=== PATIENT | male | born 1960 | race Caucasian/White ===

== ENCOUNTER 2020-12-26 14:13 | Inpatient (IN) | payer OTHER, BC ==
[~2020-12-26] VITALS: Ht 175.3 cm; Wt 109.7 kg
[~2020-12-26 14:13] MED LIST: ALPR.5T PO; ESCT10T PO; LISI20TA PO; MTH10T PO; OMEP20TA2 PO; ZOLP12.5 PO
[2020-12-26] MEDS ORDERED: HOLD METFORMIN - RECEIVED CONTRAST 20 ML VIAL IV SCH (14:30)
[2020-12-26] MEDS ORDERED: IOHEXOL 350 MG/ML 100 ML (OMNIPAQUE 350) VIAL IV ONE (14:30)
[2020-12-26] MEDS ORDERED: NS 100 ML (IVPB) BAG IV ONE (14:30)
[2020-12-26] MEDS ORDERED: CATHETER FLUSH 10 ML SYR IV PRN ×2 (14:30→19:00)
[2020-12-26] MEDS ORDERED: NS IV 1000 ML 1,000 ML ONE (14:34)
[2020-12-26 14:35] LABS: HEMATOCRIT 44 % (40-54); HEMOGLOBIN 14.8 G/DL (13.3-17.7); LYMPHOCYTES % (AUTO) 7 % (12-44); MEAN CORPUSCULAR HEMOGLOBIN 30 PG (25-34); MEAN CORPUSCULAR HGB CONC 34 G/DL (32-36); MEAN CORPUSCULAR VOLUME 90 FL (80-99); MEAN PLATELET VOLUME 9.5 FL (7.4-10.4); NEUTROPHILS % (AUTO) 88 % (42-75); PLATELET COUNT 357 10^3/uL (130-400); WHITE BLOOD COUNT 25.3 10^3/uL (4.3-11.0)
[2020-12-26 14:36] LABS: BASOPHILS % (AUTO) 0 % (0-10); EOSINOPHILS % (AUTO) 0 % (0-10); LYMPHOCYTES # (AUTO) 1.7 X 10^3 (1.0-4.0); MONOCYTES # (AUTO) 1.3 X 10^3 (0.0-1.0); MONOCYTES % (AUTO) 5 % (0-12); NEUTROPHILS # (AUTO) 22.2 X 10^3 (1.8-7.8)
--- NOTE | 2020-12-26 14:38 | ED Trauma-Multisystem ---
General Stated Complaint: WC SOB; CHEST PAIN; DIAPHORETIC; HEAD W/ LOC History of Present Illness Date Seen by Provider: Dec 26, 2020 Time Seen by Provider: 14:15 Initial Comments 60-year-old male presents with chest pain, diaphoretic, head injury with loss of consciousness, left lower leg injury. 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 This happened around 1030 this morning. At that time patient declined being seen or coming to the ER. Throughout the day he is gotten worsening shortness of breath, some more intense chest pain. Patient does have a pacemaker and is having some pain on the left side of his chest were the cow struck him. Patient reports that he last drank some when the incident happened. He has had not had anything to eat. Patient denies any known allergies. Patient denies any abdominal pain. He does have some mild pain in his upper mid back. He denies any neck pain he denies any nausea or vomiting. He does have reports of some blurry vision. Allergies and Home Medications Allergies Coded Allergies: No Known Drug Allergies (Unverified , 01/11/11) Home Medications Alprazolam 0.5 Mg Tablet, 1 TAB PO TID, (Reported) Escitalopram Oxalate 10 Mg Tablet, 1 EACH PO DAILY, (Reported) Lisinopril 20 Mg Tablet, 20 MG PO DAILY, (Reported) Methadone Hcl 10 Mg Tab, 1 TAB PO QID, (Reported) Omeprazole 20 Mg Tablet.dr, 20 MG PO DAILY, (Reported) Zolpidem Tartrate 12.5 Mg/Bottle Tab.mphase, 12.5 MG PO HS, (Reported) Patient Home Medication List Home Medication List Reviewed: Yes Review of Systems Review of Systems Constitutional: no symptoms reported Eyes: Blurred Vision Ears: Dizziness Nose: No Symptoms Reported Mouth: No Symptoms Reported Throat: No Symptoms to Report Respiratory: see HPI, short of breath Cardiovascular: Chest Pain, Lightheadedness; Denies Palpitations Gastrointestinal: No abdominal pain, No nausea, No vomiting Musculoskeletal: see HPI, back pain Skin: other (Abrasion right shoulder) Psychiatric/Neurological: See HPI Physical Exam Vital Signs Vital Signs - First Documented 12/26/20 14:15 Temp 36.3 Pulse 123 Resp 24 B/P (MAP) 100/61 (74) Pulse Ox 97 O2 Delivery Room Air Height, Weight, BMI Height: '" Weight: lbs. oz. kg; BMI Method: General Appearance: Moderate Distress, Other (Diaphoretic) Head: No Evidence of Injury Eyes: Bilateral Eye PERRL, Bilateral Eye EOMI Neck: Non Tender, Supple Cardiovascular: Tachycardia Respiratory: Lungs Clear, Other (Left anterior chest wall tenderness) Gastrointestinal: Non Tender, Soft Extremity: Normal Capillary Refill, Swelling (Left lower extremity swelling/hematoma) Neurologic/Psychiatric: Alert, Oriented x3 Skin: Diaphoresis Progress/Results/Core Measures Results/Orders Lab Results Laboratory Tests Test 12/26/20 14:20 12/26/20 14:31 Range/Units White Blood Count 25.3 H 4.3-11.0 10^3/uL Red Blood Count 4.93 4.35-5.85 10^6/uL Hemoglobin 14.8 13.3-17.7 G/DL Hematocrit 44 40-54 % Mean Corpuscular Volume 90 80-99 FL Mean Corpuscular Hemoglobin 30 25-34 PG Mean Corpuscular Hemoglobin Concent 34 32-36 G/DL Red Cell Distribution Width 13.3 10.0-14.5 % Platelet Count 357 130-400 10^3/uL Mean Platelet Volume 9.5 7.4-10.4 FL Immature Granulocyte % (Auto) 0 % Neutrophils (%) (Auto) 88 H 42-75 % Lymphocytes (%) (Auto) 7 L 12-44 % Monocytes (%) (Auto) 5 0-12 % Eosinophils (%) (Auto) 0 0-10 % Basophils (%) (Auto) 0 0-10 % Neutrophils # (Auto) 22.2 H 1.8-7.8 X 10^3 Lymphocytes # (Auto) 1.7 1.0-4.0 X 10^3 Monocytes # (Auto) 1.3 H 0.0-1.0 X 10^3 Eosinophils # (Auto) 0.0 0.0-0.3 10^3/uL Basophils # (Auto) 0.0 0.0-0.1 10^3/uL Immature Granulocyte # (Auto) 0.1 0.0-0.1 10^3/uL Neutrophils % (Manual) 79 % Lymphocytes % (Manual) 10 % Monocytes % (Manual) 6 % Eosinophils % (Manual) 0 % Basophils % (Manual) 0 % Band Neutrophils 5 % Prothrombin Time 12.6 12.2-14.7 SEC INR Comment 0.9 0.8-1.4 Activated Partial Thromboplast Time 27 24-35 SEC Sodium Level 135 135-145 MMOL/L Potassium Level 4.5 3.6-5.0 MMOL/L Chloride Level 99 98-107 MMOL/L Carbon Dioxide Level 20 L 21-32 MMOL/L Anion Gap 16 H 5-14 MMOL/L Blood Urea Nitrogen 20 H 7-18 MG/DL Creatinine 2.33 H 0.60-1.30 MG/DL Estimat Glomerular Filtration Rate 29 BUN/Creatinine Ratio 9 Glucose Level 139 H 70-105 MG/DL Calcium Level 9.8 8.5-10.1 MG/DL Corrected Calcium 9.6 8.5-10.1 MG/DL Magnesium Level 1.7 1.6-2.4 MG/DL Total Bilirubin 1.8 H 0.1-1.0 MG/DL Aspartate Amino Transf (AST/SGOT) 50 H 5-34 U/L Alanine Aminotransferase (ALT/SGPT) 44 0-55 U/L Alkaline Phosphatase 85 40-136 U/L Total Protein 7.6 6.4-8.2 GM/DL Albumin 4.3 3.2-4.5 GM/DL Glucometer 136 H 70-110 MG/DL My Orders Orders - ROMEO,ROSALIA L DO Ct Head Wo (12/26/20 14:18) Cbc With Automated Diff (12/26/20 14:18) Comprehensive Metabolic Panel (12/26/20 14:18) Magnesium (12/26/20 14:18) Protime With Inr (12/26/20 14:18) Partial Thromboplastin Time (12/26/20 14:18) Ua Culture If Indicated (12/26/20 14:18) Chest 1 View Ap/Pa Only (12/26/20 14:18) Femur 2 View Left (12/26/20 14:18) Tibia Fibula 2 View Left (12/26/20 14:18) Ed Iv/Invasive Line Start (12/26/20 14:18) Ekg Tracing (12/26/20 14:22) Ct Chest/Abdomen/Pelvis W (12/26/20 14:18) Ct Cervical Spine Wo (12/26/20 14:25) Iohexol Injection (Omnipaque 350 Mg/Ml 1 (12/26/20 14:30) Received Contrast (Hold Metformin- Contr (12/26/20 14:30) Sodium Chloride Flush (Catheter Flush Sy (12/26/20 14:30) Ns (Ivpb) (Sodium Chloride 0.9% Ivpb Bag (12/26/20 14:30) Manual Differential (12/26/20 14:20) Ns Iv 1000 Ml (Sodium Chloride 0.9%) (12/26/20 14:34) Ns Iv 1000 Ml (Sodium Chloride 0.9%) (12/26/20 15:11) Fentanyl Inj (Sublimaze Injection) (12/26/20 16:08) Medications Given in ED Current Medications Medications Dose Ordered Sig/Mounika Route Start Time Stop Time Status Last Admin Dose Admin Iohexol 100 ml ONCE ONCE IV 12/26/20 14:30 12/26/20 14:31 DC 12/26/20 14:53 100 ML Sodium Chloride 10 ml NEEDED PRN IV 12/26/20 14:30 12/26/20 14:53 10 ML Sodium Chloride 100 ml ONCE ONCE IV 12/26/20 14:30 12/26/20 14:31 DC 12/26/20 14:53 100 ML Vital Signs/I&O 12/26/20 12/26/20 14:15 14:48 Temp 36.3 36.3 Pulse 123 123 Resp 24 24 B/P (MAP) 100/61 (74) 100/61 (74) Pulse Ox 97 97 O2 Delivery Room Air Room Air Progress Progress Note : Progress Note Patient had approximately 45 seconds to 60 seconds episode of decreased responsiveness, he did have a drop of oxygen at that time, stared off into space and was nonresponsive. Patient was extremely diaphoretic during the episode. I am unsure if this was a vagal syncopal episode versus cardiac event versus a seizure. Patient with negative imaging including negative CT head, CT neck and no significant acute finding on CT chest abdomen pelvis. Patient does have a minor potential T3 compression fracture however patient is diffusely tender in his back area with no significant point tenderness at that area. Based on patient's unresponsive episode we will place him in observation at [facility]. Case was discussed with Dr. hBatt, Dr. Greenfield and Dr. Thurman. Patient is transferred in stable condition. Initial ECG Impression Date: Dec 26, 2020 Initial ECG Impression Time: 14:27 Initial ECG Rate: 100 Initial ECG Rhythm: S.Tach Initial ECG Intervals qtc 480 Comment no acute findings Diagnostic Imaging Diagonstic Imaging: CT Plain Films/CT/US/NM/MRI: head Comments IMPRESSION: Negative CT head Reviewed: Reviewed by Me, Reviewed/Discussed Diagonstic Imaging: CT Plain Films/CT/US/NM/MRI: c-spine Comments NDICATION: Neck injury, hit by bull Vertebral body height and alignment appear normal. The odontoid is intact. Atlantoaxial and basocervical relationships appear normal. There are no fractures seen. IMPRESSION: Negative CT cervical spine Reviewed: Reviewed by Me, Reviewed/Discussed Diagonstic Imaging: CT Plain Films/CT/US/NM/MRI: chest, abdomen, pelvis Comments MPRESSION: 1. Age-indeterminate compression deformity at the superior endplate of T3 with minimal height loss. Recommend correlation with point tenderness and if indicated MRI of the thoracic spine to further evaluate. 2. No evidence of pneumothorax or pleural effusion. No pulmonary laceration. 3. No evidence of acute injury in the abdomen and pelvis. No free fluid or free air. 4. indeterminate nodule in the left adrenal gland. If indicated, consider adrenal protocol CT or MRI on an outpatient basis to further evaluate. 5. Diverticulosis of the sigmoid colon without evidence of acute diverticulitis. Reviewed: Reviewed by Me, Reviewed/Discussed Diagonstic Imaging: Xray Plain Films/CT/US/NM/MRI: other Comments Negative x-rays of chest, femur and tib-fib. Reviewed: Reviewed by Me, Reviewed/Discussed Departure Impression Primary Impression: Concussion Qualified Codes: S06.0X1A - Concussion with loss of consciousness of 30 minutes or less, initial encounter Additional Impressions: Episode of unresponsiveness Chest wall contusion Qualified Codes: S20.212A - Contusion of left front wall of thorax, initial encounter Hematoma of left lower extremity Qualified Codes: S80.12XA - Contusion of left lower leg, initial encounter Victim of trampling from animal Disposition: 30 STILL A PATIENT Condition: Stable Admissions Decision to Admit Reason: Admit from ER (General) Decision to Admit/Date: Dec 26, 2020 Time/Decision to Admit Time: 15:45 Departure-Patient Inst. Referrals: MANDY HURTADO DO (PCP/Family) Primary Care Physician ROSALIA ROMEO DO Dec 26, 2020 14:38
[2020-12-26 14:46] LABS: INR 0.9 (0.8-1.4); PROTHROMBIN TIME PATIENT 12.6 SEC (12.2-14.7)
[2020-12-26 14:52] LABS: POTASSIUM 4.5 MMOL/L (3.6-5.0)
[2020-12-26 14:53] LABS: ALBUMIN 4.3 GM/DL (3.2-4.5); BILIRUBIN,TOTAL 1.8 MG/DL (0.1-1.0); CALCIUM 9.8 MG/DL (8.5-10.1); CREATININE SERUM 2.33 MG/DL (0.60-1.30); MAGNESIUM 1.7 MG/DL (1.6-2.4); NEUTROPHILS % (MANUAL) 79 %; TOTAL PROTEIN 7.6 GM/DL (6.4-8.2)
[2020-12-26 14:54] LABS: BAND NEUTROPHILS 5 %; BASOPHILS % (MANUAL) 0 %; EOSINOPHILS % (MANUAL) 0 %; LYMPHOCYTES % (MANUAL) 10 %; MONOCYTES % (MANUAL) 6 %
--- NOTE | 2020-12-26 15:09 | Diagnostic Imaging Report ---
PROCEDURE: CT head without contrast. TECHNIQUE: Multiple contiguous axial images were obtained through the brain without the use of intravenous contrast. Auto Exposure Controls were utilized during the CT exam to meet ALARA standards for radiation dose reduction. INDICATION: Head trauma, hit by bull The ventricles are normal in size, shape and position. There are no masses or hemorrhages. There are no extra-axial fluid collections. There are no skull fractures seen. IMPRESSION: Negative CT head Dictated by: Dictated on workstation # [id number]
[2020-12-26] MEDS ORDERED: NS IV 1000 ML 1,000 ML IV STA (15:11)
--- NOTE | 2020-12-26 15:11 | Diagnostic Imaging Report ---
PROCEDURE: CT cervical spine without contrast. TECHNIQUE: Multiple contiguous axial images were obtained through the cervical spine without the use of intravenous contrast. Sagittal and coronal reformations were then performed. Auto Exposure Controls were utilized during the CT exam to meet ALARA standards for radiation dose reduction. INDICATION: Neck injury, hit by bull Vertebral body height and alignment appear normal. The odontoid is intact. Atlantoaxial and basocervical relationships appear normal. There are no fractures seen. IMPRESSION: Negative CT cervical spine Dictated by: Dictated on workstation # [id number]
--- NOTE | 2020-12-26 15:18 | Diagnostic Imaging Report ---
EXAMINATION: CT chest, abdomen and pelvis with intravenous contrast. TECHNIQUE: Multiple contiguous axial images were obtained through the chest, abdomen and pelvis after the uneventful administration of intravenous contrast. All CT scans use one or more of the following dose optimizing techniques: automated exposure control, MA and/or KvP adjustment based on patient size and exam type or iterative reconstruction. HISTORY: Trauma. Hit by a bull. Abrasions in the torso. COMPARISON: None available. FINDINGS: CT CHEST: The heart size is within normal limits. No pericardial effusion is present. A left pectoral dual-chamber pacemaker is noted. No evidence of pulmonary embolism in subsegmental pulmonary arteries. The thoracic aorta is normal. There is no mediastinal, hilar, or axillary lymphadenopathy. Calcified mediastinal lymph nodes are noted likely representing prior granulomatous disease. The lungs demonstrate no pulmonary nodules or masses. There are no focal areas of consolidation. Dependent atelectasis is seen bilaterally. No central endobronchial obstructing lesions are identified. There are no pleural effusions or pneumothorax. Age-indeterminate compression deformity is visualized involving the superior endplate of T3 with minimal height loss. CT ABDOMEN AND PELVIS: The left kidney is surgically absent. The right kidney is unremarkable. Nodule seen in the left adrenal gland measuring 1.6 cm. The right renal gland is unremarkable. The liver, spleen, and pancreas have a normal appearance. The gallbladder is surgically absent. There is no pathologically enlarged mesenteric or retroperitoneal adenopathy. The bowel loops are nondilated. Diverticuli are seen in the descending and sigmoid colon without evidence of acute diverticulitis. There is no free fluid or free air. The osseous structures demonstrate no acute abnormalities. Ureters and bladder have a normal appearance. Bilateral fat-containing inguinal hernias are present. There is no free air, loculated collection, or adenopathy in the pelvis. IMPRESSION: 1. Age-indeterminate compression deformity at the superior endplate of T3 with minimal height loss. Recommend correlation with point tenderness and if indicated MRI of the thoracic spine to further evaluate. 2. No evidence of pneumothorax or pleural effusion. No pulmonary laceration. 3. No evidence of acute injury in the abdomen and pelvis. No free fluid or free air. 4. indeterminate nodule in the left adrenal gland. If indicated, consider adrenal protocol CT or MRI on an outpatient basis to further evaluate. 5. Diverticulosis of the sigmoid colon without evidence of acute diverticulitis. Dictated by: Dictated on workstation # [id number]
--- NOTE | 2020-12-26 15:29 | Diagnostic Imaging Report ---
INDICATION: Trauma, chest injury. EXAMINATION: Portable chest at 3:06 p.m. There is a dual-chamber is no effusion or pneumothorax. IMPRESSION: Negative chest. Dictated by: Dictated on workstation # [id number]
--- NOTE | 2020-12-26 15:30 | Diagnostic Imaging Report ---
Indication: Trauma, left leg injury AP and lateral views of the left femur show no fracture or dislocation. IMPRESSION: Negative left femur Dictated by: Dictated on workstation # [id number]
--- NOTE | 2020-12-26 15:31 | Diagnostic Imaging Report ---
Indication: Left leg injury AP lateral views of left tibia-fibula show old healed fracture of the midshaft of the fibula. There is no acute fracture or dislocation. IMPRESSION: No acute abnormality seen in the left tibia and fibula. Dictated by: Dictated on workstation # [id number]
[2020-12-26] MEDS ORDERED: fentaNYL INJ 100 MCG/2 ML AMP IVP STA (16:08)
[2020-12-26 18:18] VITALS: BP 130/74
[2020-12-26] MEDS ORDERED: NITROGLYCERIN 0.4 MG SL TABS BTL 25'S SL PRN (19:45)
[2020-12-26] MEDS ORDERED: LOPERAMIDE 2 MG (IMODIUM) TABLET PO PRN (20:15)
[2020-12-26] MEDS ORDERED: ONDANSETRON 4 MG/2 ML (SDV) Z0FRAN IVP PRN (20:15)
[2020-12-26] MEDS ORDERED: DOCUSATE SODIUM 100 MG (COLACE) CAP PO PRN (20:15)
[2020-12-26] MEDS ORDERED: diphenhydrAMINE 25 MG TAB (BENADRYL) PO PRN (20:15)
[2020-12-26] MEDS ORDERED: CALCIUM CARBONATE 500 MG (TUMS) TAB.CHEW PO PRN (20:15)
[2020-12-26] MEDS ORDERED: MELATONIN 3 MG TABLET PO PRN (20:15)
[2020-12-26] MEDS ORDERED: ALPRAZolam 0.25 MG (XANAX) TAB PO PRN (20:15)
[2020-12-26] MEDS ORDERED: ACETAMINOPHEN 500 MG TAB (TYLENOL) PO PRN (20:15)
[2020-12-26 20:19] LABS: CREATINE KINASE 1851 U/L (30-200)
[2020-12-26 20:29] VITALS: BP 146/80
[2020-12-26] MEDS: fentaNYL INJ 100 MCG/2 ML AMP IVP PRN (20:40)
--- NOTE | 2020-12-26 21:22 | Consultation - Surgery ---
History of Present Illness History of Present Illness Patient Consulted On(rafaela/time) 12/26/20 21:15 Time Seen by Provider: 20:43 History of Present Illness Surgery asked to consult regarding Trauma, Left leg swelling. HPI per ED: 60-year-old male presents with chest pain, diaphoretic, head inju ry with loss of consciousness, left lower leg injury. 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 This happened around 1030 this morning. At that time patient declined being seen or coming to the ER. Throughout the day he is gotten worsening shortness of breath, some more intense chest pain. Patient does have a pacemaker and is having some pain on the left side of his chest were the cow struck him. Patient reports that he last drank some when the incident happened. He has had not had anything to eat. Patient denies any known allergies. Patient denies any abdominal pain. He does have some mild pain in his upper mid back. He denies any neck pain he denies any nausea or vomiting. He does have reports of some blurry vision. When I spoke to pt his main complaint was of the left leg; "I can't feel anything on the back of my leg." He also still had some chest pain, but denied SOB at this time. Pt got rammed and then trampled by cow. He doesn't remember it because he lost consciousness. All his scans were negative, but then he had syncopal episode or possibly seizure (per ED physician ). Therefore, he was admitted to medicine since from Trauma standpoint everything was negative. I got a phone call because nurse was worried about his left leg being swollen. Allergies and Home Medications Allergies Coded Allergies: No Known Drug Allergies (Unverified , 01/11/11) Home Medications Alprazolam 0.5 Mg Tablet, 1 TAB PO TID, (Reported) Escitalopram Oxalate 10 Mg Tablet, 1 EACH PO DAILY, (Reported) Lisinopril 20 Mg Tablet, 20 MG PO DAILY, (Reported) Methadone Hcl 10 Mg Tab, 1 TAB PO QID, (Reported) Omeprazole 20 Mg Tablet.dr, 20 MG PO DAILY, (Reported) Zolpidem Tartrate 12.5 Mg/Bottle Tab.mphase, 12.5 MG PO HS, (Reported) Patient Home Medication List Home Medication List Reviewed: Yes Past Kmvgtim-Syrscj-Lsbcri Hx Patient Social History Smoking Status: Never a Smoker Alcohol Use?: Yes (rarely) Have you traveled recently?: No Surgeries History of Surgeries: Yes Surgeries: Orthopedic Respiratory History of Respiratory Disorde: No Cardiovascular History of Cardiac Disorders: Yes Cardiac Disorders: High Cholesterol, Hypertension Genitourinary History of Genitourinary Disor: No Gastrointestinal History of Gastrointestinal Di: Yes Gastrointestinal Disorders: Gastroesophageal Reflux Musculoskeletal History of Musculoskeletal Dis: Yes Musculoskeletal Disorders: Back Injury, Fractures Endocrine History of Endocrine Disorders: No HEENT History of HEENT Disorders: No Cancer History of Cancer: No Psychosocial History of Psychiatric Problem: Yes Behavioral Health Disorders: Anxiety, Depression Integumentary History of Skin or Integumenta: No Family Medical History Significant Family History: Heart Disease (Mother), Hypertension Review of Systems-General Constitutional: No chills, No dizziness EENTM: blurred vision; No mouth pain, No mouth swelling, No epistaxis, No throat swelling Respiratory: No cough, No dyspnea on exertion, No short of breath Cardiovascular: chest pain; No palpitations Gastrointestinal: abdominal pain; No jaundice, No nausea, No vomiting Genitourinary: No dysuria, No frequency, No hematuria Musculoskeletal: back pain, joint pain, joint swelling, muscle pain, muscle stiffness, muscle cramps, muscle weakness Skin: No change in color, No change in hair/nails Psychiatric/Neurological: Anxiety, Depressed; Denies Seizure, Denies Tremors Physical Exam-General Problems Physical Exam Vital Signs Vital Signs - First Documented 12/26/20 14:15 Temp 36.3 Pulse 123 Resp 24 B/P (MAP) 100/61 (74) Pulse Ox 97 O2 Delivery Room Air Capillary Refill : Less Than 3 Seconds General Appearance: WD/WN, mild distress, obese Eyes: Bilateral Eye PERRL, Bilateral Eye EOMI HEENT: pharynx normal; No scleral icterus (R), No scleral icterus (L), No pale conjunctivae (R), No pale conjunctivae (L) Neck: non-tender, supple Respiratory: lungs clear, normal breath sounds, no respiratory distress, no accessory muscle use Cardiovascular: regular rate, rhythm, no murmur Gastrointestinal: non tender, soft, no organomegaly, hernia (umbilical and ??b/l inguinal) Back: CVA tenderness (R), CVA tenderness (L), vertebral tenderness Extremities: pedal edema (left), slow capillary refill (left), swelling (left, much bigger than right), other (large hematoma above knee posteriorly. 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, alert, oriented x 3 Skin: normal color, warm/dry, other (large abrasion right posterior shoulder) Lymphatic: no adenopathy (neck, axilla or groin) Data Review Labs Laboratory Tests 12/26/20 14:20: White Blood Count 25.3H, Red Blood Count 4.93, Hemoglobin 14.8, Hematocrit 44, Mean Corpuscular Volume 90, Mean Corpuscular Hemoglobin 30, Mean Corpuscular Hemoglobin Concent 34, Red Cell Distribution Width 13.3, Platelet Count 357, Mean Platelet Volume 9.5, Immature Granulocyte % (Auto) 0, Neutrophils (%) (Auto) 88H, Lymphocytes (%) (Auto) 7L, Monocytes (%) (Auto) 5, Eosinophils (%) (Auto) 0, Basophils (%) (Auto) 0, Neutrophils # (Auto) 22.2H, Lymphocytes # (Auto) 1.7, Monocytes # (Auto) 1.3H, Eosinophils # (Auto) 0.0, Basophils # (Auto) 0.0, Immature Granulocyte # (Auto) 0.1, Neutrophils % (Manual) 79, Lymphocytes % (Manual) 10, Monocytes % (Manual) 6, Eosinophils % (Manual) 0, Basophils % (Manual) 0, Band Neutrophils 5, Prothrombin Time 12.6, INR Comment 0.9, Activated Partial Thromboplast Time 27, Sodium Level 135, Potassium Level 4.5, Chloride Level 99, Carbon Dioxide Level 20L, Anion Gap 16H, Blood Urea Nitrogen 20H, Creatinine 2.33H, Estimat Glomerular Filtration Rate 29, BUN/Creatinine Ratio 9, Glucose Level 139H, Calcium Level 9.8, Corrected Calcium 9.6, Magnesium Level 1.7, Total Bilirubin 1.8H, Aspartate Amino Transf (AST/SGOT) 50H, Alanine Aminotransferase (ALT/SGPT) 44, Alkaline Phosphatase 85, Total Protein 7.6, Albumin 4.3 12/26/20 14:31: Glucometer 136H 12/26/20 19:52: Total Creatine Kinase 1851H, Myoglobin 1449.2H, Troponin I < 0.028 Assessment/Plan Assessment/Plan Assessment/Plan Trauma - trampled by cow Abrasion right shoulder Left leg swelling - r/o Compartment syndrome Closed Head injury - concussion with LOC I had ER come up and help me get compartment pressures; Superficial 26mm Hg, Lat eral 16mm Hg, Anterior 23mm Hg and Deep 23mm Hg. He has pallor, paresthesia, faint pulse, weakness and pain out of proportion (with just passive stretch); so clinically I am very concerned. Will monitor his leg and may recheck pressures tomorrow. Will follow labs and watch out for Rhabdomyalsis, explained all this to the pt and his ; they understood. All questions answered to their satisfaction. RADHA WALTERS DO Dec 26, 2020 21:22
[2020-12-26] MEDS: HYDROcodone/APAP 5 MG/325 MG (LORTAB) TAB PO PRN (22:02)
[2020-12-26] MEDS: SENNA W/DOCUSATE (SENOKOT S) TABLET PO SCH (22:02)
[2020-12-26] MEDS: polyethylene glycoL POWDER 17 GM (MIRALAX) PACK PO SCH (22:03)
[2020-12-26] MEDS: CATHETER FLUSH 10 ML SYR IV SCH (22:03)
[2020-12-26] MEDS: NS IV 1000 ML 1,000 ML IV SCH (22:25)
[2020-12-26] MEDS: HYDROmorphone 2 MG/ML VIAL (DILAUDID) IVP PRN (23:30)
[2020-12-27] MEDS: HYDROcodone/APAP 5 MG/325 MG (LORTAB) TAB PO PRN ×2 (02:06→07:55)
--- NOTE | 2020-12-27 02:57 | Tele-ICU Progress Note ---
Progress Note 60M admitted for trauma about 6 hours after being rammed and then trampled by a cow. Did have initial LOC, but declined hospital evaluation. Throughout the day, chest pain and dyspnea has gotten progressively worse. Also with significant leg pain and swelling. In ED, had 45-60 sec episode of decreased responsiveness, stared off into space and was nonresponsive, diaphoretic, mildly hypoxic. Unclear whether syncope or seizure. Noted to have an age indeterminate T3 compression fracture. - concussion: head trauma with LOC of unknown duration. Monitor, supportive care. - compartment syndrome: leg evaluated by surgery, compartment pressures checked and OK but clinical condition is still concerning for compartment syndrome, CK and myoglobin elevated, pain out of proportion to injury, significant swelling. Surgery is monitoring. Probable repeat compartment pressures in AM. Will trend CK and myoglobin. - CP/SOB: no identifiable injury. Noted to have pacemaker at the location he was kicked. Would interogate in AM. - MARIMAR on CKD: baseline unknown but was 1.4 in 2010, today 2.3. Unknown whether progression of baseline or MARIMAR. Repeat in AM. High risk for rhabdo, continue IVF and CK monitoring. Focused Exam Height, Weight, BMI Height: '" Weight: lbs. oz. kg; 35.66 BMI Method: LOIS MCPHERSON MD Dec 27, 2020 02:57
[2020-12-27] MEDS: HYDROmorphone 2 MG/ML VIAL (DILAUDID) IVP PRN (05:04)
[2020-12-27] MEDS: CATHETER FLUSH 10 ML SYR IV SCH ×3 (05:27→20:36)
[2020-12-27 05:56] LABS: BASOPHILS % (AUTO) 0 % (0-10); EOSINOPHILS # (AUTO) 0.1 10^3/uL (0.0-0.3); EOSINOPHILS % (AUTO) 1 % (0-10); HEMATOCRIT 38 % (40-54); HEMOGLOBIN 12.6 g/dL (13.3-17.7); LYMPHOCYTES % (AUTO) 22 % (12-44); MEAN CORPUSCULAR HEMOGLOBIN 31 pg (25-34); MEAN CORPUSCULAR HGB CONC 33 g/dL (32-36); MEAN CORPUSCULAR VOLUME 93 fL (80-99); MEAN PLATELET VOLUME 9.6 fL (9.0-12.2); MONOCYTES # (AUTO) 0.9 10^3/uL (0.0-1.0); MONOCYTES % (AUTO) 10 % (0-12); NEUTROPHILS # (AUTO) 6.2 10^3/uL (1.8-7.8); NEUTROPHILS % (AUTO) 68 % (42-75); PLATELET COUNT 215 10^3/uL (130-400); WHITE BLOOD COUNT 9.1 10^3/uL (4.3-11.0)
[2020-12-27 06:08] LABS: ALBUMIN 3.6 GM/DL (3.2-4.5); POTASSIUM 4.6 MMOL/L (3.6-5.0)
[2020-12-27 06:09] LABS: CALCIUM 8.5 MG/DL (8.5-10.1)
[2020-12-27 06:10] LABS: TOTAL PROTEIN 6.1 GM/DL (6.4-8.2)
[2020-12-27 06:14] LABS: CREATININE SERUM 1.68 MG/DL (0.60-1.30)
[2020-12-27 06:49] LABS: PHOSPHORUS 4.4 MG/DL (2.3-4.7)
[2020-12-27 06:51] LABS: MAGNESIUM 1.9 MG/DL (1.6-2.4)
[2020-12-27 07:32] LABS: CREATINE KINASE MB 13.7 NG/ML (<6.6)
[2020-12-27] MEDS: polyethylene glycoL POWDER 17 GM (MIRALAX) PACK PO SCH ×2 (07:45→20:35)
[2020-12-27] MEDS: SENNA W/DOCUSATE (SENOKOT S) TABLET PO SCH ×2 (07:46→20:35)
[2020-12-27] MEDS: NS IV 1000 ML 1,000 ML IV SCH ×2 (07:55→15:11)
--- NOTE | 2020-12-27 08:15 | Progress Note - Surgery ---
CASSIELUIS 12/27/20 0815: Subjective Date Seen by a Provider: Dec 27, 2020 Time Seen by a Provider: 06:30 Subjective/Events-last exam Pt recovering from tumatic injury associated with cow to chest and leg. Left lower leg selling has reduced form 44-42cm since yesterday and myglobin is falling from 1449-990 since yesterday. Pain, tenderness and parathesia to posterior leg contiue. Sensation to touch present on dorsal and pedal surfaces of foot, however left dorsal pedal pulse still remains deminished compared to right, likely due to some swelling at the left ankle as well. Review of Systems General: No Chills, No Night Sweats; Fatigue HEENT: No Head Aches, No Visual Changes, No Eye Pain, No Ear Pain Pulmonary: No Dyspnea, No Cough Cardiovascular: No: Palpitations, Lt Headedness Gastrointestinal: Abdominal Pain; No: Nausea, Vomiting Musculoskeletal: other, leg pain, foot pain Neurological: Numbness; No: Weakness, Change in speech, Confusion Objective Exam Vital Signs Date Time Temp Pulse Resp B/P (MAP) Pulse Ox O2 Delivery O2 Flow Rate FiO2 12/27/20 07:51 36.2 12/27/20 07:00 70 12/27/20 06:00 70 13 110/73 (85) 96 Room Air 12/27/20 05:10 36.4 12/27/20 05:05 Room Air 12/27/20 05:00 70 15 113/80 (91) 99 Nasal Cannula 2.00 12/27/20 04:00 70 10 113/66 (82) 98 Nasal Cannula 2.00 12/27/20 04:00 Nasal Cannula 2.00 12/27/20 03:00 69 10 106/63 (77) 97 Nasal Cannula 2.00 12/27/20 02:00 70 12 113/58 (76) 97 Nasal Cannula 2.00 12/27/20 01:00 70 10 97/56 (70) 96 Nasal Cannula 2.00 12/27/20 01:00 70 12/27/20 00:00 Nasal Cannula 2.00 12/27/20 00:00 69 12 106/53 (70) 95 Nasal Cannula 2.00 12/26/20 23:30 70 15 109/59 (76) 96 Nasal Cannula 2.00 12/26/20 23:00 69 17 112/62 (79) 97 Nasal Cannula 2.00 12/26/20 22:45 70 22 120/63 (82) 96 Nasal Cannula 2.00 12/26/20 22:35 Nasal Cannula 2.00 12/26/20 22:30 70 13 120/63 (82) 98 Nasal Cannula 4.00 12/26/20 22:10 36.7 70 22 121/79 (93) 98 Nasal Cannula 4.00 12/26/20 20:40 Nasal Cannula 2.00 12/26/20 20:29 36.6 70 20 146/80 (102) 99 Nasal Cannula 2.00 12/26/20 19:55 70 12/26/20 18:18 36.6 71 18 130/74 (92) 99 Nasal Cannula 2.00 12/26/20 18:18 99 Nasal Cannula 2.00 12/26/20 16:01 70 18 112/43 99 Room Air 12/26/20 14:48 36.3 123 24 100/61 (74) 97 Room Air 12/26/20 14:15 36.3 123 24 100/61 (74) 97 Room Air I & O 12/27/20 07:00 Intake Total 2820 ml Output Total 650 ml Balance 2170 ml Capillary Refill : Less Than 3 Seconds General Appearance: Mild Distress, Other (Diaphoretic) HEENT: PERRL/EOMI, Pharynx Normal, Moist Mucous Membranes Neck: Non Tender, Supple Respiratory: Lungs Clear, Normal Breath Sounds, Other (Left anterior chest wall tenderness and decreased chest rise secondary to pain) Cardiovascular: Regular Rate, Rhythm, No Edema, No Gallop, No Murmur Peripheral Pulses: 2+ Dorsalis Pedis (R); 1+ Left Dors-Pedis (L); 2+ Radial Pulses (R), 2+ Radial Pulses (L) Gastrointestinal: soft, no organomegaly, guarding, tenderness (left sided tenderness LUQ and LLQ) Extremity: Normal Capillary Refill, Calf Tenderness (left side), Swelling (Left lower extremity swelling/hematoma (deminished 44 to 42cm since yesterday)) Neurologic/Psychiatric: Alert, Oriented x3, Normal Mood/Affect, front tender II-XII Norm as Tested Skin: Normal Color, Warm/Dry Results Lab Laboratory Tests 12/26/20 14:20: White Blood Count 25.3H, Red Blood Count 4.93, Hemoglobin 14.8, Hematocrit 44, Mean Corpuscular Volume 90, Mean Corpuscular Hemoglobin 30, Mean Corpuscular Hemoglobin Concent 34, Red Cell Distribution Width 13.3, Platelet Count 357, Mean Platelet Volume 9.5, Immature Granulocyte % (Auto) 0, Neutrophils (%) (Auto) 88H, Lymphocytes (%) (Auto) 7L, Monocytes (%) (Auto) 5, Eosinophils (%) (Auto) 0, Basophils (%) (Auto) 0, Neutrophils # (Auto) 22.2H, Lymphocytes # (Auto) 1.7, Monocytes # (Auto) 1.3H, Eosinophils # (Auto) 0.0, Basophils # (Auto) 0.0, Immature Granulocyte # (Auto) 0.1, Neutrophils % (Manual) 79, Lymphocytes % (Manual) 10, Monocytes % (Manual) 6, Eosinophils % (Manual) 0, Basophils % (Manual) 0, Band Neutrophils 5, Prothrombin Time 12.6, INR Comment 0.9, Activated Partial Thromboplast Time 27, Sodium Level 135, Potassium Level 4.5, Chloride Level 99, Carbon Dioxide Level 20L, Anion Gap 16H, Blood Urea Nitrogen 20H, Creatinine 2.33H, Estimat Glomerular Filtration Rate 29, BUN/Creatinine Ratio 9, Glucose Level 139H, Calcium Level 9.8, Corrected Calcium 9.6, Magnesium Level 1.7, Total Bilirubin 1.8H, Aspartate Amino Transf (AST/SGOT) 50H, Alanine Aminotransferase (ALT/SGPT) 44, Alkaline Phosphatase 85, Total Protein 7.6, Albumin 4.3 12/26/20 14:31: Glucometer 136H 12/26/20 19:52: Total Creatine Kinase 1851H, Myoglobin 1449.2H, Troponin I < 0.028 12/27/20 04:57: Magnesium Level 1.9, Total Creatine Kinase 1394H, Myoglobin 990.4H, Phosphorus Level 4.4, Creatine Kinase MB 13.7*H 12/27/20 05:40: White Blood Count 9.1, Red Blood Count 4.07L, Hemoglobin 12.6L, Hematocrit 38L, Mean Corpuscular Volume 93, Mean Corpuscular Hemoglobin 31, Mean Corpuscular Hemoglobin Concent 33, Red Cell Distribution Width 13.5, Platelet Count 215, Mean Platelet Volume 9.6, Immature Granulocyte % (Auto) 0, Neutrophils (%) (Auto) 68, Lymphocytes (%) (Auto) 22, Monocytes (%) (Auto) 10, Eosinophils (%) (Auto) 1, Basophils (%) (Auto) 0, Neutrophils # (Auto) 6.2, Lymphocytes # (Auto) 2.0, Monocytes # (Auto) 0.9, Eosinophils # (Auto) 0.1, Basophils # (Auto) 0.0, Immature Granulocyte # (Auto) 0.0, Sodium Level 137, Potassium Level 4.6, Chloride Level 106, Carbon Dioxide Level 21, Anion Gap 10, Blood Urea Nitrogen 20H, Creatinine 1.68H, Estimat Glomerular Filtration Rate 42, BUN/Creatinine Ratio 12, Glucose Level 122H, Calcium Level 8.5, Corrected Calcium 8.8, Total Bilirubin 2.0H, Aspartate Amino Transf (AST/SGOT) 43H, Alanine Aminotransferase (ALT/SGPT) 41, Alkaline Phosphatase 62, Total Protein 6.1L, Albumin 3.6 Assessment/Plan Assessment/Plan Assessment/Plan Trauma - trampled by cow Abrasion right shoulder Abrasion left popliteal fossa Left leg swelling - r/o Compartment syndrome Closed Head injury - concussion with LOC Plan - Still has paresthesia, faint pulse, weakness and pain out of proportion (with just passive stretch) to left lower leg. Monitor his leg and may recheck pressures. Follow labs and watch out for Rhabdomyalsis - myoglobin falling 1449 to 990 today TOBI GREENFIELD 12/27/20 1651: Subjective Time Seen by a Provider: 11:19 Subjective/Events-last exam Pt seen and examined, states leg is about same; not worse. He got moved to ICU last night because of chest pain. Review of Systems General: Fatigue Pulmonary: No Dyspnea, No Cough Cardiovascular: Chest Pain; No: Palpitations Gastrointestinal: No: Nausea, Vomiting, Abdominal Pain Musculoskeletal: leg pain, foot pain Neurological: Numbness (left leg and foot) Objective Exam General Appearance: No Apparent Distress, Obese HEENT: PERRL/EOMI, Moist Mucous Membranes Respiratory: Lungs Clear, Normal Breath Sounds Cardiovascular: Regular Rate, Rhythm, No Murmur Gastrointestinal: soft, no organomegaly Extremity: Calf Tenderness (left side), Swelling (Left lower extremity swellin g/hematoma (diminished 44 to 42cm since yesterday)) Assessment/Plan Assessment/Plan Assessment/Plan Trauma - trampled by cow Abrasion right shoulder Abrasion left popliteal fossa Left leg swelling - r/o Compartment syndrome Closed Head injury - concussion with LOC Plan - Still has paresthesia, faint pulse, weakness and pain out of proportion (with just passive stretch) to left lower leg. Monitor his leg and may recheck pressures. Follow labs and watch out for Rhabdomyalsis - myoglobin falling 1449 to 990 today Supervisory-Addendum Brief Verification & Attestation Participated in pt care: history, MDM, physical Personally performed: exam, history, MDM, supervision of care Care discussed with: Medical Student Procedures: n/a Verification and Attestation of Medical Student E/M Service A medical student performed and documented this service. I then reviewed and verified all information documented by the medical student and made modifications to such information, when appropriate. I personally performed a physical exam, medical decision making and then discussed any differences be tween the notes and made revisions as necessary to create one note. Tobi Greenfield , 12/27/20 , 16:51 LUIS MATTHEWS Dec 27, 2020 08:15 TOBI GREENFIELD DO Dec 27, 2020 16:51
--- NOTE | 2020-12-27 11:43 | Consultation-Cardiology ---
HPI-Cardiology Cardiology Consultation Date of Consultation 12/27/20 Date of Admission Time Seen by Provider: 11:39 Indication: Chest pain HPI 60 years old gentleman with a history of coronary artery disease, permanent pacemaker, sustained multiple injuries after being attacked by a cow. While he was in the emergency room he had a syncopal episode. He was admitted for observation and while he is in the hospital he started to have chest pain described it as dull in nature radiating to his back. Requested to take his sublingual nitroglycerin which he has been taking at home for coronary artery disease. EKG did not show any acute abnormality. Patient was transferred to ICU. On my evaluation he was feeling better, still having chest pain on and off, appeared to be reproducible, 2 sets of cardiac enzymes were negative, Home Medications & Allergies Allergies: Coded Allergies: No Known Drug Allergies (Unverified , 01/11/11) Home Medication List Reviewed: Yes OTL-[id number]-Bwicpf Hx Patient Social History Marital Status: Employed/Student: employed Smoking Status: Never a Smoker Have you traveled recently?: No Alcohol Use?: Yes (rarely) Past Medical History Discussed below Family Medical History Significant Family History: Heart Disease (Mother), Hypertension Family Medical Hx Noncontributory Review of Systems-General Review of Systems Constitutional: see HPI; No chills, No dizziness EENTM: see HPI, blurred vision; No mouth pain, No mouth swelling, No epistaxis, No throat swelling Respiratory: see HPI; No cough, No dyspnea on exertion, No short of breath Cardiovascular: see HPI, chest pain; No palpitations Gastrointestinal: see HPI, abdominal pain; No jaundice, No nausea, No vomiting Genitourinary: see HPI; No dysuria, No frequency, No hematuria Musculoskeletal: see HPI, back pain, joint pain, joint swelling, muscle pain, muscle stiffness, muscle cramps, muscle weakness Skin: see HPI; No change in color, No change in hair/nails Psychiatric/Neurological: See HPI, Anxiety, Depressed; Denies Seizure, Denies Tremors Reviewed Test Results Reviewed Test Results Lab Laboratory Tests Test 12/26/20 14:20 12/26/20 14:31 12/26/20 19:52 12/27/20 04:57 Range/Units White Blood Count 25.3 H 4.3-11.0 10^3/uL Red Blood Count 4.93 4.35-5.85 10^6/uL Hemoglobin 14.8 13.3-17.7 G/DL Hematocrit 44 40-54 % Mean Corpuscular Volume 90 80-99 FL Mean Corpuscular Hemoglobin 30 25-34 PG Mean Corpuscular Hemoglobin Concent 34 32-36 G/DL Red Cell Distribution Width 13.3 10.0-14.5 % Platelet Count 357 130-400 10^3/uL Mean Platelet Volume 9.5 7.4-10.4 FL Immature Granulocyte % (Auto) 0 % Neutrophils (%) (Auto) 88 H 42-75 % Lymphocytes (%) (Auto) 7 L 12-44 % Monocytes (%) (Auto) 5 0-12 % Eosinophils (%) (Auto) 0 0-10 % Basophils (%) (Auto) 0 0-10 % Neutrophils # (Auto) 22.2 H 1.8-7.8 X 10^3 Lymphocytes # (Auto) 1.7 1.0-4.0 X 10^3 Monocytes # (Auto) 1.3 H 0.0-1.0 X 10^3 Eosinophils # (Auto) 0.0 0.0-0.3 10^3/uL Basophils # (Auto) 0.0 0.0-0.1 10^3/uL Immature Granulocyte # (Auto) 0.1 0.0-0.1 10^3/uL Neutrophils % (Manual) 79 % Lymphocytes % (Manual) 10 % Monocytes % (Manual) 6 % Eosinophils % (Manual) 0 % Basophils % (Manual) 0 % Band Neutrophils 5 % Prothrombin Time 12.6 12.2-14.7 SEC INR Comment 0.9 0.8-1.4 Activated Partial Thromboplast Time 27 24-35 SEC Sodium Level 135 135-145 MMOL/L Potassium Level 4.5 3.6-5.0 MMOL/L Chloride Level 99 98-107 MMOL/L Carbon Dioxide Level 20 L 21-32 MMOL/L Anion Gap 16 H 5-14 MMOL/L Blood Urea Nitrogen 20 H 7-18 MG/DL Creatinine 2.33 H 0.60-1.30 MG/DL Estimat Glomerular Filtration Rate 29 BUN/Creatinine Ratio 9 Glucose Level 139 H 70-105 MG/DL Calcium Level 9.8 8.5-10.1 MG/DL Corrected Calcium 9.6 8.5-10.1 MG/DL Magnesium Level 1.7 1.9 1.6-2.4 MG/DL Total Bilirubin 1.8 H 0.1-1.0 MG/DL Aspartate Amino Transf (AST/SGOT) 50 H 5-34 U/L Alanine Aminotransferase (ALT/SGPT) 44 0-55 U/L Alkaline Phosphatase 85 40-136 U/L Total Protein 7.6 6.4-8.2 GM/DL Albumin 4.3 3.2-4.5 GM/DL Glucometer 136 H 70-110 MG/DL Total Creatine Kinase 1851 H 1394 H 30-200 U/L Myoglobin 1449.2 H 990.4 H 10.0-92.0 NG/ML Troponin I < 0.028 < 0.028 <0.028 NG/ML Phosphorus Level 4.4 2.3-4.7 MG/DL Creatine Kinase MB 13.7 *H <6.6 NG/ML Test 12/27/20 05:40 Range/Units White Blood Count 9.1 4.3-11.0 10^3/uL Red Blood Count 4.07 L 4.30-5.52 10^6/uL Hemoglobin 12.6 L 13.3-17.7 g/dL Hematocrit 38 L 40-54 % Mean Corpuscular Volume 93 80-99 fL Mean Corpuscular Hemoglobin 31 25-34 pg Mean Corpuscular Hemoglobin Concent 33 32-36 g/dL Red Cell Distribution Width 13.5 10.0-14.5 % Platelet Count 215 130-400 10^3/uL Mean Platelet Volume 9.6 9.0-12.2 fL Immature Granulocyte % (Auto) 0 % Neutrophils (%) (Auto) 68 42-75 % Lymphocytes (%) (Auto) 22 12-44 % Monocytes (%) (Auto) 10 0-12 % Eosinophils (%) (Auto) 1 0-10 % Basophils (%) (Auto) 0 0-10 % Neutrophils # (Auto) 6.2 1.8-7.8 10^3/uL Lymphocytes # (Auto) 2.0 1.0-4.0 10^3/uL Monocytes # (Auto) 0.9 0.0-1.0 10^3/uL Eosinophils # (Auto) 0.1 0.0-0.3 10^3/uL Basophils # (Auto) 0.0 0.0-0.1 10^3/uL Immature Granulocyte # (Auto) 0.0 0.0-0.1 10^3/uL Sodium Level 137 135-145 MMOL/L Potassium Level 4.6 3.6-5.0 MMOL/L Chloride Level 106 98-107 MMOL/L Carbon Dioxide Level 21 21-32 MMOL/L Anion Gap 10 5-14 MMOL/L Blood Urea Nitrogen 20 H 7-18 MG/DL Creatinine 1.68 H 0.60-1.30 MG/DL Estimat Glomerular Filtration Rate 42 BUN/Creatinine Ratio 12 Glucose Level 122 H 70-105 MG/DL Calcium Level 8.5 8.5-10.1 MG/DL Corrected Calcium 8.8 8.5-10.1 MG/DL Total Bilirubin 2.0 H 0.1-1.0 MG/DL Aspartate Amino Transf (AST/SGOT) 43 H 5-34 U/L Alanine Aminotransferase (ALT/SGPT) 41 0-55 U/L Alkaline Phosphatase 62 40-136 U/L Total Protein 6.1 L 6.4-8.2 GM/DL Albumin 3.6 3.2-4.5 GM/DL Physical Exam Physical Exam Vital Signs Vital Signs - First Documented 12/26/20 14:15 Temp 36.3 Pulse 123 Resp 24 B/P (MAP) 100/61 (74) Pulse Ox 97 O2 Delivery Room Air Capillary Refill : Less Than 3 Seconds Height, Weight, BMI Height: '" Weight: lbs. oz. kg; 35.66 BMI Method: General Appearance: Mild Distress, Other (Diaphoretic) Eyes: Bilateral Eye PERRL, Bilateral Eye EOMI HEENT: PERRL/EOMI, Pharynx Normal, Moist Mucous Membranes Neck: Non Tender, Supple Respiratory: Lungs Clear, Normal Breath Sounds, Other (Left anterior chest wall tenderness and decreased chest rise secondary to pain) Cardiovascular: Regular Rate, Rhythm, No Edema, No Gallop, No Murmur Gastrointestinal: Non Tender, Soft Back: Normal Inspection, No CVA Tenderness, No Vertebral Tenderness Extremity: Normal Capillary Refill, Calf Tenderness (left side), Swelling (Left lower extremity swelling/hematoma (deminished 44 to 42cm since yesterday)) Neurologic/Psychiatric: Alert, Oriented x3, Normal 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 I reassured him at this time, recommended following up with his primary instructional design technologist as an outpatient Coronary artery disease, reported cardiac catheterization in 2018, patient recall having significant disease not amendable to intervention he was started on sublingual nitroglycerin for chest pain. Syncope, probably vasovagal, no malignant arrhythmia was detected. Continue to monitor Sinus node dysfunction, history of dual-chamber pacemaker, interrogated today, appears to be functioning normally. Continue to follow-up as an outpatient Status post traumatic injury with rhabdomyolysis secondary to injury. Received IV fluid, managed by primary care team Acute renal insufficiency, managed by primary care team From cardiac standpoint patient appears to be stable, okay for discharge and follow-up with his primary instructional design technologist MICHAEL RUVALCABA MD Dec 27, 2020 11:43
--- NOTE | 2020-12-27 11:50 | Short Stay Summary-Hospitalist ---
History of Present Illness HPI/Chief Complaint Chief complaint: Trauma with injuries from cow charge History of present illness: This is a 60-year-old white male [facility] patient and cardiology patient at [facility] who presents following a trauma with injury from a cow. Patient sustained injuries with a syncopal episode so he was admitted for monitoring and reported chest pain so was moved up to the ICU and cardiology has been consulted. Currently he is reporting leg pain but no evidence of any compartment syndrome. Labs remained stable. at the bedside. Source: patient, family, RN/MD Exam Limitations: no limitations Date Seen 12/27/20 Time Seen by a Provider: 10:00 Attending Physician Yue Bhatt Jay L MD Referring Physician Date of Admission Dec 26, 2020 at 18:16 Home Medications & Allergies Home Medications Reviewed patient Home Medication Reconciliation performed by pharmacy medication reconciliations teletype technician and/or nursing. Patients Allergies have been reviewed. Allergies Allergies Coded Allergies No Known Drug Allergies (Unverified01/11/11) Past Ypfkngg-Xqowqt-Bldakr Hx Patient Social History Marrital Status: Employed/Student: employed Tobacco Use?: No Smoking Status: Never a Smoker Use of E-Cig and/or Vaping dev: No Substance use?: No Alcohol Use?: Yes (rarely) Additional Alcohol Comments: PT STATES "EVERY NOW AND THEN" Pt feels they are or have been: No Immunizations Up To Date First/Initial COVID19 Vaccinat: 10/24/2020 Second COVID19 Vaccination Zander: 11/21/20 Tetanus Booster (TDap): Unknown Hepatitis A: No Hepatitis B: No Current Status Advance Directives: No Communicates: Verbally Primary Language: Gabonese Preferred Spoken Language: Gabonese Is interpretation needed?: No Past Medical History Surgeries: Orthopedic High Cholesterol, Hypertension Gastroesophageal Reflux Back Injury, Fractures Anxiety, Depression Family Medical History Heart Disease (Mother), Hypertension Review of Systems Constitutional: see HPI Musculoskeletal: joint swelling, muscle weakness Psychiatric/Neurological: Weakness Physical Exam Physical Exam Vital Signs Vital Signs - First Documented 12/26/20 14:15 Temp 36.3 Pulse 123 Resp 24 B/P (MAP) 100/61 (74) Pulse Ox 97 O2 Delivery Room Air Capillary Refill : Less Than 3 Seconds Height, Weight, BMI Height: '" Weight: lbs. oz. kg; 35.66 BMI Method: General Appearance: No Apparent Distress, WD/WN, Chronically ill, Obese Eyes: Bilateral Eye PERRL, Bilateral Eye EOMI HEENT: PERRL/EOMI, Pharynx Normal, Moist Mucous Membranes Neck: Non Tender, Supple Respiratory: Lungs Clear, Normal Breath Sounds, Other (Left anterior chest wall tenderness and decreased chest rise secondary to pain) Cardiovascular: Regular Rate, Rhythm, No Edema, No Gallop, No Murmur Gastrointestinal: Non Tender, Soft Back: Normal Inspection, No CVA Tenderness, No Vertebral Tenderness Extremity: Normal Capillary Refill, Calf Tenderness (left side), Swelling (Left lower extremity swelling/hematoma (deminished 44 to 42cm since yesterday)) Neurologic/Psychiatric: Alert, Oriented x3, Normal 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 Short Stay Diagnosis Discharge Diagnosis-Short Stay Admission Diagnosis Assessment: Trauma with injuries from cow Rhabdomyolysis Acute kidney injury Chest pain with history of angina Hypertension Hyperlipidemia Sinus node dysfunction pacemaker in place Plan: Supportive care IV fluid ICU Pain control PT OT Cardiology and trauma surgery appreciated Final Discharge Diagnosis Assessment: Trauma with injuries from cow Rhabdomyolysis Acute kidney injury Chest pain with history of angina Hypertension Hyperlipidemia Sinus node dysfunction pacemaker in place Plan: Supportive care IV fluid ICU Pain control PT OT Cardiology and trauma surgery appreciated Conclusion Plan Assessment: Trauma with injuries from cow Rhabdomyolysis Acute kidney injury Chest pain with history of angina Hypertension Hyperlipidemia Sinus node dysfunction pacemaker in place Plan: Supportive care IV fluid ICU Pain control PT OT Cardiology and trauma surgery appreciated YUE BHATT DO Dec 27, 2020 11:50
--- NOTE | 2020-12-27 12:49 | Physical Therapy Evaluation ---
PT Evaluation-General Medical Diagnosis Admission Date Dec 26, 2020 at 18:16 Medical Diagnosis: multiple trauma Onset Date: Dec 26, 2020 Therapy Diagnosis Therapy Diagnosis: impaired mobility Precautions Precautions/Isolations: Fall Prevention, Standard Precautions Referral Physician: Yue Bhatt Reason for Referral: Evaluation/Treatment Medical History Additional Medical History Pacemaker, multiple fractures of the UEs Current History Pt was mauled by a cow 12/26/20. Sustained multiple contusions and abrasions, was knocked unconscious with resultant concussion, possible thoracic compression fx with rib fractures, and crush of the (L) Lower leg. Reviewed History: Yes Social History Home: Single Level Current Living Status: Spouse Prior Prior Level of Function SCALE: Activities may be completed with or without assistive devices. 4-Mixrdewmbw-ahfrved completes the activity by him/herself with no assistance from a helper. 5-Set-up or Clean-up Assistance-helper sets up or cleans up; patient completes activity. [place] assists only prior to or following the activity. 4-Supervision or Touching Assistance-helper provides verbal cues and/or touching/steadying and/or contact guard assistance as patient completes activity. Assistance may be provided throughout the activity or intermittently. 3-Partial/Moderate Assistance-helper does LESS THAN HALF the effort. [place] lifts, holds or supports trunk or limbs, but provides less than half the effort. 2-Substantial/Maximal Assistance-helper does MORE THAN HALF the effort. [place] lifts or holds trunk or limbs and provides more than half the effort. 5-Bpebscdtc-vdfkuh does ALL the effort. Patient does none of the effort to complete the activity. Or, the assistance of 2 or more helpers is required for the patient to complete the activity. If activity was not attempted, code reason: 7-Patient Refused. 9-Not Applicable-not attempted and the patient did not perform the activity before the current illness, exacerbation or injury. 10-Not Attempted due to Environmental Limitations-(lack of equipment, weather restraints, etc.). 88-Not Attempted due to Medical Conditions or Safety Concerns. Bed Mobility: 6 Transfers (B,C,W/C): 6 Gait: 6 Stairs: 6 PT Evaluation-Current Subjective Pt reports his greatest difficulty is moving out of bed due to pain in the chest and upper back. His left lower leg is very tight. ROM/Strength ROM Upper Extremities (B) shoulder elevation to 100deg ROM Lower Extremities (R) leg is WFL, (L) ankle DF -5deg neutral, knee flexion to 90 deg all limited by pain and swelling Strength Upper Extremities 3/5 pain limited Strength Lower Extremities 4/5 Sensory Vision: Functional Hearing: Functional Sensation Left Lower Extremity: Impaired Sensation Lower Extremities numbness in the posterior lower leg; he has been tested for compartment syndrome Transfers Roll Left to Right (QC): 4 Sit to Lying (QC): 4 Lying to Sitting/Side of Bed(Q: 4 Sit to Stand (QC): 4 Chair/Sam-kl-Mhdnm Xfer(QC): 4 Gait Does the Patient Walk?: Yes Mode of Locomotion: Walk Anticipated Mode of Locomotion: Both Walk 10 feet (QC): 4 Distance: 10ft Gait Assistive Device: Handheld Assist Comments/Gait Description ambulate with hand held assist; limited by (L) calf pain; expect he will need a w/c for long distance ambulation for the next several weeks Balance Sitting Static: Normal Sitting Dynamic: Normal Standing Static: Fair Standing Dynamic: Fair Assessment/Needs Rehab Potential: Good Post Rehab Potential-Barriers: pain PT Intermediate Goals [place] Goals PT [place] Goals Time Frame: Dec 31, 2020 Roll Left & Right (QC): 6 Sit to Lying (QC): 6 Lying-Sitting on Side/Bed(QC): 6 Sit to Stand (QC): 6 Chair/Bar-ig-Mmjus Xfer(QC): 6 Does the Patient Walk: Yes Walk 50ft with 2 Turns (QC): 6 PT Plan Problem List Problem List: Gait Treatment/Plan Treatment Plan: Continue Plan of Care Treatment Plan: Bed Mobility, Gait Treatment Duration: Dec 31, 2020 Frequency: 6 times per week Estimated Hrs Per Day: .25 hour per day Patient and/or Family Agrees t: Yes Discharge Recommendations Therapy Discharge Recommendati: Post Acute PT Equpiment Recommendations-D/C: None Target Placement home with Time/GCodes Time In: 1220 Time Out: 1250 Total Billed Treatment Time: 30 Total Billed Treatment visit, evaluation high complexity 30 min MARGRET DAVALOS PT Dec 27, 2020 12:49
[2020-12-28] MEDS: NS IV 1000 ML 1,000 ML IV SCH ×3 (01:58→22:29)
[2020-12-28] MEDS: CATHETER FLUSH 10 ML SYR IV SCH ×3 (03:02→20:43)
--- NOTE | 2020-12-28 07:30 | Progress Note - Surgery ---
CASSIELUIS 12/28/20 0729: Subjective Date Seen by a Provider: Dec 28, 2020 Time Seen by a Provider: 07:09 Subjective/Events-last exam Pt recovering from tumatic injury associated with cow to chest and leg. Today Left lower leg swelling has increased form 42-44cm since yesterday and Pt reports feeling significant warmth in left leg when touching it with his right. Pt reports pain to stretch of the left leg with continued paresthesia. Pt has reduced motor strength flexing and extending his foot and toes on the left side compared to yesterday. Sensation to touch present on dorsal and pedal surfaces of foot, however left dorsal pedal pulse still remains diminished compared to right. Review of Systems General: No Chills, No Night Sweats; Fatigue; No Malaise; Appetite HEENT: No Head Aches, No Visual Changes, No Eye Pain, No Ear Pain Pulmonary: No Dyspnea, No Cough, No Pleuritic Chest Pain Cardiovascular: No: Chest Pain, Palpitations Gastrointestinal: No: Nausea, Vomiting, Abdominal Pain, Diarrhea, Constipation Genitourinary: No Dysuria, No Frequency; Retention Musculoskeletal: other, leg pain, foot pain Neurological: Weakness, Numbness; No: Incoordination, Change in speech, Confusion tenderness of the left upper thorax secondary to mechanical injury Objective Exam Vital Signs Date Time Temp Pulse Resp B/P (MAP) Pulse Ox O2 Delivery O2 Flow Rate FiO2 12/28/20 03:00 36.6 76 16 139/89 (106) 99 Room Air 12/27/20 23:10 36.7 72 18 133/78 (96) 95 Room Air 12/27/20 20:30 94 Room Air 12/27/20 19:20 37.7 76 20 152/7 (55) 94 Room Air 12/27/20 18:25 37.0 69 16 169/91 (117) 95 Room Air 12/27/20 14:49 99 2.00 12/27/20 13:00 70 12/27/20 13:00 69 16 116/68 (84) 93 Room Air 12/27/20 12:04 36.8 12/27/20 12:00 74 10 121/66 (84) 95 Room Air 12/27/20 11:11 Nasal Cannula 2.00 12/27/20 11:00 70 15 124/72 (89) 93 Room Air 12/27/20 10:00 74 22 126/83 (97) 96 Room Air 12/27/20 09:00 75 14 141/94 (110) 97 Room Air 12/27/20 08:00 70 20 121/78 (92) 98 Room Air 12/27/20 08:00 Nasal Cannula 2.00 12/27/20 07:51 36.2 I & O 12/28/20 06:59 Intake Total 3225 ml Output Total 2225 ml Balance 1000 ml Capillary Refill : Less Than 3 Seconds General Appearance: No Apparent Distress, WD/WN, Obese HEENT: PERRL/EOMI, Pharynx Normal, Moist Mucous Membranes Neck: Full Range of Motion, Non Tender, Supple Respiratory: Lungs Clear, Normal Breath Sounds, No Accessory Muscle Use, No Respiratory Distress Cardiovascular: Regular Rate, Rhythm, No Edema, No Gallop, No Murmur Peripheral Pulses: 2+ Dorsalis Pedis (R); 1+ Left Dors-Pedis (L); 2+ Radial Pulses (R), 2+ Radial Pulses (L) Gastrointestinal: normal bowel sounds, non tender, soft, no organomegaly, no pulsatile mass Extremity: Normal Capillary Refill, Normal Range of Motion (except left lower leg), Calf Tenderness (left side), Swelling (Left lower extremity swelling/hemat jazlyn (diminished 44 to 42cm since yesterday)) Neurologic/Psychiatric: Alert, Oriented x3, Normal Mood/Affect, 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 Monitor his leg and may recheck pressures. Follow labs and watch out for Rhabdomyalsis RADHA GREENFIELD DO 12/28/20 1158: Subjective Time Seen by a Provider: 11:09 Subjective/Events-last exam Pt seen and examined, states he is about the same. He states he cannot walk; because he can't put pressure on leg and it is still numb. Review of Systems General: No Chills, No Night Sweats; Fatigue Pulmonary: No Dyspnea, No Cough Cardiovascular: No: Chest Pain, Palpitations Gastrointestinal: No: Nausea, Vomiting, Abdominal Pain Musculoskeletal: neck pain, back pain, leg pain, foot pain Objective Exam General Appearance: No Apparent Distress, Obese HEENT: Moist Mucous Membranes Respiratory: Lungs Clear, Normal Breath Sounds, No Accessory Muscle Use, No Respiratory Distress Cardiovascular: Regular Rate, Rhythm, No Murmur Gastrointestinal: non tender, soft, no organomegaly Extremity: Calf Tenderness (left side), Swelling (Left lower extremity swelling/hematoma 44 cm today and foot is swollen, still very tender), Other (Can wiggle toes (barely) and lift leg but strength decreased compared to right leg) Assessment/Plan Assessment/Plan Assessment/Plan Blunt and crush Trauma - trampled by cow Abrasion right shoulder Abrasion left popliteal fossa Left leg swelling - follow to make sure he does not develop Compartment syndrome Closed Head injury - concussion with LOC Plan - Still has paresthesia, faint pulse, weakness and pain out of proportion (with just passive stretch) to left lower leg. Monitor his leg and may recheck pressures. Follow labs and watch out for Rhabdomyalsis Supervisory-Addendum Brief Verification & Attestation Participated in pt care: history, MDM, physical Personally performed: exam, history, MDM, supervision of care Care discussed with: Medical Student Procedures: n/a Verification and Attestation of Medical Student E/M Service A medical student performed and documented this service. I then reviewed and verified all information documented by the medical student and made mod ifications to such information, when appropriate. I personally performed a physical exam, medical decision making and then discussed any differences between the notes and made revisions as necessary to create one note. Radha Greenfield , 12/28/20 , 11:58 LUIS MATTHEWS Dec 28, 2020 07:29 RADHA GREENFIELD DO Dec 28, 2020 11:58
[2020-12-28] MEDS: SENNA W/DOCUSATE (SENOKOT S) TABLET PO SCH ×2 (07:50→20:41)
[2020-12-28] MEDS: polyethylene glycoL POWDER 17 GM (MIRALAX) PACK PO SCH ×2 (07:52→20:41)
--- NOTE | 2020-12-28 10:33 | Cardiology Progress Note ---
Subjective Date Seen by Provider: Dec 28, 2020 Time Seen by Provider: 10:32 Subjective/Events-last exam Patient is feeling better, still having some pain in his left leg. Still having musculoskeletal chest pain Review of Systems General: No Chills, No Night Sweats; Fatigue; No Malaise, No Appetite, No Other HEENT: No Head Aches, No Visual Changes, No Eye Pain, No Ear Pain, No Dy sphasia, No Sinus Congestion, No Post Nasal Drip, No Sore Throat, No Other Pulmonary: Dyspnea; No Cough, No Pleuritic Chest Pain, No Other Cardiovascular: No: Chest Pain, Palpitations, Orthopnea, Paroxysmal Noc. Dyspnea, Edema, Lt Headedness, Other Objective-Cardiology Exam Last Set of Vital Signs Vital Signs 12/28/20 12/28/20 09:00 09:59 Temp 36.0 Pulse 73 Resp 16 B/P (MAP) 164/81 (108) Pulse Ox 95 O2 Delivery Room Air O2 Flow Rate 2.00 I&O Intake and Output 12/28/20 00:00 Intake Total 3150 ml Output Total 2350 ml Balance 800 ml Intake Oral 3150 ml Output Urine Total 2350 ml General: Alert, Oriented X3, Cooperative HEENT: Atraumatic, PERRLA Neck: Supple, No JVD, No Thyromegaly Lungs: Clear to Auscultation, Normal Air Movement Heart: Regular Rate, Normal S1, Normal S2, No Murmurs Abdomen: Normal Bowel Sounds, Soft, No Tenderness, No Hepatosplenomegaly, No Masses Extremities: No Clubbing, No Cyanosis, No Edema, Normal Pulses, No Tenderness/Swelling Skin: No Rashes, No Breakdown, No Significant Lesion Neuro: Normal Gait, Normal Speech, Strength at 5/5 X4 Ext, Normal Tone, Sensation Intact Psych/Mental Status: Mental Status NL, Mood NL A/P-Cardiology Admission Diagnosis Chest pain Coronary artery disease Syncope Acute renal failure Assessment/Plan Chest pain, waxing and waning, reproducible, most probably musculoskeletal, troponin was negative, had elevated CPK and myoglobin secondary to injury. I reassured him at this time, recommended following up with his primary clerk carrier as an outpatient Coronary artery disease, reported cardiac catheterization in 2018, patient recall having significant disease not amendable to intervention he was started on sublingual nitroglycerin for chest pain. Syncope, probably vasovagal, no malignant arrhythmia was detected. Continue to monitor Sinus node dysfunction, history of dual-chamber pacemaker, interrogated today, appears to be functioning normally. Continue to follow-up as an outpatient Status post traumatic injury with rhabdomyolysis secondary to injury. Received IV fluid, managed by primary care team Left leg pain, questionable compartment syndrome, managed by surgical team Acute renal insufficiency, managed by primary care team From cardiac standpoint patient appears to be stable, okay for discharge and follow-up with his primary clerk carrier MICHAEL RUVALCABA MD Dec 28, 2020 10:33
[2020-12-28 11:20] LABS: BASOPHILS % (AUTO) 0 % (0-10); EOSINOPHILS # (AUTO) 0.1 10^3/uL (0.0-0.3); EOSINOPHILS % (AUTO) 1 % (0-10); HEMATOCRIT 34 % (40-54); HEMOGLOBIN 11.1 g/dL (13.3-17.7); LYMPHOCYTES # (AUTO) 1.3 10^3/uL (1.0-4.0); LYMPHOCYTES % (AUTO) 18 % (12-44); MEAN CORPUSCULAR HEMOGLOBIN 30 pg (25-34); MEAN CORPUSCULAR HGB CONC 32 g/dL (32-36); MEAN CORPUSCULAR VOLUME 94 fL (80-99); MEAN PLATELET VOLUME 9.2 fL (9.0-12.2); MONOCYTES # (AUTO) 0.5 10^3/uL (0.0-1.0); MONOCYTES % (AUTO) 8 % (0-12); NEUTROPHILS # (AUTO) 5.2 10^3/uL (1.8-7.8); NEUTROPHILS % (AUTO) 73 % (42-75); PLATELET COUNT 178 10^3/uL (130-400); WHITE BLOOD COUNT 7.1 10^3/uL (4.3-11.0)
[2020-12-28 11:36] LABS: ALBUMIN 3.3 GM/DL (3.2-4.5); BILIRUBIN,TOTAL 1.3 MG/DL (0.1-1.0); CALCIUM 8.7 MG/DL (8.5-10.1); CREATININE SERUM 1.3 MG/DL (0.60-1.30); POTASSIUM 4.1 MMOL/L (3.6-5.0); TOTAL PROTEIN 6.2 GM/DL (6.4-8.2)
[2020-12-28] MEDS ORDERED: FLUO20CA46 PO (12:28)
[2020-12-28] MEDS ORDERED: PANT40TA52 PO (12:28)
[2020-12-28] MEDS ORDERED: SUCR1TAB PO (12:28)
[2020-12-28] MEDS ORDERED: OLAN10TA71 PO (12:28)
[2020-12-28] MEDS: ALPRAZolam 0.5 MG (XANAX) TAB PO SCH ×3 (13:07→20:41)
--- NOTE | 2020-12-28 13:35 | Progress Note - Hospitalist ---
Subjective HPI/CC On Admission Date Seen by Provider: Dec 28, 2020 Time Seen by Provider: 11:00 Chief complaint: Trauma with injuries from cow charge History of present illness: This is a 60-year-old white male [facility] patient and cardiology patient at [facility] who presents following a trauma with injury from a cow. Patient sustained injuries with a syncopal episode so he was admitted for monitoring and reported chest pain so was moved up to the ICU and cardiology has been consulted. Currently he is reporting leg pain but no evidence of any compartment syndrome. Labs remained stable. at the bedside. Subjective/Events-last exam Patient much improved but cannot walk Left leg pain is severe Lovenox will be started for DVT prophylaxis IV fluids still continue to treat rhabdomyolysis Kidney function improved Overall remained stable We will order PT and OT and rehab consult Review of Systems General: Fatigue, Malaise Objective Exam Vital Signs Vital Signs Date Time Temp Pulse Resp B/P (MAP) Pulse Ox O2 Delivery O2 Flow Rate FiO2 12/28/20 19:36 36.7 81 18 137/75 (95) 95 Room Air 12/28/20 09:00 2.00 Capillary Refill : Less Than 3 Seconds General Appearance: No Apparent Distress, WD/WN, Chronically ill Respiratory: Lungs Clear, Normal Breath Sounds Cardiovascular: Regular Rate, Rhythm Neurologic/Psychiatric: Alert, Oriented x3 Results/Procedures Lab Laboratory Tests 12/28/20 11:10 Patient resulted labs reviewed. Assessment/Plan Assessment and Plan Assess & Plan/Chief Complaint Assessment: Trauma with injuries from cow Rhabdomyolysis Acute kidney injury Chest pain with history of angina Hypertension Hyperlipidemia Sinus node dysfunction pacemaker in place Plan: Supportive care IV fluid ICU Pain control PT OT Cardiology and trauma surgery appreciated 12/28/2020: Restarted home meds Continue IV fluids Check CPK in the morning Supportive care PT and OT FRANK GARCIA DO Dec 28, 2020 13:34
[2020-12-28] MEDS: OLANZapine 5 MG (ZyPREXA) TAB PO SCH (20:41)
[2020-12-28] MEDS: SUCRALFATE 1 GM (CARAFATE) TAB PO SCH (20:41)
[2020-12-28] MEDS ORDERED: ENOXAPARIN 40 MG/0.4 ML (LOVENOX) SYR SC SCH (22:00)
[2020-12-28] MEDS: fentaNYL INJ 100 MCG/2 ML AMP IVP PRN (22:29)
[2020-12-29 05:40] LABS: BASOPHILS % (AUTO) 0 % (0-10); EOSINOPHILS # (AUTO) 0.1 10^3/uL (0.0-0.3); EOSINOPHILS % (AUTO) 2 % (0-10); HEMATOCRIT 31 % (40-54); HEMOGLOBIN 10.1 g/dL (13.3-17.7); LYMPHOCYTES % (AUTO) 27 % (12-44); MEAN CORPUSCULAR HEMOGLOBIN 31 pg (25-34); MEAN CORPUSCULAR HGB CONC 33 g/dL (32-36); MEAN CORPUSCULAR VOLUME 93 fL (80-99); MEAN PLATELET VOLUME 9.5 fL (9.0-12.2); MONOCYTES # (AUTO) 0.6 10^3/uL (0.0-1.0); MONOCYTES % (AUTO) 8 % (0-12); NEUTROPHILS # (AUTO) 4.7 10^3/uL (1.8-7.8); NEUTROPHILS % (AUTO) 63 % (42-75); PLATELET COUNT 172 10^3/uL (130-400); WHITE BLOOD COUNT 7.4 10^3/uL (4.3-11.0)
[2020-12-29 06:00] LABS: ALBUMIN 3.2 GM/DL (3.2-4.5)
[2020-12-29 06:01] LABS: CALCIUM 8.6 MG/DL (8.5-10.1)
[2020-12-29 06:02] LABS: TOTAL PROTEIN 5.8 GM/DL (6.4-8.2)
[2020-12-29 06:06] LABS: CREATININE SERUM 1.24 MG/DL (0.60-1.30)
[2020-12-29] MEDS: CATHETER FLUSH 10 ML SYR IV SCH ×3 (06:08→20:11)
--- NOTE | 2020-12-29 07:33 | Progress Note - Surgery ---
SONYA DEJESUS 12/29/20 0733: Subjective Date Seen by a Provider: Dec 29, 2020 Time Seen by a Provider: 07:26 Subjective/Events-last exam Patient is recovering from trauma due to being trampled by a cow. Patient's distal thigh measurement is 50.5 cm. Proximal calf measurement is 42cm, down from 44cm yesterday. Patient states tingling sensation is still present below the knee. Motor testing of LE is absent in plantar flexion. Dorsiflexion is present but very diminished. Patient can feel sensation on anterior left lower extremity. 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 Patient reports he has not attempted to use the walker yet. Objective Exam Vital Signs Date Time Temp Pulse Resp B/P (MAP) Pulse Ox O2 Delivery O2 Flow Rate FiO2 12/29/20 04:01 35.5 74 17 113/68 (83) 92 Room Air 12/28/20 23:58 35.8 62 18 128/77 (94) 95 Room Air 12/28/20 20:40 Room Air 12/28/20 19:36 36.7 81 18 137/75 (95) 95 Room Air 12/28/20 16:00 36.7 76 18 143/77 (99) 93 Room Air 12/28/20 12:38 36.6 70 16 154/84 (107) 97 Room Air 12/28/20 09:59 36.0 73 16 164/81 (108) 95 Room Air 12/28/20 09:00 Nasal Cannula 2.00 12/28/20 08:00 37.0 78 16 159/91 (113) 96 Room Air I & O 12/29/20 07:00 Intake Total 2970 ml Output Total 2475 ml Balance 495 ml Capillary Refill : Greater Than 3 Seconds General Appearance: No Apparent Distress, WD/WN Neck: Non Tender, Supple Respiratory: Lungs Clear, Normal Breath Sounds, No Accessory Muscle Use Cardiovascular: Regular Rate, Rhythm Peripheral Pulses: 2+ Dorsalis Pedis (R); 1+ Left Dors-Pedis (L); 2+ Radial Pulses (R), 2+ Radial Pulses (L) Extremity: Calf Tenderness (left side), Swelling (Left lower extremity swelling, 42 cm today), Other (patient can dorsiflex left foot, but not plantar flex) Neurologic/Psychiatric: Alert, Oriented x3 Skin: Normal Color, Warm/Dry Results Lab Laboratory Tests 12/28/20 11:10: White Blood Count 7.1, Red Blood Count 3.66L, Hemoglobin 11.1L, Hematocrit 34L, Mean Corpuscular Volume 94, Mean Corpuscular Hemoglobin 30, Mean Corpuscular Hemoglobin Concent 32, Red Cell Distribution Width 13.4, Platelet Count 178, Mean Platelet Volume 9.2, Immature Granulocyte % (Auto) 0, Neutrophils (%) (Auto) 73, Lymphocytes (%) (Auto) 18, Monocytes (%) (Auto) 8, Eosinophils (%) (Auto) 1, Basophils (%) (Auto) 0, Neutrophils # (Auto) 5.2, Lymphocytes # (Auto) 1.3, Monocytes # (Auto) 0.5, Eosinophils # (Auto) 0.1, Basophils # (Auto) 0.0, Immature Granulocyte # (Auto) 0.0, Sodium Level 136, Potassium Level 4.1, Chloride Level 106, Carbon Dioxide Level 22, Anion Gap 8, Blood Urea Nitrogen 13 , Creatinine 1.30, Estimat Glomerular Filtration Rate 57, BUN/Creatinine Ratio 10, Glucose Level 157H, Calcium Level 8.7, Corrected Calcium 9.3, Total Bilirubin 1.3H, Aspartate Amino Transf (AST/SGOT) 35H, Alanine Aminotransferase (ALT/SGPT) 36, Alkaline Phosphatase 68, Total Creatine Kinase 1186H, Total Protein 6.2L, Albumin 3.3 12/29/20 05:25: White Blood Count 7.4, Red Blood Count 3.31L, Hemoglobin 10.1L, Hematocrit 31L, Mean Corpuscular Volume 93, Mean Corpuscular Hemoglobin 31, Mean Corpuscular Hemoglobin Concent 33, Red Cell Distribution Width 13.4, Platelet Count 172, Mean Platelet Volume 9.5, Immature Granulocyte % (Auto) 0, Neutrophils (%) (Auto) 63, Lymphocytes (%) (Auto) 27, Monocytes (%) (Auto) 8, Eosinophils (%) (Auto) 2, Basophils (%) (Auto) 0, Neutrophils # (Auto) 4.7, Lymphocytes # (Auto) 2.0, Monocytes # (Auto) 0.6, Eosinophils # (Auto) 0.1, Basophils # (Auto) 0.0, Immature Granulocyte # (Auto) 0.0, Sodium Level 140, Potassium Level 4.0, Chloride Level 107, Carbon Dioxide Level 23, Anion Gap 10, Blood Urea Nitrogen 11, Creatinine 1.24, Estimat Glomerular Filtration Rate 60, BUN/Creatinine Ratio 9, Glucose Level 109H, Calcium Level 8.6, Corrected Calcium 9.2, Total Bilirubin 1.0, Aspartate Amino Transf (AST/SGOT) 31, Alanine Aminotransferase (ALT/SGPT) 30, Alkaline Phosphatase 52, Total Creatine Kinase 1040H, Total Protein 5.8L, Albumin 3.2 Microbiology 12/26/20 MRSA Screen - Final, Complete MRSA not isolated Assessment/Plan Assessment/Plan Assessment/Plan Blunt and crush Trauma - trampled by cow Abrasion right shoulder Abrasion left popliteal fossa Left leg swelling - follow to make sure he does not develop Compartment syndrome Closed Head injury - concussion with LOC Plan - Still has paresthesia, faint pulse, weakness and pain out of proportion (with just passive stretch) to left lower leg. Continue to monitor his leg and may recheck pressures. TOBI GREENFIELD DO 12/29/20 1205: Subjective Time Seen by a Provider: 08:33 Subjective/Events-last exam Pt seen and examined, states he has some back pain (not new). He still has pain in his left leg, but is walking a little with a walker. Review of Systems General: No Chills, No Night Sweats Pulmonary: No Dyspnea, No Cough Cardiovascular: No: Chest Pain, Palpitations Gastrointestinal: No: Nausea, Vomiting, Abdominal Pain Musculoskeletal: back pain, leg pain, foot pain Objective Exam General Appearance: No Apparent Distress, Obese Respiratory: Lungs Clear, Normal Breath Sounds, No Accessory Muscle Use Cardiovascular: Regular Rate, Rhythm, No Murmur Gastrointestinal: non tender, soft, no organomegaly Extremity: Calf Tenderness (left side), Swelling (Left lower extremity swe lling, 42 cm today), Other (patient can dorsiflex left foot, but not plantar flex) Neurologic/Psychiatric: Alert, Oriented x3 Assessment/Plan Assessment/Plan Assessment/Plan T3 Compression FX Anemia Blunt and crush Trauma - trampled by cow Abrasion right shoulder Abrasion left popliteal fossa Left leg swelling - follow to make sure he does not develop Compartment syndrome Closed Head injury - concussion with LOC Plan - Still has paresthesia, faint pulse, weakness and pain out of proportion (with just passive stretch) to left lower leg. Continue to monitor his leg and may recheck pressures. Would fit pt for clamshell brace just to be safe; because he is having back pain. Hg has dropped and therefore will stop Lovenox and encourage him to walk more. Supervisory-Addendum Brief Verification & Attestation Participated in pt care: history, MDM, physical Personally performed: exam, history, MDM, supervision of care Care discussed with: Medical Student Procedures: n/a Verification and Attestation of Medical Student E/M Service A medical student performed and documented this service. I then reviewed and verified all information documented by the medical student and made modifi cations to such information, when appropriate. I personally performed a physical exam, medical decision making and then discussed any differences between the notes and made revisions as necessary to create one note. Tobi Greenfield , 12/29/20 , 12:04 SONYA DEJESUS Dec 29, 2020 07:33 TOBI GREENFIELD DO Dec 29, 2020 12:05
[2020-12-29] MEDS: NS IV 1000 ML 1,000 ML IV SCH (08:26)
[2020-12-29] MEDS: polyethylene glycoL POWDER 17 GM (MIRALAX) PACK PO SCH ×2 (08:26→20:10)
[2020-12-29] MEDS: ALPRAZolam 0.5 MG (XANAX) TAB PO SCH ×4 (08:27→20:10)
[2020-12-29] MEDS: SENNA W/DOCUSATE (SENOKOT S) TABLET PO SCH ×2 (08:27→20:09)
[2020-12-29] MEDS: PANTOPRAZOLE 40 MG (PROTONIX) TAB PO SCH (08:27)
[2020-12-29] MEDS: SUCRALFATE 1 GM (CARAFATE) TAB PO SCH ×2 (08:27→20:10)
[2020-12-29] MEDS ORDERED: FLUoxetine HCL 20 MG (PROzac) CAP PO SCH (09:00)
--- NOTE | 2020-12-29 09:29 | Cardiology Progress Note ---
Subjective Date Seen by Provider: Dec 29, 2020 Time Seen by Provider: 08:55 Subjective/Events-last exam Patient is sitting up in chair, continues to have left leg pain. Reports chest wall pain on deep inspiration. Review of Systems General: No Chills, No Night Sweats, No Fatigue; Malaise; No Appetite, No Other HEENT: No Head Aches, No Visual Changes, No Eye Pain, No Ear Pain, No Dysphasia, No Sinus Congestion, No Post Nasal Drip, No Sore Throat, No Other Pulmonary: No Dyspnea, No Cough, No Pleuritic Chest Pain, No Other Cardiovascular: No: Chest Pain, Palpitations, Orthopnea, Paroxysmal Noc. Dyspnea, Edema, Lt Headedness, Other Objective-Cardiology Exam Last Set of Vital Signs Vital Signs 12/28/20 12/29/20 12/29/20 09:00 07:37 09:18 Temp 36.7 Pulse 74 Resp 20 B/P (MAP) 166/93 (117) Pulse Ox 98 O2 Delivery Room Air O2 Flow Rate 2.00 I&O Intake and Output 12/29/20 00:00 Intake Total 3895 ml Output Total 1650 ml Balance 2245 ml Intake Oral 1895 ml IV Total 2000 ml Output Urine Total 1650 ml General: Alert, Oriented X3, Cooperative HEENT: Atraumatic, PERRLA Neck: Supple, No JVD, No Thyromegaly Lungs: Clear to Auscultation, Normal Air Movement Heart: Regular Rate, Normal S1, Normal S2, No Murmurs Abdomen: Normal Bowel Sounds, Soft, No Tenderness, No Hepatosplenomegaly, No Masses Extremities: No Clubbing, No Cyanosis, No Edema, Normal Pulses, No Tenderness/Swelling Skin: No Rashes, No Breakdown, No Significant Lesion Neuro: Normal Gait, Normal Speech, Strength at 5/5 X4 Ext, Normal Tone, Sensation Intact Psych/Mental Status: Mental Status NL, Mood NL Results Lab Laboratory Tests 12/28/20 11:10 12/29/20 05:25 A/P-Cardiology Admission Diagnosis Chest pain Coronary artery disease Syncope Acute renal failure Assessment/Plan Chest pain, waxing and waning, reproducible, most probably musculoskeletal, troponin was negative, had elevated CPK and myoglobin secondary to injury. I reassured him at this time, recommended following up with his primary embosser apprentice as an outpatient Coronary artery disease, reported cardiac catheterization in 2018, patient recall having significant disease not amendable to intervention he was started on sublingual nitroglycerin for chest pain. Syncope, probably vasovagal, no malignant arrhythmia was detected. Continue to monitor Sinus node dysfunction, history of dual-chamber pacemaker, interrogated today, appears to be functioning normally. Continue to follow-up as an outpatient Status post traumatic injury with rhabdomyolysis secondary to injury. Received IV fluid, managed by primary care team Left leg pain, questionable compartment syndrome, managed by surgical team Acute renal insufficiency, managed by primary care team From cardiac standpoint patient appears to be stable, okay for discharge and follow-up with his primary embosser apprentice Patient was seen and evaluated with Elissa, examination performed, management plan was discussed, agree with the current scribed note, I made few changes to the note using Italic font Patient was laying down in bed, feeling well. Still having pain in his leg, was able to walk with a walker today. Cardiac status is stable. Continue to monitor Supervisory-Addendum Brief Supervisory Addendum Participated in pt care: history, MDM, physical Personally performed: exam, history, MDM Care discussed with: CONRADO Results interpretation: Verified all documentation ELISSA FIELDS Dec 29, 2020 09:29 MICHAEL RUVALCABA MD Dec 29, 2020 10:29
[2020-12-29] MEDS: HYDROmorphone 2 MG/ML VIAL (DILAUDID) IVP PRN ×3 (09:31→17:37)
--- NOTE | 2020-12-29 10:01 | Physical Therapy Daily Note ---
PT Daily Note-Current Subjective Patient agrees to PT. Pain Location: Left Location Body Site: Knee Pain Description: Acute Mental Status Patient Orientation: Normal For Age Attachments: IV Transfers SCALE: Activities may be completed with or without assistive devices. 7-Lhbojspjwl-ehotetg completes the activity by him/herself with no assistance from a helper. 5-Set-up or Clean-up Assistance-helper sets up or cleans up; patient completes activity. [place] assists only prior to or following the activity. 4-Supervision or Touching Assistance-helper provides verbal cues and/or touching/steadying and/or contact guard assistance as patient completes activity. Assistance may be provided throughout the activity or intermittently. 3-Partial/Moderate Assistance-helper does LESS THAN HALF the effort. [place] lifts, holds or supports trunk or limbs, but provides less than half the effort. 2-Substantial/Maximal Assistance-helper does MORE THAN HALF the effort. [place] lifts or holds trunk or limbs and provides more than half the effort. 4-Xfflcdptt-aqaunz does ALL the effort. Patient does none of the effort to complete the activity. Or, the assistance of 2 or more helpers is required for the patient to complete the activity. If activity was not attempted, code reason: 7-Patient Refused. 9-Not Applicable-not attempted and the patient did not perform the activity before the current illness, exacerbation or injury. 10-Not Attempted due to Environmental Limitations-(lack of equipment, weather restraints, etc.). 88-Not Attempted due to Medical Conditions or Safety Concerns. Sit to Stand (QC): 4 (SBA) Gait Training Does the Patient Walk?: Yes Distance: 150' Walk 10 feet (QC): 4 (SBA) Walk 50 ft with 2 Turns(QC): 4 (SBA) Walk 150 ft (QC): 4 (SBA) Gait Assistive Device: FWW very slow, step to gait sequence Assessment Improved mobility from initial evaluation. Continues to have left knee pain. Instructed to be up ad alin in room if not connected to IV. RN notified. PT [facility] Goals Radiochemical Technician Goals PT Radiochemical Technician Goals Time Frame: Dec 31, 2020 Roll Left & Right (QC): 6 Sit to Lying (QC): 6 Lying-Sitting on Side/Bed(QC): 6 Sit to Stand (QC): 6 Chair/Mei-ox-Qszoq Xfer(QC): 6 Does the Patient Walk: Yes Walk 50ft with 2 Turns (QC): 6 PT Plan Treatment/Plan Treatment Plan: Continue Plan of Care Treatment Plan: Bed Mobility, Gait Treatment Duration: Dec 31, 2020 Frequency: 6 times per week Estimated Hrs Per Day: .25 hour per day Patient and/or Family Agrees t: Yes Time/GCodes Time In: 813 Time Out: 836 Total Billed Treatment Time: 23 Total Billed Treatment 1 visit GT x 2 23 min HERMANN MINER PT Dec 29, 2020 10:00
--- NOTE | 2020-12-29 10:05 | Occupational Therapy Eval ---
OT Evaluation-General/PLF Medical Diagnosis Admission Date Dec 26, 2020 at 18:16 Medical Diagnosis: multiple trauma Onset Date: Dec 26, 2020 Therapy Diagnosis Therapy Diagnosis: decreased ADL status Precautions Precautions/Isolations: Fall Prevention, Standard Precautions Referral Physician: Yue Bhatt Referral Reason: Evaluation/Treatment Medical History Additional Medical History pacemaker, multiple UE fractures Current History 8--21 Pt mauled by cow, multiple contusions and abrasions. Knocked unconscious with resultant concussion. Possible thoracic compression fracture and rib fractures. Crush of LLE Social History Home: Single Level Current Living Status: Spouse ADL-Prior Level of Function SCALE: Activities may be completed with or without assistive devices. 1-Msjmahytna-vgqctas completes the activity by him/herself with no assistance from a helper. 5-Set-up or Clean-up Assistance-helper sets up or cleans up; patient completes activity. [place] assists only prior to or following the activity. 4-Supervision or Touching Assistance-helper provides verbal cues and/or touching/steadying and/or contact guard assistance as patient completes activity. Assistance may be provided throughout the activity or intermittently. 3-Partial/Moderate Assistance-helper does LESS THAN HALF the effort. [place] lifts, holds or supports trunk or limbs, but provides less than half the effort. 2-Substantial/Maximal Assistance-helper does MORE THAN HALF the effort. [place] lifts or holds trunk or limbs and provides more than half the effort. 1-Etragwtzq-mfxjfa does ALL the effort. Patient does none of the effort to complete the activity. Or, the assistance of 2 or more helpers is required for the patient to complete the activity. If activity was not attempted, code reason: 7-Patient Refused. 9-Not Applicable-not attempted and the patient did not perform the activity before the current illness, exacerbation or injury. 10-Not Attempted due to Environmental Limitations-(lack of equipment, weather restraints, etc.). 88-Not Attempted due to Medical Conditions or Safety Concerns. ADL PLOF Comments Pt reports IND with ADLs and functional mobility at PLOF,no AE/AD Self Care: Independent Functional Cognition: Independent DME/Equipment: Bath Chair, Shower OT Current Status Subjective Pt seated in recliner, states he feels better today compared with yesterday. Mental Status/Objective Patient Orientation: Person, Place, Time, Situation Attachments: IV Current Hand Dominance: Right Upper Extremity ROM BUE shoulder flexion to approx 80 degrees, limited by pain. WFL elbows/wrists/hands. Upper Extremity Coordination WFL Upper Extremity Sensation WFL BUEs Upper Extremity Strength BUE shoulders not formally tested due to pain, 3+/5 BUE elbow/wrist/hands WFL, 5/5 ADL-Treatment Eating (QC): 6 (Per pt report, IND with breakfast) Oral Hygiene (QC): 4 (SBA standing at sink.) On/Off Footwear (QC): 1 (total assist with donning gripper socks) Other Treatments Pt seated in recliner, OT educated pt on purpose and benefit of OT, he verbalized understanding. Pt provided information about PLOF and home set up, and participated in UE screen. Pt states he does not need to toilet at this time, as he had just gone. Pt agreeable to oral care. Pt unable to doff/don gripper socks due to pain, required total assist (indicates his would be able to assist at home as needed). Pt used FWW to perform functional mobility into bathroom, SBA, slow pace. Pt stood at sink to complete oral care, SBA with task, no LOB noted. Pt returned to recliner. Post tx, pt seated in recliner, call light in reach and all needs met. OT Intermediate Goals Intermediate Goals Time Frame: Jan 09, 2021 Eating (QC): 6 Oral Hygiene (QC): 6 Toileting Hygiene (QC): 6 Shower/Bathe Self (QC): 4 Upper Body Dressing (QC): 5 Lower Body Dressing (QC): 4 On/Off Footwear (QC): 4 Additional Goals: 1-Demonstrate ADL Tasks, 2-Verbalize Understanding, 3- ImproveStrength/Radha 1=Demonstrate adherence to instructed precautions during ADL tasks. 2=Patient will verbalize/demonstrate understanding of assistive devices/modifications for ADL. 3=Patient will improve strength/tolerance for activity to enable patient to perform ADL's. OT Education/Plan Problem List/Assessment Assessment: Decreased Activ Tolerance, Decreased UE Strength, Impaired Funct Balance, Impaired I ADL's, Impaired Self-Care Skills, Restricted Funct UE ROM Discharge Recommendations Plan/Recommendations: Continue POC Treatment Plan/Plan of Care Patient would benefit from OT for education, treatment and training to promote independence in ADL's, mobility, safety and/or upper extremity function for ADL's. Plan of Care: ADL Retraining, Functional Mobility, UE Funct Exercise/Act Treatment Duration: Jan 09, 2021 Frequency: 5 times per week Estimated Hrs Per Day: .25 hour per day Rehab Potential: Good Time/GCodes Start Time: 09:42 Stop Time: 09:54 Total Time Billed (hr/min): 12 Billed Treatment Time 1, KATTY HERNANDEZ OT Dec 29, 2020 10:05
[2020-12-29] MEDS ORDERED: FUROSEMIDE 40 MG/4 ML INJ (LASIX) IVP ONE (10:30)
[2020-12-29] MEDS ORDERED: LISI20TA26 PO (10:54)
[2020-12-29] MEDS ORDERED: ATOR40TA70 PO (10:54)
[2020-12-29] MEDS ORDERED: ASPI-1238 PO (10:59)
[2020-12-29] MEDS ORDERED: LYSI100014 PO (10:59)
[2020-12-29] MEDS ORDERED: POTA2TAB5 PO (10:59)
[2020-12-29] MEDS ORDERED: VERA120T10 PO (10:59)
[2020-12-29] MEDS ORDERED: COLC0.6C PO (10:59)
--- NOTE | 2020-12-29 11:08 | Progress Note - Hospitalist ---
ROGERIO SEQUEIRA MED STUDENT 12/29/20 1107: Subjective HPI/CC On Admission Date Seen by Provider: Dec 29, 2020 Time Seen by Provider: 07:45 Chief complaint: Trauma with injuries from cow charge History of present illness: This is a 60-year-old white male [facility] patient and cardiology patient at [facility] who presents following a trauma with injury from a cow. Patient sustained injuries with a syncopal episode so he was admitted for monitoring and reported chest pain so was moved up to the ICU and cardiology has been consulted. Currently he is reporting leg pain but no evidence of any compartment syndrome. Labs remained stable. at the bedside. Subjective/Events-last exam Patient reports not sleeping well overnight. Reports still having chest pain latasha t is unchanging. Reports left leg pain, mostly in the left popliteal fossa without radiation. Reports loss of sensation in upper posterior left leg which is unchanging. Denies SOB, fevers, chills, incontinence. Reports still constipated. Last BM tuesday morning. No nausea or vomiting. Tolerating po intake well. Review of Systems General: No Chills, No Night Sweats HEENT: No Head Aches, No Visual Changes Pulmonary: No Dyspnea, No Cough Cardiovascular: Chest Pain (chest pain worsened with coughing and deep breathing), Edema (2+ LLE); No: Palpitations Gastrointestinal: No: Nausea, Vomiting, Abdominal Pain Genitourinary: No Dysuria, No Frequency Musculoskeletal: No: neck pain, back pain Neurological: No: Weakness, Numbness Objective Exam Vital Signs Vital Signs Date Time Temp Pulse Resp B/P (MAP) Pulse Ox O2 Delivery O2 Flow Rate FiO2 12/29/20 09:18 Room Air 12/29/20 07:37 36.7 74 20 166/93 (117) 98 12/28/20 09:00 2.00 Capillary Refill : Greater Than 3 Seconds General Appearance: No Apparent Distress, WD/WN HEENT: PERRL/EOMI, Pharynx Normal, Moist Mucous Membranes Neck: Full Range of Motion, Normal Inspection, Non Tender Respiratory: Lungs Clear, No Accessory Muscle Use, No Respiratory Distress, Decreased Breath Sounds Cardiovascular: Regular Rate, Rhythm, No Murmur, Normal Peripheral Pulses Gastrointestinal: Normal Bowel Sounds, Non Tender, Soft Rectal: Deferred Back: No CVA Tenderness, No Vertebral Tenderness Extremity: Normal Capillary Refill, No Calf Tenderness, Pedal Edema (Left foot), Other (Dorsalis pedis pulse left faintly/intermittently palpable.) Neurologic/Psychiatric: Alert, Oriented x3, Normal Mood/Affect Skin: Warm/Dry, Ecchymosis (left posterior thigh and right shoulder), Pallor Lymphatic: No Adenopathy Results/Procedures Lab Laboratory Tests 12/28/20 11:10 12/29/20 05:25 Patient resulted labs reviewed. Assessment/Plan Assessment and Plan Assess & Plan/Chief Complaint S/P Trauma with injuries from cow -general surgery following -continue frequent reassessments of left lower extremity Concussion with LOC -continue to monitor neurologic status Rhabdomyolysis -CK trending down -fluids dc'd today Acute kidney injury -Creatinine trending down to 1.24 today Chest pain with history of angina -cardiology consulted -continue to monitor Hypertension -continue to monitor Hyperlipidemia -continue to monitor Sinus node dysfunction pacemaker in place -cardiology following -pacemaker interrogated and functioning appropriately Pain control -continue prn's PT OT YUE GARCIA DO 12/30/20 0612: Subjective Subjective/Events-last exam Pt doing about the same Left leg pain precludes a lot of walking PT and OT saw him Trying to arrange for a clam brace for his spine CPK down to 1000 Will heplock IV fluids since he feels like he is overloaded Will give Lasix 20 Mg IV x1 Lovenox held due to Hgb decrease per Dr. Greenfield Review of Systems Musculoskeletal: back pain, leg pain Objective Exam General Appearance: No Apparent Distress, WD/WN, Obese Respiratory: No Accessory Muscle Use, No Respiratory Distress, Decreased Breath Sounds Cardiovascular: Regular Rate, Rhythm Neurologic/Psychiatric: Alert, Oriented x3, Depressed Affect Assessment/Plan Assessment and Plan Assess & Plan/Chief Complaint Plan brace for spine Supportive care Pain control Monitor CPK Hep-Lock IV fluid to prevent overload Lasix 1 dose Supervisory-Addendum Brief Verification & Attestation Participated in pt care: history, MDM, physical Personally performed: exam, history, MDM, supervision of care Care discussed with: Medical Student Procedures: n/a Results interpretation: Verified all documentation Verification and Attestation of Medical Student E/M Service A medical student performed and documented this service in my presence. I reviewed and verified all information documented by the medical student and made modifications to such information, when appropriate. I personally performed the physical exam and medical decision making. Yue Garcia, Dec 30, 2020,06:10 ROGERIO SEQUEIRA MED STUDENT Dec 29, 2020 11:07 YUE GARCIA DO Dec 30, 2020 06:12
[2020-12-29] MEDS: OLANZapine 5 MG (ZyPREXA) TAB PO SCH (20:10)
[2020-12-30] MEDS: fentaNYL INJ 100 MCG/2 ML AMP IVP PRN (03:43)
[2020-12-30] MEDS: CATHETER FLUSH 10 ML SYR IV SCH ×3 (05:42→22:32)
[2020-12-30 05:59] LABS: BASOPHILS % (AUTO) 0 % (0-10); EOSINOPHILS # (AUTO) 0.1 10^3/uL (0.0-0.3); EOSINOPHILS % (AUTO) 2 % (0-10); HEMATOCRIT 32 % (40-54); HEMOGLOBIN 10.4 g/dL (13.3-17.7); LYMPHOCYTES # (AUTO) 1.6 10^3/uL (1.0-4.0); LYMPHOCYTES % (AUTO) 18 % (12-44); MEAN CORPUSCULAR HEMOGLOBIN 30 pg (25-34); MEAN CORPUSCULAR HGB CONC 33 g/dL (32-36); MEAN CORPUSCULAR VOLUME 92 fL (80-99); MEAN PLATELET VOLUME 9.2 fL (9.0-12.2); MONOCYTES # (AUTO) 0.7 10^3/uL (0.0-1.0); MONOCYTES % (AUTO) 9 % (0-12); NEUTROPHILS # (AUTO) 6.2 10^3/uL (1.8-7.8); NEUTROPHILS % (AUTO) 71 % (42-75); PLATELET COUNT 192 10^3/uL (130-400); WHITE BLOOD COUNT 8.6 10^3/uL (4.3-11.0)
[2020-12-30 06:15] LABS: ALBUMIN 3.3 GM/DL (3.2-4.5); BILIRUBIN,TOTAL 1.7 MG/DL (0.1-1.0); CALCIUM 9.1 MG/DL (8.5-10.1); CREATININE SERUM 1.28 MG/DL (0.60-1.30); TOTAL PROTEIN 6.4 GM/DL (6.4-8.2)
--- NOTE | 2020-12-30 08:08 | Progress Note - Surgery ---
SONYA DEJESUS 12/30/20 0808: Subjective Date Seen by a Provider: Dec 30, 2020 Time Seen by a Provider: 08:00 Subjective/Events-last exam Patient states pain is "still horrible, but that he feels better today". Patient's left leg measures 43cm today (42cm yesterday). Patient has sensation in left lower extremity up to wound dressing today which is an improvement from yesterday. Slight rise in total CK today (1213-2937). Patient states he has been up and walking some, encouraged to continue. Patient is passing stool and urine. Patient states urine is clear and yellow. Patient was not fitted for clam shell brace yet. Patient is still curious about going home today. Patient denies chills, fever, SOB. Review of Systems General: No Chills, No Night Sweats Gastrointestinal: No: Abdominal Pain, Constipation Genitourinary: No Dysuria Musculoskeletal: shoulder pain (Right shoulder pain), leg pain (Left lower extremity) Neurological: Weakness (Left lower extremity), Numbness (Left popliteal fossa) Objective Exam Vital Signs Date Time Temp Pulse Resp B/P (MAP) Pulse Ox O2 Delivery O2 Flow Rate FiO2 12/30/20 04:26 37.2 78 18 143/78 (99) 93 Room Air 12/30/20 00:19 37.3 86 19 138/79 (98) 94 Room Air 12/29/20 19:34 37.2 87 18 130/82 (98) 94 Room Air 12/29/20 19:25 Room Air 12/29/20 15:59 37.2 74 20 156/94 (114) 95 Room Air 12/29/20 11:37 36.5 75 20 124/79 (94) 94 Room Air 12/29/20 11:09 98 Room Air 12/29/20 09:18 Room Air I & O 12/30/20 07:00 Intake Total 2150 ml Balance 2150 ml Capillary Refill : Greater Than 3 Seconds General Appearance: No Apparent Distress, WD/WN, Obese HEENT: PERRL/EOMI Neck: Non Tender Respiratory: Lungs Clear, Normal Breath Sounds, No Accessory Muscle Use, No Respiratory Distress Cardiovascular: Regular Rate, Rhythm Peripheral Pulses: 2+ Dorsalis Pedis (R); 1+ Left Dors-Pedis (L); 2+ Radial Pulses (R), 2+ Radial Pulses (L) Gastrointestinal: normal bowel sounds, non tender, soft, no organomegaly Extremity: Calf Tenderness (left side), Swelling (Left lower extremity swelling, 43 cm today), Other (States left foot soreness. Generalized weakness in Left ankle) Neurologic/Psychiatric: Alert, Oriented x3, Depressed Affect Skin: Warm/Dry, Ecchymosis (left posterior thigh and right shoulder), Pallor Results Lab Laboratory Tests 12/30/20 05:39: White Blood Count 8.6, Red Blood Count 3.47L, Hemoglobin 10.4L, Hematocrit 32L, Mean Corpuscular Volume 92, Mean Corpuscular Hemoglobin 30, Mean Corpuscular Hemoglobin Concent 33, Red Cell Distribution Width 13.4, Platelet Count 192, Mean Platelet Volume 9.2, Immature Granulocyte % (Auto) 0, Neutrophils (%) (Auto) 71, Lymphocytes (%) (Auto) 18, Monocytes (%) (Auto) 9, Eosinophils (%) (Auto) 2, Basophils (%) (Auto) 0, Neutrophils # (Auto) 6.2, Lymphocytes # (Auto) 1.6, Monocytes # (Auto) 0.7, Eosinophils # (Auto) 0.1, Basophils # (Auto) 0.0, Immature Granulocyte # (Auto) 0.0, Sodium Level 135, Potassium Level 4.0, Chloride Level 101, Carbon Dioxide Level 25, Anion Gap 9, Blood Urea Nitrogen 13, Creatinine 1.28, Estimat Glomerular Filtration Rate 58, BUN/Creatinine Ratio 10, Glucose Level 121H, Calcium Level 9.1, Corrected Calcium 9.7, Total B ilirubin 1.7H, Aspartate Amino Transf (AST/SGOT) 34, Alanine Aminotransferase (ALT/SGPT) 29, Alkaline Phosphatase 63, Total Creatine Kinase 1224H, Total Protein 6.4, Albumin 3.3 Microbiology 12/26/20 MRSA Screen - Final, Complete MRSA not isolated Assessment/Plan Assessment/Plan Assessment/Plan T3 Compression FX Anemia Blunt and crush Trauma - trampled by cow Abrasion right shoulder Abrasion left popliteal fossa Left leg swelling - follow to make sure he does not develop Compartment syndrome Closed Head injury - concussion with LOC Plan - Still has paresthesia, faint pulse, weakness and pain out of proportion (with just passive stretch) to left lower leg. Continue to monitor his leg and may recheck pressures. Would fit pt for clamshell brace just to be safe; because he is having back pain. Hg has risen after D/C lovenox. Continue to monitor. Continue to encourage patient to walk more. TOBI GREENFIELD DO 12/30/20 1229: Subjective Time Seen by a Provider: 11:42 Subjective/Events-last exam Pt seen and examined, no new complaints. States he has a little more feeling in the back of his leg. Review of Systems General: No Chills, No Night Sweats Pulmonary: No Dyspnea, No Cough Cardiovascular: No: Chest Pain, Palpitations Gastrointestinal: No: Abdominal Pain, Constipation Musculoskeletal: shoulder pain (Right shoulder pain), back pain, leg pain (Left lower extremity) Neurological: Weakness (Left lower extremity), Numbness (Left popliteal fossa) Objective Exam General Appearance: No Apparent Distress, Obese HEENT: PERRL/EOMI Respiratory: Lungs Clear, Normal Breath Sounds, No Accessory Muscle Use, No Respiratory Distress Cardiovascular: Regular Rate, Rhythm, No Murmur Gastrointestinal: non tender, soft, no organomegaly Extremity: Calf Tenderness (left side), Swelling (Left lower extremity swelling , 43 cm today), Other (States left foot soreness. Generalized weakness in Left ankle) Neurologic/Psychiatric: Depressed Affect Skin: Ecchymosis (left posterior thigh and right shoulder), Pallor Assessment/Plan Assessment/Plan Assessment/Plan T3 Compression FX Anemia - stable, no changes today Blunt and crush Trauma - trampled by cow Abrasion right shoulder Abrasion left popliteal fossa Left leg swelling - no changes really Closed Head injury - concussion with LOC Plan - Still has paresthesia (but slightly improved), faint pulse, weakness and pain out of proportion (with just passive stretch) to left lower leg. Waiting to fit pt for clamshell brace (should be tomorrow) just to be safe; because of compression fracture and back pain. Hg has risen after D/C lovenox. Continue to monitor. Continue to encourage patient to walk more. Supervisory-Addendum Brief Verification & Attestation Participated in pt care: history, MDM, physical Personally performed: exam, history, MDM, supervision of care Care discussed with: Medical Student Procedures: n/a Verification and Attestation of Medical Student E/M Service A medical student performed and documented this service. I then reviewed and verified all information documented by the medical student and made modifications to such information, when appropriate. I personally performed a physical exam, medical decision making and then discussed any differences between the notes and made revisions as necessary to create one note. Tobi Greenfield , 12/30/20 , 12:28 SONYA DEJESUS Dec 30, 2020 08:08 TOBI GREENFIELD DO Dec 30, 2020 12:29
[2020-12-30] MEDS: SENNA W/DOCUSATE (SENOKOT S) TABLET PO SCH ×2 (08:21→20:45)
[2020-12-30] MEDS: PANTOPRAZOLE 40 MG (PROTONIX) TAB PO SCH (08:22)
[2020-12-30] MEDS: SUCRALFATE 1 GM (CARAFATE) TAB PO SCH ×2 (08:22→20:45)
[2020-12-30] MEDS: FLUoxetine HCL 20 MG (PROzac) CAP PO SCH (08:22)
[2020-12-30] MEDS: polyethylene glycoL POWDER 17 GM (MIRALAX) PACK PO SCH ×2 (08:24→20:45)
[2020-12-30] MEDS: ALPRAZolam 0.5 MG (XANAX) TAB PO SCH ×4 (08:24→20:45)
--- NOTE | 2020-12-30 09:07 | Cardiology Progress Note ---
Subjective Date Seen by Provider: Dec 30, 2020 Time Seen by Provider: 09:06 Subjective/Events-last exam Patient was seen at bedside, sitting comfortably, having more pain today after physical therapy Review of Systems General: No Chills, No Night Sweats, No Fatigue, No Malaise, No Appetite, No Other HEENT: No Head Aches, No Visual Changes, No Eye Pain, No Ear Pain, No Dysphasia, No Sinus Congestion, No Post Nasal Drip, No Sore Throat, No Other Pulmonary: No Dyspnea, No Cough, No Pleuritic Chest Pain, No Other Cardiovascular: No: Chest Pain, Palpitations, Orthopnea, Paroxysmal Noc. Dyspnea, Edema, Lt Headedness, Other Objective-Cardiology Exam Last Set of Vital Signs Vital Signs 12/28/20 12/30/20 09:00 08:00 Temp 37.2 Pulse 79 Resp 20 B/P (MAP) 132/80 (97) Pulse Ox 92 O2 Delivery Room Air O2 Flow Rate 2.00 I&O Intake and Output 12/30/20 00:00 Intake Total 2300 ml Output Total 1350 ml Balance 950 ml Intake Oral 2150 ml IV Total 150 ml Output Urine Total 1350 ml # Voids 2 # Bowel Movements 7 General: Alert, Oriented X3, Cooperative HEENT: Atraumatic, PERRLA Neck: Supple, No JVD, No Thyromegaly Lungs: Clear to Auscultation, Normal Air Movement Heart: Regular Rate, Normal S1, Normal S2, No Murmurs Abdomen: Normal Bowel Sounds, Soft, No Tenderness, No Hepatosplenomegaly, No Masses Extremities: No Clubbing, No Cyanosis, No Edema, Normal Pulses, No Tenderness/Swelling Skin: No Rashes, No Breakdown, No Significant Lesion Neuro: Normal Speech, Strength at 5/5 X4 Ext, Normal Tone, Sensation Intact Psych/Mental Status: Mental Status NL, Mood NL Results Lab Laboratory Tests 12/30/20 05:39 A/P-Cardiology Admission Diagnosis Chest pain Coronary artery disease Syncope Acute renal failure Assessment/Plan Chest pain, waxing and waning, reproducible, most probably musculoskeletal, troponin was negative, had elevated CPK and myoglobin secondary to injury. I reassured him at this time, recommended following up with his primary card iologist as an outpatient Coronary artery disease, reported cardiac catheterization in 2018, patient recall having significant disease not amendable to intervention he was started on sublingual nitroglycerin for chest pain. Syncope, probably vasovagal, no malignant arrhythmia was detected. Continue to monitor Sinus node dysfunction, history of dual-chamber pacemaker, interrogated today, appears to be functioning normally. Continue to follow-up as an outpatient Status post traumatic injury with rhabdomyolysis secondary to injury. Received IV fluid, managed by primary care team Left leg pain, questionable compartment syndrome, managed by surgical team Acute renal insufficiency, managed by primary care team From cardiac standpoint patient appears to be stable, okay for discharge and follow-up with his primary life agent MICHAEL RUVALCABA MD Dec 30, 2020 09:07
--- NOTE | 2020-12-30 09:58 | Physical Therapy Daily Note ---
PT Daily Note-Current Subjective Patient up ad alin in room. Rates left LE pain 8/10 with meds issued. Pain Numeric Pain Scale: 8 Location: Left Location Body Site: Calf Pain Description: Acute, Burning Mental Status Patient Orientation: Normal For Age Transfers SCALE: Activities may be completed with or without assistive devices. 5-Gfclrufiis-msyiall completes the activity by him/herself with no assistance from a helper. 5-Set-up or Clean-up Assistance-helper sets up or cleans up; patient completes activity. Gueydan assists only prior to or following the activity. 4-Supervision or Touching Assistance-helper provides verbal cues and/or touching/steadying and/or contact guard assistance as patient completes activity. Assistance may be provided throughout the activity or intermittently. 3-Partial/Moderate Assistance-helper does LESS THAN HALF the effort. Gueydan lifts, holds or supports trunk or limbs, but provides less than half the effort. 2-Substantial/Maximal Assistance-helper does MORE THAN HALF the effort. Gueydan lifts or holds trunk or limbs and provides more than half the effort. 3-Aktszlxhd-mqdhfi does ALL the effort. Patient does none of the effort to complete the activity. Or, the assistance of 2 or more helpers is required for the patient to complete the activity. If activity was not attempted, code reason: 7-Patient Refused. 9-Not Applicable-not attempted and the patient did not perform the activity before the current illness, exacerbation or injury. 10-Not Attempted due to Environmental Limitations-(lack of equipment, weather restraints, etc.). 88-Not Attempted due to Medical Conditions or Safety Concerns. Sit to Stand (QC): 6 Gait Training Does the Patient Walk?: Yes Distance: 175' Walk 10 feet (QC): 6 Walk 50 ft with 2 Turns(QC): 6 Walk 150 ft (QC): 6 Gait Assistive Device: FWW very slow, small step sequence, step to with FWW Exercises Seated Therapy Exercises: Ankle pumps, Long arc quads Seated Reps: 12 (x 3 with AAROM left ankle DF/PF with patient resisting due to pain) Assessment Patient requires time to complete all functional tasks. Patient highly encouraged to ambulate PRN in room and/or hallway to improve strength and circulation. Patient voices understanding. RN notified. PT Care Home Goals Care Home Goals PT Care Home Goals Time Frame: Dec 31, 2020 Roll Left & Right (QC): 6 Sit to Lying (QC): 6 Lying-Sitting on Side/Bed(QC): 6 Sit to Stand (QC): 6 Chair/Ivy-tm-Nlzjm Xfer(QC): 6 Does the Patient Walk: Yes Walk 50ft with 2 Turns (QC): 6 PT Plan Treatment/Plan Treatment Plan: Continue Plan of Care Treatment Plan: Bed Mobility, Gait Treatment Duration: Dec 31, 2020 Frequency: 6 times per week Estimated Hrs Per Day: .25 hour per day Patient and/or Family Agrees t: Yes Time/GCodes Time In: 805 Time Out: 834 Total Billed Treatment Time: 29 Total Billed Treatment 1 visit EX 10 min GT 19 min HERMANN MINER PT Dec 30, 2020 09:58
--- NOTE | 2020-12-30 11:11 | Occupational Ther Daily Note ---
OT Current Status-Daily Note Subjective Pt up in recliner, agreeable to OT tx. ADL-Treatment Therapy Code Descriptions/Definitions Functional Nogal Measure: 0=Not Assessed/NA 4=Minimal Assistance 1=Total Assistance 5=Supervision or Setup 2=Maximal Assistance 6=Modified Nogal 3=Moderate Assistance 7=Complete IndependenceSCALE: Activities may be completed with or without assistive devices. 0-Duooyfwrbn-avkyhzf completes the activity by him/herself with no assistance from a helper. 5-Set-up or Clean-up Assistance-helper sets up or cleans up; patient completes activity. Cook Sta assists only prior to or following the activity. 4-Supervision or Touching Assistance-helper provides verbal cues and/or touching/steadying and/or contact guard assistance as patient completes activity. Assistance may be provided throughout the activity or intermittently. 3-Partial/Moderate Assistance-helper does LESS THAN HALF the effort. Cook Sta lifts, holds or supports trunk or limbs, but provides less than half the effort. 2-Substantial/Maximal Assistance-helper does MORE THAN HALF the effort. Cook Sta lifts or holds trunk or limbs and provides more than half the effort. 4-Lwczhmslw-kpwvnv does ALL the effort. Patient does none of the effort to co mplete the activity. Or, the assistance of 2 or more helpers is required for the patient to complete the activity. If activity was not attempted, code reason: 7-Patient Refused. 9-Not Applicable-not attempted and the patient did not perform the activity before the current illness, exacerbation or injury. 10-Not Attempted due to Environmental Limitations-(lack of equipment, weather restraints, etc.). 88-Not Attempted due to Medical Conditions or Safety Concerns. Lower Body Dressing (QC): 4 (SBA, pt able to don underwear with SBA) On/Off Footwear: 3 (Min A with donning gripper socks using AE) Other Treatment Pt seated in recliner, OT educated pt on AE for LE dressing. Pt able to doff gripper socks using shipper/receiver, then don socks with sock aide, min A. Pt educated on using shipper/receiver to don underwear, pt able to thread BLEs into underwear and perform pant hike without AE, SBA. Staff present to take x-ray. Post tx, pt seated in recliner, call light in reach and all needs met. Education OT Patient Education: Correct positioning, Modified ADL techniques, Progress toward Goal/Update tx plan, Purpose of tx/functional activities, Use of adapted equipment Teaching Recipient: Patient Teaching Methods: Discussion Response to Teaching: Verbalize Understanding OT Fpc Goals Fpc Goals Time Frame: Jan 09, 2021 Eating (QC): 6 Oral Hygiene (QC): 6 Toileting Hygiene (QC): 6 Shower/Bathe Self (QC): 4 Upper Body Dressing (QC): 5 Lower Body Dressing (QC): 4 On/Off Footwear (QC): 4 Additional Goals: 1-Demonstrate ADL Tasks, 2-Verbalize Understanding, 3- ImproveStrength/Radha 1=Demonstrate adherence to instructed precautions during ADL tasks. 2=Patient will verbalize/demonstrate understanding of assistive devices/modifications for ADL. 3=Patient will improve strength/tolerance for activity to enable patient to perform ADL's. OT Education/Plan Problem List/Assessment Assessment: Decreased Activ Tolerance, Decreased UE Strength, Impaired I ADL's, Impaired Self-Care Skills Discharge Recommendations Plan/Recommendations: Continue POC Treatment Plan/Plan of Care Patient would benefit from OT for education, treatment and training to promote independence in ADL's, mobility, safety and/or upper extremity function for ADL's. Plan of Care: ADL Retraining, Functional Mobility, UE Funct Exercise/Act Treatment Duration: Jan 09, 2021 Frequency: 5 times per week Estimated Hrs Per Day: .25 hour per day Rehab Potential: Good Time/GCodes Start Time: 10:50 Stop Time: 11:01 Total Time Billed (hr/min): 11 Billed Treatment Time 1, ADL KATTY OTERO OT Dec 30, 2020 11:11
--- NOTE | 2020-12-30 11:18 | Progress Note ---
ROGERIO SEQUEIRA MED STUDENT 12/30/20 1118: Subjective Date Seen by a Provider: Dec 30, 2020 Time Seen by a Provider: 07:35 Subjective/Events-last exam Patient reports sleeping better overnight. Still having significant pain in the left leg. PRN pain meds are working well. No nausea, vomiting, constipation, fevers, and headaches. Still able to wiggle toes on left foot. Dorsiflexion weak, plantarflexion minimal. Pedal pulse left foot 1+/4. Surgery continues to follow and is closely monitoring. Pt. reports some left foot pain. Plan to order 2 view foot xray to evaluate. Review of Systems General: No Chills, No Night Sweats HEENT: No Head Aches, No Visual Changes Pulmonary: No Dyspnea, No Cough, No Pleuritic Chest Pain Cardiovascular: No: Chest Pain, Palpitations Gastrointestinal: No: Nausea, Vomiting, Abdominal Pain Genitourinary: No Dysuria, No Frequency Musculoskeletal: leg pain (left leg/left foot); No: neck pain, back pain Neurological: No: Weakness, Numbness Objective Exam Last Set of Vital Signs Vital Signs Date Time Temp Pulse Resp B/P (MAP) Pulse Ox O2 Delivery O2 Flow Rate FiO2 12/30/20 09:00 92 Room Air 12/30/20 08:00 37.2 79 20 132/80 (97) 12/28/20 09:00 2.00 Capillary Refill : Greater Than 3 Seconds I&O Intake and Output 12/30/20 00:00 Intake Total 2300 ml Output Total 1350 ml Balance 950 ml Intake Oral 2150 ml IV Total 150 ml Output Urine Total 1350 ml # Voids 2 # Bowel Movements 7 General: Alert, Oriented X3, Cooperative, No Acute Distress HEENT: Atraumatic, PERRLA, EOMI, Mucous Memb Moist/[place] Neck: Supple, No Thyromegaly Lungs: Clear to Auscultation, Normal Air Movement Heart: Regular Rate, No Murmurs Abdomen: Normal Bowel Sounds, Soft, No Tenderness Extremities: No Clubbing, No Cyanosis, Other (swollen and ecchymotic left leg, worse posterior aspect of thigh and popliteal fossa) Skin: Other (abrasion to right shoulder, scattered ecchymosis and superficial skin tear left leg posteriorly) Neuro: Normal Speech, Other (patient reports some sensory loss on left posterior thigh/left popliteal fossa, "states somewhat better than yesterday") Psych/Mental Status: Mental Status NL, Mood NL Results Lab Laboratory Tests 12/30/20 05:39: White Blood Count 8.6, Red Blood Count 3.47L, Hemoglobin 10.4L, Hematocrit 32L, Mean Corpuscular Volume 92, Mean Corpuscular Hemoglobin 30, Mean Corpuscular Hemoglobin Concent 33, Red Cell Distribution Width 13.4, Platelet Count 192, Mean Platelet Volume 9.2, Immature Granulocyte % (Auto) 0, Neutrophils (%) (Auto) 71, Lymphocytes (%) (Auto) 18, Monocytes (%) (Auto) 9, Eosinophils (%) (Auto) 2, Basophils (%) (Auto) 0, Neutrophils # (Auto) 6.2, Lymphocytes # (Auto) 1.6, Monocytes # (Auto) 0.7, Eosinophils # (Auto) 0.1, Basophils # (Auto) 0.0, Immature Granulocyte # (Auto) 0.0, Sodium Level 135, Potassium Level 4.0, Chloride Level 101, Carbon Dioxide Level 25, Anion Gap 9, Blood Urea Nitrogen 13, Creatinine 1.28, Estimat Glomerular Filtration Rate 58, BUN/Creatinine Ratio 10, Glucose Level 121H, Calcium Level 9.1, Corrected Calcium 9.7, Total Bilirubin 1.7H, Aspartate Amino Transf (AST/SGOT) 34, Alanine Aminotransferase (ALT/SGPT) 29, Alkaline Phosphatase 63, Total Creatine Kinase 1224H, Total Protein 6.4, Albumin 3.3 Microbiology 12/26/20 MRSA Screen - Final, Complete MRSA not isolated Assessment/Plan Assessment/Plan Assess & Plan/Chief Complaint S/P Trauma with injuries from cow- blunt injury and crush injury sustained -general surgery following -continue frequent reassessments of left lower extremity -awaiting placement of clam brace -order left foot 2 view xray today in light of patient complaint of left foot pain Concussion with LOC -continue to monitor neurologic status Rhabdomyolysis -CK increased today from 1040 yesterday to 1224 today -SL'd -encourage increased po intake of fluids -continue to trend for now Acute kidney injury-resolved -Creatinine stable at 1.28 today Anemia -Hgb stable at 10.4 today -surgery holding lovenox due to anemia -continue to trend Chest pain with history of angina -cardiology following -continue to monitor Hypertension -continue to monitor Hyperlipidemia -continue to monitor Sinus node dysfunction pacemaker in place -cardiology following -pacemaker interrogated and functioning appropriately Pain control -continue prn's PT OT YUE GARCIA DO 12/31/20 0536: Subjective Subjective/Events-last exam Pt is doing okay Left foot hurts now so will get an X-ray Inpatient rehab is a possibility Bowels moved Holding Lovenox due to declining Hgb Review of Systems General: Fatigue Musculoskeletal: leg pain (left leg/left foot) Objective Exam General: Alert, Oriented X3, Cooperative, No Acute Distress Lungs: Clear to Auscultation, Normal Air Movement Heart: Regular Rate, Normal S1, Normal S2, No Murmurs Psych/Mental Status: Mental Status NL, Mood NL Assessment/Plan Assessment/Plan Assess & Plan/Chief Complaint Inpatient rehab eval Ambulate Supervisory-Addendum Brief Verification & Attestation Participated in pt care: history, MDM, physical Personally performed: exam, history, MDM, supervision of care Care discussed with: Medical Student Procedures: n/a Results interpretation: Verified all documentation Verification and Attestation of Medical Student E/M Service A medical student performed and documented this service in my presence. I reviewed and verified all information documented by the medical student and made modifications to such information, when appropriate. I personally performed the physical exam and medical decision making. Yue Garcia, Dec 31, 2020,05:35 ROGERIO SEQUEIRA MED STUDENT Dec 30, 2020 11:18 YUE GARCIA DO Dec 31, 2020 05:36
--- NOTE | 2020-12-30 14:21 | Diagnostic Imaging Report ---
INDICATION: Left foot pain. TECHNIQUE: Two views of the left foot. CORRELATION STUDY: None. FINDINGS: Osseous structures appear to be intact without evidence for acute fracture or dislocation. Asymmetric subcortical cystic change about the 5th metatarsal head. Adjacent joint appears unremarkable. Prominent, 12 mm plantar calcaneal spur. Slight osteophyte formation projecting superiorly at the dorsal tarsometatarsal articulation. Some generalized soft tissue edema along the dorsal aspect of the foot. IMPRESSION: Negative for acute findings of the foot. Dictated by: Dictated on workstation # [id number]
[2020-12-30] MEDS ORDERED: ACETAMINOPHEN 325 MG TABLET PO PRN (14:30)
[2020-12-30] MEDS: OLANZapine 5 MG (ZyPREXA) TAB PO SCH (20:45)
[2020-12-31] MEDS: CATHETER FLUSH 10 ML SYR IV SCH ×2 (05:05→09:42)
[2020-12-31 06:10] LABS: BASOPHILS % (AUTO) 0 % (0-10); EOSINOPHILS # (AUTO) 0.1 10^3/uL (0.0-0.3); EOSINOPHILS % (AUTO) 1 % (0-10); HEMATOCRIT 35 % (40-54); HEMOGLOBIN 11.1 g/dL (13.3-17.7); LYMPHOCYTES # (AUTO) 1.6 10^3/uL (1.0-4.0); LYMPHOCYTES % (AUTO) 19 % (12-44); MEAN CORPUSCULAR HEMOGLOBIN 30 pg (25-34); MEAN CORPUSCULAR HGB CONC 32 g/dL (32-36); MEAN CORPUSCULAR VOLUME 94 fL (80-99); MEAN PLATELET VOLUME 9.3 fL (9.0-12.2); MONOCYTES # (AUTO) 0.8 10^3/uL (0.0-1.0); MONOCYTES % (AUTO) 10 % (0-12); NEUTROPHILS # (AUTO) 5.9 10^3/uL (1.8-7.8); NEUTROPHILS % (AUTO) 70 % (42-75); PLATELET COUNT 219 10^3/uL (130-400); WHITE BLOOD COUNT 8.4 10^3/uL (4.3-11.0)
[2020-12-31 06:26] LABS: ALBUMIN 3.6 GM/DL (3.2-4.5)
[2020-12-31 06:27] LABS: CALCIUM 9.4 MG/DL (8.5-10.1)
[2020-12-31 06:29] LABS: TOTAL PROTEIN 6.9 GM/DL (6.4-8.2)
[2020-12-31 06:30] LABS: BILIRUBIN,TOTAL 2.1 MG/DL (0.1-1.0)
[2020-12-31 06:32] LABS: CREATININE SERUM 1.29 MG/DL (0.60-1.30)
--- NOTE | 2020-12-31 07:17 | Progress Note - Surgery ---
SONYA DEJESUS 12/31/20 0717: Subjective Date Seen by a Provider: Dec 31, 2020 Time Seen by a Provider: 07:12 Subjective/Events-last exam Patient states pain is better in leg today, but that the pain in his foot is worse. X ray yesterday shows no acute foot pathology. Calf measures 44cm this morning, the same as yesterday. Patient denies sensation to posterior lower extremity area, a change from yesterday. Swelling in left foot is palpable throughout, and swelling has increased over the medial malleolus. Patient states he has been up and ambulating, but that he cannot put much weight on left foot. Patient reports passing stool and urine normally without problems. Patient will be fitted with clam shell brace today. Total CK is down from 1240 to 1049 today. Hemoglobin is up from 10.4 to 11.1. Review of Systems General: No Chills, No Night Sweats Pulmonary: No Dyspnea, No Cough Gastrointestinal: No: Nausea, Vomiting, Constipation Genitourinary: No Dysuria Musculoskeletal: other (pain with deep inspiration due to trauma), foot pain (worse than yesterday; states cannot put weight) Objective Exam Vital Signs Date Time Temp Pulse Resp B/P (MAP) Pulse Ox O2 Delivery O2 Flow Rate FiO2 12/31/20 07:07 37.8 83 20 147/87 (107) 92 Room Air 12/31/20 04:43 37.2 80 20 142/77 (98) 93 Room Air 12/30/20 23:37 37.4 12/30/20 23:29 37.4 82 18 137/69 (91) 92 Room Air 12/30/20 21:00 96 Room Air 12/30/20 18:26 37.4 12/30/20 16:47 38.1 87 18 157/75 (102) 96 Room Air 12/30/20 11:26 37.0 93 18 133/80 (97) 95 Room Air 12/30/20 09:00 92 Room Air 12/30/20 08:00 37.2 79 20 132/80 (97) 92 Room Air I & O 12/31/20 07:00 Intake Total 1640 ml Balance 1640 ml Capillary Refill : Greater Than 3 Seconds General Appearance: No Apparent Distress, Obese HEENT: PERRL/EOMI Neck: Non Tender Respiratory: Lungs Clear, Normal Breath Sounds, No Accessory Muscle Use, No Respiratory Distress Cardiovascular: Regular Rate, Rhythm, No Murmur Peripheral Pulses: 2+ Dorsalis Pedis (R); 1+ Left Dors-Pedis (L); 2+ Radial Pulses (R), 2+ Radial Pulses (L) Gastrointestinal: non tender, soft, no organomegaly Extremity: Calf Tenderness (left side), Swelling (Left lower extremity swelling, 44 cm today), Other (States left foot pain. Generalized weakness in Left ankle) Neurologic/Psychiatric: Alert, Oriented x3, Depressed Affect Skin: Normal Color, Warm/Dry, Ecchymosis (left posterior thigh and right shoulder), Other (Left posterior thigh ecchymosis darkening) Results Lab Laboratory Tests 12/31/20 05:42: White Blood Count 8.4, Red Blood Count 3.67L, Hemoglobin 11.1L, Hematocrit 35L, Mean Corpuscular Volume 94, Mean Corpuscular Hemoglobin 30, Mean Corpuscular Hemoglobin Concent 32, Red Cell Distribution Width 13.5, Platelet Count 219, Mean Platelet Volume 9.3, Immature Granulocyte % (Auto) 0, Neutrophils (%) (Auto) 70, Lymphocytes (%) (Auto) 19, Monocytes (%) (Auto) 10, Eosinophils (%) (Auto) 1, Basophils (%) (Auto) 0, Neutrophils # (Auto) 5.9, Lymphocytes # (Auto) 1.6, Monocytes # (Auto) 0.8, Eosinophils # (Auto) 0.1, Basophils # (Auto) 0.0, Immature Granulocyte # (Auto) 0.0, Sodium Level 139, Potassium Level 4.0, Chloride Level 102, Carbon Dioxide Level 24, Anion Gap 13, Blood Urea Nitrogen 16, Creatinine 1.29, Estimat Glomerular Filtration Rate 57, BUN/Creatinine Ratio 12, Glucose Level 123H, Calcium Level 9.4, Corrected Calcium 9.7, Total Bilirubin 2.1H, Aspartate Amino Transf (AST/SGOT) 35H, Alanine Aminotransferase (ALT/SGPT) 35, Alkaline Phosphatase 59, Total Creatine Kinase 1049H, Total Protein 6.9, Albumin 3.6 Microbiology 12/26/20 MRSA Screen - Final, Complete MRSA not isolated Assessment/Plan Assessment/Plan Assessment/Plan T3 Compression FX Anemia - stable, Hgb from 10.4 -> 11.1 Blunt and crush Trauma - trampled by cow Abrasion right shoulder Abrasion left popliteal fossa Left leg swelling - no changes Closed Head injury - concussion with LOC Plan - Still has paresthesia (states he cannot feel sensation on the back of his calf today), faint pulse, weakness and pain out of proportion (with just passive stretch) to left lower leg. Waiting to fit pt for clamshell brace (should be today) just to be safe; because of compression fracture and back pain. Hg has risen after D/C lovenox. Continue to monitor. Continue to encourage patient to walk more. QUITAAVERYRADHA Manohar DO 12/31/20 1209: Subjective Time Seen by a Provider: 11:59 Subjective/Events-last exam Pt seen and examined, no changes. Main complaint is foot pain today. Tolerating diet. Review of Systems General: No Chills, No Night Sweats Pulmonary: No Dyspnea, No Cough Cardiovascular: No: Chest Pain, Palpitations Gastrointestinal: No: Nausea, Vomiting Musculoskeletal: other (pain with deep inspiration due to trauma), back pain, leg pain, foot pain (worse than yesterday; states cannot put weight) Objective Exam General Appearance: No Apparent Distress, Obese HEENT: PERRL/EOMI Respiratory: Lungs Clear, Normal Breath Sounds, No Accessory Muscle Use, No Respiratory Distress Cardiovascular: Regular Rate, Rhythm, No Murmur Gastrointestinal: non tender, soft, no organomegaly Extremity: Calf Tenderness (left side), Swelling (Left lower extremity swelling, 44 cm today), Other (States left foot pain. Generalized weakness in Left ankle) Assessment/Plan Assessment/Plan Assessment/Plan T3 Compression FX Anemia - stable, Hgb from 10.4 -> 11.1 Blunt and crush Trauma - trampled by cow Abrasion right shoulder Abrasion left popliteal fossa Left leg swelling - no changes Closed Head injury - concussion with LOC Plan - Still has paresthesia (states he cannot feel sensation on the back of his calf today), faint pulse, weakness and pain out of proportion (with just passive stretch) to left lower leg. Waiting to fit pt for clamshell brace (should be today) just to be safe; because of compression fracture and back pain. Hg has risen after D/C lovenox. Continue to monitor. Continue to encourage patient to walk more. Supervisory-Addendum Brief Verification & Attestation Participated in pt care: history, MDM, physical Personally performed: exam, history, MDM, supervision of care Care discussed with: Medical Student Procedures: n/a Verification and Attestation of Medical Student E/M Service A medical student performed and documented this service. I then reviewed and verified all information documented by the medical student and made modifications to such information, when appropriate. I personally performed a physical exam, medical decision making and then discussed any differences between the notes and made revisions as necessary to create one note. Radha Greenfield , 12/31/20 , 12:09 SONYA DEJESUS Dec 31, 2020 07:17 RADHA GREENFIELD DO Dec 31, 2020 12:09
[2020-12-31] MEDS: PANTOPRAZOLE 40 MG (PROTONIX) TAB PO SCH (07:40)
[2020-12-31] MEDS: FLUoxetine HCL 20 MG (PROzac) CAP PO SCH (07:41)
[2020-12-31] MEDS: SUCRALFATE 1 GM (CARAFATE) TAB PO SCH (07:41)
[2020-12-31] MEDS: polyethylene glycoL POWDER 17 GM (MIRALAX) PACK PO SCH (07:41)
[2020-12-31] MEDS: ALPRAZolam 0.5 MG (XANAX) TAB PO SCH ×2 (07:41→13:07)
[2020-12-31] MEDS: SENNA W/DOCUSATE (SENOKOT S) TABLET PO SCH (07:41)
--- NOTE | 2020-12-31 09:32 | Physical Therapy Daily Note ---
PT Daily Note-Current Subjective Patient reluctantly agrees to PT. Patient has had pain medication per RN. Pain Numeric Pain Scale: 8 Location: Left Location Body Site: Calf Pain Description: Acute, Burning Mental Status Patient Orientation: Person, Time, Situation Transfers SCALE: Activities may be completed with or without assistive devices. 5-Wxyazfomyz-uizcxxg completes the activity by him/herself with no assistance from a helper. 5-Set-up or Clean-up Assistance-helper sets up or cleans up; patient completes activity. [place] assists only prior to or following the activity. 4-Supervision or Touching Assistance-helper provides verbal cues and/or touching/steadying and/or contact guard assistance as patient completes activity. Assistance may be provided throughout the activity or intermittently. 3-Partial/Moderate Assistance-helper does LESS THAN HALF the effort. [place] lifts, holds or supports trunk or limbs, but provides less than half the effort. 2-Substantial/Maximal Assistance-helper does MORE THAN HALF the effort. [place] lifts or holds trunk or limbs and provides more than half the effort. 8-Cbjhbgxcw-vtlozv does ALL the effort. Patient does none of the effort to complete the activity. Or, the assistance of 2 or more helpers is required for the patient to complete the activity. If activity was not attempted, code reason: 7-Patient Refused. 9-Not Applicable-not attempted and the patient did not perform the activity before the current illness, exacerbation or injury. 10-Not Attempted due to Environmental Limitations-(lack of equipment, weather restraints, etc.). 88-Not Attempted due to Medical Conditions or Safety Concerns. Lying to Sitting/Side of Bed(Q: 5 Sit to Stand (QC): 6 Chair/Whq-am-Pbbnv Xfer(QC): 6 Gait Training Does the Patient Walk?: Yes Distance: 250' Walk 10 feet (QC): 6 Walk 50 ft with 2 Turns(QC): 6 Walk 150 ft (QC): 6 Gait Assistive Device: FWW very, very, slow step to gait sequence with VC's to weight bear through left LE Exercises Supine Ex: Ankle pumps, Quad Set, Heel Slides, Straight leg raise Supine Reps: 12 (stretching left ankle DF/PF with patient resisting due to pain) Seated Therapy Exercises: Ankle pumps, Long arc quads Seated Reps: 12 Assessment Patient tolerated treatment and is encouraged and instructed to be up independently in room. Patient voices understanding. TLSO should be in today. PT Pharmacy Specialist Goals Pharmacy Specialist Goals PT Group Home Goals Time Frame: Dec 31, 2020 Roll Left & Right (QC): 6 Sit to Lying (QC): 6 Lying-Sitting on Side/Bed(QC): 6 Sit to Stand (QC): 6 Chair/Tql-kh-Mwfyg Xfer(QC): 6 Does the Patient Walk: Yes Walk 50ft with 2 Turns (QC): 6 PT Plan Treatment/Plan Treatment Plan: Continue Plan of Care Treatment Plan: Bed Mobility, Gait Treatment Duration: Dec 31, 2020 Frequency: 6 times per week Estimated Hrs Per Day: .25 hour per day Patient and/or Family Agrees t: Yes Time/GCodes Time In: 853 Time Out: 918 Total Billed Treatment Time: 25 Total Billed Treatment 1 visit EX 12 min GT 13 min HERMANN MINER PT Dec 31, 2020 09:32
--- NOTE | 2020-12-31 09:59 | Cardiology Progress Note ---
Subjective Date Seen by Provider: Dec 31, 2020 Time Seen by Provider: 08:50 Subjective/Events-last exam Patient in bed, continues to c/o left leg and foot pain. Denies any chest pain or dyspnea. Objective-Cardiology Exam Last Set of Vital Signs Vital Signs 12/28/20 12/31/20 12/31/20 09:00 07:07 08:55 Temp 37.8 Pulse 83 Resp 20 B/P (MAP) 147/87 (107) Pulse Ox 92 O2 Delivery Room Air O2 Flow Rate 2.00 I&O Intake and Output 12/31/20 00:00 Intake Total 1740 ml Balance 1740 ml Intake Oral 1740 ml # Voids 11 # Bowel Movements 2 General: Alert, Oriented X3, Cooperative, No Acute Distress HEENT: Atraumatic, PERRLA, EOMI, Mucous Memb Moist/[place] Neck: Supple, No Thyromegaly Lungs: Clear to Auscultation, Normal Air Movement Heart: Regular Rate, Normal S1, Normal S2, No Murmurs Abdomen: Normal Bowel Sounds, Soft, No Tenderness Extremities: No Clubbing, No Cyanosis, Other (swollen and ecchymotic left leg, worse posterior aspect of thigh and popliteal fossa) Skin: Other (abrasion to right shoulder, scattered ecchymosis and superficial skin tear left leg posteriorly) Neuro: Normal Speech, Other (patient reports some sensory loss on left posterior thigh/left popliteal fossa, "states somewhat better than yesterday") Psych/Mental Status: Mental Status NL, Mood NL Results Lab Laboratory Tests 12/31/20 05:42 A/P-Cardiology Admission Diagnosis Chest pain Coronary artery disease Syncope Acute renal failure Assessment/Plan Chest pain, waxing and waning, reproducible, most probably musculoskeletal, troponin was negative, had elevated CPK and myoglobin secondary to injury. I reassured him at this time, recommended following up with his primary broodmare barn groom as an outpatient Coronary artery disease, reported cardiac catheterization in 2018, patient recall having significant disease not amendable to intervention he was started on sublingual nitroglycerin for chest pain. Syncope, probably vasovagal, no malignant arrhythmia was detected. Continue to monitor Sinus node dysfunction, history of dual-chamber pacemaker, interrogated today, appears to be functioning normally. Continue to follow-up as an outpatient Status post traumatic injury with rhabdomyolysis secondary to injury. Received IV fluid, managed by primary care team Left leg pain, questionable compartment syndrome, managed by surgical team Acute renal insufficiency, improved, managed by primary care team From cardiac standpoint patient appears to be stable, okay for discharge and follow-up with his primary broodmare barn groom RODOLFO FIELDS Dec 31, 2020 09:59
--- NOTE | 2020-12-31 11:42 | Progress Note ---
ROGERIO SEQUEIRA MED STUDENT 12/31/20 1142: Subjective Date Seen by a Provider: Dec 31, 2020 Time Seen by a Provider: 07:35 Subjective/Events-last exam Reports sleeping well overnight. Drifts off to sleep mid conversation, but answers appropriately and is oriented x 4. Tolerating po intake well. Bowels moving well. No urinary complaints. Denies fevers, chills, nausea, vomiting, and chest pain. Reports severe left leg pain that he rates at an 8/10 lying in bed currently. States the lortab helps the pain. He reports walking in the halls with therapy but is still bearing minimal weight on the left leg and states "I'm mainly dragging the left leg." Reports no new loss of sensation in the left leg or new or increased swelling. Reports that his left foot hurts more today, although 2 view foot x ray was negative yesterday for any acute pathology. Surgery continues to follow with frequent reassessments. Plan to transfer to acute rehab unit once workers [facility] is approved. Review of Systems General: No Chills, No Night Sweats HEENT: No Head Aches, No Visual Changes Pulmonary: No Dyspnea, No Cough, No Pleuritic Chest Pain Cardiovascular: No: Chest Pain, Palpitations, Orthopnea, Paroxysmal Noc. Dyspnea Gastrointestinal: No: Nausea, Vomiting, Abdominal Pain, Diarrhea, Constipation Genitourinary: No Dysuria, No Frequency Musculoskeletal: leg pain (left leg), foot pain (left foot); No: neck pain, back pain Neurological: No: Weakness, Numbness, Seizures Objective Exam Last Set of Vital Signs Vital Signs Date Time Temp Pulse Resp B/P (MAP) Pulse Ox O2 Delivery O2 Flow Rate FiO2 12/31/20 08:55 Room Air 12/31/20 07:07 37.8 83 20 147/87 (107) 92 12/28/20 09:00 2.00 Capillary Refill : Greater Than 3 Seconds I&O Intake and Output 12/31/20 00:00 Intake Total 1740 ml Balance 1740 ml Intake Oral 1740 ml # Voids 11 # Bowel Movements 2 General: Alert, Oriented X3, Cooperative, No Acute Distress HEENT: Atraumatic, PERRLA, EOMI, Mucous Memb Moist/[place] Neck: Supple, No LAD Lungs: Clear to Auscultation, Normal Air Movement Heart: Regular Rate, No Murmurs Abdomen: Normal Bowel Sounds, Soft, No Tenderness Extremities: No Clubbing, No Cyanosis, Other (LLE edematous compared to right. Dorsalis pedis pulse left foot +1/4. Left lower foot warm to touch. Skin is somewhat tense, but no worse than prior assessemnt. ) Skin: Other (Ecchymosis left posteromedial thigh unchanged. Abrasion to R shoulder. Generalized pallor. ) Neuro: Normal Speech, Cranial Nerves 3-12 NL Psych/Mental Status: Mental Status NL, Other (flat affect) Results Lab Laboratory Tests 12/31/20 05:42: White Blood Count 8.4, Red Blood Count 3.67L, Hemoglobin 11.1L, Hematocrit 35L, Mean Corpuscular Volume 94, Mean Corpuscular Hemoglobin 30, Mean Corpuscular Hemoglobin Concent 32, Red Cell Distribution Width 13.5, Platelet Count 219, Mean Platelet Volume 9.3, Immature Granulocyte % (Auto) 0, Neutrophils (%) (Auto) 70, Lymphocytes (%) (Auto) 19, Monocytes (%) (Auto) 10, Eosinophils (%) (Auto) 1, Basophils (%) (Auto) 0, Neutrophils # (Auto) 5.9, Lymphocytes # (Auto) 1.6, Monocytes # (Auto) 0.8, Eosinophils # (Auto) 0.1, Basophils # (Auto) 0.0, Immature Granulocyte # (Auto) 0.0, Sodium Level 139, Potassium Level 4.0, Chloride Level 102, Carbon Dioxide Level 24, Anion Gap 13, Blood Urea Nitrogen 16, Creatinine 1.29, Estimat Glomerular Filtration Rate 57, BUN/Creatinine Ratio 12, Glucose Level 123H, Calcium Level 9.4, Corrected Calcium 9.7, Total Bilirubin 2.1H, Aspartate Amino Transf (AST/SGOT) 35H, Alanine Aminotransferase (ALT/SGPT) 35, Alkaline Phosphatase 59, Total Creatine Kinase 1049H, Total Protein 6.9, Albumin 3.6 Microbiology 12/26/20 MRSA Screen - Final, Complete MRSA not isolated Assessment/Plan Assessment/Plan Assess & Plan/Chief Complaint S/P Trauma with injuries from cow- blunt injury and crush injury sustained -general surgery following -continue frequent reassessments of left lower extremity -awaiting placement of clam brace- should happen today -2 view left foot x ray negative for acute pathology Concussion with LOC -continue to monitor neurologic status Rhabdomyolysis -CK decreased to 1049 today from 1224 yesterday -SL'd -encourage increased po intake of fluids -continue to trend for now Acute kidney injury-resolved -Creatinine stable at 1.29 today Anemia -Hgb stable at 11.1 today -surgery holding lovenox due to anemia -continue to trend Chest pain with history of angina -cardiology following -continue to monitor -PRN SL nitro Hypertension -continue to monitor Hyperlipidemia -continue to monitor Sinus node dysfunction pacemaker in place -cardiology following -pacemaker interrogated and functioning appropriately Pain control -continue prn's PT OT -doing frequent therapy per patient report -plan to transfer to inpatient rehab unit pending workers comp approval YUE GARCIA DO 01/01/21 0458: Subjective Subjective/Events-last exam Awaiting answer from Worker's Comp. for inpatient rehab Review of Systems General: Fatigue Musculoskeletal: leg pain (left leg), foot pain (left foot) Objective Exam General: Alert, Oriented X3, Cooperative, No Acute Distress Lungs: Clear to Auscultation Heart: Regular Rate Assessment/Plan Assessment/Plan Assess & Plan/Chief Complaint Inpatient rehab Supervisory-Addendum Brief Verification & Attestation Participated in pt care: history, MDM, physical Personally performed: exam, history, MDM, supervision of care Care discussed with: Medical Student Procedures: n/a Results interpretation: Verified all documentation Verification and Attestation of Medical Student E/M Service A medical student performed and documented this service in my presence. I reviewed and verified all information documented by the medical student and made modifications to such information, when appropriate. I personally performed the physical exam and medical decision making. Yue Garcia, Jan 01, 2021,04:57 ROGERIO SEQUEIRA MED STUDENT Dec 31, 2020 11:42 YUE GARCIA DO Jan 01, 2021 04:58
--- NOTE | 2020-12-31 12:04 | Occupational Ther Daily Note ---
OT Current Status-Daily Note Subjective Pt seated upright in recliner sleeping, agreeable to OT tx. Mental Status/Objective Patient Orientation: Person, Place, Situation ADL-Treatment Therapy Code Descriptions/Definitions Functional [place] Measure: 0=Not Assessed/NA 4=Minimal Assistance 1=Total Assistance 5=Supervision or Setup 2=Maximal Assistance 6=Modified [place] 3=Moderate Assistance 7=Complete IndependenceSCALE: Activities may be completed with or without assistive devices. 6-Caoobpozyq-qrqvssm completes the activity by him/herself with no assistance from a helper. 5-Set-up or Clean-up Assistance-helper sets up or cleans up; patient completes activity. [place] assists only prior to or following the activity. 4-Supervision or Touching Assistance-helper provides verbal cues and/or touching/steadying and/or contact guard assistance as patient completes activity. Assistance may be provided throughout the activity or intermittently. 3-Partial/Moderate Assistance-helper does LESS THAN HALF the effort. [place] lifts, holds or supports trunk or limbs, but provides less than half the effort. 2-Substantial/Maximal Assistance-helper does MORE THAN HALF the effort. [place] lifts or holds trunk or limbs and provides more than half the effort. 1-Uajwgqrtl-npdmig does ALL the effort. Patient does none of the effort to compl ete the activity. Or, the assistance of 2 or more helpers is required for the patient to complete the activity. If activity was not attempted, code reason: 7-Patient Refused. 9-Not Applicable-not attempted and the patient did not perform the activity before the current illness, exacerbation or injury. 10-Not Attempted due to Environmental Limitations-(lack of equipment, weather restraints, etc.). 88-Not Attempted due to Medical Conditions or Safety Concerns. Oral Hygiene (QC): 6 (IND standing at sink) Toileting Hygiene (QC): 6 (Pt stood at toilet to urinate, able to manage clothing) Other Treatment Pt seated in recliner, used FWW to perform functional mobility to bathroom. Pt stood at sink to complete oral care and wash hands independently. He then stood at toilet to urinate, able to manage clothing, no LOB. Pt used FWW to return to room, transferring to EOB, then supine IND. Post tx, pt laying in bed, call light in reach and all needs met. Education OT Patient Education: Correct positioning, Modified ADL techniques, Progress toward Goal/Update tx plan, Purpose of tx/functional activities, Rehab process Teaching Recipient: Patient Teaching Methods: Discussion Response to Teaching: Verbalize Understanding OT Melting Furnace Skimmer Goals Melting Furnace Skimmer Goals Time Frame: Jan 09, 2021 Eating (QC): 6 Oral Hygiene (QC): 6 Toileting Hygiene (QC): 6 Shower/Bathe Self (QC): 4 Upper Body Dressing (QC): 5 Lower Body Dressing (QC): 4 On/Off Footwear (QC): 4 Additional Goals: 1-Demonstrate ADL Tasks, 2-Verbalize Understanding, 3-Im proveStrength/Radha 1=Demonstrate adherence to instructed precautions during ADL tasks. 2=Patient will verbalize/demonstrate understanding of assistive devices/modifications for ADL. 3=Patient will improve strength/tolerance for activity to enable patient to perform ADL's. OT Education/Plan Problem List/Assessment Assessment: Decreased Activ Tolerance, Decreased UE Strength, Impaired I ADL's Discharge Recommendations Plan/Recommendations: Continue POC Treatment Plan/Plan of Care Patient would benefit from OT for education, treatment and training to promote independence in ADL's, mobility, safety and/or upper extremity function for ADL's. Plan of Care: ADL Retraining, Functional Mobility, UE Funct Exercise/Act Treatment Duration: Jan 09, 2021 Frequency: 5 times per week Estimated Hrs Per Day: .25 hour per day Rehab Potential: Good Time/GCodes Start Time: 11:08 Stop Time: 11:18 Total Time Billed (hr/min): 10 Billed Treatment Time 1, ADL KATTY OTERO OT Dec 31, 2020 12:04
--- NOTE | 2020-12-31 13:55 | Discharge Summary ---
Diagnosis/Chief Complaint Date of Admission Dec 29, 2020 at 13:50 Date of Discharge Discharge Date: Dec 31, 2020 Discharge Diagnosis S/P Trauma with injuries from cow- blunt injury and crush injury sustained -general surgery following -continue frequent reassessments of left lower extremity -awaiting placement of clam brace- should happen today -2 view left foot x ray negative for acute pathology Concussion with LOC -continue to monitor neurologic status Rhabdomyolysis -CK decreased to 1049 today from 1224 yesterday -SL'd -encourage increased po intake of fluids -continue to trend for now Acute kidney injury-resolved -Creatinine stable at 1.29 today Anemia -Hgb stable at 11.1 today -surgery holding lovenox due to anemia -continue to trend Chest pain with history of angina -cardiology following -continue to monitor -PRN SL nitro Hypertension -continue to monitor Hyperlipidemia -continue to monitor Sinus node dysfunction pacemaker in place -cardiology following -pacemaker interrogated and functioning appropriately Pain control -continue prn's PT OT -doing frequent therapy per patient report -plan to transfer to inpatient rehab unit pending workers comp approval Discharge Summary Discharge Physical Examination Allergies: Coded Allergies: No Known Drug Allergies (Unverified , 01/11/11) Vitals & I&Os Vital Signs Date Time Temp Pulse Resp B/P (MAP) Pulse Ox O2 Delivery O2 Flow Rate FiO2 12/31/20 08:55 Room Air 12/31/20 07:07 37.8 83 20 147/87 (107) 92 12/28/20 09:00 2.00 General Appearance: Alert, Oriented X3, Cooperative Respiratory: Clear to Auscultation Cardiovascular: Regular Rate Extremities: Other (Tenderness and bruising and swelling left leg) Psych/Mental Status: Mental Status NL, Other (Flat affect) Hospital Course Was the Problem List Reviewed?: Yes Hospital course: Pt had a lengthy observation hospital course for three days after he was admitted after trauma from a cow trampling him, resulting in some spinal fractures and left lower extremity soft tissue injury specific for compartment syndrome which was managed by surgery. He otherwise did very well, had no new significant issues. Bowel function returned back to normal and he was deemed stable for inpatient rehab to proceed on with recovery. He has had a cervical spine fracture and was in a halo for a long time per Dr. Robel Sierra PCP when I talked to him and has a long standing history of depression and severe anxiety. Labs (last 24 hrs) Laboratory Tests 12/26/20 14:20: White Blood Count 25.3H, Red Blood Count 4.93, Hemoglobin 14.8, Hematocrit 44, Mean Corpuscular Volume 90, Mean Corpuscular Hemoglobin 30, Mean Corpuscular Hemoglobin Concent 34, Red Cell Distribution Width 13.3, Platelet Count 357, Mean Platelet Volume 9.5, Immature Granulocyte % (Auto) 0, Neutrophils (%) (Aut o) 88H, Lymphocytes (%) (Auto) 7L, Monocytes (%) (Auto) 5, Eosinophils (%) (Auto) 0, Basophils (%) (Auto) 0, Neutrophils # (Auto) 22.2H, Lymphocytes # (Auto) 1.7, Monocytes # (Auto) 1.3H, Eosinophils # (Auto) 0.0, Basophils # (Auto) 0.0, Immature Granulocyte # (Auto) 0.1, Neutrophils % (Manual) 79, Lymphocytes % (Manual) 10, Monocytes % (Manual) 6, Eosinophils % (Manual) 0, Basophils % (Manual) 0, Band Neutrophils 5, Prothrombin Time 12.6, INR Comment 0.9, Activated Partial Thromboplast Time 27, Sodium Level 135, Potassium Level 4.5, Chloride Level 99, Carbon Dioxide Level 20L, Anion Gap 16H, Blood Urea Nitrogen 20H, Creatinine 2.33H, Estimat Glomerular Filtration Rate 29, BUN/Creatinine Ratio 9, Glucose Level 139H, Calcium Level 9.8, Corrected Calcium 9.6, Magnesium Level 1.7, Total Bilirubin 1.8H, Aspartate Amino Transf (AST/SGOT) 50H, Alanine Aminotransferase (ALT/SGPT) 44, Alkaline Phosphatase 85, Total Protein 7.6, Albumin 4.3 12/26/20 14:31: Glucometer 136H 12/26/20 19:52: Total Creatine Kinase 1851H, Myoglobin 1449.2H, Troponin I < 0.028 12/27/20 04:57: Magnesium Level 1.9, Total Creatine Kinase 1394H, Myoglobin 990.4H, Troponin I < 0.028, Phosphorus Level 4.4, Creatine Kinase MB 13.7*H 12/27/20 05:40: White Blood Count 9.1, Red Blood Count 4.07L, Hemoglobin 12.6L, Hematocrit 38L, Mean Corpuscular Volume 93, Mean Corpuscular Hemoglobin 31, Mean Corpuscular He moglobin Concent 33, Red Cell Distribution Width 13.5, Platelet Count 215, Mean Platelet Volume 9.6, Immature Granulocyte % (Auto) 0, Neutrophils (%) (Auto) 68, Lymphocytes (%) (Auto) 22, Monocytes (%) (Auto) 10, Eosinophils (%) (Auto) 1, Basophils (%) (Auto) 0, Neutrophils # (Auto) 6.2, Lymphocytes # (Auto) 2.0, Monocytes # (Auto) 0.9, Eosinophils # (Auto) 0.1, Basophils # (Auto) 0.0, Immature Granulocyte # (Auto) 0.0, Sodium Level 137, Potassium Level 4.6, Chloride Level 106, Carbon Dioxide Level 21, Anion Gap 10, Blood Urea Nitrogen 20H, Creatinine 1.68H, Estimat Glomerular Filtration Rate 42, BUN/Creatinine Ratio 12, Glucose Level 122H, Calcium Level 8.5, Corrected Calcium 8.8, Total Bilirubin 2.0H, Aspartate Amino Transf (AST/SGOT) 43H, Alanine Aminotransferase (ALT/SGPT) 41, Alkaline Phosphatase 62, Total Protein 6.1L, Albumin 3.6 12/28/20 11:10: White Blood Count 7.1, Red Blood Count 3.66L, Hemoglobin 11.1L, Hematocrit 34L, Mean Corpuscular Volume 94, Mean Corpuscular Hemoglobin 30, Mean Corpuscular Hemoglobin Concent 32, Red Cell Distribution Width 13.4, Platelet Count 178, Mean Platelet Volume 9.2, Immature Granulocyte % (Auto) 0, Neutrophils (%) (Auto) 73, Lymphocytes (%) (Auto) 18, Monocytes (%) (Auto) 8, Eosinophils (%) (Auto) 1, Basophils (%) (Auto) 0, Neutrophils # (Auto) 5.2, Lymphocytes # (Auto) 1.3, Monocytes # (Auto) 0.5, Eosinophils # (Auto) 0.1, Basophils # (Auto) 0.0, Immature Granulocyte # (Auto) 0.0, Sodium Level 136, Potassium Level 4.1, Chloride Level 106, Carbon Dioxide Level 22, Anion Gap 8, Blood Urea Nitrogen 13, Creatinine 1.30, Estimat Glomerular Filtration Rate 57, BUN/Creatinine Ratio 10, Glucose Level 157H, Calcium Level 8.7, Corrected Calcium 9.3, Total Bilirubin 1.3H, Aspartate Amino Transf (AST/SGOT) 35H, Alanine Aminotransferase (ALT/SGPT) 36, Alkaline Phosphatase 68, Total Protein 6.2L, Albumin 3.3, Total Creatine Kinase 1186H 12/29/20 05:25: White Blood Count 7.4, Red Blood Count 3.31L, Hemoglobin 10.1L, Hematocrit 31L, Mean Corpuscular Volume 93, Mean Corpuscular Hemoglobin 31, Mean Corpuscular Hemoglobin Concent 33, Red Cell Distribution Width 13.4, Platelet Count 172, Mean Platelet Volume 9.5, Immature Granulocyte % (Auto) 0, Neutrophils (%) (Auto) 63, Lymphocytes (%) (Auto) 27, Monocytes (%) (Auto) 8, Eosinophils (%) (Auto) 2, Basophils (%) (Auto) 0, Neutrophils # (Auto) 4.7, Lymphocytes # (Auto) 2.0, Monocytes # (Auto) 0.6, Eosinophils # (Auto) 0.1, Basophils # (Auto) 0.0, Immature Granulocyte # (Auto) 0.0, Sodium Level 140, Potassium Level 4.0, Chloride Level 107, Carbon Dioxide Level 23, Anion Gap 10, Blood Urea Nitrogen 11, Creatinine 1.24, Estimat Glomerular Filtration Rate 60, BUN/Creatinine Ratio 9, Glucose Level 109H, Calcium Level 8.6, Corrected Calcium 9.2, Total Bilirubin 1.0, Aspartate Amino Transf (AST/SGOT) 31, Alanine Aminotransferase (ALT/SGPT) 30, Alkaline Phosphatase 52, Total Protein 5.8L, Albumin 3.2, Total Creatine Kinase 1040H 12/30/20 05:39: White Blood Count 8.6, Red Blood Count 3.47L, Hemoglobin 10.4L, Hematocrit 32L, Mean Corpuscular Volume 92, Mean Corpuscular Hemoglobin 30, Mean Corpuscular Hemoglobin Concent 33, Red Cell Distribution Width 13.4, Platelet Count 192, Mean Platelet Volume 9.2, Immature Granulocyte % (Auto) 0, Neutrophils (%) (Auto) 71, Lymphocytes (%) (Auto) 18, Monocytes (%) (Auto) 9, Eosinophils (%) (Auto) 2, Basophils (%) (Auto) 0, Neutrophils # (Auto) 6.2, Lymphocytes # (Auto) 1.6, Monocytes # (Auto) 0.7, Eosinophils # (Auto) 0.1, Basophils # (Auto) 0.0, Immature Granulocyte # (Auto) 0.0, Sodium Level 135, Potassium Level 4.0, Chloride Level 101, Carbon Dioxide Level 25, Anion Gap 9, Blood Urea Nitrogen 13, Creatinine 1.28, Estimat Glomerular Filtration Rate 58, BUN/Creatinine Ratio 10, Glucose Level 121H, Calcium Level 9.1, Corrected Calcium 9.7, Total Bilir ubin 1.7H, Aspartate Amino Transf (AST/SGOT) 34, Alanine Aminotransferase (ALT/SGPT) 29, Alkaline Phosphatase 63, Total Protein 6.4, Albumin 3.3, Total Creatine Kinase 1224H 12/31/20 05:42: White Blood Count 8.4, Red Blood Count 3.67L, Hemoglobin 11.1L, Hematocrit 35L, Mean Corpuscular Volume 94, Mean Corpuscular Hemoglobin 30, Mean Corpuscular Hemoglobin Concent 32, Red Cell Distribution Width 13.5, Platelet Count 219, Mean Platelet Volume 9.3, Immature Granulocyte % (Auto) 0, Neutrophils (%) (Auto) 70, Lymphocytes (%) (Auto) 19, Monocytes (%) (Auto) 10, Eosinophils (%) (Auto) 1, Basophils (%) (Auto) 0, Neutrophils # (Auto) 5.9, Lymphocytes # (Auto) 1.6, Monocytes # (Auto) 0.8, Eosinophils # (Auto) 0.1, Basophils # (Auto) 0.0, Immature Granulocyte # (Auto) 0.0, Sodium Level 139, Potassium Level 4.0, Chloride Level 102, Carbon Dioxide Level 24, Anion Gap 13, Blood Urea Nitrogen 16, Creatinine 1.29, Estimat Glomerular Filtration Rate 57, BUN/Creatinine Ratio 12, Glucose Level 123H, Calcium Level 9.4, Corrected Calcium 9.7, Total Bilirubin 2.1H, Aspartate Amino Transf (AST/SGOT) 35H, Alanine Aminotransferase (ALT/SGPT) 35, Alkaline Phosphatase 59, Total Creatine Kinase 1049H, Total Protein 6.9, Albumin 3.6 Microbiology 12/26/20 MRSA Screen - Final, Complete MRSA not isolated Pending Labs Microbiology Date/Time Source Procedure Growth Status 12/26/20 22:15 Nasal MRSA Screen - Final MRSA not isolated Complete Laboratory Tests 12/26/20 14:20: White Blood Count 25.3, Red Blood Count 4.93, Hemoglobin 14.8, Hematocrit 44, Mean Corpuscular Volume 90, Mean Corpuscular Hemoglobin 30, Mean Corpuscular Hemoglobin Concent 34, Red Cell Distribution Width 13.3, Platelet Count 357, Mean Platelet Volume 9.5, Immature Granulocyte % (Auto) 0, Neutrophils (%) (A uto) 88, Lymphocytes (%) (Auto) 7, Monocytes (%) (Auto) 5, Eosinophils (%) (Auto) 0, Basophils (%) (Auto) 0, Neutrophils # (Auto) 22.2, Lymphocytes # (Auto) 1.7, Monocytes # (Auto) 1.3, Eosinophils # (Auto) 0.0, Basophils # (Auto) 0.0, Immature Granulocyte # (Auto) 0.1, Neutrophils % (Manual) 79, Lymphocytes % (Manual) 10, Monocytes % (Manual) 6, Eosinophils % (Manual) 0, Basophils % (Manual) 0, Band Neutrophils 5, Prothrombin Time 12.6, INR Comment 0.9, Activated Partial Thromboplast Time 27, Sodium Level 135, Potassium Level 4.5, Chloride Level 99, Carbon Dioxide Level 20, Anion Gap 16, Blood Urea Nitrogen 20, Creatinine 2.33, Estimat Glomerular Filtration Rate 29, BUN/Creatinine Ratio 9, Glucose Level 139, Calcium Level 9.8, Corrected Calcium 9.6, Magnesium Level 1.7, Total Bilirubin 1.8, Aspartate Amino Transf (AST/SGOT) 50, Alanine Aminotransferase (ALT/SGPT) 44, Alkaline Phosphatase 85, Total Protein 7.6, Albumin 4.3 12/26/20 14:31: Glucometer 136 12/26/20 19:52: Total Creatine Kinase 1851, Myoglobin 1449.2, Troponin I < 0.028 12/27/20 04:57: Magnesium Level 1.9, Total Creatine Kinase 1394, Myoglobin 990.4, Troponin I < 0.028, Phosphorus Level 4.4, Creatine Kinase MB 13.7 12/27/20 05:40: White Blood Count 9.1, Red Blood Count 4.07, Hemoglobin 12.6, Hematocrit 38, Mean Corpuscular Volume 93, Mean Corpuscular Hemoglobin 31, Mean Corpuscular Hemoglobin Concent 33, Red Cell Distribution Width 13.5, Platelet Count 215, Mean Platelet Volume 9.6, Immature Granulocyte % (Auto) 0, Neutrophils (%) (Auto) 68, Lymphocytes (%) (Auto) 22, Monocytes (%) (Auto) 10, Eosinophils (%) (Auto) 1, Basophils (%) (Auto) 0, Neutrophils # (Auto) 6.2, Lymphocytes # (Auto) 2.0, Monocytes # (Auto) 0.9, Eosinophils # (Auto) 0.1, Basophils # (Auto) 0.0, Immature Granulocyte # (Auto) 0.0, Sodium Level 137, Potassium Level 4.6, Chloride Level 106, Carbon Dioxide Level 21, Anion Gap 10, Blood Urea Nitrogen 20, Creatinine 1.68, Estimat Glomerular Filtration Rate 42, BUN/Creatinine Ratio 12, Glucose Level 122, Calcium Level 8.5, Corrected Calcium 8.8, Total Bilirubin 2.0, Aspartate Amino Transf (AST/SGOT) 43, Alanine Aminotransferase (ALT/SGPT) 41, Alkaline Phosphatase 62, Total Protein 6.1, Albumin 3.6 12/28/20 11:10: White Blood Count 7.1, Red Blood Count 3.66, Hemoglobin 11.1, Hematocrit 34, Mean Corpuscular Volume 94, Mean Corpuscular Hemoglobin 30, Mean Corpuscular Hemoglobin Concent 32, Red Cell Distribution Width 13.4, Platelet Count 178, Me an Platelet Volume 9.2, Immature Granulocyte % (Auto) 0, Neutrophils (%) (Auto) 73, Lymphocytes (%) (Auto) 18, Monocytes (%) (Auto) 8, Eosinophils (%) (Auto) 1, Basophils (%) (Auto) 0, Neutrophils # (Auto) 5.2, Lymphocytes # (Auto) 1.3, Monocytes # (Auto) 0.5, Eosinophils # (Auto) 0.1, Basophils # (Auto) 0.0, Immature Granulocyte # (Auto) 0.0, Sodium Level 136, Potassium Level 4.1, Chloride Level 106, Carbon Dioxide Level 22, Anion Gap 8, Blood Urea Nitrogen 13, Creatinine 1.30, Estimat Glomerular Filtration Rate 57, BUN/Creatinine Ratio 10, Glucose Level 157, Calcium Level 8.7, Corrected Calcium 9.3, Total Bilirubin 1.3, Aspartate Amino Transf (AST/SGOT) 35, Alanine Aminotransferase (ALT/SGPT) 36, Alkaline Phosphatase 68, Total Protein 6.2, Albumin 3.3, Total Creatine Kinase 1186 12/29/20 05:25: White Blood Count 7.4, Red Blood Count 3.31, Hemoglobin 10.1, Hematocrit 31, Mean Corpuscular Volume 93, Mean Corpuscular Hemoglobin 31, Mean Corpuscular Hemoglobin Concent 33, Red Cell Distribution Width 13.4, Platelet Count 172, Mean Platelet Volume 9.5, Immature Granulocyte % (Auto) 0, Neutrophils (%) (Auto) 63, Lymphocytes (%) (Auto) 27, Monocytes (%) (Auto) 8, Eosinophils (%) (Auto) 2, Basophils (%) (Auto) 0, Neutrophils # (Auto) 4.7, Lymphocytes # (Auto) 2.0, Monocytes # (Auto) 0.6, Eosinophils # (Auto) 0.1, Basophils # (Auto) 0.0, Immature Granulocyte # (Auto) 0.0, Sodium Level 140, Potassium Level 4.0, Chloride Level 107, Carbon Dioxide Level 23, Anion Gap 10, Blood Urea Nitrogen 11, Creatinine 1.24, Estimat Glomerular Filtration Rate 60, BUN/Creatinine Ratio 9, Glucose Level 109, Calcium Level 8.6, Corrected Calcium 9.2, Total Bilirubin 1.0, Aspartate Amino Transf (AST/SGOT) 31, Alanine Aminotransferase (ALT/SGPT) 30, Alkaline Phosphatase 52, Total Protein 5.8, Albumin 3.2, Total Creatine Kinase 1040 12/30/20 05:39: White Blood Count 8.6, Red Blood Count 3.47, Hemoglobin 10.4, Hematocrit 32, Mean Corpuscular Volume 92, Mean Corpuscular Hemoglobin 30, Mean Corpuscular Hemoglobin Concent 33, Red Cell Distribution Width 13.4, Platelet Count 192, Mean Platelet Volume 9.2, Immature Granulocyte % (Auto) 0, Neutrophils (%) (Auto) 71, Lymphocytes (%) (Auto) 18, Monocytes (%) (Auto) 9, Eosinophils (%) (Auto) 2, Basophils (%) (Auto) 0, Neutrophils # (Auto) 6.2, Lymphocytes # (Auto) 1.6, Monocytes # (Auto) 0.7, Eosinophils # (Auto) 0.1, Basophils # (Auto) 0.0, Immature Granulocyte # (Auto) 0.0, Sodium Level 135, Potassium Level 4.0, Chloride Level 101, Carbon Dioxide Level 25, Anion Gap 9, Blood Urea Nitrogen 13, Creatinine 1.28, Estimat Glomerular Filtration Rate 58, BUN/Creatinine Ratio 10, Glucose Level 121, Calcium Level 9.1, Corrected Calcium 9.7, Total Bilirubin 1.7, Aspartate Amino Transf (AST/SGOT) 34, Alanine Aminotransferase (ALT/SGPT) 29, Alkaline Phosphatase 63, Total Protein 6.4, Albumin 3.3, Total Creatine Kinase 1224 12/31/20 05:42: White Blood Count 8.4, Red Blood Count 3.67, Hemoglobin 11.1, Hematocrit 35, Mean Corpuscular Volume 94, Mean Corpuscular Hemoglobin 30, Mean Corpuscular Hemoglobin Concent 32, Red Cell Distribution Width 13.5, Platelet Count 219, Mean Platelet Volume 9.3, Immature Granulocyte % (Auto) 0, Neutrophils (%) (Auto) 70, Lymphocytes (%) (Auto) 19, Monocytes (%) (Auto) 10, Eosinophils (%) (Auto) 1, Basophils (%) (Auto) 0, Neutrophils # (Auto) 5.9, Lymphocytes # (Auto) 1.6, Monocytes # (Auto) 0.8, Eosinophils # (Auto) 0.1, Basophils # (Auto) 0.0, Immature Granulocyte # (Auto) 0.0, Sodium Level 139, Potassium Level 4.0, Chloride Level 102, Carbon Dioxide Level 24, Anion Gap 13, Blood Urea Nitrogen 16, Creatinine 1.29, Estimat Glomerular Filtration Rate 57, BUN/Creatinine Ratio 12, Glucose Level 123, Calcium Level 9.4, Corrected Calcium 9.7, Total Bilirubin 2.1, Aspartate Amino Transf (AST/SGOT) 35, Alanine Aminotransferase (ALT/SGPT) 35, Alkaline Phosphatase 59, Total Creatine Kinase 1049, Total Protein 6.9, A lbumin 3.6 Discharge Home Medications: Active Scripts Active Reported Verapamil ER (Verapamil HCl) 120 Mg Tablet.er 120 Mg PO DAILY LAST FILLED 11-05-2020 #30/30 DAY SUPPLY Mitigare (Colchicine) 0.6 Mg Capsule 0.6 Mg PO Q48H PRN Potassium Gluconate 90 Mg Tablet 90 Mg PO DAILY Lysine 1,000 Mg Tablet 1,000 Mg PO DAILY Aspirin EC (Aspirin) 81 Mg Tablet.dr 81 Mg PO DAILY Atorvastatin Calcium 40 Mg Tablet 40 Mg PO HS Lisinopril 20 Mg Tablet 20 Mg PO DAILY Pantoprazole Sodium 40 Mg Tablet.dr 40 Mg PO DAILY Sucralfate 1 Gm Tablet 1 Gm PO BID Fluoxetine HCl 20 Mg Capsule 40 Mg PO DAILY TAKES 2 (20MG) CAPS Olanzapine 10 Mg Tablet 10 Mg PO HS Instructions to patient/family Please see electronic discharge instructions given to patient. FRANK GARCIA DO Dec 31, 2020 13:55
== END 2020-12-31 14:10 | DRG 89 ==
LOC: EDUNIT# 14:13 → ER FS 14:15 → 4TH 18:16 → ICU 22:09 → 4TH 12-28 10:11 → OBSVTOIN 12-29 13:50
PROVIDERS: ADMIT Internal Medicine; ATTEND Internal Medicine
DX: S06.0X9A Concussion with loss of consciousness of unspecified duration, initial encounter (principal); S22.030A Wedge compression fracture of third thoracic vertebra, initial encounter for closed fracture; N17.9 Acute kidney failure, unspecified; T79.6XXA Traumatic ischemia of muscle, initial encounter; S80.12XA Contusion of left lower leg, initial encounter; S20.212A Contusion of left front wall of thorax, initial encounter; I12.9 Hypertensive chronic kidney disease with stage 1 through stage 4 chronic kidney disease, or unspecified chronic kidney disease; N18.9 Chronic kidney disease, unspecified; I25.119 Atherosclerotic heart disease of native coronary artery with unspecified angina pectoris; D64.9 Anemia, unspecified; E78.5 Hyperlipidemia, unspecified; Z95.0 Presence of cardiac pacemaker; F32.9 Major depressive disorder, single episode, unspecified; F41.9 Anxiety disorder, unspecified; G89.11 Acute pain due to trauma; R55 Syncope and collapse; K21.9 Gastro-esophageal reflux disease without esophagitis; W55.29XA Other contact with cow, initial encounter; Y99.0 Civilian activity done for income or pay; Z79.899 Other long term (current) drug therapy
CPT/HCPCS: 36415; 70450; 71045; 71260; 72125; 73552; 73590; 73620; 74177; 80053; 82550; 82553; 82947; 83735; 83874; 84100; 84484; 85007; 85025; 85027; 85610; 85730; 87081; 93306; G0378

== ENCOUNTER 2020-12-31 13:04 | Inpatient (IN) | payer OTHER, BC ==
[~2020-12-31] VITALS: Ht 175.3 cm; Wt 104.2 kg
[~2020-12-31 13:04] MED LIST changes: +ASPI-1238 PO; +ATOR40TA70 PO; +COLC0.6C PO; +FLUO20CA46 PO; +LISI20TA26 PO; +LYSI100014 PO; +OLAN10TA71 PO; +PANT40TA52 PO; +POTA2TAB5 PO; +SUCR1TAB PO; +VERA120T10 PO
[2020-12-31] MEDS ORDERED: LACTULOSE SYRUP 10GM/15ML (ENULOSE) 30ML UDC PO PRN (14:00)
[2020-12-31] MEDS ORDERED: FLEET ENEMA ADULT 1 EA BTL PR PRN (14:00)
[2020-12-31] MEDS ORDERED: CALCIUM CARBONATE 500 MG (TUMS) TAB.CHEW PO PRN (14:00)
[2020-12-31] MEDS ORDERED: BISACODYL 10 MG SUPP (DULCOLAX) PR PRN (14:00)
[2020-12-31] MEDS ORDERED: DOCUSATE SODIUM 100 MG (COLACE) CAP PO PRN ×2 (14:00→17:30)
[2020-12-31] MEDS ORDERED: diphenhydrAMINE 25 MG TAB (BENADRYL) PO PRN ×2 (14:00→17:30)
[2020-12-31] MEDS ORDERED: ALPRAZolam 0.25 MG (XANAX) TAB PO PRN (14:00)
[2020-12-31] MEDS ORDERED: NALOXONE 0.4 MG/ML 1 ML (NARCAN) VIAL IV PRN (14:00)
[2020-12-31] MEDS ORDERED: guaiFENesin/CODEINE (ROBITUSSIN AC) 10ML UDC PO PRN (14:00)
[2020-12-31 14:30] VITALS: BP 146/70
--- NOTE | 2020-12-31 15:11 | Occupational Therapy Eval ---
OT Evaluation-General/PLF Medical Diagnosis Admission Date Dec 31, 2020 at 14:00 Medical Diagnosis: Closed Head Injury with LOC Onset Date: Dec 28, 2020 Therapy Diagnosis Therapy Diagnosis: decreased ADL status Precautions Precautions/Isolations: Fall Prevention, Standard Precautions Comments Back Brace OOB Referral Physician: Nova Gu Reason: Evaluation/Treatment Medical History Additional Medical History pacemaker, multiple UE fractures. Current History 12-26-20 Pt mauled by cow, multiple contusions and abrasions. Knocked unconscious with resultant concussion. Possible thoracic compression fracture and rib fractures. Crush of LLE. 12-31-20 pt transferred to ARU for continued medication management and skilled therapy Social History Home: Single Level Current Living Status: Spouse Entry Into Home: Stairs With Railing Steps Into Home: 2 ADL-Prior Level of Function SCALE: Activities may be completed with or without assistive devices. 3-Eypybicnfh-egtouuf completes the activity by him/herself with no assistance from a helper. 5-Set-up or Clean-up Assistance-helper sets up or cleans up; patient completes activity. [place] assists only prior to or following the activity. 4-Supervision or Touching Assistance-helper provides verbal cues and/or touching/steadying and/or contact guard assistance as patient completes activity. Assistance may be provided throughout the activity or intermittently. 3-Partial/Moderate Assistance-helper does LESS THAN HALF the effort. [place] lifts, holds or supports trunk or limbs, but provides less than half the effort. 2-Substantial/Maximal Assistance-helper does MORE THAN HALF the effort. [place] lifts or holds trunk or limbs and provides more than half the effort. 1-Mryvojkoo-eyohfs does ALL the effort. Patient does none of the effort to complete the activity. Or, the assistance of 2 or more helpers is required for the patient to complete the activity. If activity was not attempted, code reason: 7-Patient Refused. 9-Not Applicable-not attempted and the patient did not perform the activity before the current illness, exacerbation or injury. 10-Not Attempted due to Environmental Limitations-(lack of equipment, weather restraints, etc.). 88-Not Attempted due to Medical Conditions or Safety Concerns. ADL PLOF Comments IND with ADLs and functional mobility at PLOF, no AD/AE Self Care: Independent Functional Cognition: Independent DME/Equipment: Bath Chair, Shower Drive Self: Yes OT Current Status Subjective Pt agreeable to OT evaluation and OT/PT cotreat. Reports pain 7/10 in LLE. Mental Status/Objective Patient Orientation: Person, Place, Situation Attachments: Other-See Comments (TLSO) Current Hearing Aids: No Dentures/Partials: No Hand Dominance: Right Upper Extremity ROM decreased due to pain, BUE shoulder flexion to approx 130 degrees. Upper Extremity Coordination WFL Upper Extremity Sensation WFL Upper Extremity Strength shoulders not formally tested due to pain, 3+/5 bilateral shoulders. WFL BUE elbows/hands 5/5 ADL-Treatment Eating (QC): 6 (Pt IND with lunch) Oral Hygiene (QC): 6 (IND standing at sink) Shower/Bathe Self (QC): 3 (Assist BLE lower legs/feet) Upper Body Dressing (QC): 3 (Assist donning/doffing TLSO) Lower Body Dressing (QC): 3 (Pt able to thread RLE and perform pant hike, assist LLE) On/Off Footwear (QC): 3 (Pt able to don/doff RLE gripper sock, assist LLE) Toileting Hygiene (QC): 6 (IND with hygine and clothing management) Other Treatments OT evaluation complete. OT/PT cotreat due to skill of 2 clinicians required which a clock repair technician could not perform in order to coordinate UE/LEs and due to pt's limitations in pain, activity tolerance, and mobility. OT focused on ADLs, UE placement, cues for sequencing and safety, PT focused on LE placement, gross overall movement, and transfers and mobility. Pt performed functional mobility and transfers, in/out of car simulation, using FWW around hallway (slow pace), and w/c mobility (please refer to PT Evaluation for QC scores). With transfers, pt required skilled cues for UE placement. Pt transferred into bathroom and onto TN, completing ADLs as outlined above. Pt then used FWW to perform functional mobility to therapy gym, pt reports fatigue and pain, ambulating out of room, then self-propelled w/c to the gym. In order to increase BUE strength and activity tolerance, pt completed arm bike x10 mins, min resistance (20 Watt). Pt propelled w/c back to his room, transferring to bed, then supine. Post tx, pt laying in bed, call light in reach and all needs met. Education OT Patient Education: Correct positioning, Energy conservation, Exercise progr am, Modified ADL techniques, Progress toward Goal/Update tx plan, Purpose of tx/functional activities, Rehab process Teaching Recipient: Patient Teaching Methods: Discussion Response to Teaching: Verbalize Understanding OT Short Term Goals Short Term Goals Time Frame: Jan 07, 2021 Lower body dressin Putting on/taking off footwear: 4 OT Psychiatric Technician Assistant Goals Alf Goals Time Frame: Jan 16, 2021 Eating (QC): 6 Oral Hygiene (QC): 6 Toileting Hygiene (QC): 6 Shower/Bathe Self (QC): 6 Upper Body Dressing (QC): 6 Lower Body Dressing (QC): 6 On/Off Footwear (QC): 6 Additional Goals: 1-Demonstrate ADL Tasks, 2-Verbalize Understanding, 3-Improve Strength/Radha 1=Demonstrate adherence to instructed precautions during ADL tasks. 2=Patient will verbalize/demonstrate understanding of assistive devices/modifications for ADL. 3=Patient will improve strength/tolerance for activity to enable patient to pe rform ADL's. OT Education/Plan Problem List/Assessment Assessment: Decreased Activ Tolerance, Decreased UE Strength, Impaired Funct Balance, Impaired I ADL's, Impaired Self-Care Skills, Restricted Funct UE ROM Discharge Recommendations Plan/Recommendations: Continue POC Therapy Discharge Recommendati: Home & Family Equpiment Recommendations-D/C: Hip Kit Treatment Plan/Plan of Care Patient would benefit from OT for education, treatment and training to promote independence in ADL's, mobility, safety and/or upper extremity function for ADL's. Plan of Care: ADL Retraining, Functional Mobility, Group Exercise/Act as Ind, UE Funct Exercise/Act Treatment Duration: Jan 16, 2021 Frequency: At least 5 of 7 days/Wk (IRF) Estimated Hrs Per Day: 1.5 hours per day Rehab Potential: Good Time/GCodes Start Time: 14:10 Stop Time: 15:40 Total Time Billed (hr/min): 90 Billed Treatment Time 2549-6997 OT eval, [id number] OT/PT cotreat 1, EVM (10'), ADL 2 (35'), FA 2 (35'), EX (10') KATTY OTERO OT Dec 31, 2020 15:11
--- NOTE | 2020-12-31 15:36 | Physical Therapy Evaluation ---
PT Evaluation-General Medical Diagnosis Admission Date Dec 31, 2020 at 14:00 Medical Diagnosis: Closed Head Injury with LOC, multiple trauma Onset Date: Dec 26, 2020 Therapy Diagnosis Therapy Diagnosis: impaired mobility, strength, endurance Precautions Precautions/Isolations: Fall Prevention, Standard Precautions Referral Physician: Yue Bhatt DO Reason for Referral: Evaluation/Treatment Medical History Additional Medical History Pacemaker, multiple fractures of the UEs Current History Pt was mauled by a cow 12/26/20. Sustained multiple contusions and abrasions, was knocked unconscious with resultant concussion, possible thoracic compression fx with rib fractures, and crush of the (L) Lower leg. Social History Home: Single Level Current Living Status: Spouse Entry Into Home: Stairs With Railing PT Steps Into Home: 2 Prior Prior Level of Function SCALE: Activities may be completed with or without assistive devices. 0-Pllgjxbxdw-itqwiku completes the activity by him/herself with no assistance from a helper. 5-Set-up or Clean-up Assistance-helper sets up or cleans up; patient completes activity. [place] assists only prior to or following the activity. 4-Supervision or Touching Assistance-helper provides verbal cues and/or na jocelin/steadying and/or contact guard assistance as patient completes activity. Assistance may be provided throughout the activity or intermittently. 3-Partial/Moderate Assistance-helper does LESS THAN HALF the effort. [place] lifts, holds or supports trunk or limbs, but provides less than half the effort. 2-Substantial/Maximal Assistance-helper does MORE THAN HALF the effort. [place] lifts or holds trunk or limbs and provides more than half the effort. 6-Brpsquhtz-axsbgb does ALL the effort. Patient does none of the effort to complete the activity. Or, the assistance of 2 or more helpers is required for the patient to complete the activity. If activity was not attempted, code reason: 7-Patient Refused. 9-Not Applicable-not attempted and the patient did not perform the activity before the current illness, exacerbation or injury. 10-Not Attempted due to Environmental Limitations-(lack of equipment, weather restraints, etc.). 88-Not Attempted due to Medical Conditions or Safety Concerns. Bed Mobility: 6 Transfers (B,C,W/C): 6 Gait: 6 Stairs: 6 Indoor Mobility (Ambulation): Independent Stairs: Independent PT Evaluation-Current Subjective Patient in bed pre tx, agrees to PT, has 7/10 pain in left calf. Will be co-tr eating with OT for part of tx due to poor patient mobility, severe pain with activity, impaired balance and endurance, coordinate UE and LE with activity, safety and reduce risk of falls. Pt/Family Goals to be independent at home. Objective Patient Orientation: Person, Place, Situation TLSO ROM/Strength ROM Lower Extremities RLE WNL, LLE WNL at hip but limited at knee and ankle due to pain Strength Lower Extremities RLE grossly 5/5, LLE not tested due to pain Sensory Vision: Functional Hearing: Functional Hand Dominance: Right Sensation Right Lower Extremit: Intact Sensation Left Lower Extremity: Intact Transfers Roll Left & Right (QC): 6 Sit to Lying (QC): 4 Lying to Sitting/Side of Bed(Q: 4 Sit to Stand (QC): 3 Chair/Ioa-zv-Lgefs Xfer(QC): 4 Toilet Transfer (QC): 4 Car Transfer (QC): 4 Patient performs bed mobility with independence, supine <-> sit SBA, sit <-> stand min assist from lower surfaces, transfers CGA, car transfer CGA. Occasional cues for hand placement and positioning. Gait Does the Patient Walk?: Yes Mode of Locomotion: Walk Anticipated Mode of Locomotion: Walk Walk 10 feet (QC): 4 Walk 50 ft with 2 Turns(QC): 4 Walk 150 ft (QC): 88 Walking 10ft/uneven surface-QC: 88 Distance: 100'x3 Gait Assistive Device: FWW Comments/Gait Description Patient can ambulate 100' with a rolling walker with CGA (including 50' with at least 2 turns of 90 degrees). Patient could not ambulate safely over an uneven surface due to pain in left calf. Patient has very antalgic ambulation, has a step-to gait with left side leading, cannot bear much weight on left leg, and cannot step through with right leg because it is too painful to dorsiflex left ankle. Wheelchair Training Does the Pt Use a Wheelchair?: Yes Distance: 150'x2 Wheel 50 ft with 2 turns (QC): 4 Wheel 150 ft (QC): 4 Type of Wheelchair: Manual Stairs 1 Step (curb) (QC): 88 4 Steps (QC): 88 12 Steps (QC): 88 Balance Sitting Static: Normal Sitting Dynamic: Normal Standing Static: Good Standing Dynamic: Fair Picking up an Object (QC): 88 Treatment PT performed bed mobility and transfers, ambulation, WC mobility, assisted with standing and balance during bathing and dressing, UE activity that also involved core activity, OT worked on bathing, dressing, UE activity, UE positioning and safety during activity. Assessment/Needs Patient in bed post tx with nurse call, phone, tray, all needs met. Patient has impaired mobility, strength, endurance. He occasionally needs some assist standing from lower surfaces. He has to wear his TLSO when out of bed. Rehab Potential: Fair PT Short Term Goals Short Term Goals Time Frame: Jan 07, 2021 Roll Left & Right: 6 Sit to lyin Lying to sitting on side of be: 5 Sit to stand: 4 Walk 10 feet: 4 Walk 50 feet with two turns: 4 Walk 150 feet: 4 PT Mcfp Goals Transmission And Coordination Engineer Goals PT Mcfp Goals Time Frame: Jan 21, 2021 Roll Left & Right (QC): 6 Sit to Lying (QC): 6 Lying-Sitting on Side/Bed(QC): 6 Sit to Stand (QC): 5 Chair/Pqq-im-Jdsos Xfer(QC): 5 Toilet Transfer (QC): 5 Car Transfer (QC): 5 Does the Patient Walk: Yes Walk 10 feet (QC): 5 Walk 50ft with 2 Turns (QC): 5 Walk 150 ft (QC): 5 Walking 10ft on Uneven Surface: 4 1 Step (curb) (QC): 4 4 Steps (QC): 4 12 Steps (QC): 88 Picking up an Object (QC): 88 Wheel 50 feet with 2 turns (QC: 6 Wheel 150 feet: 6 PT Plan Problem List Problem List: Activity Tolerance, Functional Strength, Safety, Balance, Gait, Transfer, Bed Mobility, ROM Treatment/Plan Treatment Plan: Continue Plan of Care Treatment Plan: Bed Mobility, Education, Functional Activity Radha, Functional Strength, Group Therapy, Gait, Safety, Therapeutic Exercise, Transfers Treatment Duration: Jan 21, 2021 Frequency: At least 5 of 7 days/Wk (IRF) Estimated Hrs Per Day: 1.5 hours per day Patient and/or Family Agrees t: Yes Safety Risks/Education Patient Education: Gait Training, Transfer Techniques, Reviewed Precautions, Correct Positioning, W/C Management, Reviewed Don/Doff Brace, Safety Issues Teaching Recipient: Patient Teaching Methods: Demonstration, Discussion Response to Teaching: Reinforcement Needed Discharge Recommendations Plan Patient will perform bed mobility and transfer training, balance and endurance training, functional strengthening, stair training, gait training, and education, to improve functional mobility and independence at home. Therapy Discharge Recommendati: Home & Family, Post Acute PT Time/GCodes Time In: 1400 Time Out: 1540 Total Billed Treatment Time: 90 Total Billed Treatment 1 visit EVL 10' GT 30' FA 50' PT eval from [id number], OT eval from [id number], co-treat from [id number] KULDEEP ZELAYA PT Dec 31, 2020 15:36
--- NOTE | 2020-12-31 17:27 | PM&R Post Admission Assessment ---
PM&R HP Date of Visit: Dec 31, 2020 Time of Visit: 14:30 History of Present Illness CC: Trauma from cow attack HPI: This is a 60yoWM with a PMH of orthopedic injuries including a cervical spine fracture years ago remaining in a halo for financial aid who has a PMH of depression and anxiety per Dr. Sierra PCP, along with CAD, pacemaker and vascular disorders who presented to inpatient rehab to recover from a cow trampling, he continue to have left leg pain, there is no evidence of compartment syndrome but CPK remains elevated but IV fluid were DC due to overload status. Overall he is doing well, we will restart all home medications that were missing on the med- surg floor and maintain his mental health medications. He does have thoracic spine fractures of which clam spine brace will be placed per Dr. Greenfield. Bowel function has returned back to normal. Upon arrival he did have 102 fever appears that it old IV site is the source of the fever so vancomycin and Zosyn initiated for aggressive antibiotic initiation due to multiple comorbidities placing patient at risk for sepsis and decline in function. Past Gzgnwpb-Qpnmla-Ftuyzw Hx Past Med/Social Hx: Reviewed Nursing Past Med/Soc Hx, Reviewed and Corrections made Patient Social History Marrital Status: Employed/Student: employed Alcohol Use: Denies Use Smoking Status: Never a Smoker Past Medical History Surgeries: Orthopedic, Pacemaker Cardiac: High Cholesterol, Hypertension Gastrointestinal: Gastroesophageal Reflux Musculoskeletal: Arthritis, Back Injury, Chronic Back Pain, Fractures Psychosocial: Anxiety, Depression Family History Heart Disease, Hypertension Prior Level of Function Bed Mobility: 6 Transfers: 6 Gait: 6 Stairs: 6 Indoor Mobility (Ambulation): Independent Stairs: Independent Self Care: Independent Functional Cognition: Independent Drive Self: Yes Current Level of Fuctioning Roll Left to Right: 6 Sit to Lyin Lying to Sitting/Side of Bed: 4 Sit to Stand: 3 Chair/Hmj-mp-Pfoyp Xfer: 4 Car Transfer: 4 Does the Patient Walk: Yes Mode of Locomotion: Walk Anticipated Mode of Locomotion: Walk Walk 10 feet: 4 Walk 50 ft with 2 Turns: 4 Walk 150 ft: 88 Walking 10ft on uneven surface: 88 Gait Assistive Device: FWW Does the Pt Use a Wheelchair: Yes Wheelchair Distance: 150'x2 Wheel 50 ft with 2 turns: 4 Wheel 150 ft: 4 Type of Wheelchair: Manual 1 Step (curb): 88 4 Steps: 88 12 Steps: 88 Picking up an Object: 88 Eatin (Pt IND with lunch) Oral Hygiene: 6 (IND standing at sink) Shower/Bathe Self: 3 (Assist BLE lower legs/feet) Upper Body Dressin (Assist donning/doffing TLSO) Lower Body Dressin (Pt able to thread RLE and perform pant hike, assist LLE) On/Off Footwear: 3 (Pt able to don/doff RLE gripper sock, assist LLE) Toileting Hygiene: 6 (IND with hygine and clothing management) PM&R Allergy/Meds/Data Review Allergies Coded Allergies: No Known Drug Allergies (Unverified , 01/11/11) Home Medications Scheduled Aspirin (Aspirin EC), 81 MG PO DAILY, (Reported) Atorvastatin Calcium (Atorvastatin Calcium), 40 MG PO HS, (Reported) Fluoxetine HCl (Fluoxetine HCl), 40 MG PO DAILY, (Reported) Lisinopril (Lisinopril), 20 MG PO DAILY, (Reported) Lysine (Lysine), 1,000 MG PO DAILY, (Reported) Olanzapine (Olanzapine), 10 MG PO HS, (Reported) Pantoprazole Sodium (Pantoprazole Sodium), 40 MG PO DAILY, (Reported) Potassium Gluconate (Potassium Gluconate), 90 MG PO DAILY, (Reported) Sucralfate (Sucralfate), 1 GM PO BID, (Reported) Verapamil HCl (Verapamil ER), 120 MG PO DAILY, (Reported) Scheduled PRN Colchicine (Mitigare), 0.6 MG PO Q48H PRN for [place], (Reported) Discontinued Medications Alprazolam (Xanax), 1 TAB PO TID, (Reported) Discontinued Reason: No Longer Taking Escitalopram Oxalate (Lexapro), 1 EACH PO DAILY, (Reported) Discontinued Reason: No Longer Taking Lisinopril (Prinivil), 20 MG PO DAILY, (Reported) Discontinued Reason: No Longer Taking Methadone Hcl (Methadone), 1 TAB PO QID, (Reported) Discontinued Reason: No Longer Taking Omeprazole (Omeprazole), 20 MG PO DAILY, (Reported) Discontinued Reason: No Longer Taking Zolpidem Tartrate (Ambien Cr), 12.5 MG PO HS, (Reported) Discontinued Reason: No Longer Taking Current Medications Current Medications Reviewed Review of Systems Constitutional: see HPI EENTM: no symptoms reported Respiratory: no symptoms reported Cardiovascular: no symptoms reported Gastrointestinal: no symptoms reported Genitourinary: no symptoms reported Musculoskeletal: back pain, joint pain Skin: no symptoms reported Psychiatric/Neurological: Anxiety, Depressed All Other Systems Reviewed Negative Unless Noted: Yes Physical Exam Physical Exam Vital Signs Vital Signs - First Documented 12/31/20 16:21 Pulse Ox 97 O2 Delivery Room Air Capillary Refill : Height, Weight, BMI Height: '" Weight: lbs. oz. kg; 35.69 BMI Method: General Appearance: No Apparent Distress, WD/WN, Chronically ill, Obese Eyes: Bilateral Eye Normal Inspection, Bilateral Eye PERRL HEENT: PERRL/EOMI, Normal ENT Inspection, Pharynx Normal Neck: Full Range of Motion, Normal Inspection, Non Tender, Supple, Carotid Bruit Respiratory: Chest Non Tender, Lungs Clear, Normal Breath Sounds, No Accessory Muscle Use, No Respiratory Distress Cardiovascular: Regular Rate, Rhythm, No Edema, No Gallop, No JVD, No Murmur, Normal Peripheral Pulses Gastrointestinal: Normal Bowel Sounds, No Organomegaly, No Pulsatile Mass, Non Tender, Soft Back: Normal Inspection, No CVA Tenderness, Decreased Range of Motion Extremity: Normal Capillary Refill, Normal Inspection, Normal Range of Motion (Except left leg), Non Tender, No Calf Tenderness, Calf Tenderness (Left leg) Neurologic/Psychiatric: Alert, Oriented x3, No Motor/Sensory Deficits, hospital unit coordinator II- XII Norm as Tested, Depressed Affect, Motor Weakness (Left leg) Skin: Normal Color, Warm/Dry Lymphatic: No Adenopathy PM&R Medical Assessment & Plan REHAB/MEDICAL ASSESSMENT AND PLAN: REHAB IMPAIRMENT GROUP: Trauma with loss of consciousness ETIOLOGIC DIAGNOSIS: Trauma with loss of consciousness The comorbidities that impact the patients function and/or functional outcome by: Severe depression history, acute on chronic pain, pacemaker, CAD REHAB PLAN: The patient is being admitted to our comprehensive inpatient rehabilitation facility and can tolerate the intensity of service consisting of at least: 180 minutes of therapy a day, 5 out of 7 days a week Rehab treatment will consist of: PT and OT will focus on regaining function with the use of assistive devices with walker for left leg pain and thoracic spine fractures The patient/family has a good understanding of our discharge process and will benefit from an interdisciplinary inpatient rehabilitation program. The patient has potential to make improvement and is in need of at least two of the following multidisciplinary therapies including but not limited to physical, occupational, speech, and prosthetics and orthotics. Additionally the patient will need services from respiratory, nutritional services, wound care, psychology, etc. (Customize this to each patient). Given the patients complex condition and risk of further medical complications, rehabilitation services cannot be safely or effectively provided at a lower level of care such as a longterm facility. BARRIERS TO DISCHARGE: Severe depression ESTIMATED LOS: 7 days DISPOSITION: Home RELEVANT CHANGES SINCE PREADMISSION SCREENING: I have compared the patients medical and functional status at the time of the preadmission screening and there are: No changes PROGNOSIS: Good REHABILITATION GOALS: 1. PT and OT will focus on regaining function with the use of assistive devices with walker for left leg pain and thoracic spine fractures All the above goals were reviewed with the patient and he/she is in agreement. By signing this document, I acknowledge that I have personally performed a full physical examination on this patient within 24 hours of admission to this inpatient rehabilitation facility and have determined the patient to be able to tolerate the above course of treatment at an intensive level for a reasonable period of time. I will be completing a detailed individualized Plan of Care for this patient by day #4 of the patients stay based upon the Preadmission Screen, the Post-Admission Evaluation, and the therapy evaluations. Admission Dx/Comorbidities: (1) Episode of unresponsiveness Status: Acute ICD Codes: R41.89 - Other symptoms and signs involving cognitive functions and awareness (2) Thoracic spine fracture ICD Codes: S22.009A - Unspecified fracture of unspecified thoracic vertebra, initial encounter for closed fracture (3) Depression ICD Codes: F32.9 - Major depressive disorder, single episode, unspecified (4) Anxiety ICD Codes: F41.9 - Anxiety disorder, unspecified (5) Pacemaker ICD Codes: Z95.0 - Presence of cardiac pacemaker (6) CAD (coronary artery disease) ICD Codes: I25.10 - Atherosclerotic heart disease of [place] coronary artery without angina pectoris (7) Concussion Status: Acute ICD Codes: S06.0X9A - Concussion with loss of consciousness of unspecified duration, initial encounter (8) Victim of trampling from animal Status: Acute ICD Codes: W55.89XA - Other contact with other mammals, initial encounter (9) Chest wall contusion Status: Acute ICD Codes: S20.219A - Contusion of unspecified front wall of thorax, initial encounter (10) Hematoma of left lower extremity Status: Acute ICD Codes: S80.12XA - Contusion of left lower leg, initial encounter Assessment/Plan Assessment and Plan Assess & Plan/Chief Complaint Assessment: S/P Trauma with injuries from cow- blunt injury and crush injury sustained -general surgery following -continue frequent reassessments of left lower extremity -awaiting placement of clam brace- should happen today -2 view left foot x ray negative for acute pathology Concussion with LOC -continue to monitor neurologic status Rhabdomyolysis -CK decreased to 1049 today from 1224 yesterday -SL'd -encourage increased po intake of fluids -continue to trend for now Acute kidney injury-resolved -Creatinine stable at 1.29 today Anemia -Hgb stable at 11.1 today -surgery holding lovenox due to anemia -continue to trend Chest pain with history of angina -cardiology following -continue to monitor -PRN SL nitro Hypertension -continue to monitor Hyperlipidemia -continue to monitor Sinus node dysfunction pacemaker in place -cardiology following -pacemaker interrogated and functioning appropriately Pain control -continue prn's PT OT -doing frequent therapy per patient report -plan to transfer to inpatient rehab unit pending workers comp approval Cellulitis at site of previous IV site with fever -Begin IV antibiotics status post pancultured Plan: Aggressive therapy Pain control IV antibiotics Supportive care FRANK GARCIA DO Dec 31, 2020 17:27
[2020-12-31] MEDS ORDERED: MELATONIN 3 MG TABLET PO PRN (17:30)
[2020-12-31] MEDS ORDERED: LOPERAMIDE 2 MG (IMODIUM) TABLET PO PRN (17:30)
[2020-12-31] MEDS ORDERED: NITROGLYCERIN 0.4 MG SL TABS BTL 25'S SL PRN (17:30)
[2020-12-31] MEDS: ACETAMINOPHEN 325 MG TABLET PO PRN (19:45)
[2020-12-31] MEDS ORDERED: LIDOCAINE UROJET 2% GEL 10 ML PKG ONE (19:54)
[2020-12-31 19:56] LABS: BASOPHILS % (AUTO) 0 % (0-10); EOSINOPHILS # (AUTO) 0.1 10^3/uL (0.0-0.3); EOSINOPHILS % (AUTO) 1 % (0-10); HEMATOCRIT 32 % (40-54); HEMOGLOBIN 10.5 g/dL (13.3-17.7); LYMPHOCYTES # (AUTO) 1.4 10^3/uL (1.0-4.0); LYMPHOCYTES % (AUTO) 16 % (12-44); MEAN CORPUSCULAR HEMOGLOBIN 30 pg (25-34); MEAN CORPUSCULAR HGB CONC 33 g/dL (32-36); MEAN CORPUSCULAR VOLUME 92 fL (80-99); MEAN PLATELET VOLUME 9.2 fL (9.0-12.2); MONOCYTES # (AUTO) 0.9 10^3/uL (0.0-1.0); MONOCYTES % (AUTO) 10 % (0-12); NEUTROPHILS # (AUTO) 6.1 10^3/uL (1.8-7.8); NEUTROPHILS % (AUTO) 72 % (42-75); PLATELET COUNT 227 10^3/uL (130-400); WHITE BLOOD COUNT 8.5 10^3/uL (4.3-11.0)
[2020-12-31] MEDS ORDERED: LIDOCAINE UROJET 2% GEL 10 ML PKG TOP NR (20:00)
[2020-12-31] MEDS ORDERED: NS IV 1000 ML 1,000 ML IV SCH (20:15)
[2020-12-31] MEDS ORDERED: VANCOMYCIN INJECTION 1,000 MG in NS (IVPB) 250 ML IV SCH (20:15)
[2020-12-31 20:17] LABS: ALBUMIN 3.4 GM/DL (3.2-4.5); BILIRUBIN,TOTAL 1.7 MG/DL (0.1-1.0); CALCIUM 8.9 MG/DL (8.5-10.1); CREATININE SERUM 1.35 MG/DL (0.60-1.30); POTASSIUM 3.8 MMOL/L (3.6-5.0); TOTAL PROTEIN 6.5 GM/DL (6.4-8.2)
[2020-12-31 20:22] LABS: BILIRUBIN,URINE NEGATIVE (NEGATIVE); CLARITY,URINE CLEAR; COLOR,URINE ORANGE; GLUCOSE, URINE (UA) NEGATIVE (NEGATIVE); KETONES,URINE NEGATIVE (NEGATIVE); LEUKOCYTE ESTERASE ,URINE NEGATIVE (NEGATIVE); NITRITE,URINE NEGATIVE (NEGATIVE); PROTEIN,URINE NEGATIVE (NEGATIVE)
[2020-12-31 20:25] VITALS: BP 134/67
[2020-12-31 20:29] LABS: BACTERIA,URINE NEGATIVE /HPF
[2020-12-31] MEDS ORDERED: VANCOMYCIN 1,750 MG/NS 500 ML IVPB IV NR ×2 (20:30)
[2020-12-31] MEDS ORDERED: PIPERACILLIN/TAZO 4.5 GM/NS 100 ML IV NR ×2 (20:30)
[2020-12-31] MEDS: SUCRALFATE 1 GM (CARAFATE) TAB PO SCH (20:46)
[2020-12-31] MEDS: ALPRAZolam 0.5 MG (XANAX) TAB PO SCH (20:46)
[2020-12-31] MEDS: SENNA W/DOCUSATE (SENOKOT S) TABLET PO SCH (20:46)
[2020-12-31] MEDS: OLANZapine 5 MG (ZyPREXA) TAB PO SCH (20:46)
[2020-12-31] MEDS: DOCUSATE SODIUM 100 MG (COLACE) CAP PO SCH (20:47)
[2020-12-31] MEDS: polyethylene glycoL POWDER 17 GM (MIRALAX) PACK PO SCH (20:48)
--- NOTE | 2020-12-31 20:55 | Diagnostic Imaging Report ---
INDICATION: Fever. EXAMINATION: Frontal chest was obtained at 8:29 p.m. COMPARISON: 12/26/2020. FINDINGS: There is cardiomegaly. There is no change in the pacemaker device. There is no pneumothorax or focal infiltrate. There is a minimal amount of pleural fluid in the left costophrenic angle. IMPRESSION: Cardiomegaly with unchanged pacemaker device. There appears to be minimal pleural effusion in the left costophrenic angle. There is no focal infiltrate. Dictated by: Dictated on workstation # [id number]
[2020-12-31] MEDS ORDERED: SENNA W/DOCUSATE (SENOKOT S) TABLET PO SCH (21:00)
[2020-12-31] MEDS ORDERED: polyethylene glycoL POWDER 17 GM (MIRALAX) PACK PO SCH (21:00)
[2020-12-31] MEDS ORDERED: VANCOMYCIN 1000 MG/VIAL ONE (21:24)
[2020-12-31] MEDS ORDERED: VANCOMYCIN 750 MG/VIAL IV ONE (21:24)
[2021-01-01] MEDS: PIPERACILLIN/TAZOBACTAM (BULK) 4.5 GM in NS (IVPB) 100 ML IV SCH ×3 (03:10→18:51)
[2021-01-01 06:19] LABS: BASOPHILS % (AUTO) 0 % (0-10); EOSINOPHILS # (AUTO) 0.2 10^3/uL (0.0-0.3); EOSINOPHILS % (AUTO) 2 % (0-10); HEMATOCRIT 31 % (40-54); HEMOGLOBIN 9.9 g/dL (13.3-17.7); LYMPHOCYTES # (AUTO) 1.3 10^3/uL (1.0-4.0); LYMPHOCYTES % (AUTO) 16 % (12-44); MEAN CORPUSCULAR HEMOGLOBIN 30 pg (25-34); MEAN CORPUSCULAR HGB CONC 32 g/dL (32-36); MEAN CORPUSCULAR VOLUME 94 fL (80-99); MEAN PLATELET VOLUME 9.3 fL (9.0-12.2); MONOCYTES # (AUTO) 0.7 10^3/uL (0.0-1.0); MONOCYTES % (AUTO) 9 % (0-12); NEUTROPHILS # (AUTO) 5.8 10^3/uL (1.8-7.8); NEUTROPHILS % (AUTO) 72 % (42-75); PLATELET COUNT 207 10^3/uL (130-400)
[2021-01-01 06:28] LABS: ALBUMIN 3.2 GM/DL (3.2-4.5)
[2021-01-01 06:29] LABS: CALCIUM 8.7 MG/DL (8.5-10.1)
[2021-01-01 06:31] LABS: TOTAL PROTEIN 6.2 GM/DL (6.4-8.2)
[2021-01-01 06:32] LABS: BILIRUBIN,TOTAL 2.1 MG/DL (0.1-1.0)
[2021-01-01 06:34] LABS: CREATININE SERUM 1.38 MG/DL (0.60-1.30)
[2021-01-01] MEDS: ENOXAPARIN 40 MG/0.4 ML (LOVENOX) SYR SC SCH (06:45)
[2021-01-01 07:39] VITALS: BP 119/59
[2021-01-01] MEDS: SUCRALFATE 1 GM (CARAFATE) TAB PO SCH ×2 (08:09→21:22)
[2021-01-01] MEDS: PANTOPRAZOLE 40 MG (PROTONIX) TAB PO SCH (08:09)
[2021-01-01] MEDS: DOCUSATE SODIUM 100 MG (COLACE) CAP PO SCH ×2 (08:09→21:22)
[2021-01-01] MEDS: SENNA W/DOCUSATE (SENOKOT S) TABLET PO SCH ×2 (08:09→21:23)
[2021-01-01] MEDS: ALPRAZolam 0.5 MG (XANAX) TAB PO SCH ×4 (08:09→21:22)
[2021-01-01] MEDS: FLUoxetine HCL 20 MG (PROzac) CAP PO SCH (08:09)
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
[2021-01-01] MEDS: polyethylene glycoL POWDER 17 GM (MIRALAX) PACK PO SCH ×2 (09:00→21:22)
[2021-01-01] MEDS: VANCOMYCIN 1500 MG/NS 500 ML IVPB IV SCH ×4 (09:43→22:36)
--- NOTE | 2021-01-01 09:58 | Physical Therapy Daily Note ---
PT Daily Note-Current Subjective Patient in bed pre tx, agrees to PT, has pain of 8/10 in left leg. Patient's whole left leg is swollen, from foot to hip, nurse is aware of the issue. Appearance Patient in bed post tx with nurse call, phone, tray, left leg elevated to promote a in swelling. Mental Status Patient Orientation: Person, Place, Situation Attachments: IV Transfers SCALE: Activities may be completed with or without assistive devices. 9-Ryiukmmemi-rihqgkq completes the activity by him/herself with no assistance from a helper. 5-Set-up or Clean-up Assistance-helper sets up or cleans up; patient completes activity. [place] assists only prior to or following the activity. 4-Supervision or Touching Assistance-helper provides verbal cues and/or touching/steadying and/or contact guard assistance as patient completes activity. Assistance may be provided throughout the activity or intermittently. 3-Partial/Moderate Assistance-helper does LESS THAN HALF the effort. [place] lifts, holds or supports trunk or limbs, but provides less than half the effort. 2-Substantial/Maximal Assistance-helper does MORE THAN HALF the effort. [place] lifts or holds trunk or limbs and provides more than half the effort. 2-Dwedklxll-dizxhi does ALL the effort. Patient does none of the effort to complete the activity. Or, the assistance of 2 or more helpers is required for the patient to complete the activity. If activity was not attempted, code reason: 7-Patient Refused. 9-Not Applicable-not attempted and the patient did not perform the activity before the current illness, exacerbation or injury. 10-Not Attempted due to Environmental Limitations-(lack of equipment, weather restraints, etc.). 88-Not Attempted due to Medical Conditions or Safety Concerns. Roll Left & Right (QC): 6 Sit to Lying (QC): 6 Lying to Sitting/Side of Bed(Q: 6 Sit to Stand (QC): 4 Chair/Wjy-mk-Ieyrm Xfer(QC): 4 Gait Training attempted ambulation but patient had too much pain in left leg, could not bear any weight on it or barely even able to put his toes on the ground Wheelchair Training Does the Pt Use a Wheelchair?: Yes Wheel 50 ft with 2 turns (QC): 6 Type of Wheelchair: Manual 120'x2 Exercises Seated Therapy Exercises: Ankle pumps, Long arc quads, Hip flexion, Hip abd/add (wiht ball and RTB) NuStep Minutes: 15 NuStep Workload: 5 (left leg not used, patient not able to tolerate it) Treatments bed mobility and transfers, WC mobility, LE strengthening Assessment Current Status: Poor Progress increased pain and swelling in left leg, patient stated at the end of tx that his left leg had a burning sensation, nurse notified PT Short Term Goals Short Term Goals Time Frame: Jan 07, 2021 Roll Left & Right: 6 Sit to lyin Lying to sitting on side of be: 5 Sit to stand: 4 Walk 10 feet: 4 Walk 50 feet with two turns: 4 Walk 150 feet: 4 PT Cullet Crusher And Washer Goals Cul[employer] Crusher And Washer Goals PT Cul[employer] Crusher And Washer Goals Time Frame: Jan 21, 2021 Roll Left & Right (QC): 6 Sit to Lying (QC): 6 Lying-Sitting on Side/Bed(QC): 6 Sit to Stand (QC): 5 Chair/Roa-xu-Omyua Xfer(QC): 5 Toilet Transfer (QC): 5 Car Transfer (QC): 5 Does the Patient Walk: Yes Walk 10 feet (QC): 5 Walk 50ft with 2 Turns (QC): 5 Walk 150 ft (QC): 5 Walking 10ft on Uneven Surface: 4 1 Step (curb) (QC): 4 4 Steps (QC): 4 12 Steps (QC): 88 Picking up an Object (QC): 88 Wheel 50 feet with 2 turns (QC: 6 Wheel 150 feet: 6 PT Plan Problem List Problem List: Activity Tolerance, Functional Strength, Safety, Balance, Gait, Transfer, Bed Mobility, ROM Treatment/Plan Treatment Plan: Continue Plan of Care Treatment Plan: Bed Mobility, Education, Functional Activity Radha, Functional Strength, Group Therapy, Gait, Safety, Therapeutic Exercise, Transfers Treatment Duration: Jan 21, 2021 Frequency: At least 5 of 7 days/Wk (IRF) Estimated Hrs Per Day: 1.5 hours per day Patient and/or Family Agrees t: Yes Safety Risks/Education Patient Education: Transfer Techniques, Correct Positioning, W/C Management, Safety Issues Teaching Recipient: Patient Teaching Methods: Demonstration, Discussion Response to Teaching: Reinforcement Needed Time/GCodes Time In: 0900 Time Out: 1000 Total Billed Treatment Time: 60 Total Billed Treatment EX 30' FA 30' KULDEEP ZELAYA PT Jan 01, 2021 09:58
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
--- NOTE | 2021-01-01 12:22 | Occupational Ther Daily Note ---
OT Current Status-Daily Note Subjective Pt. reports 9/10 pain in left LE. Pt. to get pain medication soon from nursing. Mental Status/Objective Patient Orientation: Person, Place ADL-Treatment Therapy Code Descriptions/Definitions Functional [place] Measure: 0=Not Assessed/NA 4=Minimal Assistance 1=Total Assistance 5=Supervision or Setup 2=Maximal Assistance 6=Modified [place] 3=Moderate Assistance 7=Complete IndependenceSCALE: Activities may be completed with or without assistive devices. 5-Cflzvprjvr-crfigga completes the activity by him/herself with no assistance from a helper. 5-Set-up or Clean-up Assistance-helper sets up or cleans up; patient completes activity. [place] assists only prior to or following the activity. 4-Supervision or Touching Assistance-helper provides verbal cues and/or touching/steadying and/or contact guard assistance as patient completes activity. Assistance may be provided throughout the activity or intermittently. 3-Partial/Moderate Assistance-helper does LESS THAN HALF the effort. [place] lifts, holds or supports trunk or limbs, but provides less than half the effort. 2-Substantial/Maximal Assistance-helper does MORE THAN HALF the effort. [place] lifts or holds trunk or limbs and provides more than half the effort. 2-Ititqpvlo-qyeruh does ALL the effort. Patient does none of the effort to complete the activity. Or, the assistance of 2 or more helpers is required for the patient to complete the activity. If activity was not attempted, code reason: 7-Patient Refused. 9-Not Applicable-not attempted and the patient did not perform the activity before the current illness, exacerbation or injury. 10-Not Attempted due to Environmental Limitations-(lack of equipment, weather restraints, etc.). 88-Not Attempted due to Medical Conditions or Safety Concerns. Lower Body Dressing (QC): 3 (Mod assist per pt. to don pants this a.m.) On/Off Footwear: 3 (Min assist and cues to use sock aide to don slipper sock.) Other Treatment Pt. in bed. He reports that he is having burning pain in left LE. Pt. already dressed from earlier, and reports that he had assistance with LE dressing. OT brings in adaptive equipment, and pt. agrees to work on practicing LE dressing. Pt. transfers supine-sit with min assist. OT attempts to educate pt. to log roll, but due pain in left LE, he is having difficulty with this. Once EOB, OT shows pt. how to use sock aide, and pt. completes. However, while donning sock, pt. states that his ankle is incredibly painful with any pressure on it from sock aide. Pt. is able to half stand at bedside and take several small steps toward HOB. Attempts to lay self back into bed, but requires min assist. OT elevates bed and completes gentle retrograde massage to left foot, and very gentle pressure to left calf/LE. Pt. indicates that he does not feel light touch to back of leg, but does feel when any pressure is applied and this is very painful. OT encouraged movement at ankle, but pt. unable to actively move. Pt. is able to slightly move toes. Pt. began to drift off to sleep and so OT met all needs. Will return in afternoon and attempt again. Education OT Patient Education: Correct positioning, Modified ADL techniques, Progress toward Goal/Update tx plan, Purpose of tx/functional activities, Reviewed precautions, Rehab process, Transfer techniques, Use of adapted equipment Teaching Recipient: Patient Teaching Methods: Demonstration, Discussion Response to Teaching: Verbalize Understanding, Return Demonstration, Reinforcement Needed OT Short Term Goals Short Term Goals Time Frame: Jan 07, 2021 Lower body dressin Putting on/taking off footwear: 4 OT Long-Term Goals [place] Goals Time Frame: Jan 16, 2021 Eating (QC): 6 Oral Hygiene (QC): 6 Toileting Hygiene (QC): 6 Shower/Bathe Self (QC): 6 Upper Body Dressing (QC): 6 Lower Body Dressing (QC): 6 On/Off Footwear (QC): 6 Additional Goals: 1-Demonstrate ADL Tasks, 2-Verbalize Understanding, 3- ImproveStrength/Radha 1=Demonstrate adherence to instructed precautions during ADL tasks. 2=Patient will verbalize/demonstrate understanding of assistive devices/modifications for ADL. 3=Patient will improve strength/tolerance for activity to enable patient to perform ADL's. OT Education/Plan Problem List/Assessment Assessment: Decreased Activ Tolerance, Dependent Transfers, Impaired Bed Mobility, Impaired I ADL's, Impaired Self-Care Skills Discharge Recommendations Plan/Recommendations: Continue POC Therapy Discharge Recommendati: Post Acute OT Equpiment Recommendations-D/C: Hip Kit Treatment Plan/Plan of Care Treatment,Training & Education: Yes Patient would benefit from OT for education, treatment and training to promote independence in ADL's, mobility, safety and/or upper extremity function for ADL's. Plan of Care: ADL Retraining, Functional Mobility, Group Exercise/Act as Ind, UE Funct Exercise/Act Treatment Duration: Jan 16, 2021 Frequency: At least 5 of 7 days/Wk (IRF) Estimated Hrs Per Day: 1.5 hours per day Rehab Potential: Fair Time/GCodes Start Time: 11:00 Stop Time: 11:45 Total Time Billed (hr/min): 45 Billed Treatment Time 1, ADL x 30minutes, FA x 15minutes SRINIVAS MINA OT Jan 01, 2021 12:22
--- NOTE | 2021-01-01 12:23 | Individualized Plan of Care ---
Individualized Plan of Care Rehab Nursing IPOC Order Admission Date Dec 31, 2020 at 14:00 Current Orders Orders Admission Order(Inpt,Obs,Sdc) (12/31/20 13:56) Vital Signs: Per Unit Policy ( 16,00 (12/31/20 13:56) Rigoberto Montano (12/31/20 13:56) Sequential Compression Device .admit (12/31/20 13:56) Bankruptcy Assistant-Inpt Rehab Con (12/31/20 13:56) Rehab Nursing Orders-Ipoc (12/31/20 13:56) Physical Therapy Rehab Orders (12/31/20 13:56) Occupational Therapy Rehab Ord (12/31/20 13:56) Speech Therapy Rehab Orders (12/31/20 13:56) Cbc With Automated Diff (01/01/21 06:00) Comprehensive Metabolic Panel (01/01/21 06:00) Precautions (Aru) (12/31/20 13:56) Rehab-Intensity Of Therapy (12/31/20 13:56) Initiate Admission Nursing Pro .admission (12/31/20 13:56) Alprazolam Tablet (Xanax Tablet) (12/31/20 14:00) Calcium Carbonate Chew Tablet (Antacid C (12/31/20 14:00) Diphenhydramine Tablet (Benadryl Tablet) (12/31/20 14:00) Docusate Sodium Capsule (Colace Capsule) (12/31/20 21:00) Docusate Sodium Capsule (Colace Capsule) (12/31/20 14:00) Bisacodyl Suppository (Dulcolax Supposit (12/31/20 14:00) Lactulose Oral Solution (Enulose Oral So (12/31/20 14:00) Na Phos/Na Biphos Enema (Fleet Enema Kelvin (12/31/20 14:00) Guaifenesin/Codeine Syrup (Robitussin Ac (12/31/20 14:00) Loperamide Tablet (Imodium Tablet) (12/31/20 14:00) Melatonin Tablet (Melatonin Tablet) (12/31/20 14:00) Polyethylene Glycol Powder Pkt (Miralax (12/31/20 21:00) Ondansetron Oral Dissolve Tab (Zofran (12/31/20 14:00) Senna S Tablet (Senokot S Tablet) (12/31/20 21:00) Therapeutic Activity Goals: .PRN (12/31/20 13:56) Nursing Communication (Order) (12/31/20 ) Naloxone Injection (Narcan Injection) (12/31/20 14:00) Initiate Admission Nursing Pro .admission (12/31/20 13:56) Admission Arrival Bed Request (12/31/20 14:38) Patient Visit (12/31/20 ) Pt Eval Low Complexity (12/31/20 ) Gait Training, Ea 15 Min (12/31/20 ) Functional Activities, Ea 15 (12/31/20 ) Consult Physician (12/31/20 16:10) Code/Resuscitation (12/31/20 17:25) General/Regular (12/31/20 Dinner) Alprazolam Tablet (Xanax Tablet) (12/31/20 21:00) Acetaminophen Tablet/Caplet (Tylenol T (12/31/20 17:30) Calcium Carbonate Chew Tablet (Antacid C (12/31/20 17:30) Docusate Sodium Capsule (Colace Capsule) (12/31/20 17:30) Fluoxetine Capsule (Prozac Capsule) (01/01/21 09:00) Loperamide Tablet (Imodium Tablet) (12/31/20 17:30) Melatonin Tablet (Melatonin Tablet) (12/31/20 17:30) Nitroglycerin 0.4 Mg Btl 25's (Nitrostat (12/31/20 17:30) Olanzapine Tablet (Zyprexa Tablet) (12/31/20 21:00) Pantoprazole Tablet (Protonix Tablet) (01/01/21 09:00) Senna S Tablet (Senokot S Tablet) (12/31/20 21:00) Sucralfate Tablet (Carafate Tablet) (12/31/20 21:00) Diphenhydramine Tablet (Benadryl Tablet) (12/31/20 17:30) Polyethylene Glycol Powder Pkt (Miralax (12/31/20 21:00) Consult Cardiology (12/31/20 17:25) Consult General Surgery (12/31/20 17:25) Hydrocodone/Apap 10/325 Tablet (Lortab 1 (12/31/20 17:30) Oxycodone Immediate Rel Tablet (Oxyir Ta (12/31/20 17:30) Cbc With Automated Diff (12/31/20 18:50) Comprehensive Metabolic Panel (12/31/20 18:50) Lactic Acid Analyzer (12/31/20 18:50) Blood Culture (12/31/20 18:50) Urinalysis (12/31/20 20:12) Chest 1 View, Ap/Pa Only (12/31/20 18:50) Covid 19 Inhouse Test (12/31/20 18:50) Influenza A And B By Pcr (12/31/20 18:50) Lidocaine 2% (Urojet) (Xylocaine Urojet) (12/31/20 20:00) Lidocaine 2% (Urojet) (Xylocaine Urojet) (12/31/20 19:54) Vancomycin Injection (Vancomycin Injecti (12/31/20 20:15) Heating Pad (12/31/20 20:13) Ns Iv 1000 Ml (Sodium Chloride 0.9%) (12/31/20 20:15) Piperacillin/Tazobactam (Bulk) (Zosyn In (12/31/20 20:30) Piperacillin/Tazobactam (Bulk) (Zosyn In (01/01/21 03:00) Vancomycin Injection (Vancomycin Injecti (12/31/20 20:30) Vancomycin Injection (Vancomycin Injecti (01/01/21 09:00) Vancomycin,Trough (01/02/21 08:00) Trough Order (Trough Order-Pharmacy Orde (01/02/21 08:00) Vancomycin Injection (Vancomycin Injecti (12/31/20 21:24) Vancomycin Injection (Vancomycin Injecti (12/31/20 21:24) Enoxaparin Injection (Lovenox Injection) (01/01/21 07:00) Patient Visit (01/01/21 ) Speech Sound Lang Comp (01/01/21 ) Treat. Speech/Lang/Voice (01/01/21 ) Patient Visit (01/01/21 ) Exercise Therap, Ea 15 Min (01/01/21 ) Functional Activities, Ea 15 (01/01/21 ) Patient Visit (01/01/21 ) Exercise Therap, Ea 15 Min (01/01/21 ) Cbc With Automated Diff (01/02/21 05:11) Comprehensive Metabolic Panel (01/02/21 05:11) Creatine Kinase (01/02/21 05:11) Rehab Nursing Orders: Ongoing Assess. of Cognitive Status, Ongoing Assess. of Function Status, Bladder Management, Bladder Scan, Bladder Training, Bowel Management, Bowel Training, Disease Management & Educaiton, DVT Prophylaxis, Fall Prevention, Fluid/Electrolyte/Nutrition Mgmt, Infection Prevention, Medication Management & Education, Management of Risks & Complications, Management of Skin Intergrity, Nutrition Management, Pain Management, Patient/Family Support, Safety Management, Wound Management Intensity of Therapy to be met Patient to be seen: Min.3h per day/5 of 7d PT IPOC Problem List: Activity Tolerance, Functional Strength, Safety, Balance, Gait, Transfer, Bed Mobility, ROM Treatment Plan: Continue Plan of Care Bed Mobility, Education, Functional Activity Radha, Functional Strength, Group Therapy, Gait, Safety, Therapeutic Exercise, Transfers Treatment Duration: Jan 21, 2021 Frequency: At least 5 of 7 days/Wk (IRF) Estimated Hrs Per Day: 1.5 hours per day OT IPOC Problems: Decreased Activ Tolerance, Dependent Transfers, Impaired Bed Mobility, Impaired I ADL's, Impaired Self-Care Skills OT Treatment, Training and Edu: Yes Plan of Care: ADL Retraining, Functional Mobility, Group Exercise/Act as Ind, UE Funct Exercise/Act Treatment Duration: Jan 16, 2021 Frequency: At least 5 of 7 days/Wk (IRF) Estimated Hrs Per Day: 1.[address] IPOC Speech Therapy Treatment Plan: Continue Plan of Care Treatment Duration: Jan 16, 2021 Frequency: 4 times per week (Patient will receive skilled ST 4-5x per week) Estimated Hrs Per Day: .5 hour per day Bankruptcy Assistant/Case Mgmt Bankruptcy Assistant/Case Managemen: Discharge Planning Dietitian/Social Service Worker Dietitian/Social Service Worker to monitor nutritional status and make changes and/or recommendations as needed and work with speech pathology on dietary upgrades as the occur. Physician IPOC Medical Issues being managed closely and that require the 24 hour availability of a physician: Patient with recent severe trauma from cow with loss of consciousness and multiple fractures with severe soft tissue injury will require close monitoring for any type of decompensation Medical Issues: Bowel/Bladder Function, DVT Prophylaxis, Falls Precautions, Fluid/Electrolyte/Nutrition Balance, Infection Protection, Pain Management, Wound Care Brief Synthesis of Preadmission Screen, Post-Admission Evaluation, and Therapy Evaluations: PT and OT will focus on regaining function after severe trauma to regain f unction with assistive devices and increase independence in ADLs Medical Prognosis: Good Anticipated Length of Stay: 10 days FRANK GARCIA DO Jan 01, 2021 12:23
--- NOTE | 2021-01-01 12:23 | PM&R Progress Note ---
Subjective HPI/CC On Admission Date Seen by Provider: Jan 01, 2021 Time Seen by Provider: 12:30 Subjective/Events-last exam 01/01/2021: Pt doing pretty well Having burning of his leg IV antibiotics maintained for the left wrist IV site cellulitis Bowels moving well Pain is well controlled Check meds and labs Review of Systems General: Fatigue Musculoskeletal: shoulder pain, leg pain Focused Exam Lactate Level 12/31/20 19:40: Lactic Acid Level 1.09 Objective Exam Vital Signs Vital Signs Date Time Temp Pulse Resp B/P (MAP) Pulse Ox O2 Delivery O2 Flow Rate FiO2 01/01/21 20:00 38.2 86 16 134/69 (90) 94 Room Air Capillary Refill : General Appearance: No Apparent Distress, WD/WN, Chronically ill, Obese HEENT: PERRL/EOMI, Normal ENT Inspection, Pharynx Normal Neck: Full Range of Motion, Normal Inspection, Non Tender, Supple Respiratory: Chest Non Tender, Lungs Clear, Normal Breath Sounds, No Accessory Muscle Use Cardiovascular: Regular Rate, Rhythm, Normal Peripheral Pulses Gastrointestinal: Normal Bowel Sounds, No Organomegaly, No Pulsatile Mass, Non Tender, Soft Back: Normal Inspection, No CVA Tenderness, Decreased Range of Motion Extremity: Non Tender, Calf Tenderness (Left leg), Pedal Edema (Left foot), Swelling (left lower extremity) Neurologic/Psychiatric: Alert, Oriented x3, valve steamer II-XII Norm as Tested, Depressed Affect, Motor Weakness (Left foot) Skin: Normal Color, Warm/Dry Results/Procedures Lab Laboratory Tests 01/01/21 06:11 Patient resulted labs reviewed. FIM Transfers Therapy Code Descriptions/Definitions Functional [place] Measure: 0=Not Assessed/NA 4=Minimal Assistance 1=Total Assistance 5=Supervision or Setup 2=Maximal Assistance 6=Modified [place] 3=Moderate Assistance 7=Complete IndependenceSCALE: Activities may be completed with or without assistive devices. 4-Mephnmwuzn-eqxrszv completes the activity by him/herself with no assistance from a helper. 5-Set-up or Clean-up Assistance-helper sets up or cleans up; patient completes activity. [place] assists only prior to or following the activity. 4-Supervision or Touching Assistance-helper provides verbal cues and/or touching/steadying and/or contact guard assistance as patient completes activity. Assistance may be provided throughout the activity or intermittently. 3-Partial/Moderate Assistance-helper does LESS THAN HALF the effort. [place] lifts, holds or supports trunk or limbs, but provides less than half the effort. 2-Substantial/Maximal Assistance-helper does MORE THAN HALF the effort. [place] lifts or holds trunk or limbs and provides more than half the effort. 0-Pwmtuqprf-qabdby does ALL the effort. Patient does none of the effort to complete the activity. Or, the assistance of 2 or more helpers is required for the patient to complete the activity. If activity was not attempted, code reason: 7-Patient Refused. 9-Not Applicable-not attempted and the patient did not perform the activity before the current illness, exacerbation or injury. 10-Not Attempted due to Environmental Limitations-(lack of equipment, weather restraints, etc.). 88-Not Attempted due to Medical Conditions or Safety Concerns. Roll Left to Right (QC): 6 Sit to Lying (QC): 6 Sit to Stand (QC): 4 Chair/Cof-ds-Utubr Xfer(QC): 4 Car Transfer (QC): 4 Gait Training Does the Patient Walk?: Yes Walk 10 feet (QC): 4 Walk 50 ft with 2 Turns(QC): 4 Walk 150 ft (QC): 88 Walking 10ft/uneven surface-QC: 88 Gait Assistive Device: FWW Wheelchair Training Does the Pt Use a Wheelchair?: Yes Distance: 150'x2 Wheel 50 ft with 2 turns (QC): 6 Wheel 150 ft (QC): 4 Type of Wheelchair: Manual Stair Training 1 Step (curb) (QC): 88 4 Steps (QC): 88 12 Steps (QC): 88 Balance Picking up an Object (QC): 88 ADL-Treatment Eating (QC): 6 (Pt IND with lunch) Oral Hygiene (QC): 6 (IND standing at sink) Shower/Bathe Self (QC): 3 (Assist BLE lower legs/feet) Upper Body Dressing (QC): 3 (Assist donning/doffing TLSO) Lower Body Dressing (QC): 3 (Pt able to thread RLE and perform pant hike, assist LLE) On/Off Footwear (QC): 3 (Pt able to don/doff RLE gripper sock, assist LLE) Toileting Hygiene (QC): 6 (IND with hygine and clothing management) Assessment/Plan Assessment and Plan Assess & Plan/Chief Complaint Assessment: S/P Trauma with injuries from cow- blunt injury and crush injury sustained -general surgery following -continue frequent reassessments of left lower extremity -awaiting placement of clam brace- should happen today -2 view left foot x ray negative for acute pathology Concussion with LOC -continue to monitor neurologic status Rhabdomyolysis -CK decreased to 1049 today from 1224 yesterday -SL'd -encourage increased po intake of fluids -continue to trend for now Acute kidney injury-resolved -Creatinine stable at 1.29 today Anemia -Hgb stable at 11.1 today -surgery holding lovenox due to anemia -continue to trend Chest pain with history of angina -cardiology following -continue to monitor -PRN SL nitro Hypertension -continue to monitor Hyperlipidemia -continue to monitor Sinus node dysfunction pacemaker in place -cardiology following -pacemaker interrogated and functioning appropriately Pain control -continue prn's PT OT -doing frequent therapy per patient report -plan to transfer to inpatient rehab unit pending workers comp approval Cellulitis at site of previous IV site with fever -Begin IV antibiotics status post pancultured Plan: Aggressive therapy Pain control IV antibiotics Supportive care 01/01/2021: Supportive care 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
--- NOTE | 2021-01-01 13:28 | Occupational Ther Daily Note ---
OT Current Status-Daily Note Subjective Pt alert, lying in bed. Pt c/o pain, does not rate, reported to nrsg. Pt agrees to therapy, declines OOB tasks. Mental Status/Objective Patient Orientation: Person, Place, Time, Situation Attachments: IV, Other-See Comments (TLSO) ADL-Treatment Therapy Code Descriptions/Definitions Functional [place] Measure: 0=Not Assessed/NA 4=Minimal Assistance 1=Total Assistance 5=Supervision or Setup 2=Maximal Assistance 6=Modified [place] 3=Moderate Assistance 7=Complete IndependenceSCALE: Activities may be completed with or without assistive devices. 3-Zminnglffs-zcjoyko completes the activity by him/herself with no assistance from a helper. 5-Set-up or Clean-up Assistance-helper sets up or cleans up; patient completes activity. [place] assists only prior to or following the activity. 4-Supervision or Touching Assistance-helper provides verbal cues and/or touching/steadying and/or contact guard assistance as patient completes activity. Assistance may be provided throughout the activity or intermittently. 3-Partial/Moderate Assistance-helper does LESS THAN HALF the effort. [place] lifts, holds or supports trunk or limbs, but provides less than half the effort. 2-Substantial/Maximal Assistance-helper does MORE THAN HALF the effort. [place] lifts or holds trunk or limbs and provides more than half the effort. 2-Vfooypdeb-pqzkfp does ALL the effort. Patient does none of the effort to complete the activity. Or, the assistance of 2 or more helpers is required for the patient to complete the activity. If activity was not attempted, code reason: 7-Patient Refused. 9-Not Applicable-not attempted and the patient did not perform the activity be fore the current illness, exacerbation or injury. 10-Not Attempted due to Environmental Limitations-(lack of equipment, weather restraints, etc.). 88-Not Attempted due to Medical Conditions or Safety Concerns. Other Treatment Educated pt on donning/doffing TLSO. Pt declines sitting EOB to practice though acknowledge understanding verbally. Educated pt on different strategies for log roll to sit EOB, pt declines though acknowledges understanding verbally. Pt c/o pain with L foot, edema noted throughout leg and redness at 5th toe metatarsal. Ice pack placed on L ankle with 3 layers between skin and ice pack. After therapy pt lying in bed with call light/phone in reach. All needs met. OT Short Term Goals Short Term Goals Time Frame: Jan 07, 2021 Lower body dressin Putting on/taking off footwear: 4 OT Mcc Goals Fruit Farmworker Goals Time Frame: Jan 16, 2021 Eating (QC): 6 Oral Hygiene (QC): 6 Toileting Hygiene (QC): 6 Shower/Bathe Self (QC): 6 Upper Body Dressing (QC): 6 Lower Body Dressing (QC): 6 On/Off Footwear (QC): 6 Additional Goals: 1-Demonstrate ADL Tasks, 2-Verbalize Understanding, 3- ImproveStrength/Radha 1=Demonstrate adherence to instructed precautions during ADL tasks. 2=Patient will verbalize/demonstrate understanding of assistive devices/modifications for ADL. 3=Patient will improve strength/tolerance for activity to enable patient to perform ADL's. OT Education/Plan Problem List/Assessment Assessment: Decreased Activ Tolerance, Impaired Bed Mobility, Impaired Self- Care Skills Discharge Recommendations Plan/Recommendations: Continue POC Treatment Plan/Plan of Care Patient would benefit from OT for education, treatment and training to promote independence in ADL's, mobility, safety and/or upper extremity function for ADL's. Plan of Care: ADL Retraining, Functional Mobility, Group Exercise/Act as Ind, UE Funct Exercise/Act Treatment Duration: Jan 16, 2021 Frequency: At least 5 of 7 days/Wk (IRF) Estimated Hrs Per Day: 1.5 hours per day Rehab Potential: Fair Time/GCodes Start Time: 12:50 Stop Time: 13:20 Total Time Billed (hr/min): 30 Billed Treatment Time 1 visit-FA 2 (30 min) JAXON DURAN Jan 01, 2021 13:28
--- NOTE | 2021-01-01 14:16 | Physical Therapy Daily Note ---
PT Daily Note-Current Subjective Patient agrees to PT. Patient is very pleasant and talkative this p.m. Transfers SCALE: Activities may be completed with or without assistive devices. 0-Bkqyhzajjr-zwcsgel completes the activity by him/herself with no assistance from a helper. 5-Set-up or Clean-up Assistance-helper sets up or cleans up; patient completes activity. [place] assists only prior to or following the activity. 4-Supervision or Touching Assistance-helper provides verbal cues and/or touching/steadying and/or contact guard assistance as patient completes activity. Assistance may be provided throughout the activity or intermittently. 3-Partial/Moderate Assistance-helper does LESS THAN HALF the effort. [place] lifts, holds or supports trunk or limbs, but provides less than half the effort. 2-Substantial/Maximal Assistance-helper does MORE THAN HALF the effort. [place] lifts or holds trunk or limbs and provides more than half the effort. 3-Gkgdhgggl-zbdlwx does ALL the effort. Patient does none of the effort to complete the activity. Or, the assistance of 2 or more helpers is required for the patient to complete the activity. If activity was not attempted, code reason: 7-Patient Refused. 9-Not Applicable-not attempted and the patient did not perform the activity before the current illness, exacerbation or injury. 10-Not Attempted due to Environmental Limitations-(lack of equipment, weather restraints, etc.). 88-Not Attempted due to Medical Conditions or Safety Concerns. Exercises Supine Ex: Ankle pumps, Quad Set, Heel Slides, Straight leg raise, Hip abd/add Supine Reps: 12 (with left DF/PF and hamstring stretching) Assessment Patient does have increase sensitivity with stretching left ankle. Increase activity. PT Short Term Goals Short Term Goals Time Frame: Jan 07, 2021 Roll Left & Right: 6 Sit to lyin Lying to sitting on side of be: 5 Sit to stand: 4 Walk 10 feet: 4 Walk 50 feet with two turns: 4 Walk 150 feet: 4 PT Online Marketing Manager Goals [facility] Goals PT Online Marketing Manager Goals Time Frame: Jan 21, 2021 Roll Left & Right (QC): 6 Sit to Lying (QC): 6 Lying-Sitting on Side/Bed(QC): 6 Sit to Stand (QC): 5 Chair/Xhp-wa-Dvxwu Xfer(QC): 5 Toilet Transfer (QC): 5 Car Transfer (QC): 5 Does the Patient Walk: Yes Walk 10 feet (QC): 5 Walk 50ft with 2 Turns (QC): 5 Walk 150 ft (QC): 5 Walking 10ft on Uneven Surface: 4 1 Step (curb) (QC): 4 4 Steps (QC): 4 12 Steps (QC): 88 Picking up an Object (QC): 88 Wheel 50 feet with 2 turns (QC: 6 Wheel 150 feet: 6 PT Plan Treatment/Plan Treatment Plan: Continue Plan of Care Treatment Plan: Bed Mobility, Education, Functional Activity Radha, Functional Strength, Group Therapy, Gait, Safety, Therapeutic Exercise, Transfers Treatment Duration: Jan 21, 2021 Frequency: At least 5 of 7 days/Wk (IRF) Estimated Hrs Per Day: 1.5 hours per day Patient and/or Family Agrees t: Yes Time/GCodes Time In: 1356 Time Out: 1411 Total Billed Treatment Time: 15 Total Billed Treatment 1 visit EX 15 min HERMANN MINER PT Jan 01, 2021 14:16
[2021-01-01 20:00] VITALS: BP 134/69
[2021-01-01] MEDS: OLANZapine 5 MG (ZyPREXA) TAB PO SCH (21:22)
[2021-01-02] MEDS: PIPERACILLIN/TAZOBACTAM (BULK) 4.5 GM in NS (IVPB) 100 ML IV SCH ×2 (03:05→11:18)
[2021-01-02] MEDS: ENOXAPARIN 40 MG/0.4 ML (LOVENOX) SYR SC SCH (06:37)
[2021-01-02 07:23] VITALS: BP 139/80
[2021-01-02] MEDS: polyethylene glycoL POWDER 17 GM (MIRALAX) PACK PO SCH ×2 (07:49→21:35)
[2021-01-02] MEDS: PANTOPRAZOLE 40 MG (PROTONIX) TAB PO SCH (07:49)
[2021-01-02] MEDS: FLUoxetine HCL 20 MG (PROzac) CAP PO SCH (07:49)
[2021-01-02] MEDS: ALPRAZolam 0.5 MG (XANAX) TAB PO SCH ×4 (07:49→21:39)
[2021-01-02] MEDS: SUCRALFATE 1 GM (CARAFATE) TAB PO SCH ×2 (07:49→21:39)
[2021-01-02] MEDS: SENNA W/DOCUSATE (SENOKOT S) TABLET PO SCH ×2 (07:49→21:35)
[2021-01-02] MEDS: DOCUSATE SODIUM 100 MG (COLACE) CAP PO SCH ×2 (07:50→21:35)
[2021-01-02] MEDS ORDERED: TROUGH ORDER-PHARMACY XX NR (08:00)
--- NOTE | 2021-01-02 08:21 | Cardiology Progress Note ---
Subjective Date Seen by Provider: Jan 02, 2021 Time Seen by Provider: 08:19 Subjective/Events-last exam Patient was seen at bedside, laying down comfortably, still having pain in his leg. Review of Systems General: No Chills, No Night Sweats, No Fatigue, No Malaise, No Appetite, No Other HEENT: No Head Aches, No Visual Changes, No Eye Pain, No Ear Pain, No Dysphasia, No Sinus Congestion, No Post Nasal Drip, No Sore Throat, No Other Pulmonary: No Dyspnea, No Cough, No Pleuritic Chest Pain, No Other Cardiovascular: No: Chest Pain, Palpitations, Orthopnea, Paroxysmal Noc. Dyspnea, Edema, Lt Headedness, Other Focused Exam Lactate Level 12/31/20 19:40: Lactic Acid Level 1.09 Objective-Cardiology Exam Last Set of Vital Signs Vital Signs 01/02/21 07:23 Temp 36.6 Pulse 72 Resp 20 B/P (MAP) 139/80 (99) Pulse Ox 95 O2 Delivery Room Air I&O Intake and Output 01/02/21 00:00 Intake Total 2052.5 ml Balance 2052.5 ml Intake IV Total 2052.5 ml General: Alert, Oriented X3, Cooperative HEENT: Atraumatic, PERRLA Neck: Supple, No JVD, No Thyromegaly Lungs: Clear to Auscultation, Normal Air Movement Heart: Regular Rate, No Murmurs Abdomen: Normal Bowel Sounds, Soft Extremities: No Clubbing, No Cyanosis Skin: No Rashes, No Significant Lesion Neuro: Normal Speech, Cranial Nerves 3-12 NL A/P-Cardiology Admission Diagnosis Chest pain CAD Syncope Left leg crush injury Assessment/Plan Chest pain, most probably musculoskeletal, troponin was negative, had elevated CPK and myoglobin secondary to injury. Continue to monitor Coronary artery disease, reported cardiac catheterization in 2018, patient recall having significant disease not amendable to intervention he was started on sublingual nitroglycerin for chest pain. No further episodes of chest pain were reported Syncope, probably vasovagal, no malignant arrhythmia was detected. Continue to monitor Sinus node dysfunction, history of dual-chamber pacemaker, interrogated today, appears to be functioning normally. Continue to follow-up as an outpatient Status post traumatic injury with rhabdomyolysis secondary to injury. Received IV fluid, managed by primary care team Left leg pain, questionable compartment syndrome, managed by surgical team Acute renal insufficiency, improved, managed by primary care team MICHAEL RUVALCABA MD Jan 02, 2021 08:21
[2021-01-02 08:31] LABS: BASOPHILS % (AUTO) 0 % (0-10); EOSINOPHILS # (AUTO) 0.2 10^3/uL (0.0-0.3); EOSINOPHILS % (AUTO) 2 % (0-10); HEMATOCRIT 31 % (40-54); HEMOGLOBIN 9.8 g/dL (13.3-17.7); LYMPHOCYTES # (AUTO) 1.8 10^3/uL (1.0-4.0); LYMPHOCYTES % (AUTO) 22 % (12-44); MEAN CORPUSCULAR HEMOGLOBIN 30 pg (25-34); MEAN CORPUSCULAR HGB CONC 32 g/dL (32-36); MEAN CORPUSCULAR VOLUME 94 fL (80-99); MEAN PLATELET VOLUME 9.3 fL (9.0-12.2); MONOCYTES # (AUTO) 0.7 10^3/uL (0.0-1.0); MONOCYTES % (AUTO) 9 % (0-12); NEUTROPHILS # (AUTO) 5.4 10^3/uL (1.8-7.8); NEUTROPHILS % (AUTO) 66 % (42-75); PLATELET COUNT 250 10^3/uL (130-400); WHITE BLOOD COUNT 8.2 10^3/uL (4.3-11.0)
[2021-01-02 08:45] LABS: BILIRUBIN,TOTAL 1.7 MG/DL (0.1-1.0); CALCIUM 8.9 MG/DL (8.5-10.1); CREATININE SERUM 1.28 MG/DL (0.60-1.30); POTASSIUM 3.9 MMOL/L (3.6-5.0); TOTAL PROTEIN 6.1 GM/DL (6.4-8.2)
--- NOTE | 2021-01-02 09:08 | Occupational Ther Daily Note ---
OT Current Status-Daily Note Subjective Pt. reports pain in left LE, but does not report pain level. Pt. has had pain meds. Mental Status/Objective Patient Orientation: Person, Place, Time, Situation ADL-Treatment Therapy Code Descriptions/Definitions Functional [place] Measure: 0=Not Assessed/NA 4=Minimal Assistance 1=Total Assistance 5=Supervision or Setup 2=Maximal Assistance 6=Modified [place] 3=Moderate Assistance 7=Complete IndependenceSCALE: Activities may be completed with or without assistive devices. 2-Twalnogorl-oxtuyuj completes the activity by him/herself with no assistance from a helper. 5-Set-up or Clean-up Assistance-helper sets up or cleans up; patient completes activity. [place] assists only prior to or following the activity. 4-Supervision or Touching Assistance-helper provides verbal cues and/or to uching/steadying and/or contact guard assistance as patient completes activity. Assistance may be provided throughout the activity or intermittently. 3-Partial/Moderate Assistance-helper does LESS THAN HALF the effort. [place] lifts, holds or supports trunk or limbs, but provides less than half the effort. 2-Substantial/Maximal Assistance-helper does MORE THAN HALF the effort. [place] lifts or holds trunk or limbs and provides more than half the effort. 8-Mbyumlrpd-fesndc does ALL the effort. Patient does none of the effort to complete the activity. Or, the assistance of 2 or more helpers is required for the patient to complete the activity. If activity was not attempted, code reason: 7-Patient Refused. 9-Not Applicable-not attempted and the patient did not perform the activity before the current illness, exacerbation or injury. 10-Not Attempted due to Environmental Limitations-(lack of equipment, weather restraints, etc.). 88-Not Attempted due to Medical Conditions or Safety Concerns. Eating (QC): 6 Shower/Bathe Self (QC): 4 (SBA to use LH shower sponge in shower.) Upper Body Dressing (QC): 5 Lower Body Dressing (QC): 4 (Pt. utilizes adaptive equipment while seated to don pants over feet. CGA in stance to don over hips.) On/Off Footwear: 3 (Min assist with AE.) Other Treatment Pt. agreeable to treatment. Transferred supine-sit with SBA. Educated on log roll technique for back safety. Sit-stand at bedside with CGA. Transferred to shower chair and rolled into shower. Pt. able to shower/dress with AE and instruction for use and technique with good back safety. Pt. back in bed at end of treatment. Education OT Patient Education: Correct positioning, Modified ADL techniques, Progress toward Goal/Update tx plan, Purpose of tx/functional activities, Reviewed precautions, Rehab process, Transfer techniques, Use of adapted equipment Teaching Recipient: Patient Teaching Methods: Demonstration, Discussion Response to Teaching: Verbalize Understanding, Return Demonstration OT Short Term Goals Short Term Goals Time Frame: Jan 07, 2021 Lower body dressin Putting on/taking off footwear: 4 OT [facility] Goals Horologist Goals Time Frame: Jan 16, 2021 Eating (QC): 6 Oral Hygiene (QC): 6 Toileting Hygiene (QC): 6 Shower/Bathe Self (QC): 6 Upper Body Dressing (QC): 6 Lower Body Dressing (QC): 6 On/Off Footwear (QC): 6 Additional Goals: 1-Demonstrate ADL Tasks, 2-Verbalize Understanding, 3- ImproveStrength/Radha 1=Demonstrate adherence to instructed precautions during ADL tasks. 2=Patient will verbalize/demonstrate understanding of assistive devices/modifications for ADL. 3=Patient will improve strength/tolerance for activity to enable patient to perform ADL's. OT Education/Plan Problem List/Assessment Assessment: Decreased Activ Tolerance, Impaired I ADL's, Impaired Self-Care Skills Discharge Recommendations Plan/Recommendations: Continue POC Therapy Discharge Recommendati: Post Acute OT Equpiment Recommendations-D/C: Hip Kit Treatment Plan/Plan of Care Treatment,Training & Education: Yes Patient would benefit from OT for education, treatment and training to promote independence in ADL's, mobility, safety and/or upper extremity function for ADL's. Plan of Care: ADL Retraining, Functional Mobility, Group Exercise/Act as Ind, UE Funct Exercise/Act Treatment Duration: Jan 16, 2021 Frequency: At least 5 of 7 days/Wk (IRF) Estimated Hrs Per Day: 1.5 hours per day Rehab Potential: Fair Time/GCodes Start Time: 08:15 Stop Time: 09:00 Total Time Billed (hr/min): 45 Billed Treatment Time 1, ADL x 3 SRINIVAS MINA OT Jan 02, 2021 09:08
[2021-01-02] MEDS: VANCOMYCIN 1500 MG/NS 500 ML IVPB IV SCH ×2 (09:14)
--- NOTE | 2021-01-02 10:03 | Speech Therapy Daily Note ---
Speech Daily Progress Note Subjective Date Seen by Provider: Jan 02, 2021 Time Seen by Provider: 00:30 Patient had just returned to his room following PT session. Patient states he is having quite a bit of pain. Objective Patient answered memory questions related to his situation, orientation at 80% with 20% cues. The patient is noted to have left sided neglect. Assessment Assessment Current Status: Good Progress Treatment Plan Continue Plan of Care Speech Short Term Goals Short Term Goals Short Term Goals 1) Patient will complete memory tasks related to his daily needs at 75% or greater with minimal cues. 2) Patient will complete safety awareness tasks related to his daily needs at 75% or greater with minimal cues. 3) Patient will complete problem solving related to his daily needs at 75% or greater with minimal cues. Speech Nursing Home Goals Construction Administrator Goals Patient will improve cognitive-communication abilities in order to require less assistance with daily needs. Speech-Plan Patient/Family Goals Patient/Family Goals: The patient plans on returning to his home where he lives with his . Treatment Plan Speech Therapy Treatment Plan: Continue Plan of Care Treatment Duration: Jan 16, 2021 Frequency: 4 times per week (Patient will receive skilled ST 4-5x per week) Estimated Hrs Per Day: .5 hour per day Rehab Potential: Fair Barriers to Learning: Patient's cognitive/memory deficts, recent accident with injury Pt/Family Agrees to Plan: Yes Safety Risks/Education Teaching Recipient: Patient Teaching Methods: Demonstration, Discussion Response to Teaching: Verbalize Understanding, Return Demonstration Education Topics Provided: Continued safety within his room, memory for keeping his brace on, communication of wants/needs Time Speech Therapy Time In: 10:00 Speech Therapy Time Out: 10:30 Total Billed Time: 30 Billed Treatment Time 1, ALFIE Lieberman Jan 02, 2021 10:02
--- NOTE | 2021-01-02 10:10 | Physical Therapy Daily Note ---
PT Daily Note-Current Subjective Patient lying supine in bed upon PT arrival, agreeable to treatment. Rates pain at 7/10 in his right calf and ankle, across his shoulders. Left calf does not appear red, however is swollen and hot. Nurse notified and performed assessment, gave approval for treatment. Mental Status Patient Orientation: Person, Place, Time, Situation Attachments: IV Transfers SCALE: Activities may be completed with or without assistive devices. 1-Xllsfrdfqp-ixbmkfd completes the activity by him/herself with no assistance from a helper. 5-Set-up or Clean-up Assistance-helper sets up or cleans up; patient completes activity. [place] assists only prior to or following the activity. 4-Supervision or Touching Assistance-helper provides verbal cues and/or touching/steadying and/or contact guard assistance as patient completes activity. Assistance may be provided throughout the activity or intermittently. 3-Partial/Moderate Assistance-helper does LESS THAN HALF the effort. [place] lifts, holds or supports trunk or limbs, but provides less than half the effort. 2-Substantial/Maximal Assistance-helper does MORE THAN HALF the effort. [place] lifts or holds trunk or limbs and provides more than half the effort. 2-Wpftbylxs-gtsiwj does ALL the effort. Patient does none of the effort to complete the activity. Or, the assistance of 2 or more helpers is required for the patient to complete the activity. If activity was not attempted, code reason: 7-Patient Refused. 9-Not Applicable-not attempted and the patient did not perform the activity before the current illness, exacerbation or injury. 10-Not Attempted due to Environmental Limitations-(lack of equipment, weather restraints, etc.). 88-Not Attempted due to Medical Conditions or Safety Concerns. Roll Left & Right (QC): 4 Sit to Lying (QC): 4 Lying to Sitting/Side of Bed(Q: 4 Sit to Stand (QC): 4 Chair/Rte-eb-Jwgjp Xfer(QC): 4 Gait Training Does the Patient Walk?: No and Walking Goal IS indicated Wheelchair Training Does the Pt Use a Wheelchair?: Yes Wheel 50 ft with 2 turns (QC): 5 Wheel 150 ft (QC): 5 Type of Wheelchair: Manual Exercises Supine Ex: Ankle pumps, Quad Set, Heel Slides, Hip abd/add Supine Reps: 20 Seated Therapy Exercises: Long arc quads, Hip flexion, Hamstring Curls, Hip abd/add Seated Reps: 20 Treatments Patient performed bed mobility and training with education and demonstration of donning TLSO. Patient performed w/c training with focus on safety, use of brakes and maneuvering through obstacles with sufficient spacing. Patient performed Nu Step level 4 with UE's, right LE x 10 minutes. Patient performed seated therapeutic exercise as listed above and standing weight shifting in the parallel bars x 20. Assessment Current Status: Good Progress, Fair Progress Patient lying supine in bed upon PT arrival, agreeable to treatment. Patient performed bed mobility and training with education and demonstration of donning TLSO. Patient performed w/c training with focus on safety, use of brakes and maneuvering through obstacles with sufficient spacing. Patient performed Nu Step level 4 with UE's, right LE x 10 minutes. Patient performed seated therap eutic exercise as listed above and standing weight shifting in the parallel bars x 20. Patient tolerated treatment well with no report of increased pain especially in left LE and left shoulder. He is able to minimally bear weight through left LE, however left knee continues to stay flexed ~30 degrees with left ankle PF. Patient in w/c post treatment with all needs met and SPT in the room for treatment upon PT departure. PT Short Term Goals Short Term Goals Time Frame: Jan 07, 2021 Roll Left & Right: 6 Sit to lyin Lying to sitting on side of be: 5 Sit to stand: 4 Walk 10 feet: 4 Walk 50 feet with two turns: 4 Walk 150 feet: 4 PT [facility] Goals Dimension Quarry Supervisor Goals PT [facility] Goals Time Frame: Jan 21, 2021 Roll Left & Right (QC): 6 Sit to Lying (QC): 6 Lying-Sitting on Side/Bed(QC): 6 Sit to Stand (QC): 5 Chair/Svx-jh-Hfgiz Xfer(QC): 5 Toilet Transfer (QC): 5 Car Transfer (QC): 5 Does the Patient Walk: Yes Walk 10 feet (QC): 5 Walk 50ft with 2 Turns (QC): 5 Walk 150 ft (QC): 5 Walking 10ft on Uneven Surface: 4 1 Step (curb) (QC): 4 4 Steps (QC): 4 12 Steps (QC): 88 Picking up an Object (QC): 88 Wheel 50 feet with 2 turns (QC: 6 Wheel 150 feet: 6 PT Plan Treatment/Plan Treatment Plan: Continue Plan of Care Treatment Plan: Bed Mobility, Education, Functional Activity Radha, Functional Strength, Group Therapy, Gait, Safety, Therapeutic Exercise, Transfers Treatment Duration: Jan 21, 2021 Frequency: At least 5 of 7 days/Wk (IRF) Estimated Hrs Per Day: 1.5 hours per day Patient and/or Family Agrees t: Yes Time/GCodes Time In: 900 Time Out: 1000 Total Billed Treatment Time: 60 Total Billed Treatment Visit, FA (2), W/C, Ex RASHIDA SHRESTHA PT Jan 02, 2021 10:10
--- NOTE | 2021-01-02 11:23 | Occupational Ther Daily Note ---
OT Current Status-Daily Note Subjective Pt. reports pain in left LE after treatment. 12/30. Notified nursing. Mental Status/Objective Patient Orientation: Person, Place, Time, Situation ADL-Treatment Therapy Code Descriptions/Definitions Functional [place] Measure: 0=Not Assessed/NA 4=Minimal Assistance 1=Total Assistance 5=Supervision or Setup 2=Maximal Assistance 6=Modified [place] 3=Moderate Assistance 7=Complete IndependenceSCALE: Activities may be completed with or without assistive devices. 7-Kimdpdqmoj-mdjwqtn completes the activity by him/herself with no assistance from a helper. 5-Set-up or Clean-up Assistance-helper sets up or cleans up; patient completes activity. [place] assists only prior to or following the activity. 4-Supervision or Touching Assistance-helper provides verbal cues and/or touching/steadying and/or contact guard assistance as patient completes activity. Assistance may be provided throughout the activity or intermittently. 3-Partial/Moderate Assistance-helper does LESS THAN HALF the effort. [place] lifts, holds or supports trunk or limbs, but provides less than half the effort. 2-Substantial/Maximal Assistance-helper does MORE THAN HALF the effort. [place] lifts or holds trunk or limbs and provides more than half the effort. 1-Lzkejbxep-rgmydl does ALL the effort. Patient does none of the effort to complete the activity. Or, the assistance of 2 or more helpers is required for the patient to complete the activity. If activity was not attempted, code reason: 7-Patient Refused. 9-Not Applicable-not attempted and the patient did not perform the activity before the current illness, exacerbation or injury. 10-Not Attempted due to Environmental Limitations-(lack of equipment, weather restraints, etc.). 88-Not Attempted due to Medical Conditions or Safety Concerns. Other Treatment Pt. up in wheelchair when OT entered room. Agrees to work with OT. Would like to shave. Pt. able to self propel with min assist into bathroom. Pt. able to set up sink and shave with no difficulty. OT assists pt. out of bathroom due to IV and other items in room. Pt. stands from chair with CGA and pivots to bed. Doffs back brace with mod assist. Transfers to bed with SBA. OT and pt. talk about what pt. will do when he gets home. 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 OT encourages him to find other resources to assist him, at least with any heavy items. OT stresses importance of back safety, not lifting or bending at this time, and need to have plan in place before rushing back into his work. Pt. verbalizes understanding. Will continue discussing ways to modify his work. All needs met in bed. Education OT Patient Education: Correct positioning, Modified ADL techniques, Progress toward Goal/Update tx plan, Purpose of tx/functional activities, Reviewed precautions, Rehab process, Transfer techniques Teaching Recipient: Patient Teaching Methods: Demonstration, Discussion Response to Teaching: Verbalize Understanding, Return Demonstration OT Short Term Goals Short Term Goals Time Frame: Jan 07, 2021 Lower body dressin Putting on/taking off footwear: 4 OT Radiologist Physician Goals [facility] Goals Time Frame: Jan 16, 2021 Eating (QC): 6 Oral Hygiene (QC): 6 Toileting Hygiene (QC): 6 Shower/Bathe Self (QC): 6 Upper Body Dressing (QC): 6 Lower Body Dressing (QC): 6 On/Off Footwear (QC): 6 Additional Goals: 1-Demonstrate ADL Tasks, 2-Verbalize Understanding, 3- ImproveStrength/Radha 1=Demonstrate adherence to instructed precautions during ADL tasks. 2=Patient will verbalize/demonstrate understanding of assistive devices/modifications for ADL. 3=Patient will improve strength/tolerance for activity to enable patient to perform ADL's. OT Education/Plan Problem List/Assessment Assessment: Decreased Activ Tolerance, Impaired I ADL's, Impaired Self-Care Skills Discharge Recommendations Plan/Recommendations: Continue POC Therapy Discharge Recommendati: Home & Family, Post Acute OT Treatment Plan/Plan of Care Treatment,Training & Education: Yes Patient would benefit from OT for education, treatment and training to promote independence in ADL's, mobility, safety and/or upper extremity function for ADL's. Plan of Care: ADL Retraining, Functional Mobility, Group Exercise/Act as Ind, UE Funct Exercise/Act Treatment Duration: Jan 16, 2021 Frequency: At least 5 of 7 days/Wk (IRF) Estimated Hrs Per Day: 1.5 hours per day Agreement: Yes Rehab Potential: Good Time/GCodes Start Time: 10:30 Stop Time: 11:00 Total Time Billed (hr/min): 30 Billed Treatment Time 1, ADL x 30minutes SRINIVAS MINA OT Jan 02, 2021 11:23
--- NOTE | 2021-01-02 12:48 | PM&R Progress Note ---
Subjective HPI/CC On Admission Date Seen by Provider: Jan 02, 2021 Time Seen by Provider: 12:00 Subjective/Events-last exam 01/02/2021: Pt doing really well Complains about the left leg pain Changing IV antibiotics to PO Flat affect continues but that is chronic 01/01/2021: Pt doing pretty well Having burning of his leg IV antibiotics maintained for the left wrist IV site cellulitis Bowels moving well Pain is well controlled Check meds and labs Review of Systems General: Fatigue, Malaise Musculoskeletal: leg pain Focused Exam Lactate Level 12/31/20 19:40: Lactic Acid Level 1.09 Objective Exam Vital Signs Vital Signs Date Time Temp Pulse Resp B/P (MAP) Pulse Ox O2 Delivery O2 Flow Rate FiO2 01/02/21 20:10 95 Room Air 01/02/21 19:51 37.6 84 18 122/86 (98) Capillary Refill : General Appearance: No Apparent Distress, WD/WN, Chronically ill, Obese HEENT: PERRL/EOMI, Normal ENT Inspection, Pharynx Normal Neck: Full Range of Motion, Normal Inspection, Non Tender, Supple Respiratory: Chest Non Tender, Lungs Clear, Normal Breath Sounds, No Accessory Muscle Use Cardiovascular: Regular Rate, Rhythm, Normal Peripheral Pulses Gastrointestinal: Normal Bowel Sounds, No Organomegaly, No Pulsatile Mass, Non Tender, Soft Back: Normal Inspection, No CVA Tenderness, Decreased Range of Motion Extremity: Non Tender, Calf Tenderness (Left leg), Pedal Edema (Left foot), S welling (left lower extremity) Neurologic/Psychiatric: Alert, Oriented x3, energy control officer II-XII Norm as Tested, Depressed Affect, Motor Weakness (Left foot) Skin: Normal Color, Warm/Dry Results/Procedures Lab Laboratory Tests 01/02/21 08:18 Patient resulted labs reviewed. FIM Transfers Therapy Code Descriptions/Definitions Functional [place] Measure: 0=Not Assessed/NA 4=Minimal Assistance 1=Total Assistance 5=Supervision or Setup 2=Maximal Assistance 6=Modified [place] 3=Moderate Assistance 7=Complete IndependenceSCALE: Activities may be completed with or without assistive devices. 0-Gefmnxsdrr-kjiikvy completes the activity by him/herself with no assistance from a helper. 5-Set-up or Clean-up Assistance-helper sets up or cleans up; patient completes activity. [place] assists only prior to or following the activity. 4-Supervision or Touching Assistance-helper provides verbal cues and/or touching/steadying and/or contact guard assistance as patient completes activity. Assistance may be provided throughout the activity or intermittently. 3-Partial/Moderate Assistance-helper does LESS THAN HALF the effort. [place] lifts, holds or supports trunk or limbs, but provides less than half the effort. 2-Substantial/Maximal Assistance-helper does MORE THAN HALF the effort. [place] lifts or holds trunk or limbs and provides more than half the effort. 0-Yzkrenrjv-ddlenp does ALL the effort. Patient does none of the effort to complete the activity. Or, the assistance of 2 or more helpers is required for the patient to complete the activity. If activity was not attempted, code reason: 7-Patient Refused. 9-Not Applicable-not attempted and the patient did not perform the activity before the current illness, exacerbation or injury. 10-Not Attempted due to Environmental Limitations-(lack of equipment, weather restraints, etc.). 88-Not Attempted due to Medical Conditions or Safety Concerns. Roll Left to Right (QC): 4 Sit to Lying (QC): 4 Sit to Stand (QC): 4 Chair/Otl-ii-Quefy Xfer(QC): 4 Car Transfer (QC): 4 Gait Training Does the Patient Walk?: No and Walking Goal IS indicated Walk 10 feet (QC): 4 Walk 50 ft with 2 Turns(QC): 4 Walk 150 ft (QC): 88 Walking 10ft/uneven surface-QC: 88 Gait Assistive Device: FWW Wheelchair Training Does the Pt Use a Wheelchair?: Yes Distance: 150'x2 Wheel 50 ft with 2 turns (QC): 5 Wheel 150 ft (QC): 5 Type of Wheelchair: Manual Stair Training 1 Step (curb) (QC): 88 4 Steps (QC): 88 12 Steps (QC): 88 Balance Picking up an Object (QC): 88 ADL-Treatment Eating (QC): 6 Oral Hygiene (QC): 6 (IND standing at sink) Shower/Bathe Self (QC): 4 (SBA to use LH shower sponge in shower.) Upper Body Dressing (QC): 5 Lower Body Dressing (QC): 4 (Pt. utilizes adaptive equipment while seated to don pants over feet. CGA in stance to don over hips.) On/Off Footwear (QC): 3 (Min assist with AE.) Toileting Hygiene (QC): 6 (IND with hygine and clothing management) Assessment/Plan Assessment and Plan Assess & Plan/Chief Complaint Assessment: S/P Trauma with injuries from cow- blunt injury and crush injury sustained -general surgery following -continue frequent reassessments of left lower extremity -awaiting placement of clam brace- should happen today -2 view left foot x ray negative for acute pathology Concussion with LOC -continue to monitor neurologic status Rhabdomyolysis -CK decreased to 1049 today from 1224 yesterday -SL'd -encourage increased po intake of fluids -continue to trend for now Acute kidney injury-resolved -Creatinine stable at 1.29 today Anemia -Hgb stable at 11.1 today -surgery holding lovenox due to anemia -continue to trend Chest pain with history of angina -cardiology following -continue to monitor -PRN SL nitro Hypertension -continue to monitor Hyperlipidemia -continue to monitor Sinus node dysfunction pacemaker in place -cardiology following -pacemaker interrogated and functioning appropriately Pain control -continue prn's PT OT -doing frequent therapy per patient report -plan to transfer to inpatient rehab unit pending workers comp approval Cellulitis at site of previous IV site with fever -Begin IV antibiotics status post pancultured Plan: Aggressive therapy Pain control IV antibiotics Supportive care 01/01/2021: Supportive care Hep-Lock IV fluid solvent recoverer antibiotics tomorrow 01/02/2021: Supportive care Pain control Change IV antibiotics to p.o. (1) Episode of unresponsiveness Status: Acute (2) Thoracic spine fracture (3) Depression (4) Anxiety (5) Pacemaker (6) CAD (coronary artery disease) (7) Concussion Status: Acute (8) Victim of trampling from animal Status: Acute (9) Chest wall contusion Status: Acute (10) Hematoma of left lower extremity Status: Acute FRANK GARCIA DO Jan 02, 2021 12:48
--- NOTE | 2021-01-02 14:05 | Physical Therapy Daily Note ---
PT Daily Note-Current Subjective Patient sleeping supine in bed upon PT arrival. Agreeable to treatment when asked, then goes immediately back to sleep. Mental Status Patient Orientation: Person Transfers SCALE: Activities may be completed with or without assistive devices. 6-Iobifliean-hssrmlk completes the activity by him/herself with no assistance from a helper. 5-Set-up or Clean-up Assistance-helper sets up or cleans up; patient completes activity. [place] assists only prior to or following the activity. 4-Supervision or Touching Assistance-helper provides verbal cues and/or touching/steadying and/or contact guard assistance as patient completes act ivity. Assistance may be provided throughout the activity or intermittently. 3-Partial/Moderate Assistance-helper does LESS THAN HALF the effort. [place] lifts, holds or supports trunk or limbs, but provides less than half the effort. 2-Substantial/Maximal Assistance-helper does MORE THAN HALF the effort. [place] lifts or holds trunk or limbs and provides more than half the effort. 2-Jxdvcluvt-hmhgot does ALL the effort. Patient does none of the effort to complete the activity. Or, the assistance of 2 or more helpers is required for the patient to complete the activity. If activity was not attempted, code reason: 7-Patient Refused. 9-Not Applicable-not attempted and the patient did not perform the activity before the current illness, exacerbation or injury. 10-Not Attempted due to Environmental Limitations-(lack of equipment, weather restraints, etc.). 88-Not Attempted due to Medical Conditions or Safety Concerns. Roll Left & Right (QC): 4 Sit to Lying (QC): 4 Lying to Sitting/Side of Bed(Q: 4 Gait Training Does the Patient Walk?: No and Walking Goal IS indicated Exercises Supine Ex: Ankle pumps, Quad Set, Glut sets, Heel Slides, Short Arc Quads, Hip abd/add Supine Reps: 20 Treatments Functional activity of bed mobility and education on safe transfers. LE therapeutic exercise as listed above with gentle stretching of bilateral LEs into knee extension and ankle DF with pressure to patient tolerance. Assessment Current Status: Fair Progress Patient lying supine in bed upon PT arrival, agreeable to treatment, but difficulty keeping eyes open. Currently reports "doesn't hurt as much" but unable to give pain rating. Patient performs bed mobility with mod A due to grogginess and difficulty staying awake. Patient tolerates therapeutic exercise well, except for left ankle DF stretch. Patient lying supine in bed post treatment with call light in reach, all needs met, nursing notified. PT Short Term Goals Short Term Goals Time Frame: Jan 07, 2021 Roll Left & Right: 6 Sit to lyin Lying to sitting on side of be: 5 Sit to stand: 4 Walk 10 feet: 4 Walk 50 feet with two turns: 4 Walk 150 feet: 4 PT Leather Skinner Goals Fpc Goals PT Fpc Goals Time Frame: Jan 21, 2021 Roll Left & Right (QC): 6 Sit to Lying (QC): 6 Lying-Sitting on Side/Bed(QC): 6 Sit to Stand (QC): 5 Chair/Mqg-nk-Itvrj Xfer(QC): 5 Toilet Transfer (QC): 5 Car Transfer (QC): 5 Does the Patient Walk: Yes Walk 10 feet (QC): 5 Walk 50ft with 2 Turns (QC): 5 Walk 150 ft (QC): 5 Walking 10ft on Uneven Surface: 4 1 Step (curb) (QC): 4 4 Steps (QC): 4 12 Steps (QC): 88 Picking up an Object (QC): 88 Wheel 50 feet with 2 turns (QC: 6 Wheel 150 feet: 6 PT Plan Treatment/Plan Treatment Plan: Continue Plan of Care Treatment Plan: Bed Mobility, Education, Functional Activity Radha, Functional Strength, Group Therapy, Gait, Safety, Therapeutic Exercise, Transfers Treatment Duration: Jan 21, 2021 Frequency: At least 5 of 7 days/Wk (IRF) Estimated Hrs Per Day: 1.5 hours per day Patient and/or Family Agrees t: Yes Time/GCodes Time In: 1330 Time Out: 1400 Total Billed Treatment Time: 30 Total Billed Treatment Visit, Ex, RASHIDA TERRY PT Jan 02, 2021 14:05
[2021-01-02 19:51] VITALS: BP 122/86
[2021-01-02] MEDS: CEFDINIR 300 MG (OMNICEF) CAP PO SCH (21:39)
[2021-01-02] MEDS: LINEZOLID (ZYVOX) 600 MG TAB PO SCH (21:39)
[2021-01-02] MEDS: OLANZapine 5 MG (ZyPREXA) TAB PO SCH (21:39)
[2021-01-02] MEDS: MELATONIN 3 MG TABLET PO PRN (22:10)
[2021-01-03] MEDS: ENOXAPARIN 40 MG/0.4 ML (LOVENOX) SYR SC SCH (06:15)
[2021-01-03 07:18] VITALS: BP 134/73
[2021-01-03] MEDS: SUCRALFATE 1 GM (CARAFATE) TAB PO SCH ×2 (07:52→21:50)
[2021-01-03] MEDS: LINEZOLID (ZYVOX) 600 MG TAB PO SCH ×2 (07:52→21:49)
[2021-01-03] MEDS: CEFDINIR 300 MG (OMNICEF) CAP PO SCH ×2 (07:52→21:49)
[2021-01-03] MEDS: DOCUSATE SODIUM 100 MG (COLACE) CAP PO SCH ×2 (07:52→20:30)
[2021-01-03] MEDS: SENNA W/DOCUSATE (SENOKOT S) TABLET PO SCH ×2 (07:52→20:30)
[2021-01-03] MEDS: PANTOPRAZOLE 40 MG (PROTONIX) TAB PO SCH (07:52)
[2021-01-03] MEDS: ALPRAZolam 0.5 MG (XANAX) TAB PO SCH ×4 (07:52→21:49)
[2021-01-03] MEDS: polyethylene glycoL POWDER 17 GM (MIRALAX) PACK PO SCH ×2 (07:53→20:30)
--- NOTE | 2021-01-03 09:21 | Physical Therapy Progress Note ---
Therapy Progress Note Pt lying in bed upon PT arrival. Pt reports "Both of my ankles are just killing me. They gave me fits last night. When they ask me to rate on that 1-10 scale, it's easily at 10." Pt reports he is now having increased pain in the right ankle as well, even with AROM in bed. Pt reports he has been attempting gentle ROM and stretching. SUKHWINDER SALDANA DPTayler Jan 03, 2021 09:21
--- NOTE | 2021-01-03 10:54 | PM&R Progress Note ---
Subjective HPI/CC On Admission Date Seen by Provider: Jan 03, 2021 Time Seen by Provider: 12:00 Subjective/Events-last exam 01/03/2021: Patient doing well Bilateral foot pain Has a history of gout so we will restart his home medications and add colchicine 1 dose Gram-negative reshma in blood culture patient remains on Omnicef and Zyvox Loose bowels moving Flat affect improved a bit 01/02/2021: Pt doing really well Complains about the left leg pain Changing IV antibiotics to PO Flat affect continues but that is chronic 01/01/2021: Pt doing pretty well Having burning of his leg IV antibiotics maintained for the left wrist IV site cellulitis Bowels moving well Pain is well controlled Check meds and labs Review of Systems Musculoskeletal: leg pain, foot pain Focused Exam Lactate Level 12/31/20 19:40: Lactic Acid Level 1.09 Objective Exam Vital Signs Vital Signs Date Time Temp Pulse Resp B/P (MAP) Pulse Ox O2 Delivery O2 Flow Rate FiO2 01/03/21 09:00 93 Room Air 01/03/21 07:18 37.7 81 16 134/73 (93) Capillary Refill : General Appearance: No Apparent Distress, WD/WN, Chronically ill, Obese HEENT: PERRL/EOMI, Normal ENT Inspection, Pharynx Normal Neck: Full Range of Motion, Normal Inspection, Non Tender, Supple Respiratory: Chest Non Tender, Lungs Clear, Normal Breath Sounds, No Accessory Muscle Use Cardiovascular: Regular Rate, Rhythm, Normal Peripheral Pulses Gastrointestinal: Normal Bowel Sounds, No Organomegaly, No Pulsatile Mass, Non Tender, Soft Back: Normal Inspection, No CVA Tenderness, Decreased Range of Motion Extremity: Non Tender, Calf Tenderness (Left leg), Pedal Edema (Left foot), Swelling (left lower extremity) Neurologic/Psychiatric: Alert, Oriented x3, 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 FIM Transfers Therapy Code Descriptions/Definitions Functional [place] Measure: 0=Not Assessed/NA 4=Minimal Assistance 1=Total Assistance 5=Supervision or Setup 2=Maximal Assistance 6=Modified [place] 3=Moderate Assistance 7=Complete IndependenceSCALE: Activities may be completed with or without assistive devices. 0-Bugcxfdlfg-zzjbcci completes the activity by him/herself with no assistance from a helper. 5-Set-up or Clean-up Assistance-helper sets up or cleans up; patient completes activity. [place] assists only prior to or following the activity. 4-Supervision or Touching Assistance-helper provides verbal cues and/or touching/steadying and/or contact guard assistance as patient completes activity. Assistance may be provided throughout the activity or intermittently. 3-Partial/Moderate Assistance-helper does LESS THAN HALF the effort. [place] lifts, holds or supports trunk or limbs, but provides less than half the effort. 2-Substantial/Maximal Assistance-helper does MORE THAN HALF the effort. [place] lifts or holds trunk or limbs and provides more than half the effort. 5-Lbjhqswgb-vyqjya does ALL the effort. Patient does none of the effort to complete the activity. Or, the assistance of 2 or more helpers is required for the patient to complete the activity. If activity was not attempted, code reason: 7-Patient Refused. 9-Not Applicable-not attempted and the patient did not perform the activity before the current illness, exacerbation or injury. 10-Not Attempted due to Environmental Limitations-(lack of equipment, weather restraints, etc.). 88-Not Attempted due to Medical Conditions or Safety Concerns. Roll Left to Right (QC): 4 Sit to Lying (QC): 4 Sit to Stand (QC): 4 Chair/Snc-gl-Eqxbc Xfer(QC): 4 Car Transfer (QC): 4 Gait Training Does the Patient Walk?: No and Walking Goal IS indicated Walk 10 feet (QC): 4 Walk 50 ft with 2 Turns(QC): 4 Walk 150 ft (QC): 88 Walking 10ft/uneven surface-QC: 88 Gait Assistive Device: FWW Wheelchair Training Does the Pt Use a Wheelchair?: Yes Distance: 150'x2 Wheel 50 ft with 2 turns (QC): 5 Wheel 150 ft (QC): 5 Type of Wheelchair: Manual Stair Training 1 Step (curb) (QC): 88 4 Steps (QC): 88 12 Steps (QC): 88 Balance Picking up an Object (QC): 88 ADL-Treatment Eating (QC): 6 Oral Hygiene (QC): 6 (IND standing at sink) Shower/Bathe Self (QC): 4 (SBA to use LH shower sponge in shower.) Upper Body Dressing (QC): 5 Lower Body Dressing (QC): 4 (Pt. utilizes adaptive equipment while seated to don pants over feet. CGA in stance to don over hips.) On/Off Footwear (QC): 3 (Min assist with AE.) Toileting Hygiene (QC): 6 (IND with hygine and clothing management) Assessment/Plan Assessment and Plan Assess & Plan/Chief Complaint Assessment: S/P Trauma with injuries from cow- blunt injury and crush injury sustained -general surgery following -continue frequent reassessments of left lower extremity -awaiting placement of clam brace- should happen today -2 view left foot x ray negative for acute pathology Concussion with LOC -continue to monitor neurologic status Rhabdomyolysis -CK decreased to 1049 today from 1224 yesterday -SL'd -encourage increased po intake of fluids -continue to trend for now Acute kidney injury-resolved -Creatinine stable at 1.29 today Anemia -Hgb stable at 11.1 today -surgery holding lovenox due to anemia -continue to trend Chest pain with history of angina -cardiology following -continue to monitor -PRN SL nitro Hypertension -continue to monitor Hyperlipidemia -continue to monitor Sinus node dysfunction pacemaker in place -cardiology following -pacemaker interrogated and functioning appropriately Pain control -continue prn's PT OT -doing frequent therapy per patient report -plan to transfer to inpatient rehab unit pending workers comp approval Cellulitis at site of previous IV site with fever -Begin IV antibiotics status post pancultured Gout Plan: Aggressive therapy Pain control IV antibiotics Supportive care 01/01/2021: Supportive care Hep-Lock IV fluid coverstitch elastic attacher antibiotics tomorrow 01/02/2021: Supportive care Pain control Change IV antibiotics to p.o. 01/03/2021: Gout treatment Supportive care Antibiotics (1) Episode of unresponsiveness Status: Acute (2) Thoracic spine fracture (3) Depression (4) Anxiety (5) Pacemaker (6) CAD (coronary artery disease) (7) Concussion Status: Acute (8) Victim of trampling from animal Status: Acute (9) Chest wall contusion Status: Acute (10) Hematoma of left lower extremity Status: Acute FRANK GARCIA DO Jan 03, 2021 10:54
[2021-01-03] MEDS ORDERED: COLCHICINE 0.6 MG PO PRN (11:15)
[2021-01-03] MEDS ORDERED: COLCHICINE 0.6 MG (COLCRYS) TABLET PO NR (11:15)
[2021-01-03 20:00] VITALS: BP 141/76
[2021-01-03] MEDS ORDERED: SUCRALFATE 1 GM (CARAFATE) TAB PO SCH (21:00)
[2021-01-03] MEDS ORDERED: NON-FORMULARY MEDICATION 1 EA EA (Olanzapine 10 MG) PO SCH (21:00)
[2021-01-03] MEDS: OLANZapine 5 MG (ZyPREXA) TAB PO SCH (21:49)
[2021-01-03] MEDS: MELATONIN 3 MG TABLET PO PRN (21:50)
[2021-01-04] MEDS: KCL 8 MEQ (MICRO K) TABLET PO SCH (05:48)
[2021-01-04] MEDS: ENOXAPARIN 40 MG/0.4 ML (LOVENOX) SYR SC SCH (05:48)
--- NOTE | 2021-01-04 06:37 | PM&R Progress Note ---
Subjective HPI/CC On Admission Date Seen by Provider: Jan 04, 2021 Time Seen by Provider: 12:30 Subjective/Events-last exam 01/04/2021: Patient having a slow recovery at the bedside Has a different complaint every day Finishing up on antibiotics Transferring via sideboard Having some loose stools 01/03/2021: Patient doing well Bilateral foot pain Has a history of gout so we will restart his home medications and add colchicine 1 dose Gram-negative reshma in blood culture patient remains on Omnicef and Zyvox Loose bowels moving Flat affect improved a bit 01/02/2021: Pt doing really well Complains about the left leg pain Changing IV antibiotics to PO Flat affect continues but that is chronic 01/01/2021: Pt doing pretty well Having burning of his leg IV antibiotics maintained for the left wrist IV site cellulitis Bowels moving well Pain is well controlled Check meds and labs Review of Systems General: Fatigue, Malaise Musculoskeletal: neck pain, shoulder pain, arm pain, back pain, hand pain, leg pain, foot pain Objective Exam Vital Signs Vital Signs Date Time Temp Pulse Resp B/P (MAP) Pulse Ox O2 Delivery O2 Flow Rate FiO2 01/04/21 20:15 37.6 81 20 139/64 (89) 94 Room Air Capillary Refill : General Appearance: No Apparent Distress, WD/WN, Chronically ill, Obese HEENT: PERRL/EOMI, Normal ENT Inspection, Pharynx Normal Neck: Full Range of Motion, Normal Inspection, Non Tender, Supple Respiratory: Chest Non Tender, Lungs Clear, Normal Breath Sounds, No Accessory Muscle Use Cardiovascular: Regular Rate, Rhythm, Normal Peripheral Pulses Gastrointestinal: Normal Bowel Sounds, No Organomegaly, No Pulsatile Mass, Non Tender, Soft Back: Normal Inspection, No CVA Tenderness, Decreased Range of Motion Extremity: Non Tender, Calf Tenderness (Left leg), Pedal Edema (Left foot), Swelling (left lower extremity) Neurologic/Psychiatric: Alert, Oriented x3, oceanologist II-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 FIM Transfers Therapy Code Descriptions/Definitions Functional [place] Measure: 0=Not Assessed/NA 4=Minimal Assistance 1=Total Assistance 5=Supervision or Setup 2=Maximal Assistance 6=Modified [place] 3=Moderate Assistance 7=Complete IndependenceSCALE: Activities may be completed with or without assistive devices. 7-Nizkyubtfi-vecugzg completes the activity by him/herself with no assistance from a helper. 5-Set-up or Clean-up Assistance-helper sets up or cleans up; patient completes activity. [place] assists only prior to or following the activity. 4-Supervision or Touching Assistance-helper provides verbal cues and/or touching/steadying and/or contact guard assistance as patient completes activity. Assistance may be provided throughout the activity or intermittently. 3-Partial/Moderate Assistance-helper does LESS THAN HALF the effort. [place] lifts, holds or supports trunk or limbs, but provides less than half the effort. 2-Substantial/Maximal Assistance-helper does MORE THAN HALF the effort. [place] lifts or holds trunk or limbs and provides more than half the effort. 4-Ghtpokwlu-ueyrsd does ALL the effort. Patient does none of the effort to complete the activity. Or, the assistance of 2 or more helpers is required for the patient to complete the activity. If activity was not attempted, code reason: 7-Patient Refused. 9-Not Applicable-not attempted and the patient did not perform the activity before the current illness, exacerbation or injury. 10-Not Attempted due to Environmental Limitations-(lack of equipment, weather restraints, etc.). 88-Not Attempted due to Medical Conditions or Safety Concerns. Roll Left to Right (QC): 4 Sit to Lying (QC): 4 Sit to Stand (QC): 4 Chair/Abd-wg-Fgicg Xfer(QC): 4 Car Transfer (QC): 4 Gait Training Does the Patient Walk?: No and Walking Goal IS indicated Walk 10 feet (QC): 4 Walk 50 ft with 2 Turns(QC): 4 Walk 150 ft (QC): 88 Walking 10ft/uneven surface-QC: 88 Gait Assistive Device: FWW Wheelchair Training Does the Pt Use a Wheelchair?: Yes Distance: 150'x2 Wheel 50 ft with 2 turns (QC): 5 Wheel 150 ft (QC): 5 Type of Wheelchair: Manual Stair Training 1 Step (curb) (QC): 88 4 Steps (QC): 88 12 Steps (QC): 88 Balance Picking up an Object (QC): 88 ADL-Treatment Eating (QC): 6 Oral Hygiene (QC): 6 (IND standing at sink) Shower/Bathe Self (QC): 4 (SBA to use LH shower sponge in shower.) Upper Body Dressing (QC): 5 Lower Body Dressing (QC): 4 (Pt. utilizes adaptive equipment while seated to don pants over feet. CGA in stance to don over hips.) On/Off Footwear (QC): 3 (Min assist with AE.) Toileting Hygiene (QC): 6 (IND with hygine and clothing management) Assessment/Plan Assessment and Plan Assess & Plan/Chief Complaint Assessment: S/P Trauma with injuries from cow- blunt injury and crush injury sustained -general surgery following -continue frequent reassessments of left lower extremity -awaiting placement of clam brace- should happen today -2 view left foot x ray negative for acute pathology Concussion with LOC -continue to monitor neurologic status Rhabdomyolysis -CK decreased to 1049 today from 1224 yesterday -SL'd -encourage increased po intake of fluids -continue to trend for now Acute kidney injury-resolved -Creatinine stable at 1.29 today Anemia -Hgb stable at 11.1 today -surgery holding lovenox due to anemia -continue to trend Chest pain with history of angina -cardiology following -continue to monitor -PRN SL nitro Hypertension -continue to monitor Hyperlipidemia -continue to monitor Sinus node dysfunction pacemaker in place -cardiology following -pacemaker interrogated and functioning appropriately Pain control -continue prn's PT OT -doing frequent therapy per patient report -plan to transfer to inpatient rehab unit pending workers comp approval Cellulitis at site of previous IV site with fever -Begin IV antibiotics status post pancultured Gout Somatization Plan: Aggressive therapy Pain control IV antibiotics Supportive care 01/01/2021: Supportive care Hep-Lock IV fluid frame coverer antibiotics tomorrow 01/02/2021: Supportive care Pain control Change IV antibiotics to p.o. 01/03/2021: Gout treatment Supportive care Antibiotics 01/04/2021: Monitor somatic complaints Supportive care (1) Episode of unresponsiveness Status: Acute (2) Thoracic spine fracture (3) Depression (4) Anxiety (5) Pacemaker (6) CAD (coronary artery disease) (7) Concussion Status: Acute (8) Victim of trampling from animal Status: Acute (9) Chest wall contusion Status: Acute (10) Hematoma of left lower extremity Status: Acute FRANK GARCIA DO Jan 04, 2021 06:37
[2021-01-04] MEDS ORDERED: FLUoxetine HCL 20 MG (PROzac) CAP PO SCH (09:00)
[2021-01-04] MEDS ORDERED: POTASSIUM GLUCONATE 90 MG PO SCH (09:00)
[2021-01-04] MEDS ORDERED: NON-FORMULARY MEDICATION 1 EA EA (Verapamil HCl (Verapamil ER) 120 MG) PO SCH (09:00)
[2021-01-04] MEDS ORDERED: LYSINE 1000 MG PO SCH (09:00)
[2021-01-04] MEDS ORDERED: PANTOPRAZOLE 40 MG (PROTONIX) TAB PO SCH (09:00)
[2021-01-04] MEDS: ALPRAZolam 0.5 MG (XANAX) TAB PO SCH ×4 (09:04→21:52)
[2021-01-04] MEDS: SUCRALFATE 1 GM (CARAFATE) TAB PO SCH ×2 (09:05→21:52)
[2021-01-04] MEDS: PANTOPRAZOLE 40 MG (PROTONIX) TAB PO SCH (09:05)
[2021-01-04] MEDS: CEFDINIR 300 MG (OMNICEF) CAP PO SCH ×2 (09:05→21:52)
[2021-01-04] MEDS: ASPIRIN E.C. 81 MG (ECOTRIN) TAB PO SCH (09:05)
[2021-01-04] MEDS: VERAPAMIL SR 240 MG (CALAN SR) TAB PO SCH (09:05)
[2021-01-04] MEDS: LINEZOLID (ZYVOX) 600 MG TAB PO SCH ×2 (09:06→21:53)
[2021-01-04] MEDS: lisINopril 20 MG (PRINIVIL) TABLET PO SCH (09:07)
[2021-01-04] MEDS: DOCUSATE SODIUM 100 MG (COLACE) CAP PO SCH ×2 (09:14→20:30)
[2021-01-04] MEDS: SENNA W/DOCUSATE (SENOKOT S) TABLET PO SCH ×2 (09:14→20:30)
[2021-01-04] MEDS: polyethylene glycoL POWDER 17 GM (MIRALAX) PACK PO SCH ×2 (09:14→20:30)
[2021-01-04 09:17] VITALS: BP 132/81
[2021-01-04 18:55] VITALS: BP 122/64
[2021-01-04 20:15] VITALS: BP 139/64
[2021-01-04] MEDS: OLANZapine 5 MG (ZyPREXA) TAB PO SCH (21:52)
[2021-01-04] MEDS: MELATONIN 3 MG TABLET PO PRN (21:53)
[2021-01-05] MEDS: KCL 8 MEQ (MICRO K) TABLET PO SCH (06:20)
[2021-01-05] MEDS: ENOXAPARIN 40 MG/0.4 ML (LOVENOX) SYR SC SCH (06:20)
[2021-01-05 06:40] LABS: BASOPHILS % (AUTO) 0 % (0-10); EOSINOPHILS # (AUTO) 0.2 10^3/uL (0.0-0.3); EOSINOPHILS % (AUTO) 1 % (0-10); HEMATOCRIT 31 % (40-54); HEMOGLOBIN 9.8 g/dL (13.3-17.7); LYMPHOCYTES # (AUTO) 1.9 10^3/uL (1.0-4.0); LYMPHOCYTES % (AUTO) 16 % (12-44); MEAN CORPUSCULAR HEMOGLOBIN 30 pg (25-34); MEAN CORPUSCULAR HGB CONC 32 g/dL (32-36); MEAN CORPUSCULAR VOLUME 94 fL (80-99); MEAN PLATELET VOLUME 9.3 fL (9.0-12.2); MONOCYTES # (AUTO) 0.8 10^3/uL (0.0-1.0); MONOCYTES % (AUTO) 7 % (0-12); NEUTROPHILS # (AUTO) 8.8 10^3/uL (1.8-7.8); NEUTROPHILS % (AUTO) 75 % (42-75); PLATELET COUNT 334 10^3/uL (130-400); WHITE BLOOD COUNT 11.7 10^3/uL (4.3-11.0)
[2021-01-05 06:55] LABS: ALBUMIN 3.3 GM/DL (3.2-4.5); BILIRUBIN,TOTAL 1.1 MG/DL (0.1-1.0); CALCIUM 9.5 MG/DL (8.5-10.1); CREATININE SERUM 1.57 MG/DL (0.60-1.30); POTASSIUM 4.1 MMOL/L (3.6-5.0); TOTAL PROTEIN 6.9 GM/DL (6.4-8.2); URIC ACID 6.9 MG/DL (2.6-7.2)
[2021-01-05 07:31] VITALS: BP 136/75
[2021-01-05] MEDS: PANTOPRAZOLE 40 MG (PROTONIX) TAB PO SCH (07:55)
[2021-01-05] MEDS: ASPIRIN E.C. 81 MG (ECOTRIN) TAB PO SCH (07:55)
[2021-01-05] MEDS: lisINopril 20 MG (PRINIVIL) TABLET PO SCH (07:55)
[2021-01-05] MEDS: COLCHICINE 0.6 MG (COLCRYS) TABLET PO PRN ×2 (07:56→17:24)
[2021-01-05] MEDS: ALPRAZolam 0.5 MG (XANAX) TAB PO SCH ×4 (07:56→21:29)
[2021-01-05] MEDS: CEFDINIR 300 MG (OMNICEF) CAP PO SCH ×2 (07:56→21:29)
[2021-01-05] MEDS: LINEZOLID (ZYVOX) 600 MG TAB PO SCH ×2 (07:56→21:29)
[2021-01-05] MEDS: SUCRALFATE 1 GM (CARAFATE) TAB PO SCH ×2 (07:56→21:29)
[2021-01-05] MEDS: VERAPAMIL SR 240 MG (CALAN SR) TAB PO SCH (07:56)
--- NOTE | 2021-01-05 09:19 | Cardiology Progress Note ---
Subjective Date Seen by Provider: Jan 05, 2021 Time Seen by Provider: 08:20 Subjective/Events-last exam Patient in bed. C/o BLE foot and leg pain. Reports right foot more painful than left. Denies any chest pain or dyspnea. Review of Systems General: No Chills, No Night Sweats; Fatigue; No Malaise, No Appetite, No Other HEENT: No Head Aches, No Visual Changes, No Eye Pain, No Ear Pain, No Dysphasia, No Sinus Congestion, No Post Nasal Drip, No Sore Throat, No Other Pulmonary: No Dyspnea, No Cough, No Pleuritic Chest Pain, No Other Cardiovascular: No: Chest Pain, Palpitations, Orthopnea, Paroxysmal Noc. Dyspnea, Edema, Lt Headedness, Other Objective-Cardiology Exam Last Set of Vital Signs Vital Signs 01/05/21 07:31 Temp 36.9 Pulse 75 Resp 20 B/P (MAP) 136/75 (95) Pulse Ox 94 O2 Delivery Room Air General: Alert, Oriented X3, Cooperative HEENT: Atraumatic, PERRLA Neck: Supple, No JVD, No Thyromegaly Lungs: Clear to Auscultation, Normal Air Movement Heart: Regular Rate, No Murmurs Abdomen: Normal Bowel Sounds, Soft Extremities: No Clubbing, No Cyanosis Skin: No Rashes, No Significant Lesion Neuro: Normal Speech, Cranial Nerves 3-12 NL Results Lab Laboratory Tests 01/05/21 06:09 A/P-Cardiology Admission Diagnosis Chest pain CAD Syncope Left leg crush injury Assessment/Plan Chest pain, improving, most probably musculoskeletal, troponin was negative, had elevated CPK and myoglobin secondary to injury. Continue to monitor Coronary artery disease, reported cardiac catheterization in 2018, patient recall having significant disease not amendable to intervention he was started on sublingual nitroglycerin for chest pain. No further episodes of chest pain were reported Syncope, probably vasovagal, no malignant arrhythmia was detected. Continue to monitor Sinus node dysfunction, history of dual-chamber pacemaker, interrogated today, appears to be functioning normally. Continue to follow-up as an outpatient Status post traumatic injury with rhabdomyolysis secondary to injury. Received IV fluid, managed by primary care team Left leg pain, questionable compartment syndrome, c/o increased BLE pain, has been unable to tolerate blood thinners and SCDs during hospital stay. I will evaluate BLE venous duplex. Acute renal insufficiency, improved, managed by primary care team Patient was seen and evaluated with Elissa, examination performed, management plan was discussed, agree with the current scribed note, I made few changes to the note using Italic font Patient was seen at bedside, laying down comfortably, having significant pain in both lower extremities Unable to bear weight on his leg, has history of gouty arthritis and started to have joint pain again, I will evaluate venous Doppler study, patient is at increased risk of DVT due to immobility and inability to tolerate anticoagulation Supervisory-Addendum Brief Supervisory Addendum Participated in pt care: history, MDM, physical Personally performed: exam, history, MDM Care discussed with: PA Results interpretation: Verified all documentation ELISSA FIELDS Jan 05, 2021 09:19 MICHAEL RUVALCABA MD Jan 05, 2021 09:31
--- NOTE | 2021-01-05 09:50 | PM&R Progress Note ---
Subjective HPI/CC On Admission Date Seen by Provider: Jan 05, 2021 Time Seen by Provider: 10:00 Subjective/Events-last exam 01/05/2021: Venous Doppler ordered but Lovenox has been on board No DVT noted on prelim Multiple somatic issues Gout treatment continues Flat affect 01/04/2021: Patient having a slow recovery at the bedside Has a different complaint every day Finishing up on antibiotics Transferring via sideboard Having some loose stools 01/03/2021: Patient doing well Bilateral foot pain Has a history of gout so we will restart his home medications and add colchicine 1 dose Gram-negative reshma in blood culture patient remains on Omnicef and Zyvox Loose bowels moving Flat affect improved a bit 01/02/2021: Pt doing really well Complains about the left leg pain Changing IV antibiotics to PO [place] affect continues but that is chronic 01/01/2021: Pt doing pretty well Having burning of his leg IV antibiotics maintained for the left wrist IV site cellulitis Bowels moving well Pain is well controlled Check meds and labs Review of Systems General: Fatigue Musculoskeletal: back pain, leg pain Objective Exam Vital Signs Vital Signs Date Time Temp Pulse Resp B/P (MAP) Pulse Ox O2 Delivery O2 Flow Rate FiO2 01/05/21 21:33 Room Air 01/05/21 20:00 36.8 69 18 107/57 (74) 94 Capillary Refill : General Appearance: No Apparent Distress, WD/WN, Chronically ill, Obese HEENT: PERRL/EOMI, Normal ENT Inspection, Pharynx Normal Neck: Full Range of Motion, Normal Inspection, Non Tender, Supple Respiratory: Chest Non Tender, Lungs Clear, Normal Breath Sounds, No Accessory Muscle Use Cardiovascular: Regular Rate, Rhythm, Normal Peripheral Pulses Gastrointestinal: Normal Bowel Sounds, No Organomegaly, No Pulsatile Mass, Non Tender, Soft Back: Normal Inspection, No CVA Tenderness, Decreased Range of Motion Extremity: Non Tender, Calf Tenderness (Left leg), Pedal Edema (Left foot), Swelling (left lower extremity) Neurologic/Psychiatric: Alert, Oriented x3, cardroom manager II-XII Norm as Tested, Depressed Affect, Motor Weakness (Left foot) Skin: Normal Color, Warm/Dry Results/Procedures Lab Laboratory Tests 01/05/21 06:09 Patient resulted labs reviewed. FIM Transfers Therapy Code Descriptions/Definitions Functional [place] Measure: 0=Not Assessed/NA 4=Minimal Assistance 1=Total Assistance 5=Supervision or Setup 2=Maximal Assistance 6=Modified [place] 3=Moderate Assistance 7=Complete IndependenceSCALE: Activities may be completed with or without assistive devices. 1-Edragxvvwt-bcrhevg completes the activity by him/herself with no assistance from a helper. 5-Set-up or Clean-up Assistance-helper sets up or cleans up; patient completes activity. [place] assists only prior to or following the activity. 4-Supervision or Touching Assistance-helper provides verbal cues and/or touching/steadying and/or contact guard assistance as patient completes activity. Assistance may be provided throughout the activity or intermittently. 3-Partial/Moderate Assistance-helper does LESS THAN HALF the effort. [place] lifts, holds or supports trunk or limbs, but provides less than half the effort. 2-Substantial/Maximal Assistance-helper does MORE THAN HALF the effort. [place] lifts or holds trunk or limbs and provides more than half the effort. 1-Ttsakyjee-kojtkq does ALL the effort. Patient does none of the effort to complete the activity. Or, the assistance of 2 or more helpers is required for the patient to complete the activity. If activity was not attempted, code reason: 7-Patient Refused. 9-Not Applicable-not attempted and the patient did not perform the activity before the current illness, exacerbation or injury. 10-Not Attempted due to Environmental Limitations-(lack of equipment, weather restraints, etc.). 88-Not Attempted due to Medical Conditions or Safety Concerns. Roll Left to Right (QC): 4 Sit to Lying (QC): 4 Sit to Stand (QC): 4 Chair/Mbu-ii-Nzpff Xfer(QC): 4 Car Transfer (QC): 4 Gait Training Does the Patient Walk?: No and Walking Goal IS indicated Walk 10 feet (QC): 4 Walk 50 ft with 2 Turns(QC): 4 Walk 150 ft (QC): 88 Walking 10ft/uneven surface-QC: 88 Gait Assistive Device: FWW Wheelchair Training Does the Pt Use a Wheelchair?: Yes Distance: 150'x2 Wheel 50 ft with 2 turns (QC): 5 Wheel 150 ft (QC): 5 Type of Wheelchair: Manual Stair Training 1 Step (curb) (QC): 88 4 Steps (QC): 88 12 Steps (QC): 88 Balance Picking up an Object (QC): 88 ADL-Treatment Eating (QC): 6 Oral Hygiene (QC): 6 (IND standing at sink) Shower/Bathe Self (QC): 4 (SBA to use LH shower sponge in shower.) Upper Body Dressing (QC): 5 Lower Body Dressing (QC): 4 (Pt. utilizes adaptive equipment while seated to don pants over feet. CGA in stance to don over hips.) On/Off Footwear (QC): 3 (Min assist with AE.) Toileting Hygiene (QC): 6 (IND with hygine and clothing management) Assessment/Plan Assessment and Plan Assess & Plan/Chief Complaint Assessment: S/P Trauma with injuries from cow- blunt injury and crush injury sustained -general surgery following -continue frequent reassessments of left lower extremity -awaiting placement of clam brace- should happen today -2 view left foot x ray negative for acute pathology Concussion with LOC -continue to monitor neurologic status Rhabdomyolysis -CK decreased to 1049 today from 1224 yesterday -SL'd -encourage increased po intake of fluids -continue to trend for now Acute kidney injury-resolved -Creatinine stable at 1.29 today Anemia -Hgb stable at 11.1 today -surgery holding lovenox due to anemia -continue to trend Chest pain with history of angina -cardiology following -continue to monitor -PRN SL nitro Hypertension -continue to monitor Hyperlipidemia -continue to monitor Sinus node dysfunction pacemaker in place -cardiology following -pacemaker interrogated and functioning appropriately Pain control -continue prn's PT OT -doing frequent therapy per patient report -plan to transfer to inpatient rehab unit pending workers comp approval Cellulitis at site of previous IV site with fever -Begin IV antibiotics status post pancultured Gout Somatization Plan: Aggressive therapy Pain control IV antibiotics Supportive care 01/01/2021: Supportive care Hep-Lock IV fluid hand 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 01/03/2021: Gout treatment Supportive care Antibiotics 01/04/2021: Monitor somatic complaints Supportive care 01/05/2021: Somatic issues Pain control Gout treatment (1) Episode of unresponsiveness Status: Acute (2) Thoracic spine fracture (3) Depression (4) Anxiety (5) Pacemaker (6) CAD (coronary artery disease) (7) Concussion Status: Acute (8) Victim of trampling from animal Status: Acute (9) Chest wall contusion Status: Acute (10) Hematoma of left lower extremity Status: Acute FRANK GARCIA DO Jan 05, 2021 09:50
[2021-01-05] MEDS: DOCUSATE SODIUM 100 MG (COLACE) CAP PO SCH ×2 (09:51→21:36)
[2021-01-05] MEDS: polyethylene glycoL POWDER 17 GM (MIRALAX) PACK PO SCH ×2 (09:52→21:36)
[2021-01-05] MEDS: SENNA W/DOCUSATE (SENOKOT S) TABLET PO SCH ×2 (09:52→21:36)
--- NOTE | 2021-01-05 09:58 | Physical Therapy Daily Note ---
PT Daily Note-Current Subjective Patient sitting at edge of bed upon PT arrival sans TLSO donned. Patient educated on need to shanti the TLSO prior to bed mobility/transfers or getting out of bed. Patient currently rates bilateral leg/ankle pain at 8/10 in each ankle. Nurse notified and reports PA has entered orders for doppler for DVT. At this time Homans Sign negative, and nurse approves continued PT. Mental Status Patient Orientation: Person, Place, Time, Situation Transfers SCALE: Activities may be completed with or without assistive devices. 8-Sswvebkegz-qgpuscm completes the activity by him/herself with no assistance from a helper. 5-Set-up or Clean-up Assistance-helper sets up or cleans up; patient completes activity. [place] assists only prior to or following the activity. 4-Supervision or Touching Assistance-helper provides verbal cues and/or touching/steadying and/or contact guard assistance as patient completes activity. Assistance may be provided throughout the activity or intermittently. 3-Partial/Moderate Assistance-helper does LESS THAN HALF the effort. [place] lifts, holds or supports trunk or limbs, but provides less than half the effort. 2-Substantial/Maximal Assistance-helper does MORE THAN HALF the effort. [place] lifts or holds trunk or limbs and provides more than half the effort. 6-Zfyqwnvsr-svqbmb does ALL the effort. Patient does none of the effort to complete the activity. Or, the assistance of 2 or more helpers is required for the patient to complete the activity. If activity was not attempted, code reason: 7-Patient Refused. 9-Not Applicable-not attempted and the patient did not perform the activity before the current illness, exacerbation or injury. 10-Not Attempted due to Environmental Limitations-(lack of equipment, weather restraints, etc.). 88-Not Attempted due to Medical Conditions or Safety Concerns. Roll Left & Right (QC): 5 Sit to Lying (QC): 5 Lying to Sitting/Side of Bed(Q: 5 Sit to Stand (QC): 3 Chair/Sbj-va-Iinil Xfer(QC): 3 Patient performed transfer from bed to/from w/c with mod A and verbal cues for progression and safety. Gait Training Does the Patient Walk?: No and Walking Goal IS indicated Wheelchair Training Wheel 50 ft with 2 turns (QC): 6 Wheel 150 ft (QC): 6 Type of Wheelchair: Manual Exercises Supine Ex: Quad Set, Glut sets, Heel Slides, Short Arc Quads, Straight leg raise, Hip abd/add Seated Therapy Exercises: Ankle pumps, Long arc quads, Chair press-ups, Hip flexion Seated Reps: 20 Treatments Visit, FA, W/C, Ex Assessment Current Status: Fair Progress Patient demonstrates fair improvement in bed mobility, however due to increase in bilateral ankle pain, overall transfers have declined. Patient educated in proper use of slideboard, however requires frequent verbal cues and mod A to perform safe bed to/from w/c transfer due to wrapping fingers around the board, leaning to far forwards, and not locking brakes on w/c. Upon transferring to bed, patient was minimally incontinent of BM and required assistance from nurse for cleaning and PT for safe bed mobility. Patient in bed post treatment with all needs met, nurse notified, and imaging techs in the room for doppler. PT Short Term Goals Short Term Goals Time Frame: Jan 07, 2021 Roll Left & Right: 6 Sit to lyin Lying to sitting on side of be: 5 Sit to stand: 4 Walk 10 feet: 4 Walk 50 feet with two turns: 4 Walk 150 feet: 4 PT Fdc Goals Fdc Goals PT Design Engineering Technician Goals Time Frame: Jan 21, 2021 Roll Left & Right (QC): 6 Sit to Lying (QC): 6 Lying-Sitting on Side/Bed(QC): 6 Sit to Stand (QC): 5 Chair/Sba-kj-Hqwsb Xfer(QC): 5 Toilet Transfer (QC): 5 Car Transfer (QC): 5 Does the Patient Walk: Yes Walk 10 feet (QC): 5 Walk 50ft with 2 Turns (QC): 5 Walk 150 ft (QC): 5 Walking 10ft on Uneven Surface: 4 1 Step (curb) (QC): 4 4 Steps (QC): 4 12 Steps (QC): 88 Picking up an Object (QC): 88 Wheel 50 feet with 2 turns (QC: 6 Wheel 150 feet: 6 PT Plan Problem List Problem List: Activity Tolerance, Functional Strength, Safety, Balance, Gait, Transfer, ROM Treatment/Plan Treatment Plan: Continue Plan of Care Treatment Plan: Bed Mobility, Education, Functional Activity Radha, Functional Strength, Group Therapy, Gait, Safety, Therapeutic Exercise, Transfers Treatment Duration: Jan 21, 2021 Frequency: At least 5 of 7 days/Wk (IRF) Estimated Hrs Per Day: 1.5 hours per day Patient and/or Family Agrees t: Yes Time/GCodes Time In: 900 Time Out: 1000 Total Billed Treatment Time: 60 Total Billed Treatment Visit, Ex, FA (2), W/C RASHIDA SHRESTHA PT Jan 05, 2021 09:58
--- NOTE | 2021-01-05 10:13 | Speech Therapy Daily Note ---
Speech Daily Progress Note Subjective Date Seen by Provider: Jan 05, 2021 Time Seen by Provider: 00:30 Patient was resting in his bed. Patient was alert and able to participate with therapy. Objective Patient completed a series of problem solving tasks related to his daily needs upon his return home at 75% with 20% cues and/or repetitions. Assessment Assessment Current Status: Fair Progress Treatment Plan Continue Plan of Care Speech Short Term Goals Short Term Goals Short Term Goals 1) Patient will complete memory tasks related to his daily needs at 75% or greater with minimal cues. 2) Patient will complete safety awareness tasks related to his daily needs at 75% or greater with minimal cues. 3) Patient will complete problem solving related to his daily needs at 75% or greater with minimal cues. Speech Dry Wall Nailer Goals Senior Living Goals Patient will improve cognitive-communication abilities in order to require less assistance with daily needs. Speech-Plan Patient/Family Goals Patient/Family Goals: Patient plans on returning to his home where he lives with his . Treatment Plan Speech Therapy Treatment Plan: Continue Plan of Care Treatment Duration: Jan 16, 2021 Frequency: 4 times per week (Patient will receive skilled ST 4-5x per week) Estimated Hrs Per Day: .5 hour per day Rehab Potential: Good Barriers to Learning: Patient's recent head trauma, cognitive deficits Pt/Family Agrees to Plan: Yes Safety Risks/Education Teaching Recipient: Patient Teaching Methods: Demonstration, Discussion Response to Teaching: Verbalize Understanding, Return Demonstration Education Topics Provided: Continued safety within his room, communication of wants/needs Time Speech Therapy Time In: 10:00 Speech Therapy Time Out: 10:30 Total Billed Time: 30 Billed Treatment Time 1, ALFIE Lieberman Jan 05, 2021 10:12
--- NOTE | 2021-01-05 11:36 | Progress Note ---
ROGERIO SEQUEIRA MED STUDENT 01/05/21 1136: Progress Note Miguel Ángel Judd is a 60 year old white male who was admitted to the inpatient rehab unit after a several day stay on the medical/surgical floor following injuries sustained from being trampled by a cow. PMH is significant for CAD, HTN, HLP, anxiety, depression, and a pacemaker. He presented to the ED via EMS after being trampled and sustaining blunt force trauma to his chest and crush/blunt trauma to his LLE. He also had a reported loss of consciousness during this trauma. He sustained an anterior chest wall hematoma, right shoulder abrasion, left posterior thigh hematoma extending into the popliteal fossa area, as well as swelling of the entire LLE up to mid thigh. He was diagnosed with rhabdomyolysis and an MARIMAR as well during admission. Both of which have subsequently resolved. General surgery had consulted on the case and continued to monitor him for the development of compartment syndrome. He never developed compartment syndrome. He did however, sustain a T3 verterbral fx and a clam shell brace has been ordered for the patient to wear. Cardiology had been consulted and followed the patient as well due to complaints of chest pain and cardiac history. Upon transfer to the rehab unit he developed a fever and swelling near an IV insertion site at the left wrist. He's being covered with zyvox and cefdinir as the blood culture was positive for gram negative rods. He continues to have complaints of left lower leg pain, back pain, chest wall pain reproducible by palpation. Tolerating po intake well. No nausea, vomiting, SOB, headache, blurry vision, incontinence, fever, or chills reported. Does complain of back and left lower leg pain. continue to reports loss of sensation to left posterior calf. Is able to dorsiflex and plantarflex left foot. He will likely recover slowly and probably could benefit from one to two more days of PT/OT before discharge to home. YUE GARCIA DO 01/06/21 0558: Supervisory-Addendum Brief Verification & Attestation Participated in pt care: history, MDM, physical Personally performed: exam, history, MDM, supervision of care Care discussed with: Medical Student Procedures: n/a Results interpretation: Verified all documentation Verification and Attestation of Medical Student E/M Service A medical student performed and documented this service in my presence. I reviewed and verified all information documented by the medical student and made modifications to such information, when appropriate. I personally performed the physical exam and medical decision making. Yue Garcia, Jan 06, 2021,05:58 ROGEIRO SEQUEIRA MED STUDENT Jan 05, 2021 11:36 YUE GARCIA DO Jan 06, 2021 05:58
[2021-01-05] MEDS: LOPERAMIDE 2 MG (IMODIUM) TABLET PO PRN (11:50)
--- NOTE | 2021-01-05 11:55 | Occupational Ther Daily Note ---
OT Current Status-Daily Note Subjective Pt. reports pain in back at end of session, 12/30. Nursing notified. Mental Status/Objective Patient Orientation: Person, Place ADL-Treatment Therapy Code Descriptions/Definitions Functional [place] Measure: 0=Not Assessed/NA 4=Minimal Assistance 1=Total Assistance 5=Supervision or Setup 2=Maximal Assistance 6=Modified [place] 3=Moderate Assistance 7=Complete IndependenceSCALE: Activities may be completed with or without assistive devices. 4-Dsdqjgbfks-xmarhmo completes the activity by him/herself with no assistance from a helper. 5-Set-up or Clean-up Assistance-helper sets up or cleans up; patient completes activity. [place] assists only prior to or following the activity. 4-Supervision or Touching Assistance-helper provides verbal cues and/or touching/steadying and/or contact guard assistance as patient completes activity. Assistance may be provided throughout the activity or intermittently. 3-Partial/Moderate Assistance-helper does LESS THAN HALF the effort. [place] lifts, holds or supports trunk or limbs, but provides less than half the effort. 2-Substantial/Maximal Assistance-helper does MORE THAN HALF the effort. [place] lifts or holds trunk or limbs and provides more than half the effort. 2-Duenotcto-pxzial does ALL the effort. Patient does none of the effort to complete the activity. Or, the assistance of 2 or more helpers is required for the patient to complete the activity. If activity was not attempted, code reason: 7-Patient Refused. 9-Not Applicable-not attempted and the patient did not perform the activity b efore the current illness, exacerbation or injury. 10-Not Attempted due to Environmental Limitations-(lack of equipment, weather restraints, etc.). 88-Not Attempted due to Medical Conditions or Safety Concerns. Eating (QC): 6 Shower/Bathe Self (QC): 7 Lower Body Dressing (QC): 3 (Mod assist with pants while seated in wheelchair.) Toileting Hygiene (QC): 4 Toilet Transfer (QC): 3 (Min assist to slide off toilet to wheelchair.) Other Treatment Pt. on toilet when OT entered room. Pt. states that he has lost ability to use LE. He states that since Tuesday, he can't use right LE because it hurts too much, and when he does step down, he has a "stabbing" pain. He feels a "numbing" sensation, but no numbness with light touch. Pt. states that he is unable to ambulate. Upon inspection, it is noted that pt. does have redness in right ankle and some swelling. Some redness in joints of toes of right foot as well. Pt. states that he had a Doppler, and it was negative. He mentions Gout, and states that he just went back on his medication for this, as he has had it in the past and was taking meds before his accident. Pt. transfers to [facility] from toilet. He was able to lean side to side to don underwear on toilet. He requires mod assist to don pants in chair and requires mod assist to don back brace. Pt. self propels to therapy gym and completes 10 minutes on arm bike at min resistance, and completes arm pulleys at slow pace for UE stretch. Pt. encouraged to take deep breathes, and then to do deep breathing exercises to open chest and lungs. Pt. tolerated well. Self propels back to room and transfers back to bed. All needs met. Education OT Patient Education: Correct positioning, Exercise program, Modified ADL techniques, Progress toward Goal/Update tx plan, Purpose of tx/functional activities, Reviewed precautions, Rehab process, Transfer techniques Teaching Recipient: Patient Teaching Methods: Demonstration, Discussion Response to Teaching: Verbalize Understanding, Return Demonstration OT Short Term Goals Short Term Goals Time Frame: Jan 07, 2021 Lower body dressin Putting on/taking off footwear: 4 OT Program Checker Goals Alf Goals Time Frame: Jan 16, 2021 Eating (QC): 6 Oral Hygiene (QC): 6 Toileting Hygiene (QC): 6 Shower/Bathe Self (QC): 6 Upper Body Dressing (QC): 6 Lower Body Dressing (QC): 6 On/Off Footwear (QC): 6 Additional Goals: 1-Demonstrate ADL Tasks, 2-Verbalize Understanding, 3- ImproveStrength/Radha 1=Demonstrate adherence to instructed precautions during ADL tasks. 2=Patient will verbalize/demonstrate understanding of assistive devices/modifications for ADL. 3=Patient will improve strength/tolerance for activity to enable patient to perform ADL's. OT Education/Plan Discharge Recommendations Plan/Recommendations: Continue POC Treatment Plan/Plan of Care Treatment,Training & Education: Yes Patient would benefit from OT for education, treatment and training to promote independence in ADL's, mobility, safety and/or upper extremity function for ADL's. Plan of Care: ADL Retraining, Functional Mobility, Group Exercise/Act as Ind, UE Funct Exercise/Act Treatment Duration: Jan 16, 2021 Frequency: At least 5 of 7 days/Wk (IRF) Estimated Hrs Per Day: 1.5 hours per day Agreement: Yes Rehab Potential: Good Time/GCodes Start Time: 10:30 Stop Time: 11:45 Total Time Billed (hr/min): 75 Billed Treatment Time 1, ADL x 15minutes, Ex x 45minutes, FA x 15minutes SRINIVAS MINA OT Jan 05, 2021 11:55
--- NOTE | 2021-01-05 11:59 | Diagnostic Imaging Report ---
PROCEDURE: US Venous Lower Ext Ike. TECHNIQUE: Multiple real-time grayscale images were obtained over the lower extremities in various projections, bilaterally. Additional duplex Doppler and color Doppler images were also obtained. INDICATION: Bilateral lower extremity pain and swelling. FINDINGS: Real-time imaging shows normal color flow throughout the lower extremity venous system bilaterally. Calf compression showed normal augmentation of flow at the popliteal level with Doppler sampling. IMPRESSION: No evidence of lower extremity venous thrombosis. Dictated by: Dictated on workstation # [id number]
--- NOTE | 2021-01-05 15:06 | Physical Therapy Daily Note ---
PT Daily Note-Current Subjective Patient lying supine in bed upon PT arrival, agreeable to treatment. Reports severe pain in bilateral ankles still, but tolerable at rest. Mental Status Patient Orientation: Person, Place, Time, Situation Transfers SCALE: Activities may be completed with or without assistive devices. 9-Bbmwhjimoh-bfctagk completes the activity by him/herself with no assistance from a helper. 5-Set-up or Clean-up Assistance-helper sets up or cleans up; patient completes activity. [place] assists only prior to or following the activity. 4-Supervision or Touching Assistance-helper provides verbal cues and/or touching/steadying and/or contact guard assistance as patient completes activity. Assistance may be provided throughout the activity or intermittently. 3-Partial/Moderate Assistance-helper does LESS THAN HALF the effort. [place] lifts, holds or supports trunk or limbs, but provides less than half the effort. 2-Substantial/Maximal Assistance-helper does MORE THAN HALF the effort. [place] lifts or holds trunk or limbs and provides more than half the effort. 0-Klvtqihoi-mpzbqq does ALL the effort. Patient does none of the effort to comp lete the activity. Or, the assistance of 2 or more helpers is required for the patient to complete the activity. If activity was not attempted, code reason: 7-Patient Refused. 9-Not Applicable-not attempted and the patient did not perform the activity before the current illness, exacerbation or injury. 10-Not Attempted due to Environmental Limitations-(lack of equipment, weather restraints, etc.). 88-Not Attempted due to Medical Conditions or Safety Concerns. Roll Left & Right (QC): 5 Sit to Lying (QC): 5 Lying to Sitting/Side of Bed(Q: 5 Sit to Stand (QC): 3 Chair/Xqq-gx-Xqmzo Xfer(QC): 3 Gait Training Does the Patient Walk?: No and Walking Goal IS indicated Wheelchair Training Does the Pt Use a Wheelchair?: Yes Wheel 50 ft with 2 turns (QC): 5 Wheel 150 ft (QC): 5 Type of Wheelchair: Manual (5) Exercises Supine Ex: Ankle pumps, Quad Set, Glut sets, Heel Slides, Short Arc Quads, Straight leg raise, Hip abd/add Supine Reps: 20 Treatments Visit, Ex, FA Assessment Current Status: Fair Progress Patient lying supine in bed upon PT arrival, tolerates treatment fair. Reports increased pain in bilateral ankles with palpation and movement of of each LE. Patient tolerates PT touching his distal calf to assist with therapeutic exercise. Patient performs bed mobility or rolling to either side with SBA for donning the TLSO. Patient requires mod A for slideboard transfer to the chair and verbal cues for proper performance. Patient demonstrates improved performance with slideboard to the w/c. Patient in w/c post treatment with all needs met, nursing notified, call light in hand. PT Short Term Goals Short Term Goals Time Frame: Jan 07, 2021 Roll Left & Right: 6 Sit to lyin Lying to sitting on side of be: 5 Sit to stand: 4 Walk 10 feet: 4 Walk 50 feet with two turns: 4 Walk 150 feet: 4 PT Granular Operator Goals Granular Operator Goals PT Longterm Goals Time Frame: Jan 21, 2021 Roll Left & Right (QC): 6 Sit to Lying (QC): 6 Lying-Sitting on Side/Bed(QC): 6 Sit to Stand (QC): 5 Chair/Sml-il-Xfdfe Xfer(QC): 5 Toilet Transfer (QC): 5 Car Transfer (QC): 5 Does the Patient Walk: Yes Walk 10 feet (QC): 5 Walk 50ft with 2 Turns (QC): 5 Walk 150 ft (QC): 5 Walking 10ft on Uneven Surface: 4 1 Step (curb) (QC): 4 4 Steps (QC): 4 12 Steps (QC): 88 Picking up an Object (QC): 88 Wheel 50 feet with 2 turns (QC: 6 Wheel 150 feet: 6 PT Plan Treatment/Plan Treatment Plan: Continue Plan of Care Treatment Plan: Bed Mobility, Education, Functional Activity Radha, Functional Strength, Group Therapy, Gait, Safety, Therapeutic Exercise, Transfers Treatment Duration: Jan 21, 2021 Frequency: At least 5 of 7 days/Wk (IRF) Estimated Hrs Per Day: 1.5 hours per day Patient and/or Family Agrees t: Yes Safety Risks/Education Patient Education: Transfer Techniques, Reviewed Precautions, Safety Issues Teaching Recipient: Patient Teaching Methods: Demonstration, Discussion Response to Teaching: Verbalize Understanding, Return Demonstration Time/GCodes Time In: 1330 Time Out: 1400 Total Billed Treatment Time: 30 Total Billed Treatment Visit, DION, RASHIDA OKEEFE PT Jan 05, 2021 15:06
[2021-01-05 20:00] VITALS: BP 107/57
[2021-01-05] MEDS: OLANZapine 5 MG (ZyPREXA) TAB PO SCH (21:29)
[2021-01-06] MEDS: KCL 8 MEQ (MICRO K) TABLET PO SCH (06:47)
[2021-01-06] MEDS: ENOXAPARIN 40 MG/0.4 ML (LOVENOX) SYR SC SCH (06:47)
[2021-01-06 08:00] VITALS: BP 108/60
[2021-01-06] MEDS: LINEZOLID (ZYVOX) 600 MG TAB PO SCH ×2 (08:22→21:13)
[2021-01-06] MEDS: ASPIRIN E.C. 81 MG (ECOTRIN) TAB PO SCH (08:22)
[2021-01-06] MEDS: SUCRALFATE 1 GM (CARAFATE) TAB PO SCH ×2 (08:22→21:13)
[2021-01-06] MEDS: ALPRAZolam 0.5 MG (XANAX) TAB PO SCH ×4 (08:22→21:13)
[2021-01-06] MEDS: CEFDINIR 300 MG (OMNICEF) CAP PO SCH ×2 (08:23→21:13)
[2021-01-06] MEDS: PANTOPRAZOLE 40 MG (PROTONIX) TAB PO SCH (08:23)
[2021-01-06] MEDS: VERAPAMIL SR 240 MG (CALAN SR) TAB PO SCH (08:23)
[2021-01-06] MEDS: lisINopril 20 MG (PRINIVIL) TABLET PO SCH (08:23)
[2021-01-06] MEDS: COLCHICINE 0.6 MG (COLCRYS) TABLET PO PRN ×2 (08:23→17:18)
--- NOTE | 2021-01-06 08:26 | Cardiology Progress Note ---
Subjective Date Seen by Provider: Jan 06, 2021 Time Seen by Provider: 08:25 Subjective/Events-last exam Sitting up in bed, continues to c/o bilat foot pain. Review of Systems General: No Chills, No Night Sweats, No Fatigue, No Malaise, No Appetite, No Other HEENT: No Head Aches, No Visual Changes, No Eye Pain, No Ear Pain, No Dysphasia, No Sinus Congestion, No Post Nasal Drip, No Sore Throat, No Other Pulmonary: No Dyspnea, No Cough, No Pleuritic Chest Pain, No Other Cardiovascular: No: Chest Pain, Palpitations, Orthopnea, Paroxysmal Noc. Dyspnea, Edema, Lt Headedness, Other Objective-Cardiology Exam Last Set of Vital Signs Vital Signs 01/06/21 08:00 Temp 36.7 Pulse 71 Resp 18 B/P (MAP) 108/60 (76) Pulse Ox 91 O2 Delivery Room Air General: Alert, Oriented X3, Cooperative HEENT: Atraumatic, PERRLA Neck: Supple, No JVD, No Thyromegaly Lungs: Clear to Auscultation, Normal Air Movement Heart: Regular Rate, No Murmurs Abdomen: Normal Bowel Sounds, Soft Extremities: No Clubbing, No Cyanosis Skin: No Rashes, No Significant Lesion Neuro: Normal Speech, Cranial Nerves 3-12 NL A/P-Cardiology Admission Diagnosis Chest pain CAD Syncope Left leg crush injury Assessment/Plan Chest pain, improving, most probably musculoskeletal, troponin was negative, had elevated CPK and myoglobin secondary to injury. Continue to monitor Coronary artery disease, reported cardiac catheterization in 2018, patient recall having significant disease not amendable to intervention he was started on sublingual nitroglycerin for chest pain. No further episodes of chest pain were reported Syncope, probably vasovagal, no malignant arrhythmia was detected. Continue to monitor Sinus node dysfunction, history of dual-chamber pacemaker, interrogated today, appears to be functioning normally. Continue to follow-up as an outpatient Status post traumatic injury with rhabdomyolysis secondary to injury. Received IV fluid, managed by primary care team Left leg pain, questionable compartment syndrome, venous duplex negative. Continue PT/OT Acute renal insufficiency, improved, managed by primary care team Patient was seen and evaluated with Elissa, examination performed, management plan was discussed, agree with the current scribed note, I made few changes to the note using Italic font Patient was seen at bedside, laying down comfortably, still having significant pain, no change from baseline Venous ultrasound did not show any DVTs Continue with physical therapy. Monitor heart rate and blood pressure Supervisory-Addendum Brief Supervisory Addendum Participated in pt care: history, MDM, physical Personally performed: exam, history, MDM Care discussed with: CONRADO Results interpretation: Verified all documentation ELISSA FIELDS Jan 06, 2021 08:26 MICHAEL RUVALCABA MD Jan 06, 2021 08:39
[2021-01-06] MEDS: LOPERAMIDE 2 MG (IMODIUM) TABLET PO PRN ×2 (08:28→23:14)
[2021-01-06] MEDS: SENNA W/DOCUSATE (SENOKOT S) TABLET PO SCH (09:01)
[2021-01-06] MEDS: polyethylene glycoL POWDER 17 GM (MIRALAX) PACK PO SCH ×2 (09:01→21:20)
[2021-01-06] MEDS: DOCUSATE SODIUM 100 MG (COLACE) CAP PO SCH (09:01)
--- NOTE | 2021-01-06 09:46 | Speech Therapy Daily Note ---
Speech Daily Progress Note Subjective Date Seen by Provider: Jan 06, 2021 Time Seen by Provider: 00:30 Patient was sitting up in his wheelchair c/o feet hurting. States he was walking Fri but couldn't put weight on them Sat. for no known reason. Objective Patient answered general questions related to his daily needs and support with 90% with 10% cues. Assessment Assessment Current Status: Good Progress Treatment Plan Continue Plan of Care Speech Short Term Goals Short Term Goals Short Term Goals 1) Patient will complete memory tasks related to his daily needs at 75% or gr eater with minimal cues. 2) Patient will complete safety awareness tasks related to his daily needs at 75% or greater with minimal cues. 3) Patient will complete problem solving related to his daily needs at 75% or greater with minimal cues. Speech Carton Repairer Goals Carton Repairer Goals Patient will improve cognitive-communication abilities in order to require less assistance with daily needs. Speech-Plan Patient/Family Goals Patient/Family Goals: Patient plans on returning to his home where he lives with his and grandson. Treatment Plan Speech Therapy Treatment Plan: Continue Plan of Care Treatment Duration: Jan 16, 2021 Frequency: 4 times per week (Patient will receive skilled ST 4-5x per week) Estimated Hrs Per Day: .5 hour per day Rehab Potential: Good Barriers to Learning: Patient's cognitive deficits s/p head trauma Pt/Family Agrees to Plan: Yes Safety Risks/Education Teaching Recipient: Patient Teaching Methods: Demonstration, Discussion Response to Teaching: Verbalize Understanding, Return Demonstration Education Topics Provided: Continued safety within his room and communication of wants/needs Time Speech Therapy Time In: 10:00 Speech Therapy Time Out: 10:30 Total Billed Time: 30 Billed Treatment Time 1, SLTS No QUALITY CODES EXPRESSION OF IDEAS/WANTS: 4 UNDERSTANDING VERBAL CONTENT: 4 BRIEF INTERVIEW MENTAL STATUS: YES REPETITION OF 3 WORDS: 3 TEMPORAL ORIENTATION: YEAR: CORRECT, MONTH: CORRECT, DAY: MISSED BY 5 DAYS RECALL: SOCK: YES WITH CUE, COLOR: NO BED: YES WITH CUE MEMORY/RECALL ABILITY: SEASON, HE IS IN THE HOSPITAL ALFIE KING Jan 06, 2021 09:46
--- NOTE | 2021-01-06 09:54 | PM&R Progress Note ---
Subjective HPI/CC On Admission Date Seen by Provider: Jan 06, 2021 Time Seen by Provider: 10:00 Subjective/Events-last exam 01/06/2021: Pt doing better but still cant ambulate Skipping meals Slide board used Diarrhea two days in a row so we are holding laxatives Imodium given 01/05/2021: Venous Doppler ordered but Lovenox has been on board No DVT noted on prelim Multiple somatic issues Gout treatment continues Flat affect 01/04/2021: Patient having a slow recovery at the bedside Has a different complaint every day Finishing up on antibiotics Transferring via sideboard Having some loose stools 01/03/2021: Patient doing well Bilateral foot pain Has a history of gout so we will restart his home medications and add colchicine 1 dose Gram-negative reshma in blood culture patient remains on Omnicef and Zyvox Loose bowels moving Flat affect improved a bit 01/02/2021: Pt doing really well Complains about the left leg pain Changing IV antibiotics to PO [place] affect continues but that is chronic 01/01/2021: Pt doing pretty well Having burning of his leg IV antibiotics maintained for the left wrist IV site cellulitis Bowels moving well Pain is well controlled Check meds and labs Review of Systems General: Fatigue Musculoskeletal: back pain, leg pain, foot pain Objective Exam Vital Signs Vital Signs Date Time Temp Pulse Resp B/P (MAP) Pulse Ox O2 Delivery O2 Flow Rate FiO2 01/06/21 21:16 Room Air 01/06/21 20:00 37.8 78 18 120/58 (78) 94 Capillary Refill : General Appearance: No Apparent Distress, WD/WN, Chronically ill, Obese HEENT: PERRL/EOMI, Normal ENT Inspection, Pharynx Normal Neck: Full Range of Motion, Normal Inspection, Non Tender, Supple Respiratory: Chest Non Tender, Lungs Clear, Normal Breath Sounds, No Accessory Muscle Use Cardiovascular: Regular Rate, Rhythm, Normal Peripheral Pulses Gastrointestinal: Normal Bowel Sounds, No Organomegaly, No Pulsatile Mass, Non Tender, Soft Back: Normal Inspection, No CVA Tenderness, Decreased Range of Motion Extremity: Non Tender, Calf Tenderness (Left leg), Pedal Edema (Left foot), Swelling (left lower extremity) Neurologic/Psychiatric: Alert, Oriented x3, waxer tender II-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 FIM Transfers Therapy Code Descriptions/Definitions Functional [place] Measure: 0=Not Assessed/NA 4=Minimal Assistance 1=Total Assistance 5=Supervision or Setup 2=Maximal Assistance 6=Modified [place] 3=Moderate Assistance 7=Complete IndependenceSCALE: Activities may be completed with or without assistive devices. 7-Qxlgiuhpnl-qujcxkl completes the activity by him/herself with no assistance from a helper. 5-Set-up or Clean-up Assistance-helper sets up or cleans up; patient completes activity. [place] assists only prior to or following the activity. 4-Supervision or Touching Assistance-helper provides verbal cues and/or touching/steadying and/or contact guard assistance as patient completes activity. Assistance may be provided throughout the activity or intermittently. 3-Partial/Moderate Assistance-helper does LESS THAN HALF the effort. [place] lifts, holds or supports trunk or limbs, but provides less than half the effort. 2-Substantial/Maximal Assistance-helper does MORE THAN HALF the effort. [place] lifts or holds trunk or limbs and provides more than half the effort. 5-Wwcqttqwq-ackget does ALL the effort. Patient does none of the effort to complete the activity. Or, the assistance of 2 or more helpers is required for the patient to complete the activity. If activity was not attempted, code reason: 7-Patient Refused. 9-Not Applicable-not attempted and the patient did not perform the activity before the current illness, exacerbation or injury. 10-Not Attempted due to Environmental Limitations-(lack of equipment, weather restraints, etc.). 88-Not Attempted due to Medical Conditions or Safety Concerns. Roll Left to Right (QC): 5 Sit to Lying (QC): 5 Sit to Stand (QC): 3 Chair/Edi-wo-Sspcf Xfer(QC): 3 Car Transfer (QC): 4 Gait Training Does the Patient Walk?: No and Walking Goal IS indicated Walk 10 feet (QC): 4 Walk 50 ft with 2 Turns(QC): 4 Walk 150 ft (QC): 88 Walking 10ft/uneven surface-QC: 88 Gait Assistive Device: FWW Wheelchair Training Does the Pt Use a Wheelchair?: Yes Distance: 150'x2 Wheel 50 ft with 2 turns (QC): 5 Wheel 150 ft (QC): 5 Type of Wheelchair: Manual (5) Stair Training 1 Step (curb) (QC): 88 4 Steps (QC): 88 12 Steps (QC): 88 Balance Picking up an Object (QC): 88 ADL-Treatment Eating (QC): 6 Oral Hygiene (QC): 6 (IND standing at sink) Shower/Bathe Self (QC): 7 Upper Body Dressing (QC): 5 Lower Body Dressing (QC): 3 (Mod assist with pants while seated in wheelchair.) On/Off Footwear (QC): 3 (Min assist with AE.) Toileting Hygiene (QC): 4 Toilet Transfer (QC): 3 (Min assist to slide off toilet to wheelchair.) Assessment/Plan Assessment and Plan Assess & Plan/Chief Complaint Assessment: S/P Trauma with injuries from cow- blunt injury and crush injury sustained -general surgery following -continue frequent reassessments of left lower extremity -awaiting placement of clam brace- should happen today -2 view left foot x ray negative for acute pathology Concussion with LOC -continue to monitor neurologic status Rhabdomyolysis -CK decreased to 1049 today from 1224 yesterday -SL'd -encourage increased po intake of fluids -continue to trend for now Acute kidney injury-resolved -Creatinine stable at 1.29 today Anemia -Hgb stable at 11.1 today -surgery holding lovenox due to anemia -continue to trend Chest pain with history of angina -cardiology following -continue to monitor -PRN SL nitro Hypertension -continue to monitor Hyperlipidemia -continue to monitor Sinus node dysfunction pacemaker in place -cardiology following -pacemaker interrogated and functioning appropriately Pain control -continue prn's PT OT -doing frequent therapy per patient report -plan to transfer to inpatient rehab unit pending workers comp approval Cellulitis at site of previous IV site with fever -Begin IV antibiotics status post pancultured Gout Somatization Plan: Aggressive therapy Pain control IV antibiotics Supportive care 01/01/2021: Supportive care Hep-Lock IV fluid boiler coverer helper antibiotics tomorrow 01/02/2021: Supportive care Pain control Change IV antibiotics to p.o. 01/03/2021: Gout treatment Supportive care Antibiotics 01/04/2021: Monitor somatic complaints Supportive care 01/05/2021: Somatic issues Pain control Gout treatment 01/06/2021: Pain from injuries is out of proportion Continues to be a slow recovery (1) Episode of unresponsiveness Status: Acute (2) Thoracic spine fracture (3) Depression (4) Anxiety (5) Pacemaker (6) CAD (coronary artery disease) (7) Concussion Status: Acute (8) Victim of trampling from animal Status: Acute (9) Chest wall contusion Status: Acute (10) Hematoma of left lower extremity Status: Acute FRANK GARCIA DO Jan 06, 2021 09:54
--- NOTE | 2021-01-06 10:21 | Physical Therapy Daily Note ---
PT Daily Note-Current Subjective Patient lying supine in bed upon PT arrival, agreeable to treatment. Rates pain in bilateral ankles at 8/10 and reports they don't feel any better since yesterday. Mental Status Patient Orientation: Person, Place, Time, Situation Transfers SCALE: Activities may be completed with or without assistive devices. 8-Oxaauuluia-qjvdifn completes the activity by him/herself with no assistance from a helper. 5-Set-up or Clean-up Assistance-helper sets up or cleans up; patient completes activity. [place] assists only prior to or following the activity. 4-Supervision or Touching Assistance-helper provides verbal cues and/or touchin g/steadying and/or contact guard assistance as patient completes activity. Assistance may be provided throughout the activity or intermittently. 3-Partial/Moderate Assistance-helper does LESS THAN HALF the effort. [place] lifts, holds or supports trunk or limbs, but provides less than half the effort. 2-Substantial/Maximal Assistance-helper does MORE THAN HALF the effort. [place] lifts or holds trunk or limbs and provides more than half the effort. 3-Mknwfgxyn-lxgdkb does ALL the effort. Patient does none of the effort to complete the activity. Or, the assistance of 2 or more helpers is required for the patient to complete the activity. If activity was not attempted, code reason: 7-Patient Refused. 9-Not Applicable-not attempted and the patient did not perform the activity before the current illness, exacerbation or injury. 10-Not Attempted due to Environmental Limitations-(lack of equipment, weather restraints, etc.). 88-Not Attempted due to Medical Conditions or Safety Concerns. Roll Left & Right (QC): 5 Sit to Lying (QC): 5 Lying to Sitting/Side of Bed(Q: 5 Sit to Stand (QC): 3 Chair/Xwb-hy-Hqijl Xfer(QC): 3 Weight Bearing Patient not on any weight bearing restrictions, however is unable to bear weight or stand due to reports of significant pain. Gait Training Does the Patient Walk?: No and Walking Goal IS indicated Wheelchair Training Does the Pt Use a Wheelchair?: Yes Wheel 50 ft with 2 turns (QC): 6 Wheel 150 ft (QC): 6 Type of Wheelchair: Manual Exercises Supine Ex: Ankle pumps, Quad Set, Glut sets, Short Arc Quads, Straight leg raise, Hip abd/add Supine Reps: 20 Seated Therapy Exercises: Long arc quads, Hip flexion, Hamstring Curls, Hip abd/add Seated Reps: 20 Treatments Visit, Functional activity of bed mobility to shanti TLSO and transfers with slideboard to w/c, w/c training, and LE therapeutic exercise Assessment Current Status: Fair Progress Patient demonstrates fair improvement in bed mobility, however due to increase in bilateral ankle pain, overall transfers have declined. Patient educated in proper use of slideboard, however requires frequent verbal cues and mod A to perform safe bed to/from w/c transfer due to wrapping fingers around the board, leaning to far forwards, and not locking brakes on w/c. Patient performed LE therapeutic exercise in supine and sitting as listed above with min A for ankle mobility. Patient propels w/c 250 feet x 2 with mod I. Patient in chair post treatment with all needs met, nursing notified, call light in reach. PT Short Term Goals PT Short Term Goals Short Term Goals Time Frame: Jan 07, 2021 Roll Left & Right: 6 Sit to lyin Lying to sitting on side of be: 5 Sit to stand: 4 Walk 10 feet: 4 Walk 50 feet with two turns: 4 Walk 150 feet: 4 PT Dev Manager Goals Dev Manager Goals PT Dev Manager Goals Time Frame: Jan 21, 2021 Roll Left & Right (QC): 6 Sit to Lying (QC): 6 Lying-Sitting on Side/Bed(QC): 6 Sit to Stand (QC): 5 Chair/Zzv-ik-Hnelu Xfer(QC): 5 Toilet Transfer (QC): 5 Car Transfer (QC): 5 Does the Patient Walk: Yes Walk 10 feet (QC): 5 Walk 50ft with 2 Turns (QC): 5 Walk 150 ft (QC): 5 Walking 10ft on Uneven Surface: 4 1 Step (curb) (QC): 4 4 Steps (QC): 4 12 Steps (QC): 88 Picking up an Object (QC): 88 Wheel 50 feet with 2 turns (QC: 6 Wheel 150 feet: 6 PT Plan Treatment/Plan Treatment Plan: Continue Plan of Care Treatment Plan: Bed Mobility, Education, Functional Activity Radha, Functional Strength, Group Therapy, Gait, Safety, Therapeutic Exercise, Transfers Treatment Duration: Jan 21, 2021 Frequency: At least 5 of 7 days/Wk (IRF) Estimated Hrs Per Day: 1.5 hours per day Patient and/or Family Agrees t: Yes Safety Risks/Education Patient Education: Transfer Techniques, Reviewed Precautions, Safety Issues Teaching Recipient: Patient Teaching Methods: Demonstration, Discussion Response to Teaching: Verbalize Understanding, Return Demonstration Time/GCodes Time In: 900 Time Out: 1000 Total Billed Treatment Time: 60 Total Billed Treatment FA x 2, W/C training, Therapeutic exercise RASHIDA SHRESTHA PT Jan 06, 2021 10:21
--- NOTE | 2021-01-06 11:10 | Occupational Ther Daily Note ---
OT Current Status-Daily Note Subjective No pain reported. However, pt. states that his legs are no better than yesterday. Mental Status/Objective Patient Orientation: Person, Place, Time, Situation ADL-Treatment Therapy Code Descriptions/Definitions Functional [place] Measure: 0=Not Assessed/NA 4=Minimal Assistance 1=Total Assistance 5=Supervision or Setup 2=Maximal Assistance 6=Modified [place] 3=Moderate Assistance 7=Complete IndependenceSCALE: Activities may be completed with or without assistive devices. 1-Obdbkylszr-epcxpzz completes the activity by him/herself with no assistance from a helper. 5-Set-up or Clean-up Assistance-helper sets up or cleans up; patient completes activity. [place] assists only prior to or following the activity. 4-Supervision or Touching Assistance-helper provides verbal cues and/or touc toño/steadying and/or contact guard assistance as patient completes activity. Assistance may be provided throughout the activity or intermittently. 3-Partial/Moderate Assistance-helper does LESS THAN HALF the effort. [place] lifts, holds or supports trunk or limbs, but provides less than half the effort. 2-Substantial/Maximal Assistance-helper does MORE THAN HALF the effort. [place] lifts or holds trunk or limbs and provides more than half the effort. 5-Igeguzqwp-hwkihi does ALL the effort. Patient does none of the effort to complete the activity. Or, the assistance of 2 or more helpers is required for the patient to complete the activity. If activity was not attempted, code reason: 7-Patient Refused. 9-Not Applicable-not attempted and the patient did not perform the activity before the current illness, exacerbation or injury. 10-Not Attempted due to Environmental Limitations-(lack of equipment, weather restraints, etc.). 88-Not Attempted due to Medical Conditions or Safety Concerns. Eating (QC): 6 Oral Hygiene (QC): 6 (From wheelchair level.) Shower/Bathe Self (QC): 5 Upper Body Dressing (QC): 5 Lower Body Dressing (QC): 4 (With dressing stick) On/Off Footwear: 3 (Min assist with dressing stick to doff slipper socks. Does not don them.) Toileting Hygiene (QC): 5 Toilet Transfer (QC): 4 Other Treatment Pt. on toilet when OT entered room. Nursing had assisted him there. Pt. toileted self independently after set up, and was able to pull underwear back up while seated. Pt. states he can't stand yet due to pain when standing, and inability to bear weight in feet. Pt. slid back with min assist to wheelchair. Transferred into shower onto shower chair with min assist to wheelchair in place. Pt. able to shower with no difficulty, and with use of LH sponge. Dressed after drying off in shower, and utilized AE to best of his ability. Transferred back over to wheelchair with min assist. Pt. up in chair with all needs met at end of session. Education OT Patient Education: Correct positioning, Modified ADL techniques, Progress to soliz Goal/Update tx plan, Purpose of tx/functional activities, Reviewed precautions, Rehab process, Transfer techniques, Use of adapted equipment Teaching Recipient: Patient Teaching Methods: Demonstration, Discussion Response to Teaching: Verbalize Understanding, Return Demonstration OT Short Term Goals Short Term Goals Time Frame: Jan 07, 2021 Lower body dressin Putting on/taking off footwear: 4 OT Senior It Security Analyst Goals Half-Way Goals Time Frame: Jan 16, 2021 Eating (QC): 6 Oral Hygiene (QC): 6 Toileting Hygiene (QC): 6 Shower/Bathe Self (QC): 6 Upper Body Dressing (QC): 6 Lower Body Dressing (QC): 6 On/Off Footwear (QC): 6 Additional Goals: 1-Demonstrate ADL Tasks, 2-Verbalize Understanding, 3- ImproveStrength/Radha 1=Demonstrate adherence to instructed precautions during ADL tasks. 2=Patient will verbalize/demonstrate understanding of assistive devices/modifications for ADL. 3=Patient will improve strength/tolerance for activity to enable patient to perform ADL's. OT Education/Plan Problem List/Assessment Assessment: Decreased Activ Tolerance, Dependent Transfers, Impaired I ADL's, Impaired Self-Care Skills Discharge Recommendations Plan/Recommendations: Continue POC Therapy Discharge Recommendati: Post Acute OT Equpiment Recommendations-D/C: Hip Kit Treatment Plan/Plan of Care Treatment,Training & Education: Yes Patient would benefit from OT for education, treatment and training to promote independence in ADL's, mobility, safety and/or upper extremity function for ADL's. Plan of Care: ADL Retraining, Functional Mobility, Group Exercise/Act as Ind, UE Funct Exercise/Act Treatment Duration: Jan 16, 2021 Frequency: At least 5 of 7 days/Wk (IRF) Estimated Hrs Per Day: 1.5 hours per day Agreement: Yes Rehab Potential: Good Time/GCodes Start Time: 10:30 Stop Time: 11:15 Total Time Billed (hr/min): 45 Billed Treatment Time 1, ADL x 3 SRINIVAS MINA OT Jan 06, 2021 11:10
--- NOTE | 2021-01-06 14:50 | Occupational Ther Daily Note ---
OT Current Status-Daily Note Subjective Pt. reports pain in bilateral feet when weight bearing. Has had pain medication. Mental Status/Objective Patient Orientation: Person, Place, Time, Situation ADL-Treatment Therapy Code Descriptions/Definitions Functional [place] Measure: 0=Not Assessed/NA 4=Minimal Assistance 1=Total Assistance 5=Supervision or Setup 2=Maximal Assistance 6=Modified [place] 3=Moderate Assistance 7=Complete IndependenceSCALE: Activities may be completed with or without assistive devices. 4-Fzdhdhdqxf-mxcylhn completes the activity by him/herself with no assistance from a helper. 5-Set-up or Clean-up Assistance-helper sets up or cleans up; patient completes activity. [place] assists only prior to or following the activity. 4-Supervision or Touching Assistance-helper provides verbal cues and/or touch ing/steadying and/or contact guard assistance as patient completes activity. Assistance may be provided throughout the activity or intermittently. 3-Partial/Moderate Assistance-helper does LESS THAN HALF the effort. [place] lifts, holds or supports trunk or limbs, but provides less than half the effort. 2-Substantial/Maximal Assistance-helper does MORE THAN HALF the effort. [place] lifts or holds trunk or limbs and provides more than half the effort. 8-Nynmkfdoz-ydxplb does ALL the effort. Patient does none of the effort to complete the activity. Or, the assistance of 2 or more helpers is required for the patient to complete the activity. If activity was not attempted, code reason: 7-Patient Refused. 9-Not Applicable-not attempted and the patient did not perform the activity before the current illness, exacerbation or injury. 10-Not Attempted due to Environmental Limitations-(lack of equipment, weather restraints, etc.). 88-Not Attempted due to Medical Conditions or Safety Concerns. Upper Body Dressing (QC): 3 (Mod assist to don TLSO) On/Off Footwear: 4 (with sock aide) Other Treatment Pt. seen twice this afternoon. First treatement, pt. requested to have socks on. OT encouraged pt. to don his own socks with sock aide. Transferred supine- sit with SBA and donned socks with sock aide with SBA. [id number]. At second session. OT came in and pt. transferred supine-sit with SBA, and practiced TLSO brace with mod assist. Difficulty with velcro getting stuck to each part of itself. Pt. transferred into wheelchair by sliding from bed to chair without board and without standing. Self propelled wheelchair to gym. Began to work on attempted weight bearing through feet, but pt. unable to do so, as its too painful when he does. PT entered room at this time, and took over treatment. [id number] Education OT Patient Education: Correct positioning, Modified ADL techniques, Progress toward Goal/Update tx plan, Purpose of tx/functional activities, Reviewed precautions, Rehab process, Transfer techniques Teaching Recipient: Patient Teaching Methods: Demonstration, Discussion Response to Teaching: Verbalize Understanding, Return Demonstration OT Short Term Goals Short Term Goals Time Frame: Jan 07, 2021 Lower body dressin Putting on/taking off footwear: 4 OT Detention Goals Front End Mechanic Goals Time Frame: Jan 16, 2021 Eating (QC): 6 Oral Hygiene (QC): 6 Toileting Hygiene (QC): 6 Shower/Bathe Self (QC): 6 Upper Body Dressing (QC): 6 Lower Body Dressing (QC): 6 On/Off Footwear (QC): 6 Additional Goals: 1-Demonstrate ADL Tasks, 2-Verbalize Understanding, 3- ImproveStrength/Radha 1=Demonstrate adherence to instructed precautions during ADL tasks. 2=Patient will verbalize/demonstrate understanding of assistive devices/modifications for ADL. 3=Patient will improve strength/tolerance for activity to enable patient to perform ADL's. OT Education/Plan Problem List/Assessment Assessment: Decreased Activ Tolerance, Impaired I ADL's, Impaired Self-Care Skills Discharge Recommendations Plan/Recommendations: Continue POC Therapy Discharge Recommendati: Post Acute OT Treatment Plan/Plan of Care Treatment,Training & Education: Yes Patient would benefit from OT for education, treatment and training to promote independence in ADL's, mobility, safety and/or upper extremity function for ADL's. Plan of Care: ADL Retraining, Functional Mobility, Group Exercise/Act as Ind, UE Funct Exercise/Act Treatment Duration: Jan 16, 2021 Frequency: At least 5 of 7 days/Wk (IRF) Estimated Hrs Per Day: 1.5 hours per day Agreement: Yes Rehab Potential: Good Time/GCodes Start Time: 12:30 Stop Time: 13:30 Total Time Billed (hr/min): 30 Billed Treatment Time 3550-2315 1, ADL x 10minutes [id number] 1, ADL x 20minutes SRINIVAS MINA OT Jan 06, 2021 14:50
--- NOTE | 2021-01-06 15:05 | Physical Therapy Daily Note ---
PT Daily Note-Current Subjective Patient in the therapy gym with OT upon PT arrival, agreeable to PT treatment. Patient rates pain at 8/10 in his bilateral ankles, however notes that he was able to put weight through them with OT while sitting in the chair and using the shower bar to pull up in the bathroom. Mental Status Patient Orientation: Person, Place, Time, Situation Transfers SCALE: Activities may be completed with or without assistive devices. 1-Dkfrppqxmx-teaslcg completes the activity by him/herself with no assistance from a helper. 5-Set-up or Clean-up Assistance-helper sets up or cleans up; patient completes activity. [place] assists only prior to or following the activity. 4-Supervision or Touching Assistance-helper provides verbal cues and/or touching/steadying and/or contact guard assistance as patient completes activity. Assistance may be provided throughout the activity or intermittently. 3-Partial/Moderate Assistance-helper does LESS THAN HALF the effort. [place] lifts, holds or supports trunk or limbs, but provides less than half the effort. 2-Substantial/Maximal Assistance-helper does MORE THAN HALF the effort. [place] lifts or holds trunk or limbs and provides more than half the effort. 3-Huoiwvqmn-uxladc does ALL the effort. Patient does none of the effort to complete the activity. Or, the assistance of 2 or more helpers is required for the patient to complete the activity. If activity was not attempted, code reason: 7-Patient Refused. 9-Not Applicable-not attempted and the patient did not perform the activity before the current illness, exacerbation or injury. 10-Not Attempted due to Environmental Limitations-(lack of equipment, weather restraints, etc.). 88-Not Attempted due to Medical Conditions or Safety Concerns. Roll Left & Right (QC): 5 Sit to Lying (QC): 5 Lying to Sitting/Side of Bed(Q: 5 Sit to Stand (QC): 2 Chair/Orx-vu-Qeiov Xfer(QC): 3 Toilet Transfer (QC): 3 Weight Bearing Patient not on any weight bearing restrictions, however is unable to bear weight or stand due to reports of significant pain. Gait Training Does the Patient Walk?: No and Walking Goal IS indicated Wheelchair Training Does the Pt Use a Wheelchair?: Yes Wheel 50 ft with 2 turns (QC): 6 Wheel 150 ft (QC): 6 Type of Wheelchair: Manual Exercises Seated Therapy Exercises: Ankle pumps, Long arc quads, Hip flexion, Hamstring Curls, Hip abd/add Seated Reps: 20 Treatments Therapeutic exercise as listed, Functional Activity of static standing at 10 seconds, 30 seconds and 60 seconds with transfer training and verbal cues to perform the activities safely with less pain. Assessment Current Status: Fair Progress Patient tolerated treatment much better this session and was able to tolerate weight bearing in bilateral LEs. Patient stood with max A x 3 for 10, 30 and 60 seconds with sitting rest breaks in between. Patient performed LE therapeutic exercise as listed above. Patient in w/c with TLSO donned post treatment with all needs met, nursing notified, call light in hand. PT Short Term Goals Short Term Goals Time Frame: Jan 07, 2021 Roll Left & Right: 6 Sit to lyin Lying to sitting on side of be: 5 Sit to stand: 4 Walk 10 feet: 4 Walk 50 feet with two turns: 4 Walk 150 feet: 4 PT Seo Manager Goals Seo Manager Goals PT Seo Manager Goals Time Frame: Jan 21, 2021 Roll Left & Right (QC): 6 Sit to Lying (QC): 6 Lying-Sitting on Side/Bed(QC): 6 Sit to Stand (QC): 5 Chair/Zhs-nj-Csjlu Xfer(QC): 5 Toilet Transfer (QC): 5 Car Transfer (QC): 5 Does the Patient Walk: Yes Walk 10 feet (QC): 5 Walk 50ft with 2 Turns (QC): 5 Walk 150 ft (QC): 5 Walking 10ft on Uneven Surface: 4 1 Step (curb) (QC): 4 4 Steps (QC): 4 12 Steps (QC): 88 Picking up an Object (QC): 88 Wheel 50 feet with 2 turns (QC: 6 Wheel 150 feet: 6 PT Plan Treatment/Plan Treatment Plan: Continue Plan of Care Treatment Plan: Bed Mobility, Education, Functional Activity Radha, Functional Strength, Group Therapy, Gait, Safety, Therapeutic Exercise, Transfers Treatment Duration: Jan 21, 2021 Frequency: At least 5 of 7 days/Wk (IRF) Estimated Hrs Per Day: 1.5 hours per day Patient and/or Family Agrees t: Yes Safety Risks/Education Patient Education: Transfer Techniques, Safety Issues Teaching Recipient: Patient Teaching Methods: Demonstration, Discussion Response to Teaching: Verbalize Understanding, Return Demonstration Time/GCodes Time In: 1330 Time Out: 1400 Total Billed Treatment Time: 30 Total Billed Treatment FA, Ex RASHIDA SHRESTHA PT Jan 06, 2021 15:05
[2021-01-06] MEDS ORDERED: DOCUSATE SODIUM 100 MG (COLACE) CAP PO PRN (19:30)
[2021-01-06] MEDS ORDERED: SENNA W/DOCUSATE (SENOKOT S) TABLET PO PRN (19:30)
[2021-01-06 20:00] VITALS: BP 120/58
[2021-01-06] MEDS: OLANZapine 5 MG (ZyPREXA) TAB PO SCH (21:14)
[2021-01-07] MEDS: KCL 8 MEQ (MICRO K) TABLET PO SCH (06:30)
[2021-01-07] MEDS: ENOXAPARIN 40 MG/0.4 ML (LOVENOX) SYR SC SCH (06:32)
[2021-01-07] MEDS: ALPRAZolam 0.5 MG (XANAX) TAB PO SCH ×4 (07:59→21:09)
[2021-01-07] MEDS: SUCRALFATE 1 GM (CARAFATE) TAB PO SCH ×2 (07:59→21:08)
[2021-01-07] MEDS: lisINopril 20 MG (PRINIVIL) TABLET PO SCH (07:59)
[2021-01-07] MEDS: PANTOPRAZOLE 40 MG (PROTONIX) TAB PO SCH (07:59)
[2021-01-07] MEDS: COLCHICINE 0.6 MG (COLCRYS) TABLET PO PRN ×3 (07:59→21:09)
[2021-01-07] MEDS: LINEZOLID (ZYVOX) 600 MG TAB PO SCH (07:59)
[2021-01-07] MEDS: CEFDINIR 300 MG (OMNICEF) CAP PO SCH (07:59)
[2021-01-07] MEDS: ASPIRIN E.C. 81 MG (ECOTRIN) TAB PO SCH (07:59)
[2021-01-07 08:00] VITALS: BP 112/64
[2021-01-07] MEDS: VERAPAMIL SR 240 MG (CALAN SR) TAB PO SCH (08:00)
[2021-01-07] MEDS: polyethylene glycoL POWDER 17 GM (MIRALAX) PACK PO SCH ×2 (08:00→21:15)
--- NOTE | 2021-01-07 08:57 | Cardiology Progress Note ---
Subjective Date Seen by Provider: Jan 07, 2021 Time Seen by Provider: 08:56 Subjective/Events-last exam Patient in bed, continues to complain of bilateral foot pain. Review of Systems General: No Chills, No Night Sweats, No Fatigue, No Malaise, No Appetite, No Other HEENT: No Head Aches, No Visual Changes, No Eye Pain, No Ear Pain, No Dysphasia, No Sinus Congestion, No Post Nasal Drip, No Sore Throat, No Other Pulmonary: No Dyspnea, No Cough, No Pleuritic Chest Pain, No Other Cardiovascular: No: Chest Pain, Palpitations, Orthopnea, Paroxysmal Noc. Dyspnea, Edema, Lt Headedness, Other Objective-Cardiology Exam Last Set of Vital Signs Vital Signs 01/07/21 01/07/21 08:00 09:00 Temp 36.4 Pulse 71 Resp 12 B/P (MAP) 112/64 (80) Pulse Ox 95 O2 Delivery Room Air General: Alert, Oriented X3, Cooperative HEENT: Atraumatic, PERRLA Neck: Supple, No JVD, No Thyromegaly Lungs: Clear to Auscultation, Normal Air Movement Heart: Regular Rate, Normal S1, Normal S2, No Murmurs Abdomen: Normal Bowel Sounds, Soft Extremities: No Clubbing, No Cyanosis Skin: No Rashes, No Significant Lesion Neuro: Normal Speech, Cranial Nerves 3-12 NL A/P-Cardiology Admission Diagnosis Chest pain CAD Syncope Left leg crush injury Assessment/Plan Chest pain, improving, most probably musculoskeletal, troponin was negative, had elevated CPK and myoglobin secondary to injury. Continue to monitor Coronary artery disease, reported cardiac catheterization in 2018, patient recall having significant disease not amendable to intervention he was started on sublingual nitroglycerin for chest pain. No further episodes of chest pain were reported Syncope, probably vasovagal, no malignant arrhythmia was detected. Continue to monitor Sinus node dysfunction, history of dual-chamber pacemaker, interrogated today, appears to be functioning normally. Continue to follow-up as an outpatient Status post traumatic injury with rhabdomyolysis secondary to injury. Received IV fluid, managed by primary care team Left leg pain, bilateral foot pain, questionable compartment syndrome, venous duplex negative. Continue PT/OT Acute renal insufficiency, improved, managed by primary care team Patient was seen and evaluated with Elissa, examination performed, management plan was discussed, agree with the current scribed note, I made few changes to the note using Italic font Patient was seen at bedside, still having significant pain and swelling in the left lower extremity Able to stand with assistance but unable to bear weight on it or walk, managed by rehab team Cardiac status is stable, denied any chest pain. Supervisory-Addendum Brief Supervisory Addendum Participated in pt care: history, MDM, physical Personally performed: exam, history, MDM Care discussed with: CONRADO Results interpretation: Verified all documentation ELISSA FIELDS Jan 07, 2021 08:57 MICHAEL RUVALCABA MD Jan 07, 2021 12:25
[2021-01-07] MEDS ORDERED: methylPREDNISolone 125 MG (Solu-MEDROL) VIAL IM ONE (09:45)
--- NOTE | 2021-01-07 10:30 | Physical Therapy Daily Note ---
PT Daily Note-Current Subjective Patient in bed pre tx, agrees to PT, has 7/10 pain in both ankles and left calf. Appearance Patient in WC at bedside post tx with nurse call, phone, tray, all needs met. Mental Status Patient Orientation: Person, Place, Situation TLSO Transfers SCALE: Activities may be completed with or without assistive devices. 5-Dentthojio-asbijue completes the activity by him/herself with no assistance from a helper. 5-Set-up or Clean-up Assistance-helper sets up or cleans up; patient completes activity. [place] assists only prior to or following the activity. 4-Supervision or Touching Assistance-helper provides verbal cues and/or touching/steadying and/or contact guard assistance as patient completes activity. Assistance may be provided throughout the activity or intermittently. 3-Partial/Moderate Assistance-helper does LESS THAN HALF the effort. [place] li fts, holds or supports trunk or limbs, but provides less than half the effort. 2-Substantial/Maximal Assistance-helper does MORE THAN HALF the effort. [place] lifts or holds trunk or limbs and provides more than half the effort. 6-Yhefthfkc-kungqo does ALL the effort. Patient does none of the effort to complete the activity. Or, the assistance of 2 or more helpers is required for the patient to complete the activity. If activity was not attempted, code reason: 7-Patient Refused. 9-Not Applicable-not attempted and the patient did not perform the activity before the current illness, exacerbation or injury. 10-Not Attempted due to Environmental Limitations-(lack of equipment, weather restraints, etc.). 88-Not Attempted due to Medical Conditions or Safety Concerns. Roll Left & Right (QC): 6 Sit to Lying (QC): 6 Lying to Sitting/Side of Bed(Q: 6 Sit to Stand (QC): 2 Chair/Jxg-va-Ddpeq Xfer(QC): 4 Patient only standing in the parallel bars, performs a sliding transfer using his arms, without using a sliding board (SBA) Weight Bearing Patient not on any weight bearing restrictions, however is unable to bear weight or stand due to reports of significant pain. Wheelchair Training Does the Pt Use a Wheelchair?: Yes Wheel 50 ft with 2 turns (QC): 6 Wheel 150 ft (QC): 6 Type of Wheelchair: Manual 150'x2 Exercises Supine Ex: Ankle pumps, Quad Set, Glut sets, Heel Slides, Short Arc Quads, Straight leg raise (x10 each side), Hip abd/add Supine Reps: 20 standing in parallel bars x3 for about 30 seconds each time. Patient is retropulsive when standing due to not being able to dorsiflex completely due to pain. Patient is at risk for getting plantarlfexion contractures. Patient performed BLE dorsiflexion stretch using gait belt each leg x20 Treatments bed mobility and transfers, LE strengthening, WC mobility Assessment Current Status: Poor Progress cannot ambulate at this time due to not being able to bear weight on ankles PT Short Term Goals Short Term Goals Time Frame: Jan 07, 2021 Roll Left & Right: 6 Sit to lyin Lying to sitting on side of be: 5 Sit to stand: 4 Walk 10 feet: 4 Walk 50 feet with two turns: 4 Walk 150 feet: 4 PT Orthopedic Brace Maker Goals Care Home Goals PT Orthopedic Brace Maker Goals Time Frame: Jan 21, 2021 Roll Left & Right (QC): 6 Sit to Lying (QC): 6 Lying-Sitting on Side/Bed(QC): 6 Sit to Stand (QC): 5 Chair/Bsf-sp-Xruur Xfer(QC): 5 Toilet Transfer (QC): 5 Car Transfer (QC): 5 Does the Patient Walk: Yes Walk 10 feet (QC): 5 Walk 50ft with 2 Turns (QC): 5 Walk 150 ft (QC): 5 Walking 10ft on Uneven Surface: 4 1 Step (curb) (QC): 4 4 Steps (QC): 4 12 Steps (QC): 88 Picking up an Object (QC): 88 Wheel 50 feet with 2 turns (QC: 6 Wheel 150 feet: 6 PT Plan Problem List Problem List: Activity Tolerance, Functional Strength, Safety, Balance, Gait, Transfer, Bed Mobility, ROM Treatment/Plan Treatment Plan: Continue Plan of Care Treatment Plan: Bed Mobility, Education, Functional Activity Radha, Functional Strength, Group Therapy, Gait, Safety, Therapeutic Exercise, Transfers Treatment Duration: Jan 21, 2021 Frequency: At least 5 of 7 days/Wk (IRF) Estimated Hrs Per Day: 1.5 hours per day Patient and/or Family Agrees t: Yes Safety Risks/Education Patient Education: Transfer Techniques, Correct Positioning, W/C Management, Safety Issues Teaching Recipient: Patient Teaching Methods: Demonstration, Discussion Response to Teaching: Reinforcement Needed Time/GCodes Time In: 929 Time Out: 1030 Total Billed Treatment Time: 60 Total Billed Treatment 1 visit EX 15' FA 45' KULDEEP ZELAYA PT Jan 07, 2021 10:30
--- NOTE | 2021-01-07 12:28 | Occupational Ther Daily Note ---
OT Current Status-Daily Note Subjective Pt. reports pain in feet only when standing. Mental Status/Objective Patient Orientation: Person, Place, Time, Situation ADL-Treatment Therapy Code Descriptions/Definitions Functional [place] Measure: 0=Not Assessed/NA 4=Minimal Assistance 1=Total Assistance 5=Supervision or Setup 2=Maximal Assistance 6=Modified [place] 3=Moderate Assistance 7=Complete IndependenceSCALE: Activities may be completed with or without assistive devices. 4-Bkwvkqdxts-rbukjln completes the activity by him/herself with no assistance from a helper. 5-Set-up or Clean-up Assistance-helper sets up or cleans up; patient completes activity. [place] assists only prior to or following the activity. 4-Supervision or Touching Assistance-helper provides verbal cues and/or touching/steadying and/or contact guard assistance as patient completes activity. Assistance may be provided throughout the activity or intermittently. 3-Partial/Moderate Assistance-helper does LESS THAN HALF the effort. [place] lifts, holds or supports trunk or limbs, but provides less than half the effort. 2-Substantial/Maximal Assistance-helper does MORE THAN HALF the effort. [place] lifts or holds trunk or limbs and provides more than half the effort. 2-Bzmpjselo-jelxyl does ALL the effort. Patient does none of the effort to complete the activity. Or, the assistance of 2 or more helpers is required for the patient to complete the activity. If activity was not attempted, code reason: 7-Patient Refused. 9-Not Applicable-not attempted and the patient did not perform the activity before the current illness, exacerbation or injury. 10-Not Attempted due to Environmental Limitations-(lack of equipment, weather restraints, etc.). 88-Not Attempted due to Medical Conditions or Safety Concerns. Oral Hygiene (QC): 6 (From wheelchair level.) Shower/Bathe Self (QC): 5 (Set up in shower.) Upper Body Dressing (QC): 3 (Pt able to don shirt. Requires mod assist to don back brace.) Lower Body Dressing (QC): 3 (Mod assist to don pants with AE due to dampness after shower. Min assist to don underwear. Pt. able to pull self into half stance in shower to harness puller hips.) On/Off Footwear: 4 (SBA to doff/don slipper socks with AE. Pt. attempts to don [place] sandals but has too much swelling.) Other Treatment Pt. agrees to work with OT. Transfers into shower with min assist to hold and position wheelchair in place. Showers and dresses with assist at times for use of adaptive equipment, and with LE dressing. Pt. able to pull to stand a couple of times in shower, group home with grab bar and alternate holding to don pants/underwear over hips. Transferred back to wheelchair. Self propelled to therapy gym and tolerated 5 minutes on pulleys for UE stretch. Tolerated well. Up in wheelchair with all needs met. Education OT Patient Education: Correct positioning, Modified ADL techniques, Progress toward Goal/Update tx plan, Purpose of tx/functional activities, Reviewed precautions, Rehab process, Transfer techniques, Use of adapted equipment Teaching Recipient: Patient Teaching Methods: Demonstration, Discussion Response to Teaching: Verbalize Understanding, Return Demonstration OT Short Term Goals Short Term Goals Time Frame: Jan 07, 2021 Lower body dressin Putting on/taking off footwear: 4 OT Jail Goals Hvac Service Manager Goals Time Frame: Jan 16, 2021 Eating (QC): 6 Oral Hygiene (QC): 6 Toileting Hygiene (QC): 6 Shower/Bathe Self (QC): 6 Upper Body Dressing (QC): 6 Lower Body Dressing (QC): 6 On/Off Footwear (QC): 6 Additional Goals: 1-Demonstrate ADL Tasks, 2-Verbalize Understanding, 3- ImproveStrength/Radha 1=Demonstrate adherence to instructed precautions during ADL tasks. 2=Patient will verbalize/demonstrate understanding of assistive devices/modifications for ADL. 3=Patient will improve strength/tolerance for activity to enable patient to perform ADL's. OT Education/Plan Problem List/Assessment Assessment: Decreased Activ Tolerance, Impaired I ADL's, Impaired Self-Care Skills Discharge Recommendations Plan/Recommendations: Continue POC Therapy Discharge Recommendati: Post Acute OT Equpiment Recommendations-D/C: Hip Kit Treatment Plan/Plan of Care Treatment,Training & Education: Yes Patient would benefit from OT for education, treatment and training to promote independence in ADL's, mobility, safety and/or upper extremity function for ADL's. Plan of Care: ADL Retraining, Functional Mobility, Group Exercise/Act as Ind, UE Funct Exercise/Act Treatment Duration: Jan 16, 2021 Frequency: At least 5 of 7 days/Wk (IRF) Estimated Hrs Per Day: 1.5 hours per day Agreement: Yes Rehab Potential: Good Time/GCodes Start Time: 11:00 Stop Time: 12:00 Total Time Billed (hr/min): 60 Billed Treatment Time 1, ADL x 45minutes, Ex x 15minutes SRINIVAS MINA OT Jan 07, 2021 12:28
--- NOTE | 2021-01-07 13:46 | Physical Therapy Daily Note ---
PT Daily Note-Current Subjective Patient in bed pre tx, agrees to PT, has 8/10 pain in ankles, will be co- treating with OT due to poor patient mobility, strength, endurance, severe pain with activity, coordinate UE and LE during activity, safety and reduce risk of falls. Appearance Patient sitting EOB post tx with nurse call, phone, tray, all needs met. Mental Status Patient Orientation: Person, Place, Situation Transfers SCALE: Activities may be completed with or without assistive devices. 8-Xiyuxqcjdi-gvussvl completes the activity by him/herself with no assistance from a helper. 5-Set-up or Clean-up Assistance-helper sets up or cleans up; patient completes activity. [place] assists only prior to or following the activity. 4-Supervision or Touching Assistance-helper provides verbal cues and/or touching/steadying and/or contact guard assistance as patient completes activity. Assistance may be provided throughout the activity or intermittently. 3-Partial/Moderate Assistance-helper does LESS THAN HALF the effort. [place] lifts, holds or supports trunk or limbs, but provides less than half the effort. 2-Substantial/Maximal Assistance-helper does MORE THAN HALF the effort. [place] lifts or holds trunk or limbs and provides more than half the effort. 3-Bblmayvos-kgefad does ALL the effort. Patient does none of the effort to complete the activity. Or, the assistance of 2 or more helpers is required for the patient to complete the activity. If activity was not attempted, code reason: 7-Patient Refused. 9-Not Applicable-not attempted and the patient did not perform the activity before the current illness, exacerbation or injury. 10-Not Attempted due to Environmental Limitations-(lack of equipment, weather restraints, etc.). 88-Not Attempted due to Medical Conditions or Safety Concerns. Roll Left & Right (QC): 6 Lying to Sitting/Side of Bed(Q: 6 Sit to Stand (QC): 3 Chair/Iui-ib-Uhynj Xfer(QC): 4 Patient, after donning his brace, propels WC to therapy gym and into parallel bars, he stands x5 with min assist of 2 with PT working on standing and LE po sitioning and OT working in UE positioning and assist with pushing waist forward. Patient stands in a retropulsive position with ankle extended slightly, encouraged to stand straight up, has pain in ankles and left calf with this. Weight Bearing Patient not on any weight bearing restrictions, however is unable to bear weight or stand due to reports of significant pain. Gait Training Distance: 5' Gait Assistive Device: Parallel Bars Patient was able to ambulate 5' in the parallel bars but in a retropulsive position Treatments PT worked on ambulation, transfers, bed mobility, WC mobility, OT worked on standing and trunk positioning, UE positioning and safety during activity. Assessment Current Status: Fair Progress slightly improved ankle ROM but still cant get to neutral ankle dorsiflexion bilaterally PT Short Term Goals Short Term Goals Time Frame: Jan 07, 2021 Roll Left & Right: 6 Sit to lyin Lying to sitting on side of be: 5 Sit to stand: 4 Walk 10 feet: 4 Walk 50 feet with two turns: 4 Walk 150 feet: 4 PT Rigging Up Worker Goals Rigging Up Worker Goals PT Rigging Up Worker Goals Time Frame: Jan 21, 2021 Roll Left & Right (QC): 6 Sit to Lying (QC): 6 Lying-Sitting on Side/Bed(QC): 6 Sit to Stand (QC): 5 Chair/Wed-cc-Bsyrq Xfer(QC): 5 Toilet Transfer (QC): 5 Car Transfer (QC): 5 Does the Patient Walk: Yes Walk 10 feet (QC): 5 Walk 50ft with 2 Turns (QC): 5 Walk 150 ft (QC): 5 Walking 10ft on Uneven Surface: 4 1 Step (curb) (QC): 4 4 Steps (QC): 4 12 Steps (QC): 88 Picking up an Object (QC): 88 Wheel 50 feet with 2 turns (QC: 6 Wheel 150 feet: 6 PT Plan Problem List Problem List: Activity Tolerance, Functional Strength, Safety, Balance, Gait, Transfer, Bed Mobility, ROM Treatment/Plan Treatment Plan: Continue Plan of Care Treatment Plan: Bed Mobility, Education, Functional Activity Radha, Functional Strength, Group Therapy, Gait, Safety, Therapeutic Exercise, Transfers Treatment Duration: Jan 21, 2021 Frequency: At least 5 of 7 days/Wk (IRF) Estimated Hrs Per Day: 1.5 hours per day Patient and/or Family Agrees t: Yes Safety Risks/Education Patient Education: Gait Training, Transfer Techniques, Correct Positioning, Safety Issues Teaching Recipient: Patient Teaching Methods: Demonstration, Discussion Response to Teaching: Reinforcement Needed Time/GCodes Time In: 1300 Time Out: 1330 Total Billed Treatment Time: 30 Total Billed Treatment 1 visit FA Gillian' KULDEEP ZELAYA PT Jan 07, 2021 13:46
--- NOTE | 2021-01-07 13:51 | Occupational Ther Daily Note ---
OT Current Status-Daily Note Subjective Pt. reports 8/10 pain in back/left LE. Nursing gives pain med. Mental Status/Objective Patient Orientation: Person, Place, Time, Situation ADL-Treatment Therapy Code Descriptions/Definitions Functional [place] Measure: 0=Not Assessed/NA 4=Minimal Assistance 1=Total Assistance 5=Supervision or Setup 2=Maximal Assistance 6=Modified [place] 3=Moderate Assistance 7=Complete IndependenceSCALE: Activities may be completed with or without assistive devices. 2-Spkbykazln-btrnhcx completes the activity by him/herself with no assistance from a helper. 5-Set-up or Clean-up Assistance-helper sets up or cleans up; patient completes activity. [place] assists only prior to or following the activity. 4-Supervision or Touching Assistance-helper provides verbal cues and/or touching/steadying and/or contact guard assistance as patient completes activity. Assistance may be provided throughout the activity or intermittently. 3-Partial/Moderate Assistance-helper does LESS THAN HALF the effort. [place] lifts, holds or supports trunk or limbs, but provides less than half the effort. 2-Substantial/Maximal Assistance-helper does MORE THAN HALF the effort. [place] lifts or holds trunk or limbs and provides more than half the effort. 4-Dljfugmle-askqwv does ALL the effort. Patient does none of the effort to complete the activity. Or, the assistance of 2 or more helpers is required for the patient to complete the activity. If activity was not attempted, code reason: 7-Patient Refused. 9-Not Applicable-not attempted and the patient did not perform the activity before the current illness, exacerbation or injury. 10-Not Attempted due to Environmental Limitations-(lack of equipment, weather restraints, etc.). 88-Not Attempted due to Medical Conditions or Safety Concerns. Upper Body Dressing (QC): 3 (Mod assist with TLSO.) Other Treatment Pt. seen this date for co-treatment with OT/PT due to need of skilled assistance x 2. Pt. very fatigued this afternoon and reporting pain from earlier sessions. Pt. donned TLSO brace with mod assist, and transferred to wheelchair by sliding from bed-chair with CGA. Pt. self propelled to therapy gym. PT stood in front and OT in back. Pt. stood multiple times in parallel bars with min x 2. OT facilitated glutes and assessed hand placement on bars while PT addressed trunk control and foot placement. Pt. stood 1-2 minutes each time. Self propelled back to room. Transferred to bed with CGA. All needs met. Education OT Patient Education: Correct positioning, Modified ADL techniques, Progress toward Goal/Update tx plan, Purpose of tx/functional activities, Reviewed prec autions, Rehab process, Transfer techniques Teaching Recipient: Patient Teaching Methods: Demonstration, Discussion Response to Teaching: Verbalize Understanding, Return Demonstration OT Short Term Goals Short Term Goals Time Frame: Jan 07, 2021 Lower body dressin Putting on/taking off footwear: 4 OT Reed Press Feeder Goals Reed Press Feeder Goals Time Frame: Jan 16, 2021 Eating (QC): 6 Oral Hygiene (QC): 6 Toileting Hygiene (QC): 6 Shower/Bathe Self (QC): 6 Upper Body Dressing (QC): 6 Lower Body Dressing (QC): 6 On/Off Footwear (QC): 6 Additional Goals: 1-Demonstrate ADL Tasks, 2-Verbalize Understanding, 3- ImproveStrength/Radha 1=Demonstrate adherence to instructed precautions during ADL tasks. 2=Patient will verbalize/demonstrate understanding of assistive devices/modifications for ADL. 3=Patient will improve strength/tolerance for activity to enable patient to perform ADL's. OT Education/Plan Problem List/Assessment Assessment: Decreased Activ Tolerance, Impaired I ADL's, Impaired Self-Care Skills Discharge Recommendations Plan/Recommendations: Continue POC Treatment Plan/Plan of Care Patient would benefit from OT for education, treatment and training to promote independence in ADL's, mobility, safety and/or upper extremity function for ADL's. Plan of Care: ADL Retraining, Functional Mobility, Group Exercise/Act as Ind, UE Funct Exercise/Act Treatment Duration: Jan 16, 2021 Frequency: At least 5 of 7 days/Wk (IRF) Estimated Hrs Per Day: 1.5 hours per day Agreement: Yes Rehab Potential: Good Time/GCodes Start Time: 13:00 Stop Time: 13:30 Total Time Billed (hr/min): 30 Billed Treatment Time 1, FA x 2- Co-treat with PT SRINIVAS MINA OT Jan 07, 2021 13:51
--- NOTE | 2021-01-07 16:16 | Progress Note - Surgery ---
Subjective Time Seen by a Provider: 15:34 Subjective/Events-last exam Pt seen and examined, he is still having pretty severe ankle pain which is bilateral. He did state that he was able to walk about 5 steps today, but that he still can't stand to pee "hurts too bad" and its not really getting better. He thought maybe it was his gout, because it felt like pain he has had previously with gout in the ankles. His is still worried about maybe missing some type of damage in his legs. Pt does not remember if his legs got stepped on or not; but, only his left leg is swollen. Review of Systems General: Fatigue, Malaise Pulmonary: No Dyspnea, No Cough Cardiovascular: No: Chest Pain, Palpitations Gastrointestinal: No: Nausea, Vomiting, Abdominal Pain Musculoskeletal: back pain, foot pain Neurological: Weakness; No: Change in speech, Confusion Objective Exam Vital Signs Date Time Temp Pulse Resp B/P (MAP) Pulse Ox O2 Delivery O2 Flow Rate FiO2 01/07/21 09:00 Room Air 01/07/21 08:00 36.4 71 12 112/64 (80) 95 Room Air 01/06/21 21:16 Room Air 01/06/21 20:00 37.8 78 18 120/58 (78) 94 Room Air Capillary Refill : General Appearance: No Apparent Distress, WD/WN, Obese HEENT: PERRL/EOMI Respiratory: Chest Non Tender, Lungs Clear, Normal Breath Sounds, No Accessory Muscle Use Cardiovascular: Regular Rate, Rhythm, Normal Peripheral Pulses Gastrointestinal: non tender, soft, no organomegaly Extremity: Calf Tenderness (Left leg), Pedal Edema (Left foot), Swelling (left lower extremity), Other (no redness on ankles, there had been some previously. Left leg is not as tender to touch as it has been in past) Neurologic/Psychiatric: Alert, Oriented x3, test data developer II-XII Norm as Tested, Depressed Affect, Motor Weakness (Left foot) Skin: Other (healing hematoma in left leg, leg has soft yellow color) Results Lab Microbiology 12/31/20 Blood Culture - Final, Complete No growth Assessment/Plan Assessment/Plan Assessment/Plan B/L ankle pain ??Gout vs possible reflex sympathetic dystrophy Trauma - due to being trampled by a cow Age-indeterminate compression deformity at the superior endplate of T3 with minimal height loss. Anemia Cellulitis - rule out abscess Plan: Will order b/l ankle x-ray to rule out gout and b/l ankle MRI to check for signs of RSD and hopefully they can look at muscles and ligaments as well. I spoke with his and told her that we would be working these things up, but also that I would be more concerned if it was just the left leg (it is swollen and right looks normal). She was happy we are doing a few more test and also stated that she has not had any problems with care at [facility]. I spoke with Dr. Bhatt and Dr. Rodriguez (radiologist) about his care and studies we should do; they have been ordered. RADHA WALTERS DO Jan 07, 2021 16:16
--- NOTE | 2021-01-07 17:03 | Diagnostic Imaging Report ---
INDICATION: Pain and swelling of bilateral ankles. COMPARISON: 12/26/2020 FINDINGS: Multiple radiographic views of bilateral ankles were obtained. There is no acute fracture or dislocation. Old deformity of the left mid fibular shaft is partially identified and corresponds to old fracture seen on previous exam dated 12/26/2020. Joint spaces of the ankles are maintained, bilaterally, although there are mild osteoarthritic changes. Osseous structures are intact. No unexpected radiopaque foreign bodies are seen. IMPRESSION: 1. Moderate bilateral soft tissue swelling, but no radiographic evidence of acute fracture or dislocation of either ankle. Dictated by: Dictated on workstation # [id number]
[2021-01-07 20:11] VITALS: BP 108/60
[2021-01-07] MEDS: LOPERAMIDE 2 MG (IMODIUM) TABLET PO PRN (21:08)
[2021-01-07] MEDS: MELATONIN 3 MG TABLET PO PRN (21:09)
[2021-01-07] MEDS: OLANZapine 5 MG (ZyPREXA) TAB PO SCH (21:09)
--- NOTE | 2021-01-07 21:14 | PM&R Progress Note ---
Subjective HPI/CC On Admission Date Seen by Provider: Jan 07, 2021 Time Seen by Provider: 10:30 Subjective/Events-last exam 01/07/2021: Patient still having difficulties walking because of foot pain Diarrhea is still continuing Pain issues seem to be the main problem Received Solu-Medrol injection in case this is gout he was having some pain with the injection which is unusual since that is not a painful injection Appears to be hypersensitive to pain Very slow recovery Uses wheelchair most of the time Spoke with Dr. Greenfield due to 's concerns and he will evaluate and order any type of imaging he feels is necessary 01/06/2021: Pt doing better but still cant ambulate Skipping meals Slide board used Diarrhea two days in a row so we are holding laxatives Imodium given 01/05/2021: Venous Doppler ordered but Lovenox has been on board No DVT noted on prelim Multiple somatic issues Gout treatment continues Flat affect 01/04/2021: Patient having a slow recovery at the bedside Has a different complaint every day Finishing up on antibiotics Transferring via sideboard Having some loose stools 01/03/2021: Patient doing well Bilateral foot pain Has a history of gout so we will restart his home medications and add colchicine 1 dose Gram-negative reshma in blood culture patient remains on Omnicef and Zyvox Loose bowels moving Flat affect improved a bit 01/02/2021: Pt doing really well Complains about the left leg pain Changing IV antibiotics to PO [place] affect continues but that is chronic 01/01/2021: Pt doing pretty well Having burning of his leg IV antibiotics maintained for the left wrist IV site cellulitis Bowels moving well Pain is well controlled Check meds and labs Review of Systems General: Fatigue Musculoskeletal: back pain, leg pain, foot pain Objective Exam Vital Signs Vital Signs Date Time Temp Pulse Resp B/P (MAP) Pulse Ox O2 Delivery O2 Flow Rate FiO2 01/07/21 21:38 36.5 01/07/21 21:00 Room Air 01/07/21 20:11 76 18 108/60 (76) 95 Capillary Refill : General Appearance: No Apparent Distress, WD/WN, Obese HEENT: PERRL/EOMI Respiratory: Chest Non Tender, Lungs Clear, Normal Breath Sounds, No Accessory Muscle Use Cardiovascular: Regular Rate, Rhythm, Normal Peripheral Pulses Gastrointestinal: Normal Bowel Sounds, No Organomegaly, No Pulsatile Mass, Non Tender, Soft Back: Normal Inspection, No CVA Tenderness, Decreased Range of Motion Extremity: Calf Tenderness (Left leg), Pedal Edema (Left foot), Swelling (left lower extremity), Other (no redness on ankles, there had been some previously. Left leg is not as tender to touch as it has been in past) Neurologic/Psychiatric: Alert, Oriented x3, hrbp II-XII Norm as Tested, Depressed Affect, Motor Weakness (Left foot) Skin: Other (healing hematoma in left leg, leg has soft yellow color) Results/Procedures Lab Patient resulted labs reviewed. FIM Transfers Therapy Code Descriptions/Definitions Functional [place] Measure: 0=Not Assessed/NA 4=Minimal Assistance 1=Total Assistance 5=Supervision or Setup 2=Maximal Assistance 6=Modified [place] 3=Moderate Assistance 7=Complete IndependenceSCALE: Activities may be completed with or without assistive devices. 6-Gxlwozaddg-ukunqlf completes the activity by him/herself with no assistance from a helper. 5-Set-up or Clean-up Assistance-helper sets up or cleans up; patient completes activity. [place] assists only prior to or following the activity. 4-Supervision or Touching Assistance-helper provides verbal cues and/or touching/steadying and/or contact guard assistance as patient completes activity. Assistance may be provided throughout the activity or intermittently. 3-Partial/Moderate Assistance-helper does LESS THAN HALF the effort. [place] lifts, holds or supports trunk or limbs, but provides less than half the effort. 2-Substantial/Maximal Assistance-helper does MORE THAN HALF the effort. [place] lifts or holds trunk or limbs and provides more than half the effort. 4-Apkhqoimv-gycxqq does ALL the effort. Patient does none of the effort to complete the activity. Or, the assistance of 2 or more helpers is required for the patient to complete the activity. If activity was not attempted, code reason: 7-Patient Refused. 9-Not Applicable-not attempted and the patient did not perform the activity before the current illness, exacerbation or injury. 10-Not Attempted due to Environmental Limitations-(lack of equipment, weather restraints, etc.). 88-Not Attempted due to Medical Conditions or Safety Concerns. Roll Left to Right (QC): 6 Sit to Lying (QC): 6 Sit to Stand (QC): 3 Chair/Ntb-bw-Zsztr Xfer(QC): 4 Car Transfer (QC): 4 Gait Training Does the Patient Walk?: No and Walking Goal IS indicated Distance: 5' Walk 10 feet (QC): 4 Walk 50 ft with 2 Turns(QC): 4 Walk 150 ft (QC): 88 Walking 10ft/uneven surface-QC: 88 Gait Assistive Device: Parallel Bars Wheelchair Training Does the Pt Use a Wheelchair?: Yes Distance: 150'x2 Wheel 50 ft with 2 turns (QC): 6 Wheel 150 ft (QC): 6 Type of Wheelchair: Manual Stair Training 1 Step (curb) (QC): 88 4 Steps (QC): 88 12 Steps (QC): 88 Balance Picking up an Object (QC): 88 ADL-Treatment Eating (QC): 6 Oral Hygiene (QC): 6 (From wheelchair level.) Shower/Bathe Self (QC): 5 (Set up in shower.) Upper Body Dressing (QC): 3 (Mod assist with TLSO.) Lower Body Dressing (QC): 3 (Mod assist to don pants with AE due to dampness after shower. Min assist to don underwear. Pt. able to pull self into half stance in shower to sinker puller hips.) On/Off Footwear (QC): 4 (SBA to doff/don slipper socks with AE. Pt. attempts to don Croc sandals but has too much swelling.) Toileting Hygiene (QC): 5 Toilet Transfer (QC): 4 Assessment/Plan Assessment and Plan Assess & Plan/Chief Complaint Assessment: S/P Trauma with injuries from cow- blunt injury and crush injury sustained -general surgery following -continue frequent reassessments of left lower extremity -awaiting placement of clam brace- should happen today -2 view left foot x ray negative for acute pathology -Ankle x-rays and possible MRIs will be ordered by Dr. Greenfield Concussion with LOC -continue to monitor neurologic status Rhabdomyolysis -CK decreased to 1049 today from 1224 yesterday now normal -SL'd -encourage increased po intake of fluids -continue to trend for now Acute kidney injury-resolved -Creatinine stable at 1.29 today Anemia -Hgb stable at 11.1 today -surgery holding lovenox due to anemia -continue to trend Chest pain with history of angina -cardiology following -continue to monitor -PRN SL nitro Hypertension -continue to monitor Hyperlipidemia -continue to monitor Sinus node dysfunction pacemaker in place -cardiology following -pacemaker interrogated and functioning appropriately Pain control -continue prn's PT OT -doing frequent therapy per patient report -plan to transfer to inpatient rehab unit pending workers comp approval Cellulitis at site of previous IV site with fever -Begin IV antibiotics status post pancultured Gout Somatization Hypersensitivity to pain Plan: Aggressive therapy Pain control IV antibiotics Supportive care 01/01/2021: Supportive care Hep-Lock 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 01/03/2021: Gout treatment Supportive care Antibiotics 01/04/2021: Monitor somatic complaints Supportive care 01/05/2021: Somatic issues Pain control Gout treatment 01/06/2021: Pain from injuries is out of proportion Continues to be a slow recovery 01/07/2021: Solu-Medrol injection in case gout is constantly but pain Appreciate Dr. Greenfield's evaluation (1) Episode of unresponsiveness Status: Acute (2) Thoracic spine fracture (3) Depression (4) Anxiety (5) Pacemaker (6) CAD (coronary artery disease) (7) Concussion Status: Acute (8) Victim of trampling from animal Status: Acute (9) Chest wall contusion Status: Acute (10) Hematoma of left lower extremity Status: Acute FRANK GARCIA DO Jan 07, 2021 21:14
[2021-01-08] MEDS: ENOXAPARIN 40 MG/0.4 ML (LOVENOX) SYR SC SCH (06:18)
[2021-01-08] MEDS: KCL 8 MEQ (MICRO K) TABLET PO SCH (06:18)
[2021-01-08 08:00] VITALS: BP 126/67
[2021-01-08] MEDS: ALPRAZolam 0.5 MG (XANAX) TAB PO SCH ×4 (08:11→20:28)
[2021-01-08] MEDS: VERAPAMIL SR 240 MG (CALAN SR) TAB PO SCH (08:11)
[2021-01-08] MEDS: COLCHICINE 0.6 MG (COLCRYS) TABLET PO PRN ×3 (08:11→20:28)
[2021-01-08] MEDS: ASPIRIN E.C. 81 MG (ECOTRIN) TAB PO SCH (08:11)
[2021-01-08] MEDS: SUCRALFATE 1 GM (CARAFATE) TAB PO SCH ×2 (08:11→20:28)
[2021-01-08] MEDS: PANTOPRAZOLE 40 MG (PROTONIX) TAB PO SCH (08:11)
[2021-01-08] MEDS: lisINopril 20 MG (PRINIVIL) TABLET PO SCH (08:11)
[2021-01-08] MEDS: LOPERAMIDE 2 MG (IMODIUM) TABLET PO PRN ×4 (08:11→20:28)
--- NOTE | 2021-01-08 08:11 | Cardiology Progress Note ---
Subjective Date Seen by Provider: Jan 08, 2021 Time Seen by Provider: 08:10 Subjective/Events-last exam Patient was seen at bedside, reporting improvement in his right foot, slight improvement on the left side. Review of Systems General: No Chills, No Night Sweats, No Fatigue, No Malaise, No Appetite, No Other HEENT: No Head Aches, No Visual Changes, No Eye Pain, No Ear Pain, No Dysphasia, No Sinus Congestion, No Post Nasal Drip, No Sore Throat, No Other Pulmonary: No Dyspnea, No Cough, No Pleuritic Chest Pain, No Other Cardiovascular: No: Chest Pain, Palpitations, Orthopnea, Paroxysmal Noc. Dyspnea, Edema, Lt Headedness, Other Objective-Cardiology Exam Last Set of Vital Signs Vital Signs 01/07/21 01/07/21 01/07/21 20:11 21:00 21:38 Temp 36.5 Pulse 76 Resp 18 B/P (MAP) 108/60 (76) Pulse Ox 95 O2 Delivery Room Air General: Alert, Oriented X3, Cooperative HEENT: Atraumatic, PERRLA Neck: Supple, No JVD, No Thyromegaly Lungs: Clear to Auscultation, Normal Air Movement Heart: Regular Rate, Normal S1, Normal S2, No Murmurs Abdomen: Normal Bowel Sounds, Soft Extremities: No Clubbing, No Cyanosis Skin: No Rashes, No Significant Lesion Neuro: Normal Speech, Cranial Nerves 3-12 NL A/P-Cardiology Admission Diagnosis Chest pain CAD Syncope Left leg crush injury Assessment/Plan Chest pain, improved, most probably musculoskeletal, troponin was negative, had elevated CPK and myoglobin secondary to injury. Continue to monitor Coronary artery disease, reported cardiac catheterization in 2018, patient recall having significant disease not amendable to intervention he was started on sublingual nitroglycerin for chest pain. No further episodes of chest pain were reported Syncope, probably vasovagal, no malignant arrhythmia was detected. Continue to monitor Sinus node dysfunction, history of dual-chamber pacemaker, interrogated today, appears to be functioning normally. Continue to follow-up as an outpatient Status post traumatic injury with rhabdomyolysis secondary to injury. Received IV fluid, managed by primary care team Left leg pain, bilateral foot pain, reporting improvement on the right side, still having swelling and pain on the left side but some improvement after Solu- Medrol injection. Managed by medical team. X-ray of the ankle reviewed. Acute renal insufficiency, improved, managed by primary care team MICHAEL RUVALCABA MD Jan 08, 2021 08:11
[2021-01-08] MEDS: polyethylene glycoL POWDER 17 GM (MIRALAX) PACK PO SCH ×2 (08:12→17:19)
--- NOTE | 2021-01-08 08:12 | Progress Note - Surgery ---
CASSIELUIS 01/08/21 0812: Subjective Date Seen by a Provider: Jan 08, 2021 Time Seen by a Provider: 07:46 Subjective/Events-last exam Pt resting comfortably in bed, and his demeanor was greatly improved, smiling and joking. PT reports walking "a whole lot" yesterday and today. Pt states that they felt more confident to "push through the pain, knowing that there he is not causing additional damage" Pt states the pain is much improved in both ankles, but still lacks sensation to touch on the dorsal leg, states he can feel a pulling sensation from the calf while walking. ROM in both ankles is greatly improved compared to yesterday. Left sided swelling remains unchanged and there is slight erythema around both ankles and left MTP joint. B/L ankle xray free of fractures Pt continues to use the IS at bedside. Review of Systems General: No Chills, No Night Sweats, No Fatigue, No Malaise, No Appetite HEENT: No Head Aches, No Visual Changes, No Eye Pain, No Ear Pain, No Dysphasia, No Sinus Congestion, No Post Nasal Drip, No Sore Throat Pulmonary: No Dyspnea, No Cough, No Pleuritic Chest Pain Cardiovascular: No: Chest Pain, Palpitations, Orthopnea, Paroxysmal Noc. Dyspnea, Edema, Lt Headedness Gastrointestinal: No: Nausea, Vomiting, Abdominal Pain, Diarrhea, Constipation, Melena, Hematochezia Genitourinary: No Dysuria, No Frequency, No Incontinence, No Hematuria, No Retention Musculoskeletal: leg pain, foot pain; No: neck pain, shoulder pain, arm pain, back pain, hand pain Neurological: Weakness, Numbness; No: Incoordination, Change in speech, Confusion Objective Exam Vital Signs Date Time Temp Pulse Resp B/P (MAP) Pulse Ox O2 Delivery O2 Flow Rate FiO2 01/07/21 21:38 36.5 01/07/21 21:00 Room Air 01/07/21 20:11 36.5 76 18 108/60 (76) 95 Room Air 01/07/21 09:00 Room Air Capillary Refill : General Appearance: No Apparent Distress, WD/WN, Obese HEENT: PERRL/EOMI, Pharynx Normal, Moist Mucous Membranes Neck: Full Range of Motion, Non Tender, Supple Respiratory: Chest Non Tender, Lungs Clear, Normal Breath Sounds, No Accessory Muscle Use Cardiovascular: Regular Rate, Rhythm, No Edema, No Gallop, Normal Peripheral Pulses Peripheral Pulses: 2+ Radial Pulses (R), 2+ Radial Pulses (L) Gastrointestinal: non tender, soft, no organomegaly Extremity: Calf Tenderness (Left leg), Pedal Edema (Left foot), Swelling (left lower extremity), Other (Reduced tenderness to touch B/L compared to yesterday) Neurologic/Psychiatric: Alert, Oriented x3, 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 Anemia Cellulitis - rule out abscess Plan: b/l ankle MRI to check for signs of RSD and hopefully they can look at muscles and ligaments as well. - monitor and continue PT TOBI GREENFIELD DO 01/08/21 1225: Subjective Time Seen by a Provider: 12:20 Subjective/Events-last exam Pt seen and examined, no new complaints and states he is doing more. Still has pain in calves and ankles, but is pushing through pain to walk more. Review of Systems General: No Chills, No Night Sweats Pulmonary: No Dyspnea, No Cough Cardiovascular: No: Chest Pain, Palpitations Gastrointestinal: No: Nausea, Vomiting Musculoskeletal: leg pain, foot pain Objective Exam General Appearance: No Apparent Distress, WD/WN Respiratory: Lungs Clear, Normal Breath Sounds, No Accessory Muscle Use Cardiovascular: Regular Rate, Rhythm, No Murmur Gastrointestinal: non tender, soft, no organomegaly Extremity: Calf Tenderness (Left leg), Pedal Edema (Left foot), Swelling (left lower extremity), Other (Reduced tenderness to touch B/L compared to yesterday) Neurologic/Psychiatric: Alert, Oriented x3 Skin: Other (healing hematoma in left leg, leg has soft yellow color) Assessment/Plan Assessment/Plan Assessment/Plan B/L ankle pain ??Gout vs possible reflex sympathetic dystrophy Trauma - due to being trampled by a cow Age-indeterminate compression deformity at the superior endplate of T3 with minimal height loss. Anemia Cellulitis - rule out abscess Plan: B/L ankle x-ray showed no abnormalities; still waiting on b/l ankle MRI to check for signs of RSD and hopefully they can look at muscles and ligaments as well. Pt encouraged to continue PT Supervisory-Addendum Brief Verification & Attestation Participated in pt care: history, MDM, physical Personally performed: exam, history, MDM, supervision of care Care discussed with: Medical Student Procedures: n/a Verification and Attestation of Medical Student E/M Service A medical student performed and documented this service. I then reviewed and verified all information documented by the medical student and made modifications to such information, when appropriate. I personally performed a physical exam, medical decision making and then discussed any differences between the notes and made revisions as necessary to create one note. Tobi Greenfield , 01/08/21 , 12:25 LUIS MATTHEWS Jan 08, 2021 08:12 TOBI GREENFIELD DO Jan 08, 2021 12:25
--- NOTE | 2021-01-08 09:54 | Physical Therapy Daily Note ---
PT Daily Note-Current Subjective Patient in bed pre tx, agrees to PT, has 7/10 pain, states he has already had pain meds. Appearance Patient sitting EOB post tx with nurse call, phone, tray, all needs met. Mental Status Patient Orientation: Person, Place, Situation TLSO Transfers SCALE: Activities may be completed with or without assistive devices. 8-Fsoqwdjbsh-tcouxkn completes the activity by him/herself with no assistance from a helper. 5-Set-up or Clean-up Assistance-helper sets up or cleans up; patient completes activity. [place] assists only prior to or following the activity. 4-Supervision or Touching Assistance-helper provides verbal cues and/or touching/steadying and/or contact guard assistance as patient completes activity. Assistance may be provided throughout the activity or intermittently. 3-Partial/Moderate Assistance-helper does LESS THAN HALF the effort. [place] lifts, holds or supports trunk or limbs, but provides less than half the effort. 2-Substantial/Maximal Assistance-helper does MORE THAN HALF the effort. [place] lifts or holds trunk or limbs and provides more than half the effort. 7-Qrufsfily-ieqbfc does ALL the effort. Patient does none of the effort to complete the activity. Or, the assistance of 2 or more helpers is required for the patient to complete the activity. If activity was not attempted, code reason: 7-Patient Refused. 9-Not Applicable-not attempted and the patient did not perform the activity before the current illness, exacerbation or injury. 10-Not Attempted due to Environmental Limitations-(lack of equipment, weather restraints, etc.). 88-Not Attempted due to Medical Conditions or Safety Concerns. Roll Left & Right (QC): 6 Sit to Lying (QC): 6 Lying to Sitting/Side of Bed(Q: 6 Sit to Stand (QC): 4 Chair/Smy-kq-Sfmpk Xfer(QC): 4 Weight Bearing Patient not on any weight bearing restrictions, however is unable to bear weight or stand due to reports of significant pain. Gait Training Distance: 10'x9 Walk 10 feet (QC): 4 Gait Persons Needed: 1 Gait Assistive Device: Parallel Bars Patient ambulated forward and back in the parallel bars about 10', 9 times, improved ankle ROM but still doesn't quite achieve neutral dorsiflexion Wheelchair Training Does the Pt Use a Wheelchair?: Yes Wheel 50 ft with 2 turns (QC): 6 Wheel 150 ft (QC): 6 300', 120' Exercises Seated Therapy Exercises: Ankle pumps Seated Reps: 20 LAQ alternating for 5 min NuStep Minutes: 15 NuStep Workload: 6 (Concentrated more on encouraging ankle ROM than strengthening) Treatments bed mobility and transfers, ambulation, WC mobility, ROM and strengthening Assessment Current Status: Fair Progress improved weight bearing on LE's PT Short Term Goals Short Term Goals Time Frame: Jan 07, 2021 Roll Left & Right: 6 Sit to lyin Lying to sitting on side of be: 5 Sit to stand: 4 Walk 10 feet: 4 Walk 50 feet with two turns: 4 Walk 150 feet: 4 PT Irrigation Foreman Goals Irrigation Foreman Goals PT Irrigation Foreman Goals Time Frame: Jan 21, 2021 Roll Left & Right (QC): 6 Sit to Lying (QC): 6 Lying-Sitting on Side/Bed(QC): 6 Sit to Stand (QC): 5 Chair/Eia-sk-Qhkqx Xfer(QC): 5 Toilet Transfer (QC): 5 Car Transfer (QC): 5 Does the Patient Walk: Yes Walk 10 feet (QC): 5 Walk 50ft with 2 Turns (QC): 5 Walk 150 ft (QC): 5 Walking 10ft on Uneven Surface: 4 1 Step (curb) (QC): 4 4 Steps (QC): 4 12 Steps (QC): 88 Picking up an Object (QC): 88 Wheel 50 feet with 2 turns (QC: 6 Wheel 150 feet: 6 PT Plan Problem List Problem List: Activity Tolerance, Functional Strength, Safety, Balance, Gait, Transfer, Bed Mobility, ROM Treatment/Plan Treatment Plan: Continue Plan of Care Treatment Plan: Bed Mobility, Education, Functional Activity Radha, Functional Strength, Group Therapy, Gait, Safety, Therapeutic Exercise, Transfers Treatment Duration: Jan 21, 2021 Frequency: At least 5 of 7 days/Wk (IRF) Estimated Hrs Per Day: 1.5 hours per day Patient and/or Family Agrees t: Yes Safety Risks/Education Patient Education: Gait Training, Transfer Techniques, Reviewed Precautions, Correct Positioning, W/C Management, Reviewed Don/Doff Brace, Safety Issues Teaching Recipient: Patient Teaching Methods: Demonstration, Discussion Response to Teaching: Reinforcement Needed Time/GCodes Time In: 0800 Time Out: 0900 Total Billed Treatment Time: 60 Total Billed Treatment 1 visit EX 30' FA 30' KULDEEP ZELAYA PT Jan 08, 2021 09:53
--- NOTE | 2021-01-08 10:43 | PM&R Progress Note ---
Subjective HPI/CC On Admission Date Seen by Provider: Jan 08, 2021 Time Seen by Provider: 10:45 Subjective/Events-last exam 01/08/2021: Pt doing remarkably well Injection really helped him so it leads me to believe that some form of this pain is from Gout Will give an other injection a day of 125 mg Imaging scans ordered by Dr. Greenfield Moving around a lot better today 01/07/2021: Patient still having difficulties walking because of foot pain Diarrhea is still continuing Pain issues seem to be the main problem Received Solu-Medrol injection in case this is gout he was having some pain with the injection which is unusual since that is not a painful injection Appears to be hypersensitive to pain Very slow recovery Uses wheelchair most of the time Spoke with Dr. Greenfield due to 's concerns and he will evaluate and order any type of imaging he feels is necessary 01/06/2021: Pt doing better but still cant ambulate Skipping meals Slide board used Diarrhea two days in a row so we are holding laxatives Imodium given 01/05/2021: Venous Doppler ordered but Lovenox has been on board No DVT noted on prelim Multiple somatic issues Gout treatment continues Flat affect 01/04/2021: Patient having a slow recovery at the bedside Has a different complaint every day Finishing up on antibiotics Transferring via sideboard Having some loose stools 01/03/2021: Patient doing well Bilateral foot pain Has a history of gout so we will restart his home medications and add colchicine 1 dose Gram-negative reshma in blood culture patient remains on Omnicef and Zyvox Loose bowels moving Flat affect improved a bit 01/02/2021: Pt doing really well Complains about the left leg pain Changing IV antibiotics to PO [place] affect continues but that is chronic 01/01/2021: Pt doing pretty well Having burning of his leg IV antibiotics maintained for the left wrist IV site cellulitis Bowels moving well Pain is well controlled Check meds and labs Review of Systems General: Fatigue, Malaise Musculoskeletal: arm pain, back pain, leg pain, foot pain Objective Exam Vital Signs Vital Signs Date Time Temp Pulse Resp B/P (MAP) Pulse Ox O2 Delivery O2 Flow Rate FiO2 01/08/21 20:27 36.8 01/08/21 09:00 Room Air 01/08/21 08:00 80 18 126/67 (86) 96 Capillary Refill : General Appearance: No Apparent Distress, WD/WN, Obese HEENT: PERRL/EOMI, Pharynx Normal, Moist Mucous Membranes Neck: Full Range of Motion, Non Tender, Supple Respiratory: Chest Non Tender, Lungs Clear, Normal Breath Sounds, No Accessory Muscle Use Cardiovascular: Regular Rate, Rhythm, No Edema, No Gallop, Normal Peripheral Pulses Gastrointestinal: Normal Bowel Sounds, No Organomegaly, No Pulsatile Mass, Non Tender, Soft Back: Normal Inspection, No CVA Tenderness, Decreased Range of Motion Extremity: Calf Tenderness (Left leg), Pedal Edema (Left foot), Swelling (left lower extremity), Other (Reduced tenderness to touch B/L compared to yesterday) Neurologic/Psychiatric: Alert, Oriented x3, butadiene converter helper II-XII Norm as Tested Skin: Other (healing hematoma in left leg, leg has soft yellow color) Results/Procedures Lab Patient resulted labs reviewed. FIM Transfers Therapy Code Descriptions/Definitions Functional [place] Measure: 0=Not Assessed/NA 4=Minimal Assistance 1=Total Assistance 5=Supervision or Setup 2=Maximal Assistance 6=Modified [place] 3=Moderate Assistance 7=Complete IndependenceSCALE: Activities may be completed with or without assistive devices. 4-Fvjrlyqlit-vwuurma completes the activity by him/herself with no assistance from a helper. 5-Set-up or Clean-up Assistance-helper sets up or cleans up; patient completes activity. [place] assists only prior to or following the activity. 4-Supervision or Touching Assistance-helper provides verbal cues and/or touching/steadying and/or contact guard assistance as patient completes activity. Assistance may be provided throughout the activity or intermittently. 3-Partial/Moderate Assistance-helper does LESS THAN HALF the effort. [place] lifts, holds or supports trunk or limbs, but provides less than half the effort. 2-Substantial/Maximal Assistance-helper does MORE THAN HALF the effort. [place] lifts or holds trunk or limbs and provides more than half the effort. 8-Qygxypcfq-vavlph does ALL the effort. Patient does none of the effort to complete the activity. Or, the assistance of 2 or more helpers is required for the patient to complete the activity. If activity was not attempted, code reason: 7-Patient Refused. 9-Not Applicable-not attempted and the patient did not perform the activity before the current illness, exacerbation or injury. 10-Not Attempted due to Environmental Limitations-(lack of equipment, weather restraints, etc.). 88-Not Attempted due to Medical Conditions or Safety Concerns. Roll Left to Right (QC): 6 Sit to Lying (QC): 6 Sit to Stand (QC): 4 Chair/Cwt-yt-Jtsdz Xfer(QC): 4 Car Transfer (QC): 4 Gait Training Does the Patient Walk?: No and Walking Goal IS indicated Distance: 10'x9 Walk 10 feet (QC): 4 Walk 50 ft with 2 Turns(QC): 4 Walk 150 ft (QC): 88 Walking 10ft/uneven surface-QC: 88 Gait Persons Needed: 1 Gait Assistive Device: Parallel Bars Wheelchair Training Does the Pt Use a Wheelchair?: Yes Distance: 150'x2 Wheel 50 ft with 2 turns (QC): 6 Wheel 150 ft (QC): 6 Type of Wheelchair: Manual Stair Training 1 Step (curb) (QC): 88 4 Steps (QC): 88 12 Steps (QC): 88 Balance Picking up an Object (QC): 88 ADL-Treatment Eating (QC): 6 Oral Hygiene (QC): 6 (From wheelchair level.) Shower/Bathe Self (QC): 5 (Set up in shower.) Upper Body Dressing (QC): 3 (Mod assist with TLSO.) Lower Body Dressing (QC): 3 (Mod assist to don pants with AE due to dampness after shower. Min assist to don underwear. Pt. able to pull self into half stance in shower to tie puller hips.) On/Off Footwear (QC): 4 (SBA to doff/don slipper socks with AE. Pt. attempts to don Croc sandals but has too much swelling.) Toileting Hygiene (QC): 5 Toilet Transfer (QC): 4 Assessment/Plan Assessment and Plan Assess & Plan/Chief Complaint Assessment: S/P Trauma with injuries from cow- blunt injury and crush injury sustained -general surgery following -continue frequent reassessments of left lower extremity -awaiting placement of clam brace- should happen today -2 view left foot x ray negative for acute pathology -Ankle x-rays and possible MRIs will be ordered by Dr. Greenfield Concussion with LOC -continue to monitor neurologic status Rhabdomyolysis -CK decreased to 1049 today from 1224 yesterday now normal -SL'd -encourage increased po intake of fluids -continue to trend for now Acute kidney injury-resolved -Creatinine stable at 1.29 today Anemia -Hgb stable at 11.1 today -surgery holding lovenox due to anemia -continue to trend Chest pain with history of angina -cardiology following -continue to monitor -PRN SL nitro Hypertension -continue to monitor Hyperlipidemia -continue to monitor Sinus node dysfunction pacemaker in place -cardiology following -pacemaker interrogated and functioning appropriately Pain control -continue prn's PT OT -doing frequent therapy per patient report -plan to transfer to inpatient rehab unit pending workers comp approval Cellulitis at site of previous IV site with fever -Begin IV antibiotics status post pancultured Gout Somatization Hypersensitivity to pain Plan: Aggressive therapy Pain control IV antibiotics Supportive care 01/01/2021: Supportive care Hep-Lock IV fluid tack coverer antibiotics tomorrow 01/02/2021: Supportive care Pain control Change IV antibiotics to p.o. 01/03/2021: Gout treatment Supportive care Antibiotics 01/04/2021: Monitor somatic complaints Supportive care 01/05/2021: Somatic issues Pain control Gout treatment 01/06/2021: Pain from injuries is out of proportion Continues to be a slow recovery 01/07/2021: Solu-Medrol injection in case gout is constantly but pain Appreciate Dr. Greenfield's evaluation 01/08/2021: Pain is much better today Additional Solu-Medrol to finish out any gout pain (1) Episode of unresponsiveness Status: Acute (2) Thoracic spine fracture (3) Depression (4) Anxiety (5) Pacemaker (6) CAD (coronary artery disease) (7) Concussion Status: Acute (8) Victim of trampling from animal Status: Acute (9) Chest wall contusion Status: Acute (10) Hematoma of left lower extremity Status: Acute FRANK GARCIA DO Jan 08, 2021 10:43
[2021-01-08] MEDS ORDERED: methylPREDNISolone 125 MG (Solu-MEDROL) VIAL IM ONE (10:45)
--- NOTE | 2021-01-08 13:36 | Occupational Ther Daily Note ---
OT Current Status-Daily Note Subjective Pt. reports that he is feeling better this date. Mental Status/Objective Patient Orientation: Person, Place, Time, Situation ADL-Treatment Therapy Code Descriptions/Definitions Functional [place] Measure: 0=Not Assessed/NA 4=Minimal Assistance 1=Total Assistance 5=Supervision or Setup 2=Maximal Assistance 6=Modified [place] 3=Moderate Assistance 7=Complete IndependenceSCALE: Activities may be completed with or without assistive devices. 0-Mlywxrwnrx-shgscdu completes the activity by him/herself with no assistance from a helper. 5-Set-up or Clean-up Assistance-helper sets up or cleans up; patient completes activity. [place] assists only prior to or following the activity. 4-Supervision or Touching Assistance-helper provides verbal cues and/or touching/steadying and/or contact guard assistance as patient completes activity. Assistance may be provided throughout the activity or intermittently. 3-Partial/Moderate Assistance-helper does LESS THAN HALF the effort. [place] lifts, holds or supports trunk or limbs, but provides less than half the effort. 2-Substantial/Maximal Assistance-helper does MORE THAN HALF the effort. [place] lifts or holds trunk or limbs and provides more than half the effort. 3-Gounnxlfo-djwtrh does ALL the effort. Patient does none of the effort to complete the activity. Or, the assistance of 2 or more helpers is required for the patient to complete the activity. If activity was not attempted, code reason: 7-Patient Refused. 9-Not Applicable-not attempted and the patient did not perform the activity befo re the current illness, exacerbation or injury. 10-Not Attempted due to Environmental Limitations-(lack of equipment, weather re straints, etc.). 88-Not Attempted due to Medical Conditions or Safety Concerns. Shower/Bathe Self (QC): 5 Upper Body Dressing (QC): 5 Lower Body Dressing (QC): 4 (With AE) On/Off Footwear: 3 (Min assist with AE due to feet being damp after shower.) Other Treatment Pt. up in wheelchair. Agrees to shower. Transferred to shower bench from wheelchair with CGA. Pt. able to shower with set up, and dress with min assist for Slipper socks only with sock aide. Utilized dressing stick for pants. Transferred back to wheelchair and donned TLSO with min assist. Pt. self propelled to therapy kitchen area. Demonstrated ability to stand at sink with SBA and make cup of water. Pt. and OT talked about kitchen safety at home. Pt. states that his will food prep for him and leave items in fridge. He will likely be using walker. Once pt. is up ambulating on walker, this task will be addressed by OT again. Pt. feeling better today and able to stand more in shower with grab bars. All needs met back in room. Transferred to bed with SBA. Education OT Patient Education: Correct positioning, Exercise program, Modified ADL techn iques, Progress toward Goal/Update tx plan, Purpose of tx/functional activities, Reviewed precautions, Rehab process, Transfer techniques Teaching Recipient: Patient Teaching Methods: Demonstration, Discussion Response to Teaching: Verbalize Understanding, Return Demonstration OT Short Term Goals Short Term Goals Time Frame: Jan 07, 2021 Lower body dressin Putting on/taking off footwear: 4 OT Party [employer]anner Goals Half-Way Goals Time Frame: Jan 16, 2021 Eating (QC): 6 Oral Hygiene (QC): 6 Toileting Hygiene (QC): 6 Shower/Bathe Self (QC): 6 Upper Body Dressing (QC): 6 Lower Body Dressing (QC): 6 On/Off Footwear (QC): 6 Additional Goals: 1-Demonstrate ADL Tasks, 2-Verbalize Understanding, 3- ImproveStrength/Radha 1=Demonstrate adherence to instructed precautions during ADL tasks. 2=Patient will verbalize/demonstrate understanding of assistive devices/modifications for ADL. 3=Patient will improve strength/tolerance for activity to enable patient to perform ADL's. OT Education/Plan Problem List/Assessment Assessment: Decreased Activ Tolerance, Impaired I ADL's, Impaired Self-Care Skills Discharge Recommendations Plan/Recommendations: Continue POC Treatment Plan/Plan of Care Treatment,Training & Education: Yes Patient would benefit from OT for education, treatment and training to promote independence in ADL's, mobility, safety and/or upper extremity function for ADL's. Plan of Care: ADL Retraining, Functional Mobility, Group Exercise/Act as Ind, UE Funct Exercise/Act Treatment Duration: Jan 16, 2021 Frequency: At least 5 of 7 days/Wk (IRF) Estimated Hrs Per Day: 1.5 hours per day Agreement: Yes Rehab Potential: Good Time/GCodes Start Time: 11:00 Stop Time: 12:00 Total Time Billed (hr/min): 60 Billed Treatment Time 1, ADL x 4 SRINIVAS MINA OT Jan 08, 2021 13:36
--- NOTE | 2021-01-08 14:28 | Physical Therapy Daily Note ---
PT Daily Note-Current Subjective Patient in WC at bedside pre tx, agrees to PT, has unrated bilateral ankle pain. Appearance Patient in bed post tx with nurse call,phone, tray, all needs met. Mental Status Patient Orientation: Person, Place, Situation TLSO Transfers SCALE: Activities may be completed with or without assistive devices. 6-Ffhzigjepy-rkipece completes the activity by him/herself with no assistance from a helper. 5-Set-up or Clean-up Assistance-helper sets up or cleans up; patient completes activity. [place] assists only prior to or following the activity. 4-Supervision or Touching Assistance-helper provides verbal cues and/or touching/steadying and/or contact guard assistance as patient completes activity. Assistance may be provided throughout the activity or intermittently. 3-Partial/Moderate Assistance-helper does LESS THAN HALF the effort. [place] lifts, holds or supports trunk or limbs, but provides less than half the effort. 2-Substantial/Maximal Assistance-helper does MORE THAN HALF the effort. [place] lifts or holds trunk or limbs and provides more than half the effort. 9-Vuhoktvrb-hwczen does ALL the effort. Patient does none of the effort to complete the activity. Or, the assistance of 2 or more helpers is required for the patient to complete the activity. If activity was not attempted, code reason: 7-Patient Refused. 9-Not Applicable-not attempted and the patient did not perform the activity before the current illness, exacerbation or injury. 10-Not Attempted due to Environmental Limitations-(lack of equipment, weather restraints, etc.). 88-Not Attempted due to Medical Conditions or Safety Concerns. Roll Left & Right (QC): 6 Sit to Lying (QC): 6 Sit to Stand (QC): 4 Chair/Znw-rf-Lhvjk Xfer(QC): 4 CGA for sit to stand and transfers now, able to bear more weight on legs Weight Bearing Patient not on any weight bearing restrictions, however is unable to bear weight or stand due to reports of significant pain. Gait Training Distance: 20', 40', 60' Walk 10 feet (QC): 4 Walk 50 ft with 2 Turns(QC): 4 Gait Persons Needed: 1 Gait Assistive Device: FWW WC follow, CGA, less pain with ambulation, step-to gait with left side leading but actually not as much as when he was ambulating before his increased pain Wheelchair Training Does the Pt Use a Wheelchair?: Yes Wheel 50 ft with 2 turns (QC): 6 Type of Wheelchair: Manual 120'x2 Treatments ambulation Assessment Current Status: Fair Progress patient has started ambulating again PT Short Term Goals Short Term Goals Time Frame: Jan 07, 2021 Roll Left & Right: 6 Sit to lyin Lying to sitting on side of be: 5 Sit to stand: 4 Walk 10 feet: 4 Walk 50 feet with two turns: 4 Walk 150 feet: 4 PT [employer] Goals Snf Goals PT Snf Goals Time Frame: Jan 21, 2021 Roll Left & Right (QC): 6 Sit to Lying (QC): 6 Lying-Sitting on Side/Bed(QC): 6 Sit to Stand (QC): 5 Chair/Ylw-eh-Kjask Xfer(QC): 5 Toilet Transfer (QC): 5 Car Transfer (QC): 5 Does the Patient Walk: Yes Walk 10 feet (QC): 5 Walk 50ft with 2 Turns (QC): 5 Walk 150 ft (QC): 5 Walking 10ft on Uneven Surface: 4 1 Step (curb) (QC): 4 4 Steps (QC): 4 12 Steps (QC): 88 Picking up an Object (QC): 88 Wheel 50 feet with 2 turns (QC: 6 Wheel 150 feet: 6 PT Plan Problem List Problem List: Activity Tolerance, Functional Strength, Safety, Balance, Gait, Transfer, Bed Mobility, ROM Treatment/Plan Treatment Plan: Continue Plan of Care Treatment Plan: Bed Mobility, Education, Functional Activity Radha, Functional Strength, Group Therapy, Gait, Safety, Therapeutic Exercise, Transfers Treatment Duration: Jan 21, 2021 Frequency: At least 5 of 7 days/Wk (IRF) Estimated Hrs Per Day: 1.5 hours per day Patient and/or Family Agrees t: Yes Safety Risks/Education Patient Education: Gait Training, Transfer Techniques, Correct Positioning, Safety Issues Teaching Recipient: Patient Teaching Methods: Demonstration, Discussion Response to Teaching: Reinforcement Needed Time/GCodes Time In: 1400 Time Out: 1430 Total Billed Treatment Time: 30 Total Billed Treatment 1 visit GT 30' KULDEEP ZELAYA PT Jan 08, 2021 14:28
--- NOTE | 2021-01-08 14:50 | Occupational Ther Daily Note ---
OT Current Status-Daily Note Subjective No pain reported. Mental Status/Objective Patient Orientation: Person, Place, Time, Situation ADL-Treatment Therapy Code Descriptions/Definitions Functional [place] Measure: 0=Not Assessed/NA 4=Minimal Assistance 1=Total Assistance 5=Supervision or Setup 2=Maximal Assistance 6=Modified [place] 3=Moderate Assistance 7=Complete IndependenceSCALE: Activities may be completed with or without assistive devices. 3-Zdzojuxgxs-jkxgsjr completes the activity by him/herself with no assistance from a helper. 5-Set-up or Clean-up Assistance-helper sets up or cleans up; patient completes activity. [place] assists only prior to or following the activity. 4-Supervision or Touching Assistance-helper provides verbal cues and/or touching/steadying and/or contact guard assistance as patient completes activity. Assistance may be provided throughout the activity or intermittently. 3-Partial/Moderate Assistance-helper does LESS THAN HALF the effort. [place] lifts, holds or supports trunk or limbs, but provides less than half the effort. 2-Substantial/Maximal Assistance-helper does MORE THAN HALF the effort. [place] lifts or holds trunk or limbs and provides more than half the effort. 5-Dddvwxkko-pkpixf does ALL the effort. Patient does none of the effort to complete the activity. Or, the assistance of 2 or more helpers is required for the patient to complete the activity. If activity was not attempted, code reason: 7-Patient Refused. 9-Not Applicable-not attempted and the patient did not perform the activity before the current illness, exacerbation or injury. 10-Not Attempted due to Environmental Limitations-(lack of equipment, weather restraints, etc.). 88-Not Attempted due to Medical Conditions or Safety Concerns. Upper Body Dressing (QC): 3 (Min assist to don/doff TLSO brace.) Other Treatment Pt. had just returned from MRI. Pt. in their wheelchair, and transferred to bed with CGA by standing and pivoting self. OT brought wheelchair up and pt. transferred again to it with stand pivot transfer. Pt. self propelled to therapy gym. Completed 10 minutes on arm bike at min resistance for UE strength/endurance training. Tolerated well. Pt. then self propelled independently, approximately 300 feet, around therapy area. Went back to room and transferred back to bed. All needs met. Education OT Patient Education: Correct positioning, Modified ADL techniques, Progress toward Goal/Update tx plan, Purpose of tx/functional activities, Reviewed precautions, Rehab process, Transfer techniques Teaching Recipient: Patient Teaching Methods: Demonstration, Discussion Response to Teaching: Verbalize Understanding, Return Demonstration OT Short Term Goals Short Term Goals Time Frame: Jan 07, 2021 Lower body dressin Putting on/taking off footwear: 4 OT [facility] Goals [facility] Goals Time Frame: Jan 16, 2021 Eating (QC): 6 Oral Hygiene (QC): 6 Toileting Hygiene (QC): 6 Shower/Bathe Self (QC): 6 Upper Body Dressing (QC): 6 Lower Body Dressing (QC): 6 On/Off Footwear (QC): 6 Additional Goals: 1-Demonstrate ADL Tasks, 2-Verbalize Understanding, 3- ImproveStrength/Radha 1=Demonstrate adherence to instructed precautions during ADL tasks. 2=Patient will verbalize/demonstrate understanding of assistive devices/modifications for ADL. 3=Patient will improve strength/tolerance for activity to enable patient to perform ADL's. OT Education/Plan Problem List/Assessment Assessment: Decreased Activ Tolerance, Impaired I ADL's, Impaired Self-Care Skills Discharge Recommendations Plan/Recommendations: Continue POC Therapy Discharge Recommendati: Home & Family, Post Acute OT Equpiment Recommendations-D/C: Hip Kit Treatment Plan/Plan of Care Treatment,Training & Education: Yes Patient would benefit from OT for education, treatment and training to promote independence in ADL's, mobility, safety and/or upper extremity function for ADL's. Plan of Care: ADL Retraining, Functional Mobility, Group Exercise/Act as Ind, UE Funct Exercise/Act Treatment Duration: Jan 16, 2021 Frequency: At least 5 of 7 days/Wk (IRF) Estimated Hrs Per Day: 1.5 hours per day Agreement: Yes Rehab Potential: Good Time/GCodes Start Time: 13:00 Stop Time: 13:30 Total Time Billed (hr/min): 30 Billed Treatment Time 1, FA x 15minutes, Ex x 15minutes SRINIVAS MINA OT Jan 08, 2021 14:50
[2021-01-08 20:00] VITALS: BP 159/75
[2021-01-08] MEDS: OLANZapine 5 MG (ZyPREXA) TAB PO SCH (20:27)
[2021-01-08] MEDS: ACETAMINOPHEN 325 MG TABLET PO PRN (20:27)
--- NOTE | 2021-01-09 05:45 | PM&R Progress Note ---
Subjective HPI/CC On Admission Date Seen by Provider: Jan 09, 2021 Time Seen by Provider: 06:00 Subjective/Events-last exam 01/09/2021: Patient much better X-rays normal of the feet and ankles 2 steroid injections of really help the gout pain Elevated white count noted from steroid effect 01/08/2021: Pt doing remarkably well Injection really helped him so it leads me to believe that some form of this pain is from Gout Will give an other injection a day of 125 mg Imaging scans ordered by Dr. Greenfield Moving around a lot better today 01/07/2021: Patient still having difficulties walking because of foot pain Diarrhea is still continuing Pain issues seem to be the main problem Received Solu-Medrol injection in case this is gout he was having some pain with the injection which is unusual since that is not a painful injection Appears to be hypersensitive to pain Very slow recovery Uses wheelchair most of the time Spoke with Dr. Greenfield due to 's concerns and he will evaluate and order any type of imaging he feels is necessary 01/06/2021: Pt doing better but still cant ambulate Skipping meals Slide board used Diarrhea two days in a row so we are holding laxatives Imodium given 01/05/2021: Venous Doppler ordered but Lovenox has been on board No DVT noted on prelim Multiple somatic issues Gout treatment continues Flat affect 01/04/2021: Patient having a slow recovery at the bedside Has a different complaint every day Finishing up on antibiotics Transferring via sideboard Having some loose stools 01/03/2021: Patient doing well Bilateral foot pain Has a history of gout so we will restart his home medications and add colchicine 1 dose Gram-negative reshma in blood culture patient remains on Omnicef and Zyvox Loose bowels moving Flat affect improved a bit 01/02/2021: Pt doing really well Complains about the left leg pain Changing IV antibiotics to PO Flat affect continues but that is chronic 01/01/2021: Pt doing pretty well Having burning of his leg IV antibiotics maintained for the left wrist IV site cellulitis Bowels moving well Pain is well controlled Check meds and labs Review of Systems General: Fatigue, Malaise Musculoskeletal: neck pain, shoulder pain, arm pain, back pain, hand pain, leg pain, foot pain Objective Exam Vital Signs Vital Signs Date Time Temp Pulse Resp B/P (MAP) Pulse Ox O2 Delivery O2 Flow Rate FiO2 8/20/21 09:05 Room Air 01/09/21 07:36 36.6 72 20 145/77 (99) 94 Capillary Refill : General Appearance: No Apparent Distress, WD/WN, Obese HEENT: PERRL/EOMI, Pharynx Normal, Moist Mucous Membranes Neck: Full Range of Motion, Non Tender, Supple Respiratory: Chest Non Tender, Lungs Clear, Normal Breath Sounds, No Accessory Muscle Use Cardiovascular: Regular Rate, Rhythm, No Edema, No Gallop, Normal Peripheral Pulses Gastrointestinal: Normal Bowel Sounds, No Organomegaly, No Pulsatile Mass, Non Tender, Soft Back: Normal Inspection, No CVA Tenderness, Decreased Range of Motion Extremity: Calf Tenderness (Left leg), Pedal Edema (Left foot), Swelling (left lower extremity), Other (Reduced tenderness to touch B/L compared to yesterday) Neurologic/Psychiatric: Alert, Oriented x3, frame changer II-XII Norm as Tested Skin: Other (healing hematoma in left leg, leg has soft yellow color) Results/Procedures Lab Laboratory Tests 01/09/21 05:20 Patient resulted labs reviewed. FIM Transfers Therapy Code Descriptions/Definitions Functional [place] Measure: 0=Not Assessed/NA 4=Minimal Assistance 1=Total Assistance 5=Supervision or Setup 2=Maximal Assistance 6=Modified [place] 3=Moderate Assistance 7=Complete IndependenceSCALE: Activities may be completed with or without assistive devices. 6-Knueounspl-wduzlnd completes the activity by him/herself with no assistance from a helper. 5-Set-up or Clean-up Assistance-helper sets up or cleans up; patient completes activity. [place] assists only prior to or following the activity. 4-Supervision or Touching Assistance-helper provides verbal cues and/or touching/steadying and/or contact guard assistance as patient completes activity. Assistance may be provided throughout the activity or intermittently. 3-Partial/Moderate Assistance-helper does LESS THAN HALF the effort. [place] lifts, holds or supports trunk or limbs, but provides less than half the effort. 2-Substantial/Maximal Assistance-helper does MORE THAN HALF the effort. [place] lifts or holds trunk or limbs and provides more than half the effort. 6-Jxbufmgxx-opqdiz does ALL the effort. Patient does none of the effort to complete the activity. Or, the assistance of 2 or more helpers is required for the patient to complete the activity. If activity was not attempted, code reason: 7-Patient Refused. 9-Not Applicable-not attempted and the patient did not perform the activity before the current illness, exacerbation or injury. 10-Not Attempted due to Environmental Limitations-(lack of equipment, weather restraints, etc.). 88-Not Attempted due to Medical Conditions or Safety Concerns. Roll Left to Right (QC): 6 Sit to Lying (QC): 6 Sit to Stand (QC): 4 Chair/Xkf-rl-Tbdxf Xfer(QC): 4 Car Transfer (QC): 4 Gait Training Does the Patient Walk?: No and Walking Goal IS indicated Distance: 20', 40', 60' Walk 10 feet (QC): 4 Walk 50 ft with 2 Turns(QC): 4 Walk 150 ft (QC): 88 Walking 10ft/uneven surface-QC: 88 Gait Persons Needed: 1 Gait Assistive Device: FWW Wheelchair Training Does the Pt Use a Wheelchair?: Yes Distance: 150'x2 Wheel 50 ft with 2 turns (QC): 6 Wheel 150 ft (QC): 6 Type of Wheelchair: Manual Stair Training 1 Step (curb) (QC): 88 4 Steps (QC): 88 12 Steps (QC): 88 Balance Picking up an Object (QC): 88 ADL-Treatment Eating (QC): 6 Oral Hygiene (QC): 6 (From wheelchair level.) Shower/Bathe Self (QC): 5 Upper Body Dressing (QC): 3 (Min assist to don/doff TLSO brace.) Lower Body Dressing (QC): 4 (With AE) On/Off Footwear (QC): 3 (Min assist with AE due to feet being damp after shower.) Toileting Hygiene (QC): 5 Toilet Transfer (QC): 4 Assessment/Plan Assessment and Plan Assess & Plan/Chief Complaint Assessment: S/P Trauma with injuries from cow- blunt injury and crush injury sustained -general surgery following -continue frequent reassessments of left lower extremity -awaiting placement of clam brace- should happen today -2 view left foot x ray negative for acute pathology -Ankle x-rays and possible MRIs will be ordered by Dr. Greenfield Concussion with LOC -continue to monitor neurologic status Rhabdomyolysis -CK decreased to 1049 today from 1224 yesterday now normal -SL'd -encourage increased po intake of fluids -continue to trend for now Acute kidney injury-resolved -Creatinine stable at 1.29 today Anemia -Hgb stable at 11.1 today -surgery holding lovenox due to anemia -continue to trend Chest pain with history of angina -cardiology following -continue to monitor -PRN SL nitro Hypertension -continue to monitor Hyperlipidemia -continue to monitor Sinus node dysfunction pacemaker in place -cardiology following -pacemaker interrogated and functioning appropriately Pain control -continue prn's PT OT -doing frequent therapy per patient report -plan to transfer to inpatient rehab unit pending workers comp approval Cellulitis at site of previous IV site with fever -Begin IV antibiotics status post pancultured Gout Somatization Hypersensitivity to pain Plan: Aggressive therapy Pain control IV antibiotics Supportive care 01/01/2021: Supportive care Hep-Lock IV fluid resource recovery engineer antibiotics tomorrow 01/02/2021: Supportive care Pain control Change IV antibiotics to p.o. 01/03/2021: Gout treatment Supportive care Antibiotics 01/04/2021: Monitor somatic complaints Supportive care 01/05/2021: Somatic issues Pain control Gout treatment 01/06/2021: Pain from injuries is out of proportion Continues to be a slow recovery 01/07/2021: Solu-Medrol injection in case gout is constantly but pain Appreciate Dr. Greenfield's evaluation 01/08/2021: Pain is much better today Additional Solu-Medrol to finish out any gout pain 01/09/2021: Gout treatment Monitor closely (1) Episode of unresponsiveness Status: Acute (2) Thoracic spine fracture (3) Depression (4) Anxiety (5) Pacemaker (6) CAD (coronary artery disease) (7) Concussion Status: Acute (8) Victim of trampling from animal Status: Acute (9) Chest wall contusion Status: Acute (10) Hematoma of left lower extremity Status: Acute FRNAK GARCIA DO Jan 09, 2021 05:45
[2021-01-09 05:56] LABS: HEMATOCRIT 29 % (40-54); HEMOGLOBIN 9.6 g/dL (13.3-17.7); MEAN CORPUSCULAR HEMOGLOBIN 30 pg (25-34); MEAN CORPUSCULAR HGB CONC 33 g/dL (32-36); MEAN CORPUSCULAR VOLUME 91 fL (80-99); PLATELET COUNT 421 10^3/uL (130-400); WHITE BLOOD COUNT 13.2 10^3/uL (4.3-11.0)
[2021-01-09] MEDS: ENOXAPARIN 40 MG/0.4 ML (LOVENOX) SYR SC SCH (06:10)
[2021-01-09] MEDS: KCL 8 MEQ (MICRO K) TABLET PO SCH (06:11)
[2021-01-09 06:12] LABS: ALBUMIN 3.3 GM/DL (3.2-4.5); POTASSIUM 4.3 MMOL/L (3.6-5.0)
[2021-01-09 06:13] LABS: CALCIUM 9.1 MG/DL (8.5-10.1)
[2021-01-09 06:15] LABS: TOTAL PROTEIN 6.6 GM/DL (6.4-8.2)
[2021-01-09 06:16] LABS: BILIRUBIN,TOTAL 0.6 MG/DL (0.1-1.0)
[2021-01-09 06:18] LABS: CREATININE SERUM 1.06 MG/DL (0.60-1.30)
[2021-01-09 06:20] LABS: BILIRUBIN,DIRECT 0.3 MG/DL (0.0-0.3); BILIRUBIN,INDIRECT 0.3 MG/DL
[2021-01-09 07:36] VITALS: BP 145/77
[2021-01-09] MEDS: polyethylene glycoL POWDER 17 GM (MIRALAX) PACK PO SCH ×2 (08:04→21:40)
[2021-01-09] MEDS: SUCRALFATE 1 GM (CARAFATE) TAB PO SCH ×2 (08:07→21:44)
[2021-01-09] MEDS: COLCHICINE 0.6 MG (COLCRYS) TABLET PO PRN ×2 (08:07→17:43)
[2021-01-09] MEDS: ALPRAZolam 0.5 MG (XANAX) TAB PO SCH ×4 (08:07→21:44)
[2021-01-09] MEDS: LOPERAMIDE 2 MG (IMODIUM) TABLET PO PRN ×2 (08:07→17:18)
[2021-01-09] MEDS: VERAPAMIL SR 240 MG (CALAN SR) TAB PO SCH (08:07)
[2021-01-09] MEDS: PANTOPRAZOLE 40 MG (PROTONIX) TAB PO SCH (08:07)
[2021-01-09] MEDS: ASPIRIN E.C. 81 MG (ECOTRIN) TAB PO SCH (08:07)
[2021-01-09] MEDS: lisINopril 20 MG (PRINIVIL) TABLET PO SCH (08:08)
--- NOTE | 2021-01-09 08:30 | Occupational Ther Daily Note ---
OT Current Status-Daily Note Subjective No pain reported. Appearance Pt. sitting on EOB when OT entered room. Agrees to work with OT. Mental Status/Objective Patient Orientation: Person, Place, Time, Situation ADL-Treatment Therapy Code Descriptions/Definitions Functional [place] Measure: 0=Not Assessed/NA 4=Minimal Assistance 1=Total Assistance 5=Supervision or Setup 2=Maximal Assistance 6=Modified [place] 3=Moderate Assistance 7=Complete IndependenceSCALE: Activities may be completed with or without assistive devices. 5-Cbcxlvjaxp-cakzsew completes the activity by him/herself with no assistance from a helper. 5-Set-up or Clean-up Assistance-helper sets up or cleans up; patient completes activity. [place] assists only prior to or following the activity. 4-Supervision or Touching Assistance-helper provides verbal cues and/or touching/steadying and/or contact guard assistance as patient completes activity. Assistance may be provided throughout the activity or intermittently. 3-Partial/Moderate Assistance-helper does LESS THAN HALF the effort. [place] lifts, holds or supports trunk or limbs, but provides less than half the effort. 2-Substantial/Maximal Assistance-helper does MORE THAN HALF the effort. [place] lifts or holds trunk or limbs and provides more than half the effort. 3-Yffgyaibj-lgirwf does ALL the effort. Patient does none of the effort to complete the activity. Or, the assistance of 2 or more helpers is required for the patient to complete the activity. If activity was not attempted, code reason: 7-Patient Refused. 9-Not Applicable-not attempted and the patient did not perform the activity before the current illness, exacerbation or injury. 10-Not Attempted due to Environmental Limitations-(lack of equipment, weather restraints, etc.). 88-Not Attempted due to Medical Conditions or Safety Concerns. Eating (QC): 6 Shower/Bathe Self (QC): 5 Upper Body Dressing (QC): 5 Lower Body Dressing (QC): 5 On/Off Footwear: 6 (Pt. able to bring feet up to him this date and don slipper socks without AE.) Other Treatment Pt. agreeable to work with OT. Transferred to wheelchair, and then to shower chair with set up by doing quick stand and pivot. Pt. able to shower and dress with set up. Did not need AE this date as he is able to bring feet up to him by bending knees. Pt. reports that his main concern with discharge home is being able to step up onto large step that is between his dining room and kitchen. He is unsure that he can do this yet. Will report to PT. Pt. self propelled wheelchair to therapy gym. Completed 10 minutes on arm bike at mod resistance and slow pace for increased endurance. Tolerated well. Self propelled wheelchair 300 feet independently and then back to room. All needs met. Education OT Patient Education: Correct positioning, Modified ADL techniques, Progress toward Goal/Update tx plan, Purpose of tx/functional activities, Reviewed precautions, Rehab process, Transfer techniques, Use of adapted equipment, W/C management Teaching Recipient: Patient Teaching Methods: Demonstration, Discussion Response to Teaching: Verbalize Understanding, Return Demonstration OT Short Term Goals Short Term Goals Time Frame: Jan 07, 2021 Lower body dressin Putting on/taking off footwear: 4 OT Residential Goals Orthotic/Prosthetic Clinician Goals Time Frame: Jan 16, 2021 Eating (QC): 6 Oral Hygiene (QC): 6 Toileting Hygiene (QC): 6 Shower/Bathe Self (QC): 6 Upper Body Dressing (QC): 6 Lower Body Dressing (QC): 6 On/Off Footwear (QC): 6 Additional Goals: 1-Demonstrate ADL Tasks, 2-Verbalize Understanding, 3-ImproveStrength/Radha 1=Demonstrate adherence to instructed precautions during ADL tasks. 2=Patient will verbalize/demonstrate understanding of assistive devices/modifications for ADL. 3=Patient will improve strength/tolerance for activity to enable patient to perform ADL's. OT Education/Plan Problem List/Assessment Assessment: Decreased Activ Tolerance, Impaired I ADL's, Impaired Self-Care Skills Discharge Recommendations Plan/Recommendations: Continue POC Therapy Discharge Recommendati: Home & Family Treatment Plan/Plan of Care Treatment,Training & Education: Yes Patient would benefit from OT for education, treatment and training to promote independence in ADL's, mobility, safety and/or upper extremity function for ADL's. Plan of Care: ADL Retraining, Functional Mobility, Group Exercise/Act as Ind, UE Funct Exercise/Act Treatment Duration: Jan 16, 2021 Frequency: At least 5 of 7 days/Wk (IRF) Estimated Hrs Per Day: 1.5 hours per day Agreement: Yes Rehab Potential: Good Time/GCodes Start Time: 08:15 Stop Time: 09:15 Total Time Billed (hr/min): 60 Billed Treatment Time 1, ADL x 45minutes, Ex x 15minutes SRINIVAS MINA OT Jan 09, 2021 08:30
--- NOTE | 2021-01-09 09:08 | Progress Note - Surgery ---
CASSIELUIS 01/09/21 0908: Subjective Date Seen by a Provider: Jan 09, 2021 Time Seen by a Provider: 08:46 Subjective/Events-last exam Pt resting comfortably wheel chair, with PT, being fitted with back brace. Pleasant demeanor, smiling and laughing. PT reports continuing to walking. Pt states the pain is resolved from both ankles, but still lacks sensation to touch on the dorsal leg, states he can feel a pulling painful sensation from the left calf while walking. ROM and strength in both ankles remains greatly improved. Left sided swelling remains unchanged. MRI was cancelled as Pt has pace maker. Pt continues to use the IS at bedside. Review of Systems General: No Chills, No Night Sweats, No Fatigue, No Malaise; Appetite HEENT: No Head Aches, No Visual Changes, No Eye Pain, No Ear Pain, No Dysphasia, No Sinus Congestion, No Post Nasal Drip, No Sore Throat Pulmonary: No Dyspnea, No Cough, No Pleuritic Chest Pain Cardiovascular: Edema; No: Chest Pain, Palpitations, Orthopnea, Paroxysmal Noc. Dyspnea, Lt Headedness Gastrointestinal: Diarrhea; No: Nausea, Vomiting, Abdominal Pain, Constipation, Melena, Hematochezia Genitourinary: No Dysuria, No Frequency, No Incontinence, No Hematuria, No Retention Musculoskeletal: leg pain; No: neck pain, shoulder pain, arm pain, back pain, hand pain, foot pain Neurological: No: Weakness, Numbness, Incoordination, Change in speech, Confusion, Seizures left leg Objective Exam Vital Signs Date Time Temp Pulse Resp B/P (MAP) Pulse Ox O2 Delivery O2 Flow Rate FiO2 01/09/21 07:36 36.6 72 20 145/77 (99) 94 Room Air 01/09/21 06:41 36.8 01/09/21 06:11 36.8 01/08/21 21:00 Room Air 01/08/21 20:57 36.8 01/08/21 20:27 36.8 01/08/21 20:00 36.2 82 18 159/75 (103) 98 Room Air Capillary Refill : General Appearance: No Apparent Distress, WD/WN, Obese HEENT: PERRL/EOMI, Pharynx Normal, Moist Mucous Membranes Neck: Full Range of Motion, Non Tender, Supple Respiratory: Chest Non Tender, Lungs Clear, Normal Breath Sounds, No Accessory Muscle Use Cardiovascular: Regular Rate, Rhythm, No Edema, No Gallop, Normal Peripheral Pulses Peripheral Pulses: 2+ Radial Pulses (R), 2+ Radial Pulses (L) Gastrointestinal: non tender, soft, no organomegaly Extremity: Calf Tenderness (Left leg), Pedal Edema (Left foot and leg), Swelling (left lower extremity), Other (Now only complians of pain deep posterior of left leg (ankles now free of pain and redness)) Neurologic/Psychiatric: Alert, Oriented x3, rabble furnace tender II-XII Norm as Tested Skin: Normal Color, Warm/Dry, Other (healing hematoma in left leg, leg has soft yellow color) Lymphatic: No Adenopathy (axillary and cervical) Results Lab Laboratory Tests 01/09/21 05:20: White Blood Count 13.2H, Red Blood Count 3.19L, Hemoglobin 9.6L, Hematocrit 29L, Mean Corpuscular Volume 91, Mean Corpuscular Hemoglobin 30, Mean Corpuscular Hemoglobin Concent 33, Red Cell Distribution Width 12.9, Platelet Count 421H, Mean Platelet Volume 9.0, Sodium Level 135, Potassium Level 4.3, Chloride Level 108H, Carbon Dioxide Level 18L, Anion Gap 9, Blood Urea Nitrogen 24H, Creatinine 1.06, Estimat Glomerular Filtration Rate 72, BUN/Creatinine Ratio 23, Glucose Level 166H, Calcium Level 9.1, Total Bilirubin 0.6, Direct Bilirubin 0.3, Indirect Bilirubin 0.3, Aspartate Amino Transf (AST/SGOT) 29, Alanine Aminotransferase (ALT/SGPT) 46, Alkaline Phosphatase 66, Total Creatine Kinase 159, Total Protein 6.6, Albumin 3.3 Microbiology 12/31/20 Blood Culture - Final, Complete No growth Assessment/Plan Assessment/Plan Assessment/Plan B/L ankle pain - Gout - resolved Trauma - due to being trampled by a cow Age-indeterminate compression deformity at the superior endplate of T3 with minimal height loss. Anemia Cellulitis - rule out abscess Plan: B/L ankle x-ray showed no abnormalities; MRI cancelled due to pacemaker. Pt encouraged to continue PT. TOBI GREENFIELD DO 01/09/21 1111: Subjective Time Seen by a Provider: 10:01 Subjective/Events-last exam Pt seen and examined, he was wheeling himself out of his room for PT; using his legs. Review of Systems General: No Chills, No Night Sweats Pulmonary: No Dyspnea, No Cough Cardiovascular: No: Chest Pain, Palpitations Musculoskeletal: leg pain Objective Exam General Appearance: No Apparent Distress, WD/WN, Obese Respiratory: Lungs Clear, Normal Breath Sounds, No Accessory Muscle Use Cardiovascular: Regular Rate, Rhythm, No Murmur Gastrointestinal: non tender, soft, no organomegaly Extremity: Calf Tenderness (Left leg), Pedal Edema (Left foot and leg), Swelling (left lower extremity), Other (Now only complians of pain deep posterior of left leg (ankles now free of pain and redness)) Neurologic/Psychiatric: Alert, Oriented x3 Assessment/Plan Assessment/Plan Assessment/Plan B/L ankle pain - Gout - resolved Trauma - due to being trampled by a cow Age-indeterminate compression deformity at the superior endplate of T3 with minimal height loss. Anemia Cellulitis - rule out abscess Plan: B/L ankle x-ray showed no abnormalities; MRI cancelled due to pacemaker. Pt encouraged to continue PT. Will sign off. Supervisory-Addendum Brief Verification & Attestation Participated in pt care: history, MDM, physical Personally performed: exam, history, MDM, supervision of care Care discussed with: Medical Student Procedures: n/a Verification and Attestation of Medical Student E/M Service A medical student performed and documented this service. I then reviewed and verified all information documented by the medical student and made modifications to such information, when appropriate. I personally performed a physical exam, medical decision making and then discussed any differences between the notes and made revisions as necessary to create one note. Tobi Greenfield , 01/09/21 , 11:11 LUIS MATTHEWS Jan 09, 2021 09:08 TOBI GREENFIELD DO Jan 09, 2021 11:11
--- NOTE | 2021-01-09 10:53 | Physical Therapy Daily Note ---
PT Daily Note-Current Subjective Patient in WC pre tx, agrees to PT, has 4/10 pain in left calf, states his ankles are a lot better. Appearance Patient in WC at bedside post tx with nurse call, phone, tray, all needs met. Mental Status Patient Orientation: Person, Place, Situation TLSO Transfers SCALE: Activities may be completed with or without assistive devices. 6-Kfcjmjiwse-wpcxlbu completes the activity by him/herself with no assistance from a helper. 5-Set-up or Clean-up Assistance-helper sets up or cleans up; patient completes activity. [place] assists only prior to or following the activity. 4-Supervision or Touching Assistance-helper provides verbal cues and/or touching/steadying and/or contact guard assistance as patient completes activity. Assistance may be provided throughout the activity or intermittently. 3-Partial/Moderate Assistance-helper does LESS THAN HALF the effort. [place] lifts, holds or supports trunk or limbs, but provides less than half the effort. 2-Substantial/Maximal Assistance-helper does MORE THAN HALF the effort. [place] lifts or holds trunk or limbs and provides more than half the effort. 6-Hvywfduaj-xlnvfe does ALL the effort. Patient does none of the effort to complete the activity. Or, the assistance of 2 or more helpers is required for the patient to complete the activity. If activity was not attempted, code reason: 7-Patient Refused. 9-Not Applicable-not attempted and the patient did not perform the activity before the current illness, exacerbation or injury. 10-Not Attempted due to Environmental Limitations-(lack of equipment, weather restraints, etc.). 88-Not Attempted due to Medical Conditions or Safety Concerns. Sit to Stand (QC): 4 Chair/Oap-lt-Hhqzu Xfer(QC): 4 SBA, needs occasional cues for hand placement Weight Bearing Patient not on any weight bearing restrictions, however is unable to bear weight or stand due to reports of significant pain. Gait Training Distance: 120'x2 Walk 10 feet (QC): 4 Walk 50 ft with 2 Turns(QC): 4 Gait Persons Needed: 1 Gait Assistive Device: FWW slow but steady ambulation, getting better with step-through pattern, better weight bearing on feet Exercises Standing: Hip Abduction, Hamstring curls, Marching, Mini squats Standing Reps: 15 (attempted heel raises but he could not do it due to pain) Maeep Minutes: 15 NuStep Workload: 5 (focused on ankle ROM/stretching) Treatments transfers, ambulation, LE strengthening/ROM Assessment Current Status: Fair Progress improved ambulation, decreased pain PT Short Term Goals Short Term Goals Time Frame: Jan 07, 2021 Roll Left & Right: 6 Sit to lyin Lying to sitting on side of be: 5 Sit to stand: 4 Walk 10 feet: 4 Walk 50 feet with two turns: 4 Walk 150 feet: 4 PT Prison Goals Prison Goals PT Prison Goals Time Frame: Jan 21, 2021 Roll Left & Right (QC): 6 Sit to Lying (QC): 6 Lying-Sitting on Side/Bed(QC): 6 Sit to Stand (QC): 5 Chair/Akj-cf-Bumzu Xfer(QC): 5 Toilet Transfer (QC): 5 Car Transfer (QC): 5 Does the Patient Walk: Yes Walk 10 feet (QC): 5 Walk 50ft with 2 Turns (QC): 5 Walk 150 ft (QC): 5 Walking 10ft on Uneven Surface: 4 1 Step (curb) (QC): 4 4 Steps (QC): 4 12 Steps (QC): 88 Picking up an Object (QC): 88 Wheel 50 feet with 2 turns (QC: 6 Wheel 150 feet: 6 PT Plan Problem List Problem List: Activity Tolerance, Functional Strength, Safety, Balance, Gait, Transfer, Bed Mobility, ROM Treatment/Plan Treatment Plan: Continue Plan of Care Treatment Plan: Bed Mobility, Education, Functional Activity Radha, Functional Strength, Group Therapy, Gait, Safety, Therapeutic Exercise, Transfers Treatment Duration: Jan 21, 2021 Frequency: At least 5 of 7 days/Wk (IRF) Estimated Hrs Per Day: 1.5 hours per day Patient and/or Family Agrees t: Yes Safety Risks/Education Patient Education: Gait Training, Transfer Techniques, Correct Positioning, Safety Issues Teaching Recipient: Patient Teaching Methods: Demonstration, Discussion Response to Teaching: Reinforcement Needed Time/GCodes Time In: 1000 Time Out: 1100 Total Billed Treatment Time: 60 Total Billed Treatment 1 visit EX 30' FA 30' KULDEEP ZELAYA PT Jan 09, 2021 10:53
--- NOTE | 2021-01-09 13:31 | Speech Therapy Daily Note ---
Speech Daily Progress Note Subjective Date Seen by Provider: Jan 09, 2021 Time Seen by Provider: 11:10 Pt sitting up in chair. Pleasant and cooperative for speech therapy tasks. 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 Objective Pt oriented to date, time, year and situation. Pt provided with memory strategies and ways to improve recall. Pt states he doesnt write because he is unable to spell. Recall activity completed with 80% accy. Assessment Assessment Current Status: Good Progress Treatment Plan Continue Plan of Care Social Cognition [id number]; 1LEN Speech Short Term Goals Short Term Goals Short Term Goals 1) Patient will complete memory tasks related to his daily needs at 75% or greater with minimal cues. 2) Patient will complete safety awareness tasks related to his daily needs at 75% or greater with minimal cues. 3) Patient will complete problem solving related to his daily needs at 75% or greater with minimal cues. Speech Jail Goals Jail Goals Patient will improve cognitive-communication abilities in order to require less assistance with daily needs. Speech-Plan Treatment Plan Speech Therapy Treatment Plan: Continue Plan of Care Treatment Duration: Jan 16, 2021 Frequency: 4 times per week (Patient will receive skilled ST 4-5x per week) Estimated Hrs Per Day: .5 hour per day Rehab Potential: Good Time Speech Therapy Time In: 11:10 Speech Therapy Time Out: 11:40 Billed Treatment Time 1LEN ALIS[facility] ST Jan 09, 2021 13:31
--- NOTE | 2021-01-09 14:37 | Therapy Group Daily Note ---
Therapy Daily Group Note Patient Education Topic Other List Below (Memory strategies) Exercises LE Seated Exercise, UE Exercise Session Ratio (pt:therapist): 4:1 Goal of Session: Education on ARU Expectations, Memory Strategies, UE/LE Strengthing Goal Met for this Session: Yes Pt Benefit of Group: Contributions to Others, F/U Use of Strategies @Home, Incr eased Functional Safety, Increased Functional Strength, Improved Cognition, Recognition of Peers, Socialization Other/Notes Pt transported via w/c to [facility] for OT group. Group consisted of introductions (name, place living, roll a dice questions), socialization, B UE/LE seated exercises, education of memory strategies and memory activity. Pt introduced self appropriately and actively listened to peers. Pt able to complete B UE exercises then only L LE exercises only due to R LE muscle weakness. Pt demonstrated understanding of educational topic by verbalizing understanding. Pt requires assistance for memory activity, 4 out of 6. After therapy, pt lying in bed with call light/phone in reach. All needs met in room. Start Time: 13:00 Stop Time: 14:00 Total Billed Treatment Time: 60 Total Billed Treatment 1-GRP JAXON DURAN Jan 09, 2021 14:37
[2021-01-09 20:00] VITALS: BP 123/79
[2021-01-09] MEDS: OLANZapine 5 MG (ZyPREXA) TAB PO SCH (21:44)
[2021-01-09] MEDS: MELATONIN 3 MG TABLET PO PRN (21:44)
[2021-01-10] MEDS: ONDANSETRON 4 MG (ZOFRAN) ORAL DISSOLVE TAB PO PRN (00:18)
[2021-01-10] MEDS: CALCIUM CARBONATE 500 MG (TUMS) TAB.CHEW PO PRN (00:18)
--- NOTE | 2021-01-10 06:21 | PM&R Progress Note ---
Subjective HPI/CC On Admission Date Seen by Provider: Jan 10, 2021 Time Seen by Provider: 06:20 Subjective/Events-last exam 01/10/21: Patient hurts a lot everywhere Monitoring closely Diarrhea still present will check C diff and start Questran Difficult and slow recovery 01/09/2021: Patient much better X-rays normal of the feet and ankles 2 steroid injections of really help the gout pain Elevated white count noted from steroid effect 01/08/2021: Pt doing remarkably well Injection really helped him so it leads me to believe that some form of this pain is from Gout Will give an other injection a day of 125 mg Imaging scans ordered by Dr. Greenfield Moving around a lot better today 01/07/2021: Patient still having difficulties walking because of foot pain Diarrhea is still continuing Pain issues seem to be the main problem Received Solu-Medrol injection in case this is gout he was having some pain with the injection which is unusual since that is not a painful injection Appears to be hypersensitive to pain Very slow recovery Uses wheelchair most of the time Spoke with Dr. Greenfield due to 's concerns and he will evaluate and order any type of imaging he feels is necessary 01/06/2021: Pt doing better but still cant ambulate Skipping meals Slide board used Diarrhea two days in a row so we are holding laxatives Imodium given 01/05/2021: Venous Doppler ordered but Lovenox has been on board No DVT noted on prelim Multiple somatic issues Gout treatment continues Flat affect 01/04/2021: Patient having a slow recovery at the bedside Has a different complaint every day Finishing up on antibiotics Transferring via sideboard Having some loose stools 01/03/2021: Patient doing well Bilateral foot pain Has a history of gout so we will restart his home medications and add colchicine 1 dose Gram-negative reshma in blood culture patient remains on Omnicef and Zyvox Loose bowels moving Flat affect improved a bit 01/02/2021: Pt doing really well Complains about the left leg pain Changing IV antibiotics to PO Flat affect continues but that is chronic 01/01/2021: Pt doing pretty well Having burning of his leg IV antibiotics maintained for the left wrist IV site cellulitis Bowels moving well Pain is well controlled Check meds and labs Review of Systems General: Fatigue, Malaise Objective Exam Vital Signs Vital Signs Date Time Temp Pulse Resp B/P (MAP) Pulse Ox O2 Delivery O2 Flow Rate FiO2 01/10/21 09:00 Room Air 01/10/21 07:27 36.4 20 99/58 (72) 94 01/09/21 20:00 68 Capillary Refill : General Appearance: No Apparent Distress, WD/WN, Obese HEENT: PERRL/EOMI, Pharynx Normal, Moist Mucous Membranes Neck: Full Range of Motion, Non Tender, Supple Respiratory: Chest Non Tender, Lungs Clear, Normal Breath Sounds, No Accessory Muscle Use Cardiovascular: Regular Rate, Rhythm, No Edema, No Gallop, Normal Peripheral Pulses Gastrointestinal: Normal Bowel Sounds, No Organomegaly, No Pulsatile Mass, Non Tender, Soft Back: Normal Inspection, No CVA Tenderness, Decreased Range of Motion Extremity: Calf Tenderness (Left leg), Pedal Edema (Left foot), Swelling (left lower extremity), Other (Reduced tenderness to touch B/L compared to yesterday) Neurologic/Psychiatric: Alert, Oriented x3, jira administrator II-XII Norm as Tested Skin: Other (healing hematoma in left leg, leg has soft yellow color) Lymphatic: No Adenopathy (axillary and cervical) Results/Procedures Lab Patient resulted labs reviewed. FIM Transfers Therapy Code Descriptions/Definitions Functional [place] Measure: 0=Not Assessed/NA 4=Minimal Assistance 1=Total Assistance 5=Supervision or Setup 2=Maximal Assistance 6=Modified [place] 3=Moderate Assistance 7=Complete IndependenceSCALE: Activities may be completed with or without assistive devices. 7-Rywdsqzazg-akqpfpf completes the activity by him/herself with no assistance from a helper. 5-Set-up or Clean-up Assistance-helper sets up or cleans up; patient completes activity. [place] assists only prior to or following the activity. 4-Supervision or Touching Assistance-helper provides verbal cues and/or touching/steadying and/or contact guard assistance as patient completes activity. Assistance may be provided throughout the activity or intermittently. 3-Partial/Moderate Assistance-helper does LESS THAN HALF the effort. [place] lifts, holds or supports trunk or limbs, but provides less than half the effort. 2-Substantial/Maximal Assistance-helper does MORE THAN HALF the effort. [place] lifts or holds trunk or limbs and provides more than half the effort. 5-Czevvddzb-vadlox does ALL the effort. Patient does none of the effort to complete the activity. Or, the assistance of 2 or more helpers is required for the patient to complete the activity. If activity was not attempted, code reason: 7-Patient Refused. 9-Not Applicable-not attempted and the patient did not perform the activity before the current illness, exacerbation or injury. 10-Not Attempted due to Environmental Limitations-(lack of equipment, weather restraints, etc.). 88-Not Attempted due to Medical Conditions or Safety Concerns. Roll Left to Right (QC): 6 Sit to Lying (QC): 6 Sit to Stand (QC): 4 Chair/Nzo-zr-Efwpb Xfer(QC): 4 Car Transfer (QC): 4 Gait Training Does the Patient Walk?: No and Walking Goal IS indicated Distance: 120'x2 Walk 10 feet (QC): 4 Walk 50 ft with 2 Turns(QC): 4 Walk 150 ft (QC): 88 Walking 10ft/uneven surface-QC: 88 Gait Persons Needed: 1 Gait Assistive Device: FWW Wheelchair Training Does the Pt Use a Wheelchair?: Yes Distance: 150'x2 Wheel 50 ft with 2 turns (QC): 6 Wheel 150 ft (QC): 6 Type of Wheelchair: Manual Stair Training 1 Step (curb) (QC): 88 4 Steps (QC): 88 12 Steps (QC): 88 Balance Picking up an Object (QC): 88 ADL-Treatment Eating (QC): 6 Oral Hygiene (QC): 6 (From wheelchair level.) Shower/Bathe Self (QC): 5 Upper Body Dressing (QC): 5 Lower Body Dressing (QC): 5 On/Off Footwear (QC): 6 (Pt. able to bring feet up to him this date and don slipper socks without AE.) Toileting Hygiene (QC): 5 Toilet Transfer (QC): 4 Assessment/Plan Assessment and Plan Assess & Plan/Chief Complaint Assessment: S/P Trauma with injuries from cow- blunt injury and crush injury sustained -general surgery following -continue frequent reassessments of left lower extremity -awaiting placement of clam brace- should happen today -2 view left foot x ray negative for acute pathology -Ankle x-rays and possible MRIs will be ordered by Dr. Greenfield Concussion with LOC -continue to monitor neurologic status Rhabdomyolysis -CK decreased to 1049 today from 1224 yesterday now normal -SL'd -encourage increased po intake of fluids -continue to trend for now Acute kidney injury-resolved -Creatinine stable at 1.29 today Anemia -Hgb stable at 11.1 today -surgery holding lovenox due to anemia -continue to trend Chest pain with history of angina -cardiology following -continue to monitor -PRN SL nitro Hypertension -continue to monitor Hyperlipidemia -continue to monitor Sinus node dysfunction pacemaker in place -cardiology following -pacemaker interrogated and functioning appropriately Pain control -continue prn's PT OT -doing frequent therapy per patient report -plan to transfer to inpatient rehab unit pending workers comp approval Cellulitis at site of previous IV site with fever -Begin IV antibiotics status post pancultured Gout Somatization Hypersensitivity to pain Plan: Aggressive therapy Pain control IV antibiotics Supportive care 01/01/2021: Supportive care Hep-Lock IV fluid bench mover antibiotics tomorrow 01/02/2021: Supportive care Pain control Change IV antibiotics to p.o. 01/03/2021: Gout treatment Supportive care Antibiotics 01/04/2021: Monitor somatic complaints Supportive care 01/05/2021: Somatic issues Pain control Gout treatment 01/06/2021: Pain from injuries is out of proportion Continues to be a slow recovery 01/07/2021: Solu-Medrol injection in case gout is constantly but pain Appreciate Dr. Greenfield's evaluation 01/08/2021: Pain is much better today Additional Solu-Medrol to finish out any gout pain 01/09/2021: Gout treatment Monitor closely 01/10/21: Supportive care Slow recovery (1) Episode of unresponsiveness Status: Acute (2) Thoracic spine fracture (3) Depression (4) Anxiety (5) Pacemaker (6) CAD (coronary artery disease) (7) Concussion Status: Acute (8) Victim of trampling from animal Status: Acute (9) Chest wall contusion Status: Acute (10) Hematoma of left lower extremity Status: Acute FRANK GARCIA DO Jan 10, 2021 06:21
[2021-01-10] MEDS: ENOXAPARIN 40 MG/0.4 ML (LOVENOX) SYR SC SCH (06:48)
[2021-01-10] MEDS: KCL 8 MEQ (MICRO K) TABLET PO SCH (06:48)
[2021-01-10 07:27] VITALS: BP 99/58
[2021-01-10] MEDS: SUCRALFATE 1 GM (CARAFATE) TAB PO SCH ×2 (07:59→20:33)
[2021-01-10] MEDS: PANTOPRAZOLE 40 MG (PROTONIX) TAB PO SCH (08:00)
[2021-01-10] MEDS: COLCHICINE 0.6 MG (COLCRYS) TABLET PO PRN ×2 (08:00→18:45)
[2021-01-10] MEDS: LACTOBACILLUS ACIDOPHILUS (PROBIOTIC) CAPSULE PO SCH ×3 (08:00→18:45)
[2021-01-10] MEDS: ASPIRIN E.C. 81 MG (ECOTRIN) TAB PO SCH (08:00)
[2021-01-10] MEDS: VERAPAMIL SR 240 MG (CALAN SR) TAB PO SCH (08:00)
[2021-01-10] MEDS: lisINopril 20 MG (PRINIVIL) TABLET PO SCH (08:00)
[2021-01-10] MEDS: ALPRAZolam 0.5 MG (XANAX) TAB PO SCH ×4 (08:00→20:33)
--- NOTE | 2021-01-10 08:23 | Physical Therapy Daily Note ---
PT Daily Note-Current Subjective Patient agrees to PT. Pain Numeric Pain Scale: 8 Location: Right, Left Location Body Site: Ankle Pain Description: Chronic (gout) Mental Status Patient Orientation: Normal For Age Transfers SCALE: Activities may be completed with or without assistive devices. 6-Nhqahtwrok-qgojscx completes the activity by him/herself with no assistance from a helper. 5-Set-up or Clean-up Assistance-helper sets up or cleans up; patient completes activity. [place] assists only prior to or following the activity. 4-Supervision or Touching Assistance-helper provides verbal cues and/or touching/steadying and/or contact guard assistance as patient completes activity. Assistance may be provided throughout the activity or intermittently. 3-Partial/Moderate Assistance-helper does LESS THAN HALF the effort. [place] lifts, holds or supports trunk or limbs, but provides less than half the effort. 2-Substantial/Maximal Assistance-helper does MORE THAN HALF the effort. [place] lifts or holds trunk or limbs and provides more than half the effort. 9-Pruxiyzta-qdrjwf does ALL the effort. Patient does none of the effort to complete the activity. Or, the assistance of 2 or more helpers is required for the patient to complete the activity. If activity was not attempted, code reason: 7-Patient Refused. 9-Not Applicable-not attempted and the patient did not perform the activity before the current illness, exacerbation or injury. 10-Not Attempted due to Environmental Limitations-(lack of equipment, weather restraints, etc.). 88-Not Attempted due to Medical Conditions or Safety Concerns. Lying to Sitting/Side of Bed(Q: 6 Sit to Stand (QC): 3 Chair/Yru-jn-Ehszl Xfer(QC): 4 Weight Bearing Patient not on any weight bearing restrictions, however is unable to bear weight or stand due to reports of significant pain. Gait Training Does the Patient Walk?: Yes Distance: 250' Walk 10 feet (QC): 4 (CGA) Walk 50 ft with 2 Turns(QC): 4 (CGA) Walk 150 ft (QC): 4 (CGA) Gait Assistive Device: FWW very, slow, step to gait sequence with VC's for body placement in FWW Treatments Minimal assist to don TLSO in seated position Assessment Patient progressing with treatment plan. Continues to have impaired mobility due to tight gastrocsoleus muscles bilaterally and gout. PT to increase activity as patient tolerates. PT Short Term Goals Short Term Goals Time Frame: Jan 07, 2021 Roll Left & Right: 6 Sit to lyin Lying to sitting on side of be: 5 Sit to stand: 4 Walk 10 feet: 4 Walk 50 feet with two turns: 4 Walk 150 feet: 4 PT Mcfp Goals Termite Treater Helper Goals PT Termite Treater Helper Goals Time Frame: Jan 21, 2021 Roll Left & Right (QC): 6 Sit to Lying (QC): 6 Lying-Sitting on Side/Bed(QC): 6 Sit to Stand (QC): 5 Chair/Dlm-qg-Nxdou Xfer(QC): 5 Toilet Transfer (QC): 5 Car Transfer (QC): 5 Does the Patient Walk: Yes Walk 10 feet (QC): 5 Walk 50ft with 2 Turns (QC): 5 Walk 150 ft (QC): 5 Walking 10ft on Uneven Surface: 4 1 Step (curb) (QC): 4 4 Steps (QC): 4 12 Steps (QC): 88 Picking up an Object (QC): 88 Wheel 50 feet with 2 turns (QC: 6 Wheel 150 feet: 6 PT Plan Treatment/Plan Treatment Plan: Continue Plan of Care Treatment Plan: Bed Mobility, Education, Functional Activity Radha, Functional Strength, Group Therapy, Gait, Safety, Therapeutic Exercise, Transfers Treatment Duration: Jan 21, 2021 Frequency: At least 5 of 7 days/Wk (IRF) Estimated Hrs Per Day: 1.5 hours per day Patient and/or Family Agrees t: Yes Time/GCodes Time In: 800 Time Out: 816 Total Billed Treatment Time: 16 Total Billed Treatment 1 visit GT 16 min HERMANN MINER PT Jan 10, 2021 08:23
[2021-01-10] MEDS: polyethylene glycoL POWDER 17 GM (MIRALAX) PACK PO SCH ×2 (09:00→19:38)
[2021-01-10] MEDS: CHOLESTYRAMINE 4 GM (QUESTRAN LITE, PREVALITE) PKT PO SCH ×3 (09:19→22:33)
[2021-01-10] MEDS: LOPERAMIDE 2 MG (IMODIUM) TABLET PO PRN (10:45)
[2021-01-10 20:00] VITALS: BP 107/61
[2021-01-10] MEDS: MELATONIN 3 MG TABLET PO PRN (20:33)
[2021-01-10] MEDS: OLANZapine 5 MG (ZyPREXA) TAB PO SCH (20:33)
--- NOTE | 2021-01-11 05:41 | PM&R Progress Note ---
Subjective HPI/CC On Admission Date Seen by Provider: Jan 11, 2021 Time Seen by Provider: 05:45 Subjective/Events-last exam 01/11/21: Patient feels good except foot pain Diarrhea improved C diff negative Questran helps 01/10/21: Patient hurts a lot everywhere Monitoring closely Diarrhea still present will check C diff and start Questran Difficult and slow recovery 01/09/2021: Patient much better X-rays normal of the feet and ankles 2 steroid injections of really help the gout pain Elevated white count noted from steroid effect 01/08/2021: Pt doing remarkably well Injection really helped him so it leads me to believe that some form of this pain is from Gout Will give an other injection a day of 125 mg Imaging scans ordered by Dr. Greenfield Moving around a lot better today 01/07/2021: Patient still having difficulties walking because of foot pain Diarrhea is still continuing Pain issues seem to be the main problem Received Solu-Medrol injection in case this is gout he was having some pain with the injection which is unusual since that is not a painful injection Appears to be hypersensitive to pain Very slow recovery Uses wheelchair most of the time Spoke with Dr. Greenfield due to 's concerns and he will evaluate and order any type of imaging he feels is necessary 01/06/2021: Pt doing better but still cant ambulate Skipping meals Slide board used Diarrhea two days in a row so we are holding laxatives Imodium given 01/05/2021: Venous Doppler ordered but Lovenox has been on board No DVT noted on prelim Multiple somatic issues Gout treatment continues Flat affect 01/04/2021: Patient having a slow recovery at the bedside Has a different complaint every day Finishing up on antibiotics Transferring via sideboard Having some loose stools 01/03/2021: Patient doing well Bilateral foot pain Has a history of gout so we will restart his home medications and add colchicine 1 dose Gram-negative reshma in blood culture patient remains on Omnicef and Zyvox Loose bowels moving Flat affect improved a bit 01/02/2021: Pt doing really well Complains about the left leg pain Changing IV antibiotics to PO Flat affect continues but that is chronic 01/01/2021: Pt doing pretty well Having burning of his leg IV antibiotics maintained for the left wrist IV site cellulitis Bowels moving well Pain is well controlled Check meds and labs Review of Systems Musculoskeletal: neck pain, shoulder pain, arm pain, back pain, hand pain, leg pain, foot pain Objective Exam Vital Signs Vital Signs Date Time Temp Pulse Resp B/P (MAP) Pulse Ox O2 Delivery O2 Flow Rate FiO2 01/11/21 08:37 Room Air 01/11/21 07:17 36.7 70 20 121/64 (83) 94 Capillary Refill : General Appearance: No Apparent Distress, WD/WN, Obese HEENT: PERRL/EOMI, Pharynx Normal, Moist Mucous Membranes Neck: Full Range of Motion, Non Tender, Supple Respiratory: Chest Non Tender, Lungs Clear, Normal Breath Sounds, No Accessory Muscle Use Cardiovascular: Regular Rate, Rhythm, No Edema, No Gallop, Normal Peripheral Pulses Gastrointestinal: Normal Bowel Sounds, No Organomegaly, No Pulsatile Mass, Non Tender, Soft Back: Normal Inspection, No CVA Tenderness, Decreased Range of Motion Extremity: Calf Tenderness (Left leg), Pedal Edema (Left foot), Swelling (left lower extremity), Other (Reduced tenderness to touch B/L compared to yesterday) Neurologic/Psychiatric: Alert, Oriented x3, creel operator II-XII Norm as Tested Skin: Other (healing hematoma in left leg, leg has soft yellow color) Lymphatic: No Adenopathy (axillary and cervical) Results/Procedures Lab Patient resulted labs reviewed. FIM Transfers Therapy Code Descriptions/Definitions Functional [place] Measure: 0=Not Assessed/NA 4=Minimal Assistance 1=Total Assistance 5=Supervision or Setup 2=Maximal Assistance 6=Modified [place] 3=Moderate Assistance 7=Complete IndependenceSCALE: Activities may be completed with or without assistive devices. 2-Bmlmgxrszf-ydnbjat completes the activity by him/herself with no assistance from a helper. 5-Set-up or Clean-up Assistance-helper sets up or cleans up; patient completes activity. [place] assists only prior to or following the activity. 4-Supervision or Touching Assistance-helper provides verbal cues and/or touching/steadying and/or contact guard assistance as patient completes activity. Assistance may be provided throughout the activity or intermittently. 3-Partial/Moderate Assistance-helper does LESS THAN HALF the effort. [place] lifts, holds or supports trunk or limbs, but provides less than half the effort. 2-Substantial/Maximal Assistance-helper does MORE THAN HALF the effort. [place] lifts or holds trunk or limbs and provides more than half the effort. 0-Xxgtmebpg-xzkfpc does ALL the effort. Patient does none of the effort to complete the activity. Or, the assistance of 2 or more helpers is required for the patient to complete the activity. If activity was not attempted, code reason: 7-Patient Refused. 9-Not Applicable-not attempted and the patient did not perform the activity before the current illness, exacerbation or injury. 10-Not Attempted due to Environmental Limitations-(lack of equipment, weather restraints, etc.). 88-Not Attempted due to Medical Conditions or Safety Concerns. Roll Left to Right (QC): 6 Sit to Lying (QC): 6 Sit to Stand (QC): 3 Chair/Gvb-nc-Dstuc Xfer(QC): 4 Car Transfer (QC): 4 Gait Training Does the Patient Walk?: Yes Distance: 250' Walk 10 feet (QC): 4 (CGA) Walk 50 ft with 2 Turns(QC): 4 (CGA) Walk 150 ft (QC): 4 (CGA) Walking 10ft/uneven surface-QC: 88 Gait Persons Needed: 1 Gait Assistive Device: FWW Wheelchair Training Does the Pt Use a Wheelchair?: Yes Distance: 150'x2 Wheel 50 ft with 2 turns (QC): 6 Wheel 150 ft (QC): 6 Type of Wheelchair: Manual Stair Training 1 Step (curb) (QC): 88 4 Steps (QC): 88 12 Steps (QC): 88 Balance Picking up an Object (QC): 88 ADL-Treatment Eating (QC): 6 Oral Hygiene (QC): 6 (From wheelchair level.) Shower/Bathe Self (QC): 5 Upper Body Dressing (QC): 5 Lower Body Dressing (QC): 5 On/Off Footwear (QC): 6 (Pt. able to bring feet up to him this date and don slipper socks without AE.) Toileting Hygiene (QC): 5 Toilet Transfer (QC): 4 Assessment/Plan Assessment and Plan Assess & Plan/Chief Complaint Assessment: S/P Trauma with injuries from cow- blunt injury and crush injury sustained -general surgery following -continue frequent reassessments of left lower extremity -awaiting placement of clam brace- should happen today -2 view left foot x ray negative for acute pathology -Ankle x-rays and possible MRIs will be ordered by Dr. Greenfield Concussion with LOC -continue to monitor neurologic status Rhabdomyolysis -CK decreased to 1049 today from 1224 yesterday now normal -SL'd -encourage increased po intake of fluids -continue to trend for now Acute kidney injury-resolved -Creatinine stable at 1.29 today Anemia -Hgb stable at 11.1 today -surgery holding lovenox due to anemia -continue to trend Chest pain with history of angina -cardiology following -continue to monitor -PRN SL nitro Hypertension -continue to monitor Hyperlipidemia -continue to monitor Sinus node dysfunction pacemaker in place -cardiology following -pacemaker interrogated and functioning appropriately Pain control -continue prn's PT OT -doing frequent therapy per patient report -plan to transfer to inpatient rehab unit pending workers comp approval Cellulitis at site of previous IV site with fever -Begin IV antibiotics status post pancultured Gout Somatization Hypersensitivity to pain Plan: Aggressive therapy Pain control IV antibiotics Supportive care 01/01/2021: Supportive care Hep-Lock IV fluid floor covering printer assistant antibiotics tomorrow 01/02/2021: Supportive care Pain control Change IV antibiotics to p.o. 01/03/2021: Gout treatment Supportive care Antibiotics 01/04/2021: Monitor somatic complaints Supportive care 01/05/2021: Somatic issues Pain control Gout treatment 01/06/2021: Pain from injuries is out of proportion Continues to be a slow recovery 01/07/2021: Solu-Medrol injection in case gout is constantly but pain Appreciate Dr. Greenfield's evaluation 01/08/2021: Pain is much better today Additional Solu-Medrol to finish out any gout pain 01/09/2021: Gout treatment Monitor closely 01/10/21: Supportive care Slow recovery 01/11/21: Monitor pain Check labs in am (1) Episode of unresponsiveness Status: Acute (2) Thoracic spine fracture (3) Depression (4) Anxiety (5) Pacemaker (6) CAD (coronary artery disease) (7) Concussion Status: Acute (8) Victim of trampling from animal Status: Acute (9) Chest wall contusion Status: Acute (10) Hematoma of left lower extremity Status: Acute FRANK GARCIA DO Jan 11, 2021 05:41
[2021-01-11] MEDS: KCL 8 MEQ (MICRO K) TABLET PO SCH (06:46)
[2021-01-11] MEDS: ENOXAPARIN 40 MG/0.4 ML (LOVENOX) SYR SC SCH (06:47)
[2021-01-11 07:17] VITALS: BP 121/64
[2021-01-11] MEDS: SUCRALFATE 1 GM (CARAFATE) TAB PO SCH ×2 (08:14→20:31)
[2021-01-11] MEDS: COLCHICINE 0.6 MG (COLCRYS) TABLET PO PRN ×3 (08:14→20:31)
[2021-01-11] MEDS: LACTOBACILLUS ACIDOPHILUS (PROBIOTIC) CAPSULE PO SCH ×3 (08:14→17:18)
[2021-01-11] MEDS: VERAPAMIL SR 240 MG (CALAN SR) TAB PO SCH (08:14)
[2021-01-11] MEDS: ALPRAZolam 0.5 MG (XANAX) TAB PO SCH ×4 (08:14→20:31)
[2021-01-11] MEDS: lisINopril 20 MG (PRINIVIL) TABLET PO SCH (08:14)
[2021-01-11] MEDS: ASPIRIN E.C. 81 MG (ECOTRIN) TAB PO SCH (08:14)
[2021-01-11] MEDS: PANTOPRAZOLE 40 MG (PROTONIX) TAB PO SCH (08:16)
[2021-01-11] MEDS: polyethylene glycoL POWDER 17 GM (MIRALAX) PACK PO SCH ×2 (09:00→20:30)
[2021-01-11] MEDS: CHOLESTYRAMINE 4 GM (QUESTRAN LITE, PREVALITE) PKT PO SCH ×3 (09:22→17:18)
[2021-01-11 20:11] VITALS: BP 117/58
[2021-01-11] MEDS: OLANZapine 5 MG (ZyPREXA) TAB PO SCH (20:31)
[2021-01-11] MEDS: MELATONIN 3 MG TABLET PO PRN (20:31)
[2021-01-12 06:12] LABS: BASOPHILS % (AUTO) 0 % (0-10); EOSINOPHILS # (AUTO) 0.1 10^3/uL (0.0-0.3); EOSINOPHILS % (AUTO) 2 % (0-10); HEMATOCRIT 33 % (40-54); HEMOGLOBIN 10.4 g/dL (13.3-17.7); LYMPHOCYTES % (AUTO) 24 % (12-44); MEAN CORPUSCULAR HEMOGLOBIN 29 pg (25-34); MEAN CORPUSCULAR HGB CONC 31 g/dL (32-36); MEAN CORPUSCULAR VOLUME 93 fL (80-99); MEAN PLATELET VOLUME 8.7 fL (9.0-12.2); MONOCYTES # (AUTO) 0.6 10^3/uL (0.0-1.0); MONOCYTES % (AUTO) 7 % (0-12); NEUTROPHILS # (AUTO) 5.7 10^3/uL (1.8-7.8); NEUTROPHILS % (AUTO) 66 % (42-75); PLATELET COUNT 377 10^3/uL (130-400); WHITE BLOOD COUNT 8.5 10^3/uL (4.3-11.0)
[2021-01-12 06:27] LABS: ALBUMIN 3.3 GM/DL (3.2-4.5)
[2021-01-12] MEDS: KCL 8 MEQ (MICRO K) TABLET PO SCH (06:27)
[2021-01-12] MEDS: ENOXAPARIN 40 MG/0.4 ML (LOVENOX) SYR SC SCH (06:27)
[2021-01-12 06:28] LABS: POTASSIUM 4.1 MMOL/L (3.6-5.0)
[2021-01-12 06:29] LABS: CALCIUM 9.4 MG/DL (8.5-10.1)
[2021-01-12 06:30] LABS: TOTAL PROTEIN 6.3 GM/DL (6.4-8.2)
[2021-01-12 06:34] LABS: CREATININE SERUM 1.16 MG/DL (0.60-1.30)
--- NOTE | 2021-01-12 06:58 | PM&R Progress Note ---
Subjective HPI/CC On Admission Date Seen by Provider: Jan 12, 2021 Time Seen by Provider: 09:00 Subjective/Events-last exam 01/12/2021: Pt remarkably better No pain and walked to the gym Quest ran has helped the diarrhea Denies any other new issues 01/11/21: Patient feels good except foot pain Diarrhea improved C diff negative Questran helps 01/10/21: Patient hurts a lot everywhere Monitoring closely Diarrhea still present will check C diff and start Questran Difficult and slow recovery 01/09/2021: Patient much better X-rays normal of the feet and ankles 2 steroid injections of really help the gout pain Elevated white count noted from steroid effect 01/08/2021: Pt doing remarkably well Injection really helped him so it leads me to believe that some form of this pain is from Gout Will give an other injection a day of 125 mg Imaging scans ordered by Dr. Greenfield Moving around a lot better today 01/07/2021: Patient still having difficulties walking because of foot pain Diarrhea is still continuing Pain issues seem to be the main problem Received Solu-Medrol injection in case this is gout he was having some pain with the injection which is unusual since that is not a painful injection Appears to be hypersensitive to pain Very slow recovery Uses wheelchair most of the time Spoke with Dr. Greenfield due to 's concerns and he will evaluate and order any type of imaging he feels is necessary 01/06/2021: Pt doing better but still cant ambulate Skipping meals Slide board used Diarrhea two days in a row so we are holding laxatives Imodium given 01/05/2021: Venous Doppler ordered but Lovenox has been on board No DVT noted on prelim Multiple somatic issues Gout treatment continues Flat affect 01/04/2021: Patient having a slow recovery at the bedside Has a different complaint every day Finishing up on antibiotics Transferring via sideboard Having some loose stools 01/03/2021: Patient doing well Bilateral foot pain Has a history of gout so we will restart his home medications and add colchicine 1 dose Gram-negative reshma in blood culture patient remains on Omnicef and Zyvox Loose bowels moving Flat affect improved a bit 01/02/2021: Pt doing really well Complains about the left leg pain Changing IV antibiotics to PO [place] affect continues but that is chronic 01/01/2021: Pt doing pretty well Having burning of his leg IV antibiotics maintained for the left wrist IV site cellulitis Bowels moving well Pain is well controlled Check meds and labs Review of Systems Musculoskeletal: neck pain, shoulder pain, arm pain, back pain, hand pain, leg pain, foot pain Objective Exam Vital Signs Vital Signs Date Time Temp Pulse Resp B/P (MAP) Pulse Ox O2 Delivery O2 Flow Rate FiO2 01/12/21 20:15 98 Room Air 01/12/21 19:19 36.5 74 18 127/62 (83) Capillary Refill : General Appearance: No Apparent Distress, WD/WN, Obese HEENT: PERRL/EOMI, Pharynx Normal, Moist Mucous Membranes Neck: Full Range of Motion, Non Tender, Supple Respiratory: Chest Non Tender, Lungs Clear, Normal Breath Sounds, No Accessory Muscle Use Cardiovascular: Regular Rate, Rhythm, No Edema, No Gallop, Normal Peripheral Pulses Gastrointestinal: Normal Bowel Sounds, No Organomegaly, No Pulsatile Mass, Non Tender, Soft Back: Normal Inspection, No CVA Tenderness, Decreased Range of Motion Extremity: Calf Tenderness (Left leg), Pedal Edema (Left foot), Swelling (left lower extremity), Other (Reduced tenderness to touch B/L compared to yesterday) Neurologic/Psychiatric: Alert, Oriented x3, inspector rag sorting II-XII Norm as Tested Skin: Other (healing hematoma in left leg, leg has soft yellow color) Lymphatic: No Adenopathy (axillary and cervical) Results/Procedures Lab Laboratory Tests 01/12/21 05:27 Patient resulted labs reviewed. FIM Transfers Therapy Code Descriptions/Definitions Functional [place] Measure: 0=Not Assessed/NA 4=Minimal Assistance 1=Total Assistance 5=Supervision or Setup 2=Maximal Assistance 6=Modified [place] 3=Moderate Assistance 7=Complete IndependenceSCALE: Activities may be completed with or without assistive devices. 0-Imdaqtphjd-ybfnjyx completes the activity by him/herself with no assistance from a helper. 5-Set-up or Clean-up Assistance-helper sets up or cleans up; patient completes activity. [place] assists only prior to or following the activity. 4-Supervision or Touching Assistance-helper provides verbal cues and/or touching/steadying and/or contact guard assistance as patient completes activity. Assistance may be provided throughout the activity or intermittently. 3-Partial/Moderate Assistance-helper does LESS THAN HALF the effort. [place] lifts, holds or supports trunk or limbs, but provides less than half the effort. 2-Substantial/Maximal Assistance-helper does MORE THAN HALF the effort. [place] lifts or holds trunk or limbs and provides more than half the effort. 6-Qfxpuwpvj-akuzum does ALL the effort. Patient does none of the effort to complete the activity. Or, the assistance of 2 or more helpers is required for the patient to complete the activity. If activity was not attempted, code reason: 7-Patient Refused. 9-Not Applicable-not attempted and the patient did not perform the activity before the current illness, exacerbation or injury. 10-Not Attempted due to Environmental Limitations-(lack of equipment, weather restraints, etc.). 88-Not Attempted due to Medical Conditions or Safety Concerns. Roll Left to Right (QC): 6 Sit to Lying (QC): 6 Sit to Stand (QC): 3 Chair/Xku-du-Ayhdo Xfer(QC): 4 Car Transfer (QC): 4 Gait Training Does the Patient Walk?: Yes Distance: 250' Walk 10 feet (QC): 4 (CGA) Walk 50 ft with 2 Turns(QC): 4 (CGA) Walk 150 ft (QC): 4 (CGA) Walking 10ft/uneven surface-QC: 88 Gait Persons Needed: 1 Gait Assistive Device: FWW Wheelchair Training Does the Pt Use a Wheelchair?: Yes Distance: 150'x2 Wheel 50 ft with 2 turns (QC): 6 Wheel 150 ft (QC): 6 Type of Wheelchair: Manual Stair Training 1 Step (curb) (QC): 88 4 Steps (QC): 88 12 Steps (QC): 88 Balance Picking up an Object (QC): 88 ADL-Treatment Eating (QC): 6 Oral Hygiene (QC): 6 (From wheelchair level.) Shower/Bathe Self (QC): 5 Upper Body Dressing (QC): 5 Lower Body Dressing (QC): 5 On/Off Footwear (QC): 6 (Pt. able to bring feet up to him this date and don slipper socks without AE.) Toileting Hygiene (QC): 5 Toilet Transfer (QC): 4 Assessment/Plan Assessment and Plan Assess & Plan/Chief Complaint Assessment: S/P Trauma with injuries from cow- blunt injury and crush injury sustained -general surgery following -continue frequent reassessments of left lower extremity -awaiting placement of clam brace- should happen today -2 view left foot x ray negative for acute pathology -Ankle x-rays and possible MRIs will be ordered by Dr. Greenfield Concussion with LOC -continue to monitor neurologic status Rhabdomyolysis -CK decreased to 1049 today from 1224 yesterday now normal -SL'd -encourage increased po intake of fluids -continue to trend for now Acute kidney injury-resolved -Creatinine stable at 1.29 today Anemia -Hgb stable at 11.1 today -surgery holding lovenox due to anemia -continue to trend Chest pain with history of angina -cardiology following -continue to monitor -PRN SL nitro Hypertension -continue to monitor Hyperlipidemia -continue to monitor Sinus node dysfunction pacemaker in place -cardiology following -pacemaker interrogated and functioning appropriately Pain control -continue prn's PT OT -doing frequent therapy per patient report -plan to transfer to inpatient rehab unit pending workers comp approval Cellulitis at site of previous IV site with fever -Begin IV antibiotics status post pancultured Gout Somatization Hypersensitivity to pain Plan: Aggressive therapy Pain control IV antibiotics Supportive care 01/01/2021: Supportive care Hep-Lock IV fluid tin recovery worker antibiotics tomorrow 01/02/2021: Supportive care Pain control Change IV antibiotics to p.o. 01/03/2021: Gout treatment Supportive care Antibiotics 01/04/2021: Monitor somatic complaints Supportive care 01/05/2021: Somatic issues Pain control Gout treatment 01/06/2021: Pain from injuries is out of proportion Continues to be a slow recovery 01/07/2021: Solu-Medrol injection in case gout is constantly but pain Appreciate Dr. Greenfield's evaluation 01/08/2021: Pain is much better today Additional Solu-Medrol to finish out any gout pain 01/09/2021: Gout treatment Monitor closely 01/10/21: Supportive care Slow recovery 01/11/21: Monitor pain Check labs in am 01/12/2021: Monitor closely Discharge planned soon (1) Episode of unresponsiveness Status: Acute (2) Thoracic spine fracture (3) Depression (4) Anxiety (5) Pacemaker (6) CAD (coronary artery disease) (7) Concussion Status: Acute (8) Victim of trampling from animal Status: Acute (9) Chest wall contusion Status: Acute (10) Hematoma of left lower extremity Status: Acute GARCIA,FRANK DO Jan 12, 2021 06:58
[2021-01-12 08:00] VITALS: BP 131/76
[2021-01-12] MEDS: ASPIRIN E.C. 81 MG (ECOTRIN) TAB PO SCH (08:05)
[2021-01-12] MEDS: LACTOBACILLUS ACIDOPHILUS (PROBIOTIC) CAPSULE PO SCH ×3 (08:05→17:19)
[2021-01-12] MEDS: COLCHICINE 0.6 MG (COLCRYS) TABLET PO PRN ×3 (08:05→20:15)
[2021-01-12] MEDS: CHOLESTYRAMINE 4 GM (QUESTRAN LITE, PREVALITE) PKT PO SCH ×3 (08:05→17:19)
[2021-01-12] MEDS: lisINopril 20 MG (PRINIVIL) TABLET PO SCH (08:05)
[2021-01-12] MEDS: PANTOPRAZOLE 40 MG (PROTONIX) TAB PO SCH (08:05)
[2021-01-12] MEDS: ALPRAZolam 0.5 MG (XANAX) TAB PO SCH ×4 (08:05→20:14)
[2021-01-12] MEDS: SUCRALFATE 1 GM (CARAFATE) TAB PO SCH ×2 (08:05→20:14)
[2021-01-12] MEDS: VERAPAMIL SR 240 MG (CALAN SR) TAB PO SCH (08:05)
[2021-01-12] MEDS: polyethylene glycoL POWDER 17 GM (MIRALAX) PACK PO SCH ×2 (08:06→20:15)
--- NOTE | 2021-01-12 10:54 | Occupational Ther Daily Note ---
OT Current Status-Daily Note Subjective No pain reported. Appearance Pt. sitting on EOB. Agrees to work with OT. Mental Status/Objective Patient Orientation: Person, Place, Time, Situation ADL-Treatment Therapy Code Descriptions/Definitions Functional [place] Measure: 0=Not Assessed/NA 4=Minimal Assistance 1=Total Assistance 5=Supervision or Setup 2=Maximal Assistance 6=Modified [place] 3=Moderate Assistance 7=Complete IndependenceSCALE: Activities may be completed with or without assistive devices. 0-Stxfhskndg-xzhqcge completes the activity by him/herself with no assistance from a helper. 5-Set-up or Clean-up Assistance-helper sets up or cleans up; patient completes activity. [place] assists only prior to or following the activity. 4-Supervision or Touching Assistance-helper provides verbal cues and/or touching/steadying and/or contact guard assistance as patient completes activity. Assistance may be provided throughout the activity or intermittently. 3-Partial/Moderate Assistance-helper does LESS THAN HALF the effort. [place] lifts, holds or supports trunk or limbs, but provides less than half the effort. 2-Substantial/Maximal Assistance-helper does MORE THAN HALF the effort. [place] lifts or holds trunk or limbs and provides more than half the effort. 9-Fepnbplpb-ijfygz does ALL the effort. Patient does none of the effort to complete the activity. Or, the assistance of 2 or more helpers is required for the patient to complete the activity. If activity was not attempted, code reason: 7-Patient Refused. 9-Not Applicable-not attempted and the patient did not perform the activity before the current illness, exacerbation or injury. 10-Not Attempted due to Environmental Limitations-(lack of equipment, weather restraints, etc.). 88-Not Attempted due to Medical Conditions or Safety Concerns. Eating (QC): 6 Oral Hygiene (QC): 5 (Sitting at sink.) Shower/Bathe Self (QC): 5 (Pt. showered self after set up this date.) Upper Body Dressing (QC): 5 Lower Body Dressing (QC): 5 On/Off Footwear: 5 (Pt. able to bring bilateral LE up to self without bending over. This is difficult however.) Toileting Hygiene (QC): 6 Toilet Transfer (QC): 4 Other Treatment After ADLs, pt. ambulates to therapy gym with walker and SBA. Pt. practices doffing/donning back brace. Requires SBA and cues. Pt. and OT talk about pt.'s specific fx and back safety/precautions. Pt. verbalizes understanding. Ambulated back to room with SBA. All needs met back in reclining chair. Education OT Patient Education: Correct positioning, Modified ADL techniques, Progress toward Goal/Update tx plan, Purpose of tx/functional activities, Reviewed precautions, Rehab process, Transfer techniques Teaching Recipient: Patient Teaching Methods: Demonstration, Discussion Response to Teaching: Verbalize Understanding, Return Demonstration OT Short Term Goals Short Term Goals Time Frame: Jan 07, 2021 Lower body dressin Putting on/taking off footwear: 4 OT [place] Opener Goals [place] Opener Goals Time Frame: Jan 16, 2021 Eating (QC): 6 Oral Hygiene (QC): 6 Toileting Hygiene (QC): 6 Shower/Bathe Self (QC): 6 Upper Body Dressing (QC): 6 Lower Body Dressing (QC): 6 On/Off Footwear (QC): 6 Additional Goals: 1-Demonstrate ADL Tasks, 2-Verbalize Understanding, 3-Improve Strength/Radha 1=Demonstrate adherence to instructed precautions during ADL tasks. 2=Patient will verbalize/demonstrate understanding of assistive devices/modifications for ADL. 3=Patient will improve strength/tolerance for activity to enable patient to pe rform ADL's. OT Education/Plan Problem List/Assessment Assessment: Decreased Activ Tolerance, Impaired I ADL's, Impaired Self-Care Skills Discharge Recommendations Plan/Recommendations: Continue POC Therapy Discharge Recommendati: Post Acute OT Treatment Plan/Plan of Care Treatment,Training & Education: Yes Patient would benefit from OT for education, treatment and training to promote independence in ADL's, mobility, safety and/or upper extremity function for ADL's. Plan of Care: ADL Retraining, Functional Mobility, Group Exercise/Act as Ind, UE Funct Exercise/Act Treatment Duration: Jan 16, 2021 Frequency: At least 5 of 7 days/Wk (IRF) Estimated Hrs Per Day: 1.5 hours per day Agreement: Yes Rehab Potential: Good Time/GCodes Start Time: 08:15 Stop Time: 09:15 Total Time Billed (hr/min): 60 Billed Treatment Time 1, ADL x 4 SRINIVAS MINA OT Jan 12, 2021 10:54
--- NOTE | 2021-01-12 11:30 | Speech Therapy Daily Note ---
Speech Daily Progress Note Subjective Date Seen by Provider: Jan 12, 2021 Time Seen by Provider: 00:30 Patient sitting up in his chair following OT and PT sessions. Patient states he is having some pain all over. Assessment Assessment Current Status: Good Progress Treatment Plan Continue Plan of Care Speech Short Term Goals Short Term Goals Short Term Goals 1) Patient will complete memory tasks related to his daily needs at 75% or greater with minimal cues. 2) Patient will complete safety awareness tasks related to his daily needs at 75% or greater with minimal cues. 3) Patient will complete problem solving related to his daily needs at 75% or greater with minimal cues. Speech Senior Group Manager Goals Senior Group Manager Goals Patient will improve cognitive-communication abilities in order to require less assistance with daily needs. Speech-Plan Patient/Family Goals Patient/Family Goals: Patient plans on returning to his home where he lives with his . Treatment Plan Speech Therapy Treatment Plan: Continue Plan of Care Treatment Duration: Jan 16, 2021 Frequency: 4 times per week (Patient will receive skilled ST 4-5x per week) Estimated Hrs Per Day: .5 hour per day Rehab Potential: Good Barriers to Learning: Patient's STM deficits, health decline due to recent accident Pt/Family Agrees to Plan: Yes Safety Risks/Education Teaching Recipient: Patient Teaching Methods: Demonstration, Discussion Response to Teaching: Verbalize Understanding, Return Demonstration Education Topics Provided: Continued safety and communication Time Speech Therapy Time In: 11:30 Speech Therapy Time Out: 12:00 Total Billed Time: 30 Billed Treatment Time 1, ALFIE Lieberman Jan 12, 2021 11:30
--- NOTE | 2021-01-12 12:04 | Physical Therapy Daily Note ---
PT Daily Note-Current Subjective Pt in recliner upon arrival, agrees to tx. Throughout tx, pt stated pain in L calf 11/29. Pt stated pain was worse with standing/amb. Pt stated he is concerned about 6" step in home. Pain Numeric Pain Scale: 7 Location: Left Location Body Site: Calf Mental Status Patient Orientation: Person, Place, Time, Situation Transfers SCALE: Activities may be completed with or without assistive devices. 3-Oebiafgssb-mwmprgu completes the activity by him/herself with no assistance from a helper. 5-Set-up or Clean-up Assistance-helper sets up or cleans up; patient completes activity. [place] assists only prior to or following the activity. 4-Supervision or Touching Assistance-helper provides verbal cues and/or touching/steadying and/or contact guard assistance as patient completes activity. Assistance may be provided throughout the activity or intermittently. 3-Partial/Moderate Assistance-helper does LESS THAN HALF the effort. [place] lifts, holds or supports trunk or limbs, but provides less than half the effort. 2-Substantial/Maximal Assistance-helper does MORE THAN HALF the effort. [place] lifts or holds trunk or limbs and provides more than half the effort. 6-Kurkzkgjg-vndzxy does ALL the effort. Patient does none of the effort to complete the activity. Or, the assistance of 2 or more helpers is required for the patient to complete the activity. If activity was not attempted, code reason: 7-Patient Refused. 9-Not Applicable-not attempted and the patient did not perform the activity before the current illness, exacerbation or injury. 10-Not Attempted due to Environmental Limitations-(lack of equipment, weather restraints, etc.). 88-Not Attempted due to Medical Conditions or Safety Concerns. Sit to Stand (QC): 4 Weight Bearing Patient not on any weight bearing restrictions, however is unable to bear weight or stand due to reports of significant pain. Gait Training Does the Patient Walk?: Yes Distance: 150' Walk 10 feet (QC): 4 Walk 50 ft with 2 Turns(QC): 4 Walk 150 ft (QC): 4 Gait Persons Needed: 1 Gait Assistive Device: FWW Pt amb with FWW with slight antalgic gt d/t pain in L calf. Pt WB w UE to offset pain on L LE. Wheelchair Training Does the Pt Use a Wheelchair?: No Exercises Seated Therapy Exercises: Ankle pumps Seated Reps: 15 Standing: Hip Abduction, Hamstring curls, Marching, Sit to Stand Standing Reps: 15 Pt performed standing Ex with frequent seated breaks. Pt attempted standing calf raised but unable to do so d/t pain in L calf. Pt able to perform partial ankle pump in seated position. Treatments Pt used restroom prior to amb to gym. Pt performed standing ex in // bars followed by seated ex. Pt amb back to room and returned to recliner with call light. Assessment Current Status: Good Progress Pt progressing well, limited activity d/t pain in L LE. PT Short Term Goals Short Term Goals Time Frame: Jan 07, 2021 Roll Left & Right: 6 Sit to lyin Lying to sitting on side of be: 5 Sit to stand: 4 Walk 10 feet: 4 Walk 50 feet with two turns: 4 Walk 150 feet: 4 PT Rn Mds Coordinator Goals [facility] Goals PT Rn Mds Coordinator Goals Time Frame: Jan 21, 2021 Roll Left & Right (QC): 6 Sit to Lying (QC): 6 Lying-Sitting on Side/Bed(QC): 6 Sit to Stand (QC): 5 Chair/Qba-ry-Hpcmh Xfer(QC): 5 Toilet Transfer (QC): 5 Car Transfer (QC): 5 Does the Patient Walk: Yes Walk 10 feet (QC): 5 Walk 50ft with 2 Turns (QC): 5 Walk 150 ft (QC): 5 Walking 10ft on Uneven Surface: 4 1 Step (curb) (QC): 4 4 Steps (QC): 4 12 Steps (QC): 88 Picking up an Object (QC): 88 Wheel 50 feet with 2 turns (QC: 6 Wheel 150 feet: 6 PT Plan Problem List Problem List: Activity Tolerance Treatment/Plan Treatment Plan: Continue Plan of Care Treatment Plan: Bed Mobility, Education, Functional Activity Radha, Functional Strength, Group Therapy, Gait, Safety, Therapeutic Exercise, Transfers Treatment Duration: Jan 21, 2021 Frequency: At least 5 of 7 days/Wk (IRF) Estimated Hrs Per Day: 1.5 hours per day Patient and/or Family Agrees t: Yes Safety Risks/Education Patient Education: Gait Training, Reviewed Don/Doff Brace Teaching Recipient: Patient Teaching Methods: Demonstration, Discussion Response to Teaching: Verbalize Understanding, Return Demonstration Time/GCodes Time In: 1045 Time Out: 1130 Total Billed Treatment Time: 45 Total Billed Treatment 1, GT, FA, EX LOIS STUART HORSE RIDING COACH OR INSTRUCTOR Jan 12, 2021 12:04
[2021-01-12] MEDS: LOPERAMIDE 2 MG (IMODIUM) TABLET PO PRN (13:19)
--- NOTE | 2021-01-12 13:26 | Occupational Ther Daily Note ---
OT Current Status-Daily Note Subjective Pt. reports pain in left LE, but does not report pain level. Nursing notified. Mental Status/Objective Patient Orientation: Person, Place, Time, Situation ADL-Treatment Therapy Code Descriptions/Definitions Functional [place] Measure: 0=Not Assessed/NA 4=Minimal Assistance 1=Total Assistance 5=Supervision or Setup 2=Maximal Assistance 6=Modified [place] 3=Moderate Assistance 7=Complete IndependenceSCALE: Activities may be completed with or without assistive devices. 3-Paymghcbqy-vyiseuj completes the activity by him/herself with no assistance from a helper. 5-Set-up or Clean-up Assistance-helper sets up or cleans up; patient completes activity. [place] assists only prior to or following the activity. 4-Supervision or Touching Assistance-helper provides verbal cues and/or touchin g/steadying and/or contact guard assistance as patient completes activity. Assistance may be provided throughout the activity or intermittently. 3-Partial/Moderate Assistance-helper does LESS THAN HALF the effort. [place] lifts, holds or supports trunk or limbs, but provides less than half the effort. 2-Substantial/Maximal Assistance-helper does MORE THAN HALF the effort. [place] lifts or holds trunk or limbs and provides more than half the effort. 1-Mrlghmkra-vketor does ALL the effort. Patient does none of the effort to complete the activity. Or, the assistance of 2 or more helpers is required for the patient to complete the activity. If activity was not attempted, code reason: 7-Patient Refused. 9-Not Applicable-not attempted and the patient did not perform the activity before the current illness, exacerbation or injury. 10-Not Attempted due to Environmental Limitations-(lack of equipment, weather restraints, etc.). 88-Not Attempted due to Medical Conditions or Safety Concerns. Upper Body Dressing (QC): 3 (Pt requires mod assist this date for TLSO brace.) Other Treatment Pt. transfers with SBA and walker. Ambulates approximately 250 feet with SBA. Slow pace and states that he is having mild pain in left LE. Pt. rests in gym, and ambulates another 250 feet to room. Transfers to chair and doffs TLSO brace with mod assist. All needs met. Education OT Patient Education: Correct positioning, Modified ADL techniques, Progress toward Goal/Update tx plan, Purpose of tx/functional activities, Reviewed precautions, Rehab process, Transfer techniques Teaching Recipient: Patient Teaching Methods: Demonstration, Discussion Response to Teaching: Verbalize Understanding, Return Demonstration OT Short Term Goals Short Term Goals Time Frame: Jan 07, 2021 Lower body dressin Putting on/taking off footwear: 4 OT Counselor At Law Goals Counselor At Law Goals Time Frame: Jan 16, 2021 Eating (QC): 6 Oral Hygiene (QC): 6 Toileting Hygiene (QC): 6 Shower/Bathe Self (QC): 6 Upper Body Dressing (QC): 6 Lower Body Dressing (QC): 6 On/Off Footwear (QC): 6 Additional Goals: 1-Demonstrate ADL Tasks, 2-Verbalize Understanding, 3- ImproveStrength/Radha 1=Demonstrate adherence to instructed precautions during ADL tasks. 2=Patient will verbalize/demonstrate understanding of assistive devices/modifications for ADL. 3=Patient will improve strength/tolerance for activity to enable patient to perform ADL's. OT Education/Plan Problem List/Assessment Assessment: Decreased Activ Tolerance, Impaired I ADL's, Impaired Self-Care Skills Discharge Recommendations Plan/Recommendations: Continue POC Treatment Plan/Plan of Care Treatment,Training & Education: Yes Patient would benefit from OT for education, treatment and training to promote independence in ADL's, mobility, safety and/or upper extremity function for ADL's. Plan of Care: ADL Retraining, Functional Mobility, Group Exercise/Act as Ind, UE Funct Exercise/Act Treatment Duration: Jan 16, 2021 Frequency: At least 5 of 7 days/Wk (IRF) Estimated Hrs Per Day: 1.5 hours per day Agreement: Yes Rehab Potential: Good Time/GCodes Start Time: 13:00 Stop Time: 13:15 Total Time Billed (hr/min): 15 Billed Treatment Time 1, SRINIVAS SANDOVAL OT Jan 12, 2021 13:26
--- NOTE | 2021-01-12 14:55 | Physical Therapy Daily Note ---
PT Daily Note-Current Subjective Pt sitting in recliner upon arrival. Pt agrees to PT. Pain Numeric Pain Scale: 7 Location: Right Location Body Site: Calf Pain Description: Burning, Tightness, Sharp Mental Status Patient Orientation: Person, Place, Time, Situation Attachments: Other-See Comments (TLSO) Transfers SCALE: Activities may be completed with or without assistive devices. 2-Qoeovejflc-qccawhp completes the activity by him/herself with no assistance from a helper. 5-Set-up or Clean-up Assistance-helper sets up or cleans up; patient completes activity. [place] assists only prior to or following the activity. 4-Supervision or Touching Assistance-helper provides verbal cues and/or touching/steadying and/or contact guard assistance as patient completes activ ity. Assistance may be provided throughout the activity or intermittently. 3-Partial/Moderate Assistance-helper does LESS THAN HALF the effort. [place] lifts, holds or supports trunk or limbs, but provides less than half the effort. 2-Substantial/Maximal Assistance-helper does MORE THAN HALF the effort. [place] lifts or holds trunk or limbs and provides more than half the effort. 3-Mdzlqjwqd-zdaabt does ALL the effort. Patient does none of the effort to complete the activity. Or, the assistance of 2 or more helpers is required for the patient to complete the activity. If activity was not attempted, code reason: 7-Patient Refused. 9-Not Applicable-not attempted and the patient did not perform the activity before the current illness, exacerbation or injury. 10-Not Attempted due to Environmental Limitations-(lack of equipment, weather restraints, etc.). 88-Not Attempted due to Medical Conditions or Safety Concerns. Sit to Stand (QC): 3 Weight Bearing Patient not on any weight bearing restrictions, however is unable to bear weight or stand due to reports of significant pain. Gait Training Does the Patient Walk?: Yes Distance: 150' x2 Walk 10 feet (QC): 4 Walk 50 ft with 2 Turns(QC): 4 Walk 150 ft (QC): 4 Gait Persons Needed: 1 Gait Assistive Device: FWW Exercises NuStep Minutes: 15 NuStep Workload: 4 Treatments TF to standing and amb. in hallway. Pt uses NuStep then amb. back to room to rest. Pt has all needs met, call light in hand. Assessment Current Status: Good Progress Pt continues to report R calf pain during tx. Nurse notified. PT Short Term Goals Short Term Goals Time Frame: Jan 07, 2021 Roll Left & Right: 6 Sit to lyin Lying to sitting on side of be: 5 Sit to stand: 4 Walk 10 feet: 4 Walk 50 feet with two turns: 4 Walk 150 feet: 4 PT Penitentiary Goals Penitentiary Goals PT Miscellaneous Machine Operator Goals Time Frame: Jan 21, 2021 Roll Left & Right (QC): 6 Sit to Lying (QC): 6 Lying-Sitting on Side/Bed(QC): 6 Sit to Stand (QC): 5 Chair/Drf-et-Azkfs Xfer(QC): 5 Toilet Transfer (QC): 5 Car Transfer (QC): 5 Does the Patient Walk: Yes Walk 10 feet (QC): 5 Walk 50ft with 2 Turns (QC): 5 Walk 150 ft (QC): 5 Walking 10ft on Uneven Surface: 4 1 Step (curb) (QC): 4 4 Steps (QC): 4 12 Steps (QC): 88 Picking up an Object (QC): 88 Wheel 50 feet with 2 turns (QC: 6 Wheel 150 feet: 6 PT Plan Problem List Problem List: Activity Tolerance Treatment/Plan Treatment Plan: Continue Plan of Care Treatment Plan: Bed Mobility, Education, Functional Activity Radha, Functional Strength, Group Therapy, Gait, Safety, Therapeutic Exercise, Transfers Treatment Duration: Jan 21, 2021 Frequency: At least 5 of 7 days/Wk (IRF) Estimated Hrs Per Day: 1.5 hours per day Patient and/or Family Agrees t: Yes Time/GCodes Time In: 1400 Time Out: 1430 Total Billed Treatment Time: 30 Total Billed Treatment 1, GT (15m) & EX (15m) LOIS STUART BUDGET CONSULTANT Jan 12, 2021 14:55
[2021-01-12 19:19] VITALS: BP 127/62
[2021-01-12] MEDS: OLANZapine 5 MG (ZyPREXA) TAB PO SCH (20:14)
[2021-01-12] MEDS: MELATONIN 3 MG TABLET PO PRN (20:15)
[2021-01-12] MEDS: NYSTATIN CREAM (MYCOSTATIN) 30 GM TUBE TP SCH (20:18)
[2021-01-13] MEDS: ONDANSETRON 4 MG (ZOFRAN) ORAL DISSOLVE TAB PO PRN ×2 (03:42→10:36)
[2021-01-13] MEDS: CALCIUM CARBONATE 500 MG (TUMS) TAB.CHEW PO PRN (03:42)
[2021-01-13] MEDS: KCL 8 MEQ (MICRO K) TABLET PO SCH (06:24)
[2021-01-13] MEDS: ENOXAPARIN 40 MG/0.4 ML (LOVENOX) SYR SC SCH (06:24)
[2021-01-13] MEDS: ALPRAZolam 0.5 MG (XANAX) TAB PO SCH ×4 (07:52→22:40)
[2021-01-13] MEDS: LACTOBACILLUS ACIDOPHILUS (PROBIOTIC) CAPSULE PO SCH ×3 (07:53→18:28)
[2021-01-13] MEDS: SUCRALFATE 1 GM (CARAFATE) TAB PO SCH ×2 (07:53→22:40)
[2021-01-13] MEDS: VERAPAMIL SR 240 MG (CALAN SR) TAB PO SCH (07:53)
[2021-01-13] MEDS: ASPIRIN E.C. 81 MG (ECOTRIN) TAB PO SCH (07:53)
[2021-01-13] MEDS: COLCHICINE 0.6 MG (COLCRYS) TABLET PO PRN ×3 (07:53→22:40)
[2021-01-13] MEDS: lisINopril 20 MG (PRINIVIL) TABLET PO SCH (07:53)
[2021-01-13] MEDS: PANTOPRAZOLE 40 MG (PROTONIX) TAB PO SCH (07:54)
[2021-01-13] MEDS: polyethylene glycoL POWDER 17 GM (MIRALAX) PACK PO SCH ×2 (08:00→22:42)
[2021-01-13] MEDS: NYSTATIN CREAM (MYCOSTATIN) 30 GM TUBE TP SCH ×3 (08:00→22:45)
[2021-01-13] MEDS: CHOLESTYRAMINE 4 GM (QUESTRAN LITE, PREVALITE) PKT PO SCH ×3 (08:00→18:25)
[2021-01-13 08:03] VITALS: BP 115/65
--- NOTE | 2021-01-13 08:38 | PM&R Progress Note ---
Subjective HPI/CC On Admission Date Seen by Provider: Jan 13, 2021 Time Seen by Provider: 08:45 Subjective/Events-last exam 01/12/2021: Pt remarkably better No pain and walked to the gym Quest ran has helped the diarrhea Denies any other new issues 01/11/21: Patient feels good except foot pain Diarrhea improved C diff negative Questran helps 01/10/21: Patient hurts a lot everywhere Monitoring closely Diarrhea still present will check C diff and start Questran Difficult and slow recovery 01/09/2021: Patient much better X-rays normal of the feet and ankles 2 steroid injections of really help the gout pain Elevated white count noted from steroid effect 01/08/2021: Pt doing remarkably well Injection really helped him so it leads me to believe that some form of this pain is from Gout Will give an other injection a day of 125 mg Imaging scans ordered by Dr. Greenfield Moving around a lot better today 01/07/2021: Patient still having difficulties walking because of foot pain Diarrhea is still continuing Pain issues seem to be the main problem Received Solu-Medrol injection in case this is gout he was having some pain with the injection which is unusual since that is not a painful injection Appears to be hypersensitive to pain Very slow recovery Uses wheelchair most of the time Spoke with Dr. Greenfield due to 's concerns and he will evaluate and order any type of imaging he feels is necessary 01/06/2021: Pt doing better but still cant ambulate Skipping meals Slide board used Diarrhea two days in a row so we are holding laxatives Imodium given 01/05/2021: Venous Doppler ordered but Lovenox has been on board No DVT noted on prelim Multiple somatic issues Gout treatment continues Flat affect 01/04/2021: Patient having a slow recovery at the bedside Has a different complaint every day Finishing up on antibiotics Transferring via sideboard Having some loose stools 01/03/2021: Patient doing well Bilateral foot pain Has a history of gout so we will restart his home medications and add colchicine 1 dose Gram-negative reshma in blood culture patient remains on Omnicef and Zyvox Loose bowels moving Flat affect improved a bit 01/02/2021: Pt doing really well Complains about the left leg pain Changing IV antibiotics to PO [place] affect continues but that is chronic 01/01/2021: Pt doing pretty well Having burning of his leg IV antibiotics maintained for the left wrist IV site cellulitis Bowels moving well Pain is well controlled Check meds and labs Objective Exam Vital Signs Vital Signs Date Time Temp Pulse Resp B/P (MAP) Pulse Ox O2 Delivery O2 Flow Rate FiO2 01/13/21 08:17 Room Air 01/13/21 08:03 37.1 88 20 115/65 (82) 97 Capillary Refill : General Appearance: No Apparent Distress, WD/WN, Obese HEENT: PERRL/EOMI, Pharynx Normal, Moist Mucous Membranes Neck: Full Range of Motion, Non Tender, Supple Respiratory: Chest Non Tender, Lungs Clear, Normal Breath Sounds, No Accessory Muscle Use Cardiovascular: Regular Rate, Rhythm, No Edema, No Gallop, Normal Peripheral Pulses Gastrointestinal: Normal Bowel Sounds, No Organomegaly, No Pulsatile Mass, Non Tender, Soft Back: Normal Inspection, No CVA Tenderness, Decreased Range of Motion Extremity: Calf Tenderness (Left leg), Pedal Edema (Left foot), Swelling (left lower extremity), Other (Reduced tenderness to touch B/L compared to yesterday) Neurologic/Psychiatric: Alert, Oriented x3, auto detailer II-XII Norm as Tested Skin: Other (healing hematoma in left leg, leg has soft yellow color) Lymphatic: No Adenopathy (axillary and cervical) Results/Procedures Lab Patient resulted labs reviewed. FIM Transfers Therapy Code Descriptions/Definitions Functional [place] Measure: 0=Not Assessed/NA 4=Minimal Assistance 1=Total Assistance 5=Supervision or Setup 2=Maximal Assistance 6=Modified [place] 3=Moderate Assistance 7=Complete IndependenceSCALE: Activities may be completed with or without assistive devices. 2-Nnmzqrdxvs-zoqlnxs completes the activity by him/herself with no assistance from a helper. 5-Set-up or Clean-up Assistance-helper sets up or cleans up; patient completes activity. [place] assists only prior to or following the activity. 4-Supervision or Touching Assistance-helper provides verbal cues and/or touching/steadying and/or contact guard assistance as patient completes a ctivity. Assistance may be provided throughout the activity or intermittently. 3-Partial/Moderate Assistance-helper does LESS THAN HALF the effort. [place] lifts, holds or supports trunk or limbs, but provides less than half the effort. 2-Substantial/Maximal Assistance-helper does MORE THAN HALF the effort. [place] lifts or holds trunk or limbs and provides more than half the effort. 3-Hayhtskxw-dnmhjd does ALL the effort. Patient does none of the effort to complete the activity. Or, the assistance of 2 or more helpers is required for the patient to complete the activity. If activity was not attempted, code reason: 7-Patient Refused. 9-Not Applicable-not attempted and the patient did not perform the activity before the current illness, exacerbation or injury. 10-Not Attempted due to Environmental Limitations-(lack of equipment, weather restraints, etc.). 88-Not Attempted due to Medical Conditions or Safety Concerns. Roll Left to Right (QC): 6 Sit to Lying (QC): 6 Sit to Stand (QC): 3 Chair/Oyz-rx-Ayypj Xfer(QC): 4 Car Transfer (QC): 4 Gait Training Does the Patient Walk?: Yes Distance: 150' x2 Walk 10 feet (QC): 4 Walk 50 ft with 2 Turns(QC): 4 Walk 150 ft (QC): 4 Walking 10ft/uneven surface-QC: 88 Gait Persons Needed: 1 Gait Assistive Device: FWW Wheelchair Training Does the Pt Use a Wheelchair?: Yes Distance: 150'x2 Wheel 50 ft with 2 turns (QC): 6 Wheel 150 ft (QC): 6 Type of Wheelchair: Manual Stair Training 1 Step (curb) (QC): 88 4 Steps (QC): 88 12 Steps (QC): 88 Balance Picking up an Object (QC): 88 ADL-Treatment Eating (QC): 6 Oral Hygiene (QC): 5 (Sitting at sink.) Shower/Bathe Self (QC): 5 (Pt. showered self after set up this date.) Upper Body Dressing (QC): 3 (Pt requires mod assist this date for TLSO brace.) Lower Body Dressing (QC): 5 On/Off Footwear (QC): 5 (Pt. able to bring bilateral LE up to self without bending over. This is difficult however.) Toileting Hygiene (QC): 6 Toilet Transfer (QC): 4 Assessment/Plan Assessment and Plan Assess & Plan/Chief Complaint Assessment: S/P Trauma with injuries from cow- blunt injury and crush injury sustained -general surgery following -continue frequent reassessments of left lower extremity -awaiting placement of clam brace- should happen today -2 view left foot x ray negative for acute pathology -Ankle x-rays and possible MRIs will be ordered by Dr. Greenfield Concussion with LOC -continue to monitor neurologic status Rhabdomyolysis -CK decreased to 1049 today from 1224 yesterday now normal -SL'd -encourage increased po intake of fluids -continue to trend for now Acute kidney injury-resolved -Creatinine stable at 1.29 today Anemia -Hgb stable at 11.1 today -surgery holding lovenox due to anemia -continue to trend Chest pain with history of angina -cardiology following -continue to monitor -PRN SL nitro Hypertension -continue to monitor Hyperlipidemia -continue to monitor Sinus node dysfunction pacemaker in place -cardiology following -pacemaker interrogated and functioning appropriately Pain control -continue prn's PT OT -doing frequent therapy per patient report -plan to transfer to inpatient rehab unit pending workers comp approval Cellulitis at site of previous IV site with fever -Begin IV antibiotics status post pancultured Gout Somatization Hypersensitivity to pain Plan: Aggressive therapy Pain control IV antibiotics Supportive care 01/01/2021: Supportive care Hep-Lock IV fluid government clerk antibiotics tomorrow 01/02/2021: Supportive care Pain control Change IV antibiotics to p.o. 01/03/2021: Gout treatment Supportive care Antibiotics 01/04/2021: Monitor somatic complaints Supportive care 01/05/2021: Somatic issues Pain control Gout treatment 01/06/2021: Pain from injuries is out of proportion Continues to be a slow recovery 01/07/2021: Solu-Medrol injection in case gout is constantly but pain Appreciate Dr. Greenfield's evaluation 01/08/2021: Pain is much better today Additional Solu-Medrol to finish out any gout pain 01/09/2021: Gout treatment Monitor closely 01/10/21: Supportive care Slow recovery 01/11/21: Monitor pain Check labs in am 01/12/2021: Monitor closely Discharge planned soon (1) Episode of unresponsiveness Status: Acute (2) Thoracic spine fracture (3) Depression (4) Anxiety (5) Pacemaker (6) CAD (coronary artery disease) (7) Concussion Status: Acute (8) Victim of trampling from animal Status: Acute (9) Chest wall contusion Status: Acute (10) Hematoma of left lower extremity Status: Acute FRANK GARCIA DO Jan 13, 2021 08:38
--- NOTE | 2021-01-13 09:03 | Occupational Ther Daily Note ---
OT Current Status-Daily Note Subjective Pt. reports pain in upper arm area, in soft tissue with repetative movement. No number rated. Pt. has had medication. Mental Status/Objective Patient Orientation: Person, Place, Time, Situation ADL-Treatment Therapy Code Descriptions/Definitions Functional [place] Measure: 0=Not Assessed/NA 4=Minimal Assistance 1=Total Assistance 5=Supervision or Setup 2=Maximal Assistance 6=Modified [place] 3=Moderate Assistance 7=Complete IndependenceSCALE: Activities may be completed with or without assistive devices. 1-Qkscmmicnv-ooxdsir completes the activity by him/herself with no assistance from a helper. 5-Set-up or Clean-up Assistance-helper sets up or cleans up; patient completes activity. [place] assists only prior to or following the activity. 4-Supervision or Touching Assistance-helper provides verbal cues and/or touching/steadying and/or contact guard assistance as patient completes activity. Assistance may be provided throughout the activity or intermittently. 3-Partial/Moderate Assistance-helper does LESS THAN HALF the effort. [place] lifts, holds or supports trunk or limbs, but provides less than half the effort. 2-Substantial/Maximal Assistance-helper does MORE THAN HALF the effort. [place] lifts or holds trunk or limbs and provides more than half the effort. 9-Ygnesrqsq-jdznqe does ALL the effort. Patient does none of the effort to complete the activity. Or, the assistance of 2 or more helpers is required for the patient to complete the activity. If activity was not attempted, code reason: 7-Patient Refused. 9-Not Applicable-not attempted and the patient did not perform the activity before the current illness, exacerbation or injury. 10-Not Attempted due to Environmental Limitations-(lack of equipment, weather restraints, etc.). 88-Not Attempted due to Medical Conditions or Safety Concerns. Eating (QC): 6 Oral Hygiene (QC): 6 Shower/Bathe Self (QC): 6 Upper Body Dressing (QC): 3 (indepdent for shirt, min assist for TLSO brace.) Lower Body Dressing (QC): 6 On/Off Footwear: 6 Toileting Hygiene (QC): 6 Toilet Transfer (QC): 6 Other Treatment Pt. sitting on EOB independently this date when OT entered room. Agrees to shower. Pt. able to shower and dress with Mod I, with min assist only for TLSO brace. Able to dress and bathe all other parts with no difficulty. Pt. able to bring feet up to him without breaking back precautions. Ambulated with walker to car in dining area. OT raised car to height of pt's truck, and he demonstrated ability to correctly transfer into with Mod I. Ambulated to therapy gym with mod I with walker and completed pulleys x 7 minutes for UE stretch. Pt. reports he feels tight in UE and chest area for soft tissue trauma from accident from cow. Pt. verbalizes that he will not have to do laundry or cleaning activities at home, and therefore does not feel need to practice here. Ambulated back to room and all needs met. Education OT Patient Education: Correct positioning, Modified ADL techniques, Progress toward Goal/Update tx plan, Purpose of tx/functional activities, Reviewed precautions, Rehab process, Transfer techniques Teaching Recipient: Patient Teaching Methods: Demonstration, Discussion Response to Teaching: Verbalize Understanding, Return Demonstration OT Short Term Goals Short Term Goals Time Frame: Jan 07, 2021 Lower body dressin Putting on/taking off footwear: 4 OT Halfway Goals Stove Mounter Goals Time Frame: Jan 16, 2021 Eating (QC): 6 Oral Hygiene (QC): 6 Toileting Hygiene (QC): 6 Shower/Bathe Self (QC): 6 Upper Body Dressing (QC): 6 Lower Body Dressing (QC): 6 On/Off Footwear (QC): 6 Additional Goals: 1-Demonstrate ADL Tasks, 2-Verbalize Understanding, 3- ImproveStrength/Radha 1=Demonstrate adherence to instructed precautions during ADL tasks. 2=Patient will verbalize/demonstrate understanding of assistive devices/modifications for ADL. 3=Patient will improve strength/tolerance for activity to enable patient to perform ADL's. OT Education/Plan Problem List/Assessment Assessment: Decreased Activ Tolerance Discharge Recommendations Plan/Recommendations: Continue POC Therapy Discharge Recommendati: Home & Family Treatment Plan/Plan of Care Treatment,Training & Education: Yes Patient would benefit from OT for education, treatment and training to promote independence in ADL's, mobility, safety and/or upper extremity function for ADL's. Plan of Care: ADL Retraining, Functional Mobility, Group Exercise/Act as Ind, UE Funct Exercise/Act Treatment Duration: Jan 16, 2021 Frequency: At least 5 of 7 days/Wk (IRF) Estimated Hrs Per Day: 1.5 hours per day Agreement: Yes Rehab Potential: Good Time/GCodes Start Time: 08:15 Stop Time: 09:00 Total Time Billed (hr/min): 45 Billed Treatment Time 1, ADL x 30minutes, Ex x 15minutes SRINIVAS MINA OT Jan 13, 2021 09:03
--- NOTE | 2021-01-13 09:41 | Physical Therapy Daily Note ---
PT Daily Note-Current Subjective Pt sitting in recliner upon arrival. Pt agrees to PT for QC scoring for anticipated d/c. Pain Numeric Pain Scale: 7 Location: Right Location Body Site: Calf Pain Description: Ache, Tingling Mental Status Patient Orientation: Person, Place, Time, Situation Attachments: Other-See Comments (TLSO) Transfers SCALE: Activities may be completed with or without assistive devices. 8-Urdotyiuzz-hakvjdj completes the activity by him/herself with no assistance from a helper. 5-Set-up or Clean-up Assistance-helper sets up or cleans up; patient completes activity. [place] assists only prior to or following the activity. 4-Supervision or Touching Assistance-helper provides verbal cues and/or touching/steadying and/or contact guard assistance as patient completes activity. Assistance may be provided throughout the activity or intermittently. 3-Partial/Moderate Assistance-helper does LESS THAN HALF the effort. [place] lifts, holds or supports trunk or limbs, but provides less than half the effort. 2-Substantial/Maximal Assistance-helper does MORE THAN HALF the effort. [place] lifts or holds trunk or limbs and provides more than half the effort. 0-Devrtejor-urtdsf does ALL the effort. Patient does none of the effort to complete the activity. Or, the assistance of 2 or more helpers is required for the patient to complete the activity. If activity was not attempted, code reason: 7-Patient Refused. 9-Not Applicable-not attempted and the patient did not perform the activity before the current illness, exacerbation or injury. 10-Not Attempted due to Environmental Limitations-(lack of equipment, weather restraints, etc.). 88-Not Attempted due to Medical Conditions or Safety Concerns. Roll Left & Right (QC): 6 Sit to Lying (QC): 6 Lying to Sitting/Side of Bed(Q: 6 Sit to Stand (QC): 6 Chair/Jsg-rr-Yydqh Xfer(QC): 6 Toilet Transfer (QC): 6 Car Transfer (QC): 6 Weight Bearing Full Weight Bearing Full Weight Bearing Patient not on any weight bearing restrictions, however is unable to bear weight or stand due to reports of significant pain. Gait Training Does the Patient Walk?: Yes Distance: 150' Walk 10 feet (QC): 6 Walk 50 ft with 2 Turns(QC): 6 Walk 150 ft (QC): 6 Walking 10ft/uneven surface-QC: 6 Gait Persons Needed: 0 Gait Assistive Device: FWW Wheelchair Training Does the Pt Use a Wheelchair?: No Stair Training Stair Training: Handrails/: uses walker #of Steps: 1 1 Step (curb) (QC): 5 4 Steps (QC): 7 12 Steps (QC): 7 Stairs: Pattern: Step to Balance Picking up an Object (QC): 88 Special Test Comments Due to back precautions, this was not attempted. Exercises Seated Therapy Exercises: Long arc quads, Glut set Seated Reps: 15 Standing: Hip Abduction, Hamstring curls, Heel/toe raises, Marching Standing Reps: 15 NuStep Minutes: 15 NuStep Workload: 4 Treatments Pt amb from recliner to SOB, performed sit to supine, laying on each side, and supine to sit. Pt amb from room to Therapy Gym and performed stair training. Pt used NuStep followed by standing and seated exercises in // bars with frequent rest breaks. Pt reported feeling dizzy and returned to recliner in room, nurse notified of pt status. Assessment Current Status: Good Progress Pt required frequent rest breaks d/t pain in R LE PT Short Term Goals Short Term Goals Time Frame: Jan 07, 2021 Roll Left & Right: 6 Sit to lyin Lying to sitting on side of be: 5 Sit to stand: 4 Walk 10 feet: 4 Walk 50 feet with two turns: 4 Walk 150 feet: 4 PT Senior Living Goals Data Center Architect Goals PT Data Center Architect Goals Time Frame: Jan 21, 2021 Roll Left & Right (QC): 6 Sit to Lying (QC): 6 Lying-Sitting on Side/Bed(QC): 6 Sit to Stand (QC): 5 Chair/Obv-sm-Yjeod Xfer(QC): 5 Toilet Transfer (QC): 5 Car Transfer (QC): 5 Does the Patient Walk: Yes Walk 10 feet (QC): 5 Walk 50ft with 2 Turns (QC): 5 Walk 150 ft (QC): 5 Walking 10ft on Uneven Surface: 4 1 Step (curb) (QC): 4 4 Steps (QC): 4 12 Steps (QC): 88 Picking up an Object (QC): 88 Wheel 50 feet with 2 turns (QC: 6 Wheel 150 feet: 6 PT Plan Treatment/Plan Treatment Plan: Continue Plan of Care Treatment Plan: Bed Mobility, Education, Functional Activity Radha, Functional Strength, Group Therapy, Gait, Safety, Therapeutic Exercise, Transfers Treatment Duration: Jan 21, 2021 Frequency: At least 5 of 7 days/Wk (IRF) Estimated Hrs Per Day: 1.5 hours per day Patient and/or Family Agrees t: Yes Safety Risks/Education Patient Education: Gait Training, Reviewed Precautions, Reviewed Don/Doff Brace Teaching Recipient: Patient Teaching Methods: Demonstration, Discussion Response to Teaching: Verbalize Understanding, Return Demonstration Time/GCodes Time In: 900 Time Out: 1000 Total Billed Treatment Time: 60 Total Billed Treatment 1, FA, GT, EX x2 [facility] Jan 13, 2021 09:41
[2021-01-13] MEDS ORDERED: OXC5T PO (11:01)
[2021-01-13] MEDS ORDERED: ALPR0.5T7 PO (11:01)
[2021-01-13] MEDS ORDERED: NYST15CR TP (11:01)
--- NOTE | 2021-01-13 11:02 | Discharge Summary ---
Diagnosis/Chief Complaint Date of Admission Dec 31, 2020 at 14:00 Date of Discharge Discharge Date: Jan 13, 2021 Discharge Diagnosis Assessment: S/P Trauma with injuries from cow- blunt injury and crush injury sustained -general surgery following -continue frequent reassessments of left lower extremity -awaiting placement of clam brace- should happen today -2 view left foot x ray negative for acute pathology -Ankle x-rays and possible MRIs will be ordered by Dr. Greenfield Concussion with LOC -continue to monitor neurologic status Rhabdomyolysis -CK decreased to 1049 today from 1224 yesterday now normal -SL'd -encourage increased po intake of fluids -continue to trend for now Acute kidney injury-resolved -Creatinine stable at 1.29 today Anemia -Hgb stable at 11.1 today -surgery holding lovenox due to anemia -continue to trend Chest pain with history of angina -cardiology following -continue to monitor -PRN SL nitro Hypertension -continue to monitor Hyperlipidemia -continue to monitor Sinus node dysfunction pacemaker in place -cardiology following -pacemaker interrogated and functioning appropriately Pain control -continue prn's PT OT -doing frequent therapy per patient report -plan to transfer to inpatient rehab unit pending workers comp approval Cellulitis at site of previous IV site with fever -Begin IV antibiotics status post pancultured Gout Somatization Hypersensitivity to pain Plan: Aggressive therapy Pain control IV antibiotics Supportive care 01/01/2021: Supportive care Hep-Lock IV fluid cover remover antibiotics tomorrow 01/02/2021: Supportive care Pain control Change IV antibiotics to p.o. 01/03/2021: Gout treatment Supportive care Antibiotics 01/04/2021: Monitor somatic complaints Supportive care 01/05/2021: Somatic issues Pain control Gout treatment 01/06/2021: Pain from injuries is out of proportion Continues to be a slow recovery 01/07/2021: Solu-Medrol injection in case gout is constantly but pain Appreciate Dr. Greenfield's evaluation 01/08/2021: Pain is much better today Additional Solu-Medrol to finish out any gout pain 01/09/2021: Gout treatment Monitor closely 01/10/21: Supportive care Slow recovery 01/11/21: Monitor pain Check labs in am 01/12/2021: Monitor closely Discharge planned soon (1) Episode of unresponsiveness Status: Acute (2) Thoracic spine fracture (3) Depression (4) Anxiety (5) Pacemaker (6) CAD (coronary artery disease) (7) Concussion Status: Acute (8) Victim of trampling from animal Status: Acute (9) Chest wall contusion Status: Acute (10) Hematoma of left lower extremity Status: Acute Discharge Summary Discharge Physical Examination Allergies: Coded Allergies: No Known Drug Allergies (Unverified , 01/11/11) Vitals & I&Os Vital Signs Date Time Temp Pulse Resp B/P (MAP) Pulse Ox O2 Delivery O2 Flow Rate FiO2 01/13/21 21:00 Room Air 01/13/21 20:00 36.4 70 16 96/56 (69 93 General Appearance: Alert, Oriented X3, Cooperative Respiratory: Clear to Auscultation Cardiovascular: Regular Rate Neuro: Normal Gait, Normal Speech, Strength at 5/5 X4 Ext Psych/Mental Status: Mental Status NL Hospital Course Was the Problem List Reviewed?: Yes Hospital course: Pt had a lengthy hospital course for 14 days after admitted after a cow trampling with multiple fractures and soft tissues injury, he required intensive therapy, pain control and multiple X-rays and Dr. Greenfield consultation for foot pain. He did respond to Solumedrol 125 mg IM x2 for gout pain and he was able to be discharged in improved condition with clam spine brace along with pain medication. He did have an episode of an IV site that became infected and he became feverish and he was initiated IV Vancomycin and Cefepime broad spectrum and that was transitioned to oral medication, he finished that and did very well otherwise. Discharge was delayed for second opinion requested from Worker's Comp. with [facility] rehab up in [place] at [facility] because he was still continuing with pain and issues but these are issues that will resolve over time from soft tissue injuries and his pain at times appears to be out of proportion to his injuries so I would recommend discharge home with outpatient therapy continuing pain medication and discharged home but will await final recommendation from inpatient rehab at [facility]. I did speak with primary care provider Dr. Robel Sierra again updated him on all of these issues. Labs (last 24 hrs) Laboratory Tests 12/31/20 14:00: Lab Scanned Report Referred Lab Report 12/31/20 19:40: White Blood Count 8.5, Red Blood Count 3.46L, Hemoglobin 10.5L, Hematocrit 32L, Mean Corpuscular Volume 92, Mean Corpuscular Hemoglobin 30, Mean Corpuscular Hemoglobin Concent 33, Red Cell Distribution Width 13.5, Platelet Count 227, Mean Platelet Volume 9.2, Immature Granulocyte % (Auto) 0, Neutrophils (%) (Auto) 72, Lymphocytes (%) (Auto) 16, Monocytes (%) (Auto) 10, Eosinophils (%) (Auto) 1, Basophils (%) (Auto) 0, Neutrophils # (Auto) 6.1, Lymphocytes # (Auto) 1.4, Monocytes # (Auto) 0.9, Eosinophils # (Auto) 0.1, Basophils # (Auto) 0.0, Immature Granulocyte # (Auto) 0.0, Sodium Level 134L, Potassium Level 3.8, Chloride Level 101, Carbon Dioxide Level 24, Anion Gap 9, Blood Urea Nitrogen 18, Creatinine 1.35H, Estimat Glomerular Filtration Rate 54, BUN/Creatinine Ratio 13, Glucose Level 156H, Lactic Acid Level 1.09, Calcium Level 8.9, Corrected Calcium 9.4, Total Bilirubin 1.7H, Aspartate Amino Transf (AST/SGOT) 29, Alanine Aminotransferase (ALT/SGPT) 33, Alkaline Phosphatase 63, Total Protein 6.5, Albumin 3.4 12/31/20 19:45: Influenza Type A (RT-PCR) Not Detected, Influenza Type B (RT-PCR) Not Detected, SARS-CoV-2 RNA (RT-PCR) Not Detected 12/31/20 20:13: Urine Color ORANGE, Urine Clarity CLEAR, Urine pH 6.0, Urine Specific [place] 1. 020, Urine Protein NEGATIVE, Urine Glucose (UA) NEGATIVE, Urine Ketones NEGATIVE, Urine Nitrite NEGATIVE, Urine Bilirubin NEGATIVE, Urine Urobilinogen 2.0, Urine Leukocyte Esterase NEGATIVE, Urine RBC (Auto) 3+H, Urine RBC 10-25H, Urine WBC 5-10H, Urine Squamous Epithelial Cells NONE, Urine Renal Epithelial Cells NONE, Urine Crystals NONE, Urine Bacteria NEGATIVE, Urine Casts NONE, Urine Mucus NEGATIVE, Urine Culture Indicated NO 01/01/21 06:11: White Blood Count 8.0, Red Blood Count 3.28L, Hemoglobin 9.9L, Hematocrit 31L, Mean Corpuscular Volume 94, Mean Corpuscular Hemoglobin 30, Mean Corpuscular Hemoglobin Concent 32, Red Cell Distribution Width 13.4, Platelet Count 207, Mean Platelet Volume 9.3, Immature Granulocyte % (Auto) 0, Neutrophils (%) (Auto) 72, Lymphocytes (%) (Auto) 16, Monocytes (%) (Auto) 9, Eosinophils (%) (Auto) 2, Basophils (%) (Auto) 0, Neutrophils # (Auto) 5.8, Lymphocytes # (Auto) 1.3, Monocytes # (Auto) 0.7, Eosinophils # (Auto) 0.2, Basophils # (Auto) 0.0, Immature Granulocyte # (Auto) 0.0, Sodium Level 139, Potassium Level 4.0, Chloride Level 103, Carbon Dioxide Level 24, Anion Gap 12, Blood Urea Nitrogen 18, Creatinine 1.38H, Estimat Glomerular Filtration Rate 53, BUN/Creatinine Ratio 13, Glucose Level 127H, Calcium Level 8.7, Corrected Calcium 9.3, Total Bilirubin 2.1H, Aspartate Amino Transf (AST/SGOT) 24, Alanine Aminotransferase (ALT/SGPT) 30, Alkaline Phosphatase 57, Total Protein 6.2L, Albumin 3.2 01/02/21 08:18: White Blood Count 8.2, Red Blood Count 3.23L, Hemoglobin 9.8L, Hematocrit 31L, Mean Corpuscular Volume 94, Mean Corpuscular Hemoglobin 30, Mean Corpuscular Hemoglobin Concent 32, Red Cell Distribution Width 13.3, Platelet Count 250, Mean Platelet Volume 9.3, Immature Granulocyte % (Auto) 0, Neutrophils (%) (Auto) 66, Lymphocytes (%) (Auto) 22, Monocytes (%) (Auto) 9, Eosinophils (%) (Auto) 2, Basophils (%) (Auto) 0, Neutrophils # (Auto) 5.4, Lymphocytes # (Auto) 1.8, Monocytes # (Auto) 0.7, Eosinophils # (Auto) 0.2, Basophils # (Auto) 0.0, Immature Granulocyte # (Auto) 0.0, Sodium Level 136, Potassium Level 3.9, Chloride Level 105, Carbon Dioxide Level 22, Anion Gap 9, Blood Urea Nitrogen 15, Creatinine 1.28, Estimat Glomerular Filtration Rate 58, BUN/Creatinine Ratio 12, Glucose Level 137H, Calcium Level 8.9, Corrected Calcium 9.7, Total Bilirubin 1.7H, Aspartate Amino Transf (AST/SGOT) 18, Alanine Aminotransferase (ALT/SGPT) 28, Alkaline Phosphatase 53, Total Protein 6.1L, Albumin 3.0L, Total Creatine Kinase 223H, Vancomycin Level Trough 15.9 01/05/21 06:09: White Blood Count 11.7H, Red Blood Count 3.28L, Hemoglobin 9.8L, Hematocrit 31L, Mean Corpuscular Volume 94, Mean Corpuscular Hemoglobin 30, Mean Corpuscular Hemoglobin Concent 32, Red Cell Distribution Width 13.3, Platelet Count 334, Mean Platelet Volume 9.3, Immature Granulocyte % (Auto) 1, Neutrophils (%) (Auto) 75, Lymphocytes (%) (Auto) 16, Monocytes (%) (Auto) 7, Eosinophils (%) (Auto) 1, Basophils (%) (Auto) 0, Neutrophils # (Auto) 8.8H, Lymphocytes # (Auto) 1.9, Monocytes # (Auto) 0.8, Eosinophils # (Auto) 0.2, Basophils # (Auto) 0.0, Immature Granulocyte # (Auto) 0.1, Sodium Level 134L, Potassium Level 4.1, Chloride Level 101, Carbon Dioxide Level 22, Anion Gap 11, Blood Urea Nitrogen 25H, Creatinine 1.57H, Estimat Glomerular Filtration Rate 46, BUN/Creatinine Ratio 16, Glucose Level 130H, Calcium Level 9.5, Corrected Calcium 10.1, Total Bilirubin 1.1H, Aspartate Amino Transf (AST/SGOT) 21, Alanine Aminotransferase (ALT/SGPT) 39, Alkaline Phosphatase 67, Total Protein 6.9, Albumin 3.3, Uric Acid 6.9 01/09/21 05:20: White Blood Count 13.2H, Red Blood Count 3.19L, Hemoglobin 9.6L, Hematocrit 29L, Mean Corpuscular Volume 91, Mean Corpuscular Hemoglobin 30, Mean Corpuscular Hemoglobin Concent 33, Red Cell Distribution Width 12.9, Platelet Count 421H, Mean Platelet Volume 9.0, Sodium Level 135, Potassium Level 4.3, Chloride Level 108H, Carbon Dioxide Level 18L, Anion Gap 9, Blood Urea Nitrogen 24H, Creatinine 1.06, Estimat Glomerular Filtration Rate 72, BUN/Creatinine Ratio 23, Glucose Level 166H, Calcium Level 9.1, Total Bilirubin 0.6, Aspartate Amino Transf (AST/SGOT) 29, Alanine Aminotransferase (ALT/SGPT) 46, Alkaline Phosphatase 66, Total Protein 6.6, Albumin 3.3, Total Creatine Kinase 159, Direct Bilirubin 0.3, Indirect Bilirubin 0.3 01/12/21 05:27: White Blood Count 8.5, Red Blood Count 3.57L, Hemoglobin 10.4L, Hematocrit 33L, Mean Corpuscular Volume 93, Mean Corpuscular Hemoglobin 29, Mean Corpuscular Hemoglobin Concent 31L, Red Cell Distribution Width 13.2, Platelet Count 377, Mean Platelet Volume 8.7L, Immature Granulocyte % (Auto) 1, Neutrophils (%) (Auto) 66, Lymphocytes (%) (Auto) 24, Monocytes (%) (Auto) 7, Eosinophils (%) (Auto) 2, Basophils (%) (Auto) 0, Neutrophils # (Auto) 5.7, Lymphocytes # (Auto) 2.0, Monocytes # (Auto) 0.6, Eosinophils # (Auto) 0.1, Basophils # (Auto) 0.0, Immature Granulocyte # (Auto) 0.1, Sodium Level 136, Potassium Level 4.1, Chloride Level 105, Carbon Dioxide Level 22, Anion Gap 9, Blood Urea Nitrogen 16, Creatinine 1.16, Estimat Glomerular Filtration Rate 65, BUN/Creatinine Ratio 14, Glucose Level 108H, Calcium Level 9.4, Corrected Calcium 10.0, Total Bilirubin 1.0, Aspartate Amino Transf (AST/SGOT) 29, Alanine Aminotransferase (ALT/SGPT) 57H, Alkaline Phosphatase 71, Total Protein 6.3L, Albumin 3.3 Microbiology 01/10/21 C. difficile GDH Antigen & Toxins - Final, Complete 12/31/20 Blood Culture - Final, Complete No growth Pending Labs Microbiology Date/Time Source Procedure Growth Status 01/10/21 09:45 Stool C. difficile GDH Antigen & Toxins - Final Complete 12/31/20 19:54 Peripheral Lt Ac Blood Culture - Final No growth Complete 12/31/20 19:40 Peripheral Rt Forearm Blood Culture - Final Sphingomonas species Complete Laboratory Tests 12/31/20 14:00: Lab Scanned Report Referred Lab Report 12/31/20 19:40: White Blood Count 8.5, Red Blood Count 3.46, Hemoglobin 10.5, Hematocrit 32, Mean Corpuscular Volume 92, Mean Corpuscular Hemoglobin 30, Mean Corpuscular Hemoglobin Concent 33, Red Cell Distribution Width 13.5, Platelet Count 227, Mean Platelet Volume 9.2, Immature Granulocyte % (Auto) 0, Neutrophils (%) (Auto) 72, Lymphocytes (%) (Auto) 16, Monocytes (%) (Auto) 10, Eosinophils (%) (Auto) 1, Basophils (%) (Auto) 0, Neutrophils # (Auto) 6.1, Lymphocytes # (Auto) 1.4, Monocytes # (Auto) 0.9, Eosinophils # (Auto) 0.1, Basophils # (Auto) 0.0, Immature Granulocyte # (Auto) 0.0, Sodium Level 134, Potassium Level 3.8, Chloride Level 101, Carbon Dioxide Level 24, Anion Gap 9, Blood Urea Nitrogen 18, Creatinine 1.35, Estimat Glomerular Filtration Rate 54, BUN/Creatinine Ratio 13, Glucose Level 156, Lactic Acid Level 1.09, Calcium Level 8.9, Corrected Calcium 9.4, Total Bilirubin 1.7, Aspartate Amino Transf (AST/SGOT) 29, Alanine Aminotransferase (ALT/SGPT) 33, Alkaline Phosphatase 63, Total Protein 6.5, Albumin 3.4 12/31/20 19:45: Influenza Type A (RT-PCR) Not Detected, Influenza Type B (RT-PCR) Not Detected, SARS-CoV-2 RNA (RT-PCR) Not Detected 12/31/20 20:13: Urine Color ORANGE, Urine Clarity CLEAR, Urine pH 6.0, Urine Specific [place] 1.020, Urine Protein NEGATIVE, Urine Glucose (UA) NEGATIVE, Urine Ketones NEGATIVE, Urine Nitrite NEGATIVE, Urine Bilirubin NEGATIVE, Urine Urobilinogen 2.0, Urine Leukocyte Esterase NEGATIVE, Urine RBC (Auto) 3+, Urine RBC 10-25, Urine WBC 5-10, Urine Squamous Epithelial Cells NONE, Urine Renal Epithelial Cells NONE, Urine Crystals NONE, Urine Bacteria NEGATIVE, Urine Casts NONE, Urine Mucus NEGATIVE, Urine Culture Indicated NO 01/01/21 06:11: White Blood Count 8.0, Red Blood Count 3.28, Hemoglobin 9.9, Hematocrit 31, Mean Corpuscular Volume 94, Mean Corpuscular Hemoglobin 30, Mean Corpuscular Hemoglobin Concent 32, Red Cell Distribution Width 13.4, Platelet Count 207, Mean Platelet Volume 9.3, Immature Granulocyte % (Auto) 0, Neutrophils (%) (Auto) 72, Lymphocytes (%) (Auto) 16, Monocytes (%) (Auto) 9, Eosinophils (%) (Auto) 2, Basophils (%) (Auto) 0, Neutrophils # (Auto) 5.8, Lymphocytes # (Auto) 1.3, Monocytes # (Auto) 0.7, Eosinophils # (Auto) 0.2, Basophils # (Auto) 0.0, Immature Granulocyte # (Auto) 0.0, Sodium Level 139, Potassium Level 4.0, Chloride Level 103, Carbon Dioxide Level 24, Anion Gap 12, Blood Urea Nitrogen 18, Creatinine 1.38, Estimat Glomerular Filtration Rate 53, BUN/Creatinine Ratio 13, Glucose Level 127, Calcium Level 8.7, Corrected Calcium 9.3, Total Bilirubin 2.1, Aspartate Amino Transf (AST/SGOT) 24, Alanine Aminotransferase (ALT/SGPT) 30, Alkaline Phosphatase 57, Total Protein 6.2, Albumin 3.2 01/02/21 08:18: White Blood Count 8.2, Red Blood Count 3.23, Hemoglobin 9.8, Hematocrit 31, Mean Corpuscular Volume 94, Mean Corpuscular Hemoglobin 30, Mean Corpuscular Hemoglobin Concent 32, Red Cell Distribution Width 13.3, Platelet Count 250, Mean Platelet Volume 9.3, Immature Granulocyte % (Auto) 0, Neutrophils (%) (Auto) 66, Lymphocytes (%) (Auto) 22, Monocytes (%) (Auto) 9, Eosinophils (%) (Auto) 2, Basophils (%) (Auto) 0, Neutrophils # (Auto) 5.4, Lymphocytes # (Auto) 1.8, Monocytes # (Auto) 0.7, Eosinophils # (Auto) 0.2, Basophils # (Auto) 0.0, Immature Granulocyte # (Auto) 0.0, Sodium Level 136, Potassium Level 3.9, Chloride Level 105, Carbon Dioxide Level 22, Anion Gap 9, Blood Urea Nitrogen 15, Creatinine 1.28, Estimat Glomerular Filtration Rate 58, BUN/Creatinine Ratio 12, Glucose Level 137, Calcium Level 8.9, Corrected Calcium 9.7, Total Bilirubin 1.7, Aspartate Amino Transf (AST/SGOT) 18, Alanine Aminotransferase (ALT/SGPT) 28, Alkaline Phosphatase 53, Total Protein 6.1, Albumin 3.0, Total Creatine Kinase 223, Vancomycin Level Trough 15.9 01/05/21 06:09: White Blood Count 11.7, Red Blood Count 3.28, Hemoglobin 9.8, Hematocrit 31, Mean Corpuscular Volume 94, Mean Corpuscular Hemoglobin 30, Mean Corpuscular Hemoglobin Concent 32, Red Cell Distribution Width 13.3, Platelet Count 334, Mean Platelet Volume 9.3, Immature Granulocyte % (Auto) 1, Neutrophils (%) (Auto) 75, Lymphocytes (%) (Auto) 16, Monocytes (%) (Auto) 7, Eosinophils (%) (Auto) 1, Basophils (%) (Auto) 0, Neutrophils # (Auto) 8.8, Lymphocytes # (Auto) 1.9, Monocytes # (Auto) 0.8, Eosinophils # (Auto) 0.2, Basophils # (Auto) 0.0, Immature Granulocyte # (Auto) 0.1, Sodium Level 134, Potassium Level 4.1, Chloride Level 101, Carbon Dioxide Level 22, Anion Gap 11, Blood Urea Nitrogen 25, Creatinine 1.57, Estimat Glomerular Filtration Rate 46, BUN/Creatinine Ratio 16, Glucose Level 130, Calcium Level 9.5, Corrected Calcium 10.1, Total Bilirubin 1.1, Aspartate Amino Transf (AST/SGOT) 21, Alanine Aminotransferase (ALT/SGPT) 39, Alkaline Phosphatase 67, Total Protein 6.9, Albumin 3.3, Uric Acid 6.9 01/09/21 05:20: White Blood Count 13.2, Red Blood Count 3.19, Hemoglobin 9.6, Hematocrit 29, Mean Corpuscular Volume 91, Mean Corpuscular Hemoglobin 30, Mean Corpuscular Hemoglobin Concent 33, Red Cell Distribution Width 12.9, Platelet Count 421, Mean Platelet Volume 9.0, Sodium Level 135, Potassium Level 4.3, Chloride Level 108, Carbon Dioxide Level 18, Anion Gap 9, Blood Urea Nitrogen 24, Creatinine 1.06, Estimat Glomerular Filtration Rate 72, BUN/Creatinine Ratio 23, Glucose Level 166, Calcium Level 9.1, Total Bilirubin 0.6, Aspartate Amino Transf (AST/SGOT) 29, Alanine Aminotransferase (ALT/SGPT) 46, Alkaline Phosphatase 66, Total Protein 6.6, Albumin 3.3, Total Creatine Kinase 159, Direct Bilirubin 0.3, Indirect Bilirubin 0.3 01/12/21 05:27: White Blood Count 8.5, Red Blood Count 3.57, Hemoglobin 10.4, Hematocrit 33, Mean Corpuscular Volume 93, Mean Corpuscular Hemoglobin 29, Mean Corpuscular Hemoglobin Concent 31, Red Cell Distribution Width 13.2, Platelet Count 377, Mean Platelet Volume 8.7, Immature Granulocyte % (Auto) 1, Neutrophils (%) (Auto) 66, Lymphocytes (%) (Auto) 24, Monocytes (%) (Auto) 7, Eosinophils (%) (Auto) 2, Basophils (%) (Auto) 0, Neutrophils # (Auto) 5.7, Lymphocytes # (Auto) 2.0, Monocytes # (Auto) 0.6, Eosinophils # (Auto) 0.1, Basophils # (Auto) 0.0, Immature Granulocyte # (Auto) 0.1, Sodium Level 136, Potassium Level 4.1, Chloride Level 105, Carbon Dioxide Level 22, Anion Gap 9, Blood Urea Nitrogen 16, Creatinine 1.16, Estimat Glomerular Filtration Rate 65, BUN/Creatinine Ratio 14, Glucose Level 108, Calcium Level 9.4, Corrected Calcium 10.0, Total Bilirubin 1.0, Aspartate Amino Transf (AST/SGOT) 29, Alanine Aminotransferase (ALT/SGPT) 57, Alkaline Phosphatase 71, Total Protein 6.3, Albumin 3.3 Discharge Home Medications: Active Scripts Active Nystatin 15 Gm Cream..g. 0 Gm TP TID Alprazolam 0.5 Mg Tablet 0.5 Mg PO QID Oxyir Tablet (Oxycodone HCl) 5 Mg Tab 5 Mg PO Q4H PRN Reported Verapamil ER (Verapamil HCl) 120 Mg Tablet.er 120 Mg PO DAILY LAST FILLED 11-05-2020 #30/30 DAY SUPPLY Mitigare (Colchicine) 0.6 Mg Capsule 0.6 Mg PO Q48H PRN Potassium Gluconate 90 Mg Tablet 90 Mg PO DAILY Lysine 1,000 Mg Tablet 1,000 Mg PO DAILY Aspirin EC (Aspirin) 81 Mg Tablet.dr 81 Mg PO DAILY Atorvastatin Calcium 40 Mg Tablet 40 Mg PO HS Lisinopril 20 Mg Tablet 20 Mg PO DAILY Pantoprazole Sodium 40 Mg Tablet.dr 40 Mg PO DAILY Sucralfate 1 Gm Tablet 1 Gm PO BID Fluoxetine HCl 20 Mg Capsule 40 Mg PO DAILY TAKES 2 (20MG) CAPS Olanzapine 10 Mg Tablet 10 Mg PO HS Instructions to patient/family Please see electronic discharge instructions given to patient. Diagnosis/Problems Diagnosis/Problems (1) Episode of unresponsiveness Status: Acute (2) Thoracic spine fracture (3) Depression (4) Anxiety (5) Pacemaker (6) CAD (coronary artery disease) (7) Concussion Status: Acute (8) Victim of trampling from animal Status: Acute (9) Chest wall contusion Status: Acute (10) Hematoma of left lower extremity Status: Acute FRANK GARCIA DO Jan 13, 2021 11:02
--- NOTE | 2021-01-13 13:13 | Occupational Ther Daily Note ---
OT Current Status-Daily Note Subjective Pt. states that he is feeling nauseated. Nursing gives him Zofran. No pain reported. Mental Status/Objective Patient Orientation: Person, Place, Time, Situation ADL-Treatment Therapy Code Descriptions/Definitions Functional [place] Measure: 0=Not Assessed/NA 4=Minimal Assistance 1=Total Assistance 5=Supervision or Setup 2=Maximal Assistance 6=Modified [place] 3=Moderate Assistance 7=Complete IndependenceSCALE: Activities may be completed with or without assistive devices. 0-Yvnzkrfkwu-zwhfwii completes the activity by him/herself with no assistance from a helper. 5-Set-up or Clean-up Assistance-helper sets up or cleans up; patient completes activity. [place] assists only prior to or following the activity. 4-Supervision or Touching Assistance-helper provides verbal cues and/or touching/steadying and/or contact guard assistance as patient completes activity. Assistance may be provided throughout the activity or intermittently. 3-Partial/Moderate Assistance-helper does LESS THAN HALF the effort. [place] lifts, holds or supports trunk or limbs, but provides less than half the effort. 2-Substantial/Maximal Assistance-helper does MORE THAN HALF the effort. [place] lifts or holds trunk or limbs and provides more than half the effort. 4-Knntzcsam-xhjebb does ALL the effort. Patient does none of the effort to complete the activity. Or, the assistance of 2 or more helpers is required for the patient to complete the activity. If activity was not attempted, code reason: 7-Patient Refused. 9-Not Applicable-not attempted and the patient did not perform the activity before the current illness, exacerbation or injury. 10-Not Attempted due to Environmental Limitations-(lack of equipment, weather restraints, etc.). 88-Not Attempted due to Medical Conditions or Safety Concerns. Other Treatment Pt. up in chair. Agrees to work with OT. States that he has been feeling nauseated, but agrees to ambulate. OT reports nausea to nursing. She gives Zofran to pt. Pt. ambulates with walker and Mod I approximately 300 feet. Ambulated into therapy gym and completed bilateral UE exercises x 2 lb. dumbbell, x 15 reps each in all planes, x 4 exercises. Tolerated well for increased overall strength. Completed arm bike at min resistance for improved endurance. Ambulated back to room. All needs met up in recliner. Education OT Patient Education: Correct positioning, Exercise program, Modified ADL techniques, Progress toward Goal/Update tx plan, Purpose of tx/functional activities, Reviewed precautions, Rehab process, Transfer techniques Teaching Recipient: Patient Teaching Methods: Demonstration, Discussion Response to Teaching: Verbalize Understanding, Return Demonstration OT Short Term Goals Short Term Goals Time Frame: Jan 07, 2021 Lower body dressin Putting on/taking off footwear: 4 OT Fdc Goals Fdc Goals Time Frame: Jan 16, 2021 Eating (QC): 6 Oral Hygiene (QC): 6 Toileting Hygiene (QC): 6 Shower/Bathe Self (QC): 6 Upper Body Dressing (QC): 6 Lower Body Dressing (QC): 6 On/Off Footwear (QC): 6 Additional Goals: 1-Demonstrate ADL Tasks, 2-Verbalize Understanding, 3- ImproveStrength/Radha 1=Demonstrate adherence to instructed precautions during ADL tasks. 2=Patient will verbalize/demonstrate understanding of assistive devices/modifications for ADL. 3=Patient will improve strength/tolerance for activity to enable patient to perform ADL's. OT Education/Plan Problem List/Assessment Assessment: Decreased Activ Tolerance Discharge Recommendations Plan/Recommendations: Continue POC Treatment Plan/Plan of Care Treatment,Training & Education: Yes Patient would benefit from OT for education, treatment and training to promote independence in ADL's, mobility, safety and/or upper extremity function for ADL's. Plan of Care: ADL Retraining, Functional Mobility, Group Exercise/Act as Ind, UE Funct Exercise/Act Treatment Duration: Jan 16, 2021 Frequency: At least 5 of 7 days/Wk (IRF) Estimated Hrs Per Day: 1.5 hours per day Agreement: Yes Rehab Potential: Good Time/GCodes Start Time: 10:30 Stop Time: 11:15 Total Time Billed (hr/min): 45 Billed Treatment Time 1, FA x 30minutes, Ex x 15minutes SRINIVAS MINA OT Jan 13, 2021 13:12
--- NOTE | 2021-01-13 13:17 | Therapy Team Discharge Summary ---
Therapy Discharge Summary Discharge Recommendations Date of Discharge 01-13-21 Therapy D/C Recommendations: Home w/ Family Support Occupational Therapy Pt. has been seen by OT to increase overall strength and independence with daily skills. Pt. has met all goals. Pt. did in fact don TLSO brace with Mod I at last session this date. Will discharge home with spouse assist as needed. No adaptive equipment needed at this time. Pt. has been educated in energy conservation techniques, taking his time, and good back safety, as well as using good body mechanics. Pt. to discharge home this date. No further OT warranted at this time. Decreased Activ Tolerance PT Fdc Goals Fdc Goals PT Fdc Goals Time Frame: Jan 21, 2021 Roll Left to Right (QC): 6 Sit to Lying (QC): 6 Lying-Sitting on Side/Bed(QC): 6 Sit to Stand (QC): 5 Chair/Rkk-fl-Shnrz Xfer(QC): 5 Car Transfer (QC): 5 Does the Patient Walk: Yes Walk 10 feet (QC): 5 Walk 10ft-Uneven Surface(QC): 4 Walk 50ft with 2 Turns (QC): 5 Walk 150 ft (QC): 5 Wheel 50 feet with 2 turns (QC: 6 1 Step (curb) (QC): 4 4 Steps (QC): 4 12 Steps (QC): 88 Picking up an Object (QC): 88 OT Fdc Goals Cost Analyst Goals Time Frame: Jan 16, 2021 Eating (QC): 6 (met) Oral Hygiene (QC): 6 (met) Shower/Bathe Self (QC): 6 (met) Upper Body Dressing (QC): 6 (met) Lower Body Dressing (QC): 6 (met) On/Off Footwear (QC): 6 (met) Toileting Hygiene (QC): 6 (met) Toilet/Commode Transfer (QC): 5 (met) Additional Goals: 1-Demonstrate ADL Tasks, 2-Verbalize Understanding, 3- ImproveStrength/Radha 1=Demonstrate adherence to instructed precautions during ADL tasks. 2=Patient will verbalize/demonstrate understanding of assistive devices/modifications for ADL. 3=Patient will improve strength/tolerance for activity to enable patient to perform ADL's. Speech Cost Analyst Goals Cost Analyst Goals Patient will improve cognitive-communication abilities in order to require less assistance with daily needs. SRINIVAS MINA OT Jan 13, 2021 13:17
--- NOTE | 2021-01-13 13:40 | Therapy Team Discharge Summary ---
Therapy Discharge Summary Discharge Recommendations Date of Discharge Therapy D/C Recommendations: Home w/ Family Support Physical Therapy Patient came to rehab with Closed Head Injury with LOC, multiple trauma. Upon evaluation patient performed bed mobility with independence, supine <-> sit SBA, sit <-> stand min assist from lower surfaces, transfers CGA, car transfer CGA, ambulated 100' with a rolling walker with CGA (including 50' with at least 2 turns of 90 degrees), and propelled a manual WC 150' with SBA. Patient has been performing bed mobility and transfer training, balance and endurance training, functional strengthening, stair training, gait training, and education. 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 Now, patient performs bed mobility and transfers with independence, car transfer independent, ambulates 150' with a rolling walker with independence (including 50' with at least 2 turns of 90 degrees and 10' over an uneven surface), and can go up and down 1 step using a walker with setup. Patient is being discharged from this facility today and will be discharged from PT at this time. Occupational Therapy Decreased Activ Tolerance PT Irrigationist Designer Goals Irrigationist Designer Goals PT Irrigationist Designer Goals Time Frame: Jan 21, 2021 Roll Left to Right (QC): 6 Sit to Lying (QC): 6 Lying-Sitting on Side/Bed(QC): 6 Sit to Stand (QC): 5 Chair/Vex-jt-Dmgxv Xfer(QC): 5 Car Transfer (QC): 5 Does the Patient Walk: Yes Walk 10 feet (QC): 5 Walk 10ft-Uneven Surface(QC): 4 Walk 50ft with 2 Turns (QC): 5 Walk 150 ft (QC): 5 Wheel 50 feet with 2 turns (QC: 6 1 Step (curb) (QC): 4 4 Steps (QC): 4 12 Steps (QC): 88 Picking up an Object (QC): 88 OT Shelter Goals Shelter Goals Time Frame: Jan 16, 2021 Eating (QC): 6 (met) Oral Hygiene (QC): 6 (met) Shower/Bathe Self (QC): 6 (met) Upper Body Dressing (QC): 6 (met) Lower Body Dressing (QC): 6 (met) On/Off Footwear (QC): 6 (met) Toileting Hygiene (QC): 6 (met) Toilet/Commode Transfer (QC): 5 (met) Additional Goals: 1-Demonstrate ADL Tasks, 2-Verbalize Understanding, 3- ImproveStrength/Radha 1=Demonstrate adherence to instructed precautions during ADL tasks. 2=Patient will verbalize/demonstrate understanding of assistive devices/modifications for ADL. 3=Patient will improve strength/tolerance for activity to enable patient to perform ADL's. Speech Irrigationist Designer Goals Irrigationist Designer Goals Patient will improve cognitive-communication abilities in order to require less assistance with daily needs. KULDEEP ZELAYA PT Jan 13, 2021 13:40
[2021-01-13 20:00] VITALS: BP 96/56
--- NOTE | 2021-01-13 20:50 | PM&R Progress Note ---
Subjective HPI/CC On Admission Date Seen by Provider: Jan 13, 2021 Time Seen by Provider: 09:00 Subjective/Events-last exam 01/13/2021: Discharge delayed due to Worker's Comp. needing second opinion from [facility] rehab Patient doing extremely well ambulating around so unclear what else we could do besides allow for time to heal the rest of his soft tissue injuries 01/12/2021: Pt remarkably better No pain and walked to the gym Quest ran has helped the diarrhea Denies any other new issues 01/11/21: Patient feels good except foot pain Diarrhea improved C diff negative Questran helps 01/10/21: Patient hurts a lot everywhere Monitoring closely Diarrhea still present will check C diff and start Questran Difficult and slow recovery 01/09/2021: Patient much better X-rays normal of the feet and ankles 2 steroid injections of really help the gout pain Elevated white count noted from steroid effect 01/08/2021: Pt doing remarkably well Injection really helped him so it leads me to believe that some form of this pain is from Gout Will give an other injection a day of 125 mg Imaging scans ordered by Dr. Greenfield Moving around a lot better today 01/07/2021: Patient still having difficulties walking because of foot pain Diarrhea is still continuing Pain issues seem to be the main problem Received Solu-Medrol injection in case this is gout he was having some pain with the injection which is unusual since that is not a painful injection Appears to be hypersensitive to pain Very slow recovery Uses wheelchair most of the time Spoke with Dr. Greenfield due to 's concerns and he will evaluate and order any type of imaging he feels is necessary 01/06/2021: Pt doing better but still cant ambulate Skipping meals Slide board used Diarrhea two days in a row so we are holding laxatives Imodium given 01/05/2021: Venous Doppler ordered but Lovenox has been on board No DVT noted on prelim Multiple somatic issues Gout treatment continues Flat affect 01/04/2021: Patient having a slow recovery at the bedside Has a different complaint every day Finishing up on antibiotics Transferring via sideboard Having some loose stools 01/03/2021: Patient doing well Bilateral foot pain Has a history of gout so we will restart his home medications and add colchicine 1 dose Gram-negative reshma in blood culture patient remains on Omnicef and Zyvox Loose bowels moving Flat affect improved a bit 01/02/2021: Pt doing really well Complains about the left leg pain Changing IV antibiotics to PO Flat affect continues but that is chronic 01/01/2021: Pt doing pretty well Having burning of his leg IV antibiotics maintained for the left wrist IV site cellulitis Bowels moving well Pain is well controlled Check meds and labs Review of Systems General: Fatigue, Malaise Neurological: Weakness Objective Exam Vital Signs Vital Signs Date Time Temp Pulse Resp B/P (MAP) Pulse Ox O2 Delivery O2 Flow Rate FiO2 01/13/21 21:00 Room Air 01/13/21 20:00 36.4 70 16 96/56 (69 93 Capillary Refill : General Appearance: No Apparent Distress, WD/WN, Obese HEENT: PERRL/EOMI, Pharynx Normal, Moist Mucous Membranes Neck: Full Range of Motion, Non Tender, Supple Respiratory: Chest Non Tender, Lungs Clear, Normal Breath Sounds, No Accessory Muscle Use Cardiovascular: Regular Rate, Rhythm, No Edema, No Gallop, Normal Peripheral Pulses Gastrointestinal: Normal Bowel Sounds, No Organomegaly, No Pulsatile Mass, Non Tender, Soft Back: Normal Inspection, No CVA Tenderness, Decreased Range of Motion Extremity: Calf Tenderness (Left leg), Pedal Edema (Left foot), Swelling (left lower extremity), Other (Reduced tenderness to touch B/L compared to yesterday) Neurologic/Psychiatric: Alert, Oriented x3, fisher trammel net II-XII Norm as Tested Skin: Other (healing hematoma in left leg, leg has soft yellow color) Lymphatic: No Adenopathy (axillary and cervical) Results/Procedures Lab Patient resulted labs reviewed. FIM Transfers Therapy Code Descriptions/Definitions Functional [place] Measure: 0=Not Assessed/NA 4=Minimal Assistance 1=Total Assistance 5=Supervision or Setup 2=Maximal Assistance 6=Modified [place] 3=Moderate Assistance 7=Complete IndependenceSCALE: Activities may be completed with or without assistive devices. 8-Rpazvxrkoz-jmlxfos completes the activity by him/herself with no assistance from a helper. 5-Set-up or Clean-up Assistance-helper sets up or cleans up; patient completes activity. [place] assists only prior to or following the activity. 4-Supervision or Touching Assistance-helper provides verbal cues and/or touching/steadying and/or contact guard assistance as patient completes activity. Assistance may be provided throughout the activity or intermittently. 3-Partial/Moderate Assistance-helper does LESS THAN HALF the effort. [place] lifts, holds or supports trunk or limbs, but provides less than half the effort. 2-Substantial/Maximal Assistance-helper does MORE THAN HALF the effort. [place] lifts or holds trunk or limbs and provides more than half the effort. 6-Zgfypozvg-zuiqen does ALL the effort. Patient does none of the effort to complete the activity. Or, the assistance of 2 or more helpers is required for the patient to complete the activity. If activity was not attempted, code reason: 7-Patient Refused. 9-Not Applicable-not attempted and the patient did not perform the activity before the current illness, exacerbation or injury. 10-Not Attempted due to Environmental Limitations-(lack of equipment, weather restraints, etc.). 88-Not Attempted due to Medical Conditions or Safety Concerns. Roll Left to Right (QC): 6 Sit to Lying (QC): 6 Sit to Stand (QC): 6 Chair/Snb-ap-Yfwwv Xfer(QC): 6 Car Transfer (QC): 6 Gait Training Does the Patient Walk?: Yes Distance: 150' Walk 10 feet (QC): 6 Walk 50 ft with 2 Turns(QC): 6 Walk 150 ft (QC): 6 Walking 10ft/uneven surface-QC: 6 Gait Persons Needed: 0 Gait Assistive Device: FWW Wheelchair Training Does the Pt Use a Wheelchair?: No Distance: 150'x2 Wheel 50 ft with 2 turns (QC): 6 Wheel 150 ft (QC): 6 Type of Wheelchair: Manual Stair Training Stair Training: Handrails/: uses walker #of Steps: 1 1 Step (curb) (QC): 5 4 Steps (QC): 7 12 Steps (QC): 7 Stairs: Pattern: Step to Balance Picking up an Object (QC): 88 ADL-Treatment Eating (QC): 6 Oral Hygiene (QC): 6 Shower/Bathe Self (QC): 6 Upper Body Dressing (QC): 3 (indepdent for shirt, min assist for TLSO brace.) Lower Body Dressing (QC): 6 On/Off Footwear (QC): 6 Toileting Hygiene (QC): 6 Toilet Transfer (QC): 6 Assessment/Plan Assessment and Plan Assess & Plan/Chief Complaint Assessment: S/P Trauma with injuries from cow- blunt injury and crush injury sustained -general surgery following -continue frequent reassessments of left lower extremity -awaiting placement of clam brace- should happen today -2 view left foot x ray negative for acute pathology -Ankle x-rays and possible MRIs will be ordered by Dr. Greenfield Concussion with LOC -continue to monitor neurologic status Rhabdomyolysis -CK decreased to 1049 today from 1224 yesterday now normal -SL'd -encourage increased po intake of fluids -continue to trend for now Acute kidney injury-resolved -Creatinine stable at 1.29 today Anemia -Hgb stable at 11.1 today -surgery holding lovenox due to anemia -continue to trend Chest pain with history of angina -cardiology following -continue to monitor -PRN SL nitro Hypertension -continue to monitor Hyperlipidemia -continue to monitor Sinus node dysfunction pacemaker in place -cardiology following -pacemaker interrogated and functioning appropriately Pain control -continue prn's PT OT -doing frequent therapy per patient report -plan to transfer to inpatient rehab unit pending workers comp approval Cellulitis at site of previous IV site with fever -Begin IV antibiotics status post pancultured Gout Somatization Hypersensitivity to pain Plan: Aggressive therapy Pain control IV antibiotics Supportive care 01/01/2021: Supportive care Hep-Lock IV fluid supervisor rubber covering antibiotics tomorrow 01/02/2021: Supportive care Pain control Change IV antibiotics to p.o. 01/03/2021: Gout treatment Supportive care Antibiotics 01/04/2021: Monitor somatic complaints Supportive care 01/05/2021: Somatic issues Pain control Gout treatment 01/06/2021: Pain from injuries is out of proportion Continues to be a slow recovery 01/07/2021: Solu-Medrol injection in case gout is constantly but pain Appreciate Dr. Greenfield's evaluation 01/08/2021: Pain is much better today Additional Solu-Medrol to finish out any gout pain 01/09/2021: Gout treatment Monitor closely 01/10/21: Supportive care Slow recovery 01/11/21: Monitor pain Check labs in am 01/12/2021: Monitor closely Discharge planned soon 01/13/2021: Discharge is delayed for second opinion from [facility] rehab Patient doing dramatically better ambulating around and will take time to heal the rest of his injuries (1) Episode of unresponsiveness Status: Acute (2) Thoracic spine fracture (3) Depression (4) Anxiety (5) Pacemaker (6) CAD (coronary artery disease) (7) Concussion Status: Acute (8) Victim of trampling from animal Status: Acute (9) Chest wall contusion Status: Acute (10) Hematoma of left lower extremity Status: Acute FRANK GARCIA DO Jan 13, 2021 20:50
[2021-01-13] MEDS: OLANZapine 5 MG (ZyPREXA) TAB PO SCH (22:40)
[2021-01-14] MEDS: KCL 8 MEQ (MICRO K) TABLET PO SCH (06:39)
[2021-01-14] MEDS: ENOXAPARIN 40 MG/0.4 ML (LOVENOX) SYR SC SCH (06:39)
[2021-01-14 08:00] VITALS: BP 123/71
[2021-01-14] MEDS: CHOLESTYRAMINE 4 GM (QUESTRAN LITE, PREVALITE) PKT PO SCH (08:00)
[2021-01-14] MEDS: PANTOPRAZOLE 40 MG (PROTONIX) TAB PO SCH (08:28)
[2021-01-14] MEDS: COLCHICINE 0.6 MG (COLCRYS) TABLET PO PRN ×2 (08:28→12:27)
[2021-01-14] MEDS: LACTOBACILLUS ACIDOPHILUS (PROBIOTIC) CAPSULE PO SCH (08:28)
[2021-01-14] MEDS: SUCRALFATE 1 GM (CARAFATE) TAB PO SCH (08:28)
[2021-01-14] MEDS: ASPIRIN E.C. 81 MG (ECOTRIN) TAB PO SCH (08:28)
[2021-01-14] MEDS: VERAPAMIL SR 240 MG (CALAN SR) TAB PO SCH (08:28)
[2021-01-14] MEDS: lisINopril 20 MG (PRINIVIL) TABLET PO SCH (08:28)
[2021-01-14] MEDS: ALPRAZolam 0.5 MG (XANAX) TAB PO SCH ×2 (08:28→12:27)
[2021-01-14] MEDS: NYSTATIN CREAM (MYCOSTATIN) 30 GM TUBE TP SCH (08:29)
--- NOTE | 2021-01-14 09:13 | Cardiology Progress Note ---
Subjective Date Seen by Provider: Jan 14, 2021 Time Seen by Provider: 09:08 Subjective/Events-last exam Patient is sitting up at bedside. Denies any chest pain or dyspnea Objective-Cardiology Exam Last Set of Vital Signs Vital Signs 01/13/21 01/13/21 20:00 21:00 Temp 36.4 Pulse 70 Resp 16 B/P (MAP) 96/56 (69) Pulse Ox 93 O2 Delivery Room Air General: Alert, Oriented X3, Cooperative HEENT: Atraumatic, PERRLA Neck: Supple, No JVD, No Thyromegaly Lungs: Clear to Auscultation Heart: Regular Rate Abdomen: Normal Bowel Sounds, Soft Extremities: No Clubbing, No Cyanosis Skin: No Rashes, No Significant Lesion Neuro: Normal Gait, Normal Speech, Strength at 5/5 X4 Ext Psych/Mental Status: Mental Status NL A/P-Cardiology Admission Diagnosis Chest pain CAD Syncope Left leg crush injury Assessment/Plan Chest pain, improved, most probably musculoskeletal, troponin was negative, had elevated CPK and myoglobin secondary to injury. Continue to monitor Coronary artery disease, reported cardiac catheterization in 2018, patient recall having significant disease not amendable to intervention he was started on sublingual nitroglycerin for chest pain. No further episodes of chest pain were reported Syncope, probably vasovagal, no malignant arrhythmia was detected. Continue to monitor Sinus node dysfunction, history of dual-chamber pacemaker, interrogated today, appears to be functioning normally. Continue to follow-up as an outpatient Status post traumatic injury with rhabdomyolysis secondary to injury. Received IV fluid, managed by primary care team Left leg pain, bilateral foot pain, reporting improvement on the right side, still having swelling and pain on the left side but some improvement after Solu- Medrol injection. Managed by medical team. X-ray of the ankle reviewed. Acute renal insufficiency, improved, managed by primary care team RODOLFO FIELDS Jan 14, 2021 09:13
[2021-01-14] MEDS: polyethylene glycoL POWDER 17 GM (MIRALAX) PACK PO SCH ×2 (09:35→09:51)
--- NOTE | 2021-01-14 12:09 | Physical Therapy Progress Note ---
Therapy Progress Note This note is for 01/13/2021: Pt was not seen for an afternoon session due to pt was supposed to d/c that afternoon. LOIS STUART PTA Jan 14, 2021 12:09
--- NOTE | 2021-01-14 12:25 | Discharge Summary ---
Diagnosis/Chief Complaint Date of Admission Dec 31, 2020 at 14:00 Date of Discharge Discharge Date: Jan 13, 2021 Discharge Diagnosis Assessment: S/P Trauma with injuries from cow- blunt injury and crush injury sustained -general surgery following -continue frequent reassessments of left lower extremity -awaiting placement of clam brace- should happen today -2 view left foot x ray negative for acute pathology -Ankle x-rays and possible MRIs will be ordered by Dr. Greenfield Concussion with LOC -continue to monitor neurologic status Rhabdomyolysis -CK decreased to 1049 today from 1224 yesterday now normal -SL'd -encourage increased po intake of fluids -continue to trend for now Acute kidney injury-resolved -Creatinine stable at 1.29 today Anemia -Hgb stable at 11.1 today -surgery holding lovenox due to anemia -continue to trend Chest pain with history of angina -cardiology following -continue to monitor -PRN SL nitro Hypertension -continue to monitor Hyperlipidemia -continue to monitor Sinus node dysfunction pacemaker in place -cardiology following -pacemaker interrogated and functioning appropriately Pain control -continue prn's PT OT -doing frequent therapy per patient report -plan to transfer to inpatient rehab unit pending workers comp approval Cellulitis at site of previous IV site with fever -Begin IV antibiotics status post pancultured Gout Somatization Hypersensitivity to pain Plan: Aggressive therapy Pain control IV antibiotics Supportive care 01/01/2021: Supportive care Hep-Lock IV fluid open shank coverer antibiotics tomorrow 01/02/2021: Supportive care Pain control Change IV antibiotics to p.o. 01/03/2021: Gout treatment Supportive care Antibiotics 01/04/2021: Monitor somatic complaints Supportive care 01/05/2021: Somatic issues Pain control Gout treatment 01/06/2021: Pain from injuries is out of proportion Continues to be a slow recovery 01/07/2021: Solu-Medrol injection in case gout is constantly but pain Appreciate Dr. Greenfield's evaluation 01/08/2021: Pain is much better today Additional Solu-Medrol to finish out any gout pain 01/09/2021: Gout treatment Monitor closely 01/10/21: Supportive care Slow recovery 01/11/21: Monitor pain Check labs in am 01/12/2021: Monitor closely Discharge planned soon (1) Episode of unresponsiveness Status: Acute (2) Thoracic spine fracture (3) Depression (4) Anxiety (5) Pacemaker (6) CAD (coronary artery disease) (7) Concussion Status: Acute (8) Victim of trampling from animal Status: Acute (9) Chest wall contusion Status: Acute (10) Hematoma of left lower extremity Status: Acute Discharge Summary Discharge Physical Examination Allergies: Coded Allergies: No Known Drug Allergies (Unverified , 01/11/11) Vitals & I&Os Vital Signs Date Time Temp Pulse Resp B/P (MAP) Pulse Ox O2 Delivery O2 Flow Rate FiO2 01/14/21 09:38 Room Air 01/14/21 08:00 36.6 89 16 123/71 (88) 95 General Appearance: Alert, Oriented X3, Cooperative Respiratory: Clear to Auscultation Cardiovascular: Regular Rate Neuro: Normal Gait, Normal Speech, Strength at 5/5 X4 Ext Psych/Mental Status: Mental Status NL Hospital Course Was the Problem List Reviewed?: Yes Hospital course: Pt had a lengthy hospital course for 14 days after admitted after a cow trampling with multiple fractures and soft tissues injury, he required intensive therapy, pain control and multiple X-rays and Dr. Greenfield consultation for foot pain. He did respond to Solumedrol 125 mg IM x2 for gout pain and he was able to be discharged in improved condition with clam spine brace along with pain medication. He did have an episode of an IV site that became infected and he became feverish and he was initiated IV Vancomycin and Cefepime broad spectrum and that was transitioned to oral medication, he finished that and did very well otherwise. Discharge was delayed for second opinion requested from Worker's Comp. with [facility] rehab up in [place] at [facility] because he was still continuing with pain and issues but these are issues that will resolve over time from soft tissue injuries and his pain at times appears to be out of proportion to his injuries so I would recommend discharge home with outpatient therapy continuing pain medication and discharged home but will await final recommendation from inpatient rehab at [facility]. I did speak with primary care provider Dr. Robel Sierra again updated him on all of these issues. Updated when she arrived and answered all questions to the best of my ability with [facility] social services counselor and [facility] physical therapy in the room Labs (last 24 hrs) Laboratory Tests 12/31/20 14:00: Lab Scanned Report Referred Lab Report 12/31/20 19:40: White Blood Count 8.5, Red Blood Count 3.46L, Hemoglobin 10.5L, Hematocrit 32L, Mean Corpuscular Volume 92, Mean Corpuscular Hemoglobin 30, Mean Corpuscular Hemoglobin Concent 33, Red Cell Distribution Width 13.5, Platelet Count 227, Mean Platelet Volume 9.2, Immature Granulocyte % (Auto) 0, Neutrophils (%) (Auto) 72, Lymphocytes (%) (Auto) 16, Monocytes (%) (Auto) 10, Eosinophils (%) (Auto) 1, Basophils (%) (Auto) 0, Neutrophils # (Auto) 6.1, Lymphocytes # (Auto) 1.4, Monocytes # (Auto) 0.9, Eosinophils # (Auto) 0.1, Basophils # (Auto) 0.0, Immature Granulocyte # (Auto) 0.0, Sodium Level 134L, Potassium Level 3.8, Chloride Level 101, Carbon Dioxide Level 24, Anion Gap 9, Blood Urea Nitrogen 18, Creatinine 1.35H, Estimat Glomerular Filtration Rate 54, BUN/Creatinine Ratio 13, Glucose Level 156H, Lactic Acid Level 1.09, Calcium Level 8.9, Corrected Calcium 9.4, Total Bilirubin 1.7H, Aspartate Amino Transf (AST/SGOT) 29, Alanine Aminotransferase (ALT/SGPT) 33, Alkaline Phosphatase 63, Total Protein 6.5, Albumin 3.4 12/31/20 19:45: Influenza Type A (RT-PCR) Not Detected, Influenza Type B (RT-PCR) Not Detected, SARS-CoV-2 RNA (RT-PCR) Not Detected 12/31/20 20:13: Urine Color ORANGE, Urine Clarity CLEAR, Urine pH 6.0, Urine Specific [place] 1.020, Urine Protein NEGATIVE, Urine Glucose (UA) NEGATIVE, Urine Ketones NEGATIVE, Urine Nitrite NEGATIVE, Urine Bilirubin NEGATIVE, Urine Urobilinogen 2.0, Urine Leukocyte Esterase NEGATIVE, Urine RBC (Auto) 3+H, Urine RBC 10-25H, Urine WBC 5-10H, Urine Squamous Epithelial Cells NONE, Urine Renal Epithelial Cells NONE, Urine Crystals NONE, Urine Bacteria NEGATIVE, Urine Casts NONE, Urine Mucus NEGATIVE, Urine Culture Indicated NO 01/01/21 06:11: White Blood Count 8.0, Red Blood Count 3.28L, Hemoglobin 9.9L, Hematocrit 31L, Mean Corpuscular Volume 94, Mean Corpuscular Hemoglobin 30, Mean Corpuscular Hemoglobin Concent 32, Red Cell Distribution Width 13.4, Platelet Count 207, Mean Platelet Volume 9.3, Immature Granulocyte % (Auto) 0, Neutrophils (%) (Auto) 72, Lymphocytes (%) (Auto) 16, Monocytes (%) (Auto) 9, Eosinophils (%) (Auto) 2, Basophils (%) (Auto) 0, Neutrophils # (Auto) 5.8, Lymphocytes # (Auto) 1.3, Monocytes # (Auto) 0.7, Eosinophils # (Auto) 0.2, Basophils # (Auto) 0.0, Immature Granulocyte # (Auto) 0.0, Sodium Level 139, Potassium Level 4.0, Chloride Level 103, Carbon Dioxide Level 24, Anion Gap 12, Blood Urea Nitrogen 18, Creatinine 1.38H, Estimat Glomerular Filtration Rate 53, BUN/Creatinine Ratio 13, Glucose Level 127H, Calcium Level 8.7, Corrected Calcium 9.3, Total Bilirubin 2.1H, Aspartate Amino Transf (AST/SGOT) 24, Alanine Aminotransferase (ALT/SGPT) 30, Alkaline Phosphatase 57, Total Protein 6.2L, Albumin 3.2 01/02/21 08:18: White Blood Count 8.2, Red Blood Count 3.23L, Hemoglobin 9.8L, Hematocrit 31L, Mean Corpuscular Volume 94, Mean Corpuscular Hemoglobin 30, Mean Corpuscular Hemoglobin Concent 32, Red Cell Distribution Width 13.3, Platelet Count 250, Mean Platelet Volume 9.3, Immature Granulocyte % (Auto) 0, Neutrophils (%) (Auto) 66, Lymphocytes (%) (Auto) 22, Monocytes (%) (Auto) 9, Eosinophils (%) (Auto) 2, Basophils (%) (Auto) 0, Neutrophils # (Auto) 5.4, Lymphocytes # (Auto) 1.8, Monocytes # (Auto) 0.7, Eosinophils # (Auto) 0.2, Basophils # (Auto) 0.0, Immature Granulocyte # (Auto) 0.0, Sodium Level 136, Potassium Level 3.9, Chlor clemente Level 105, Carbon Dioxide Level 22, Anion Gap 9, Blood Urea Nitrogen 15, Creatinine 1.28, Estimat Glomerular Filtration Rate 58, BUN/Creatinine Ratio 12, Glucose Level 137H, Calcium Level 8.9, Corrected Calcium 9.7, Total Bilirubin 1.7H, Aspartate Amino Transf (AST/SGOT) 18, Alanine Aminotransferase (ALT/SGPT) 28, Alkaline Phosphatase 53, Total Protein 6.1L, Albumin 3.0L, Total Creatine Kinase 223H, Vancomycin Level Trough 15.9 01/05/21 06:09: White Blood Count 11.7H, Red Blood Count 3.28L, Hemoglobin 9.8L, Hematocrit 31L, Mean Corpuscular Volume 94, Mean Corpuscular Hemoglobin 30, Mean Corpuscular Hemoglobin Concent 32, Red Cell Distribution Width 13.3, Platelet Count 334, Mean Platelet Volume 9.3, Immature Granulocyte % (Auto) 1, Neutrophils (%) (Auto) 75, Lymphocytes (%) (Auto) 16, Monocytes (%) (Auto) 7, Eosinophils (%) (Auto) 1, Basophils (%) (Auto) 0, Neutrophils # (Auto) 8.8H, Lymphocytes # (Auto) 1.9, Monocytes # (Auto) 0.8, Eosinophils # (Auto) 0.2, Basophils # (Auto) 0.0, Immature Granulocyte # (Auto) 0.1, Sodium Level 134L, Potassium Level 4.1, Chloride Level 101, Carbon Dioxide Level 22, Anion Gap 11, Blood Urea Nitrogen 25H, Creatinine 1.57H, Estimat Glomerular Filtration Rate 46, BUN/Creatinine Ratio 16, Glucose Level 130H, Calcium Level 9.5, Corrected Calcium 10.1, Total Bilirubin 1.1H, Aspartate Amino Transf (AST/SGOT) 21, Alanine Aminotransferase (ALT/SGPT) 39, Alkaline Phosphatase 67, Total Protein 6.9, Albumin 3.3, Uric Acid 6.9 01/09/21 05:20: White Blood Count 13.2H, Red Blood Count 3.19L, Hemoglobin 9.6L, Hematocrit 29L, Mean Corpuscular Volume 91, Mean Corpuscular Hemoglobin 30, Mean Corpuscular Hemoglobin Concent 33, Red Cell Distribution Width 12.9, Platelet Count 421H, Mean Platelet Volume 9.0, Sodium Level 135, Potassium Level 4.3, Chloride Level 108H, Carbon Dioxide Level 18L, Anion Gap 9, Blood Urea Nitrogen 24H, Creatinine 1.06, Estimat Glomerular Filtration Rate 72, BUN/Creatinine Ratio 23, Glucose Level 166H, Calcium Level 9.1, Total Bilirubin 0.6, Aspartate Amino Transf (AST/SGOT) 29, Alanine Aminotransferase (ALT/SGPT) 46, Alkaline Phosphatase 66, Total Protein 6.6, Albumin 3.3, Total Creatine Kinase 159, Direct Bilirubin 0.3, Indirect Bilirubin 0.3 01/12/21 05:27: White Blood Count 8.5, Red Blood Count 3.57L, Hemoglobin 10.4L, Hematocrit 33L, Mean Corpuscular Volume 93, Mean Corpuscular Hemoglobin 29, Mean Corpuscular Hemoglobin Concent 31L, Red Cell Distribution Width 13.2, Platelet Count 377, Mean Platelet Volume 8.7L, Immature Granulocyte % (Auto) 1, Neutrophils (%) (Auto) 66, Lymphocytes (%) (Auto) 24, Monocytes (%) (Auto) 7, Eosinophils (%) (Auto) 2, Basophils (%) (Auto) 0, Neutrophils # (Auto) 5.7, Lymphocytes # (Auto) 2.0, Monocytes # (Auto) 0.6, Eosinophils # (Auto) 0.1, Basophils # (Auto) 0.0, Immature Granulocyte # (Auto) 0.1, Sodium Level 136, Potassium Level 4.1, Chloride Level 105, Carbon Dioxide Level 22, Anion Gap 9, Blood Urea Nitrogen 16, Creatinine 1.16, Estimat Glomerular Filtration Rate 65, BUN/Creatinine Ratio 14, Glucose Level 108H, Calcium Level 9.4, Corrected Calcium 10.0, Total Bilirubin 1.0, Aspartate Amino Transf (AST/SGOT) 29, Alanine Aminotransferase (ALT/SGPT) 57H, Alkaline Phosphatase 71, Total Protein 6.3L, Albumin 3.3 Microbiology 01/10/21 C. difficile GDH Antigen & Toxins - Final, Complete 12/31/20 Blood Culture - Final, Complete No growth Pending Labs Microbiology Date/Time Source Procedure Growth Status 01/10/21 09:45 Stool C. difficile GDH Antigen & Toxins - Final Complete 12/31/20 19:54 Peripheral Lt Ac Blood Culture - Final No growth Complete 12/31/20 19:40 Peripheral Rt Forearm Blood Culture - Final Sphingomonas species Complete Laboratory Tests 12/31/20 14:00: Lab Scanned Report Referred Lab Report 12/31/20 19:40: White Blood Count 8.5, Red Blood Count 3.46, Hemoglobin 10.5, Hematocrit 32, Mean Corpuscular Volume 92, Mean Corpuscular Hemoglobin 30, Mean Corpuscular Hemoglobin Concent 33, Red Cell Distribution Width 13.5, Platelet Count 227, Mean Platelet Volume 9.2, Immature Granulocyte % (Auto) 0, Neutrophils (%) (Auto) 72, Lymphocytes (%) (Auto) 16, Monocytes (%) (Auto) 10, Eosinophils (%) (Auto) 1, Basophils (%) (Auto) 0, Neutrophils # (Auto) 6.1, Lymphocytes # (Auto) 1.4, Monocytes # (Auto) 0.9, Eosinophils # (Auto) 0.1, Basophils # (Auto) 0.0, Immature Granulocyte # (Auto) 0.0, Sodium Level 134, Potassium Level 3.8, Chloride Level 101, Carbon Dioxide Level 24, Anion Gap 9, Blood Urea Nitrogen 18, Creatinine 1.35, Estimat Glomerular Filtration Rate 54, BUN/Creatinine Ratio 13, Glucose Level 156, Lactic Acid Level 1.09, Calcium Level 8.9, Corrected Calcium 9.4, Total Bilirubin 1.7, Aspartate Amino Transf (AST/SGOT) 29, Alanine Aminotransferase (ALT/SGPT) 33, Alkaline Phosphatase 63, Total Protein 6.5, Albumin 3.4 12/31/20 19:45: Influenza Type A (RT-PCR) Not Detected, Influenza Type B (RT-PCR) Not Detected, SARS-CoV-2 RNA (RT-PCR) Not Detected 12/31/20 20:13: Urine Color ORANGE, Urine Clarity CLEAR, Urine pH 6.0, Urine Specific [place] 1.020, Urine Protein NEGATIVE, Urine Glucose (UA) NEGATIVE, Urine Ketones NEGATIVE, Urine Nitrite NEGATIVE, Urine Bilirubin NEGATIVE, Urine Urobilinogen 2.0, Urine Leukocyte Esterase NEGATIVE, Urine RBC (Auto) 3+, Urine RBC 10-25, Urine WBC 5-10, Urine Squamous Epithelial Cells NONE, Urine Renal Epithelial Cells NONE, Urine Crystals NONE, Urine Bacteria NEGATIVE, Urine Casts NONE, Urine Mucus NEGATIVE, Urine Culture Indicated NO 01/01/21 06:11: White Blood Count 8.0, Red Blood Count 3.28, Hemoglobin 9.9, Hematocrit 31, Mean Corpuscular Volume 94, Mean Corpuscular Hemoglobin 30, Mean Corpuscular Hemoglobin Concent 32, Red Cell Distribution Width 13.4, Platelet Count 207, Mean Platelet Volume 9.3, Immature Granulocyte % (Auto) 0, Neutrophils (%) (Auto) 72, Lymphocytes (%) (Auto) 16, Monocytes (%) (Auto) 9, Eosinophils (%) (Auto) 2, Basophils (%) (Auto) 0, Neutrophils # (Auto) 5.8, Lymphocytes # (Auto) 1.3, Monocytes # (Auto) 0.7, Eosinophils # (Auto) 0.2, Basophils # (Auto) 0.0, Immature Granulocyte # (Auto) 0.0, Sodium Level 139, Potassium Level 4.0, Chloride Level 103, Carbon Dioxide Level 24, Anion Gap 12, Blood Urea Nitrogen 18, Creatinine 1.38, Estimat Glomerular Filtration Rate 53, BUN/Creatinine Ratio 13, Glucose Level 127, Calcium Level 8.7, Corrected Calcium 9.3, Total Bilirubin 2.1, Aspartate Amino Transf (AST/SGOT) 24, Alanine Aminotransferase (ALT/SGPT) 30, Alkaline Phosphatase 57, Total Protein 6.2, Albumin 3.2 01/02/21 08:18: White Blood Count 8.2, Red Blood Count 3.23, Hemoglobin 9.8, Hematocrit 31, Mean Corpuscular Volume 94, Mean Corpuscular Hemoglobin 30, Mean Corpuscular Hemoglobin Concent 32, Red Cell Distribution Width 13.3, Platelet Count 250, Mean Platelet Volume 9.3, Immature Granulocyte % (Auto) 0, Neutrophils (%) (Auto) 66, Lymphocytes (%) (Auto) 22, Monocytes (%) (Auto) 9, Eosinophils (%) (Auto) 2, Basophils (%) (Auto) 0, Neutrophils # (Auto) 5.4, Lymphocytes # (Auto) 1.8, Monocytes # (Auto) 0.7, Eosinophils # (Auto) 0.2, Basophils # (Auto) 0.0, Immature Granulocyte # (Auto) 0.0, Sodium Level 136, Potassium Level 3.9, Chloride Level 105, Carbon Dioxide Level 22, Anion Gap 9, Blood Urea Nitrogen 15, Creatinine 1.28, Estimat Glomerular Filtration Rate 58, BUN/Creatinine Ratio 12, Glucose Level 137, Calcium Level 8.9, Corrected Calcium 9.7, Total Bilirubin 1.7, Aspartate Amino Transf (AST/SGOT) 18, Alanine Aminotransferase (ALT/SGPT) 28, Alkaline Phosphatase 53, Total Protein 6.1, Albumin 3.0, Total Creatine Kinase 223, Vancomycin Level Trough 15.9 01/05/21 06:09: White Blood Count 11.7, Red Blood Count 3.28, Hemoglobin 9.8, Hematocrit 31, Mean Corpuscular Volume 94, Mean Corpuscular Hemoglobin 30, Mean Corpuscular Hemoglobin Concent 32, Red Cell Distribution Width 13.3, Platelet Count 334, Mean Platelet Volume 9.3, Immature Granulocyte % (Auto) 1, Neutrophils (%) (Auto) 75, Lymphocytes (%) (Auto) 16, Monocytes (%) (Auto) 7, Eosinophils (%) (Auto) 1, Basophils (%) (Auto) 0, Neutrophils # (Auto) 8.8, Lymphocytes # (Auto) 1.9, Monocytes # (Auto) 0.8, Eosinophils # (Auto) 0.2, Basophils # (Auto) 0.0, Immature Granulocyte # (Auto) 0.1, Sodium Level 134, Potassium Level 4.1, Chloride Level 101, Carbon Dioxide Level 22, Anion Gap 11, Blood Urea Nitrogen 25, Creatinine 1.57, Estimat Glomerular Filtration Rate 46, BUN/Creatinine Ratio 16, Glucose Level 130, Calcium Level 9.5, Corrected Calcium 10.1, Total Bilirubin 1.1, Aspartate Amino Transf (AST/SGOT) 21, Alanine Aminotransferase (ALT/SGPT) 39, Alkaline Phosphatase 67, Total Protein 6.9, Albumin 3.3, Uric Acid 6.9 01/09/21 05:20: White Blood Count 13.2, Red Blood Count 3.19, Hemoglobin 9.6, Hematocrit 29, Mean Corpuscular Volume 91, Mean Corpuscular Hemoglobin 30, Mean Corpuscular Hemoglobin Concent 33, Red Cell Distribution Width 12.9, Platelet Count 421, Mean Platelet Volume 9.0, Sodium Level 135, Potassium Level 4.3, Chloride Level 108, Carbon Dioxide Level 18, Anion Gap 9, Blood Urea Nitrogen 24, Creatinine 1.06, Estimat Glomerular Filtration Rate 72, BUN/Creatinine Ratio 23, Glucose Level 166, Calcium Level 9.1, Total Bilirubin 0.6, Aspartate Amino Transf (AST/SGOT) 29, Alanine Aminotransferase (ALT/SGPT) 46, Alkaline Phosphatase 66, Total Protein 6.6, Albumin 3.3, Total Creatine Kinase 159, Direct Bilirubin 0.3, Indirect Bilirubin 0.3 01/12/21 05:27: White Blood Count 8.5, Red Blood Count 3.57, Hemoglobin 10.4, Hematocrit 33, M jose cruz Corpuscular Volume 93, Mean Corpuscular Hemoglobin 29, Mean Corpuscular Hemoglobin Concent 31, Red Cell Distribution Width 13.2, Platelet Count 377, Mean Platelet Volume 8.7, Immature Granulocyte % (Auto) 1, Neutrophils (%) (Auto) 66, Lymphocytes (%) (Auto) 24, Monocytes (%) (Auto) 7, Eosinophils (%) (Auto) 2, Basophils (%) (Auto) 0, Neutrophils # (Auto) 5.7, Lymphocytes # (Auto) 2.0, Monocytes # (Auto) 0.6, Eosinophils # (Auto) 0.1, Basophils # (Auto) 0.0, Immature Granulocyte # (Auto) 0.1, Sodium Level 136, Potassium Level 4.1, Chloride Level 105, Carbon Dioxide Level 22, Anion Gap 9, Blood Urea Nitrogen 16, Creatinine 1.16, Estimat Glomerular Filtration Rate 65, BUN/Creatinine Ratio 14, Glucose Level 108, Calcium Level 9.4, Corrected Calcium 10.0, Total Bilirubin 1.0, Aspartate Amino Transf (AST/SGOT) 29, Alanine Aminotransferase (ALT/SGPT) 57, Alkaline Phosphatase 71, Total Protein 6.3, Albumin 3.3 Discharge Home Medications: Active Scripts Active Nystatin 15 Gm Cream..g. 0 Gm TP TID Alprazolam 0.5 Mg Tablet 0.5 Mg PO QID Oxyir Tablet (Oxycodone HCl) 5 Mg Tab 5 Mg PO Q4H PRN Reported Verapamil ER (Verapamil HCl) 120 Mg Tablet.er 120 Mg PO DAILY LAST FILLED 11-05-2020 #30/30 DAY SUPPLY Mitigare (Colchicine) 0.6 Mg Capsule 0.6 Mg PO Q48H PRN Potassium Gluconate 90 Mg Tablet 90 Mg PO DAILY Lysine 1,000 Mg Tablet 1,000 Mg PO DAILY Aspirin EC (Aspirin) 81 Mg Tablet.dr 81 Mg PO DAILY Atorvastatin Calcium 40 Mg Tablet 40 Mg PO HS Lisinopril 20 Mg Tablet 20 Mg PO DAILY Pantoprazole Sodium 40 Mg Tablet.dr 40 Mg PO DAILY Sucralfate 1 Gm Tablet 1 Gm PO BID Fluoxetine HCl 20 Mg Capsule 40 Mg PO DAILY TAKES 2 (20MG) CAPS Olanzapine 10 Mg Tablet 10 Mg PO HS Instructions to patient/family Please see electronic discharge instructions given to patient. Diagnosis/Problems Diagnosis/Problems (1) Episode of unresponsiveness Status: Acute (2) Thoracic spine fracture (3) Depression (4) Anxiety (5) Pacemaker (6) CAD (coronary artery disease) (7) Concussion Status: Acute (8) Victim of trampling from animal Status: Acute (9) Chest wall contusion Status: Acute (10) Hematoma of left lower extremity Status: Acute FRANK GARCIA DO Jan 14, 2021 12:25
== END 2021-01-14 12:36 | disposition home or self-care (01) | DRG 949 ==
PROVIDERS: ADMIT Internal Medicine; ATTEND Internal Medicine
DX: S87.82XD Crushing injury of left lower leg, subsequent encounter (principal); L03.116 Cellulitis of left lower limb; L03.114 Cellulitis of left upper limb; M62.82 Rhabdomyolysis; S22.039D Unspecified fracture of third thoracic vertebra, subsequent encounter for fracture with routine healing; S80.12XD Contusion of left lower leg, subsequent encounter; S06.0X9D Concussion with loss of consciousness of unspecified duration, subsequent encounter; S20.219D Contusion of unspecified front wall of thorax, subsequent encounter; T80.29XD Infection following other infusion, transfusion and therapeutic injection, subsequent encounter; I25.119 Atherosclerotic heart disease of native coronary artery with unspecified angina pectoris; E78.00 Pure hypercholesterolemia, unspecified; E78.5 Hyperlipidemia, unspecified; F32.9 Major depressive disorder, single episode, unspecified; I49.5 Sick sinus syndrome; D64.9 Anemia, unspecified; F41.9 Anxiety disorder, unspecified; I10 Essential (primary) hypertension; K21.9 Gastro-esophageal reflux disease without esophagitis; M19.91 Primary osteoarthritis, unspecified site; R07.89 Other chest pain; N28.9 Disorder of kidney and ureter, unspecified; R19.7 Diarrhea, unspecified; M10.9 Gout, unspecified; Z79.82 Long term (current) use of aspirin; Z82.49 Family history of ischemic heart disease and other diseases of the circulatory system; W55.29 Other contact with cow
CPT/HCPCS: 36415; 71045; 80048; 80053; 80076; 80202; 81000; 82550; 83605; 84550; 85025; 85027; 87040; 87324; 87449; 87636; 93970; 94664

== ENCOUNTER 2022-11-26 21:15 | Inpatient (IN) | payer BC, OTHER ==
[~2022-11-26] VITALS: Ht 175 cm; Wt 117.9 kg
[~2022-11-26 21:15] MED LIST changes: +ALPR0.5T7 PO; -FLUO20CA46 PO; +FLUO20CA48 PO; +NYST15CR35 TP; +OXC5T PO; -VERA120T10 PO; +VERA120T74 PO
[2022-11-26] MEDS ORDERED: NS IV 1000 ML 1,000 ML ONE (21:21)
[2022-11-26 21:26] LABS: BASOPHILS % (AUTO) 0 % (0-10); EOSINOPHILS # (AUTO) 0.1 10^3/uL (0.0-0.3); EOSINOPHILS % (AUTO) 1 % (0-10); HEMATOCRIT 43 % (40-54); HEMOGLOBIN 13.8 g/dL (13.3-17.7); LYMPHOCYTES # (AUTO) 2.2 10^3/uL (1.0-4.0); LYMPHOCYTES % (AUTO) 17 % (12-44); MEAN CORPUSCULAR HEMOGLOBIN 31 pg (25-34); MEAN CORPUSCULAR HGB CONC 33 g/dL (32-36); MEAN CORPUSCULAR VOLUME 95 fL (80-99); MEAN PLATELET VOLUME 9.2 fL (9.0-12.2); MONOCYTES # (AUTO) 0.8 10^3/uL (0.0-1.0); MONOCYTES % (AUTO) 6 % (0-12); NEUTROPHILS # (AUTO) 9.9 10^3/uL (1.8-7.8); NEUTROPHILS % (AUTO) 76 % (42-75); PLATELET COUNT 222 10^3/uL (130-400)
[2022-11-26] MEDS ORDERED: NS IV 1000 ML 1,000 ML IV SCH (21:30)
--- NOTE | 2022-11-26 21:30 | ED General ---
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 Patient states he was feeling tired and lightheaded and he passed out in the bathroom for a few seconds, and it was witnessed by others who said he immediately became conscious after the fall. Patient again went outside the bathroom and had another syncopal episode in the foyer which was also witnessed and which he immediately became conscious right after. EMS reports that patient told them that he felt a little bit short of breath when EMS first came on scene. EMS gave him 1 bag of fluids since he appeared dehydrated and he was little hypotensive on scene, and brought him to the ER. Denies headache, blurry vision, dizziness, neck pain, chest pain, palpitation, shortness of breath, abdominal pain, diarrhea, fever and chills. Allergies and Home Medications Allergies Coded Allergies: No Known Drug Allergies (Unverified , 01/11/11) Patient Home Medication List Home Medication List Reviewed: Yes Alprazolam (Alprazolam) 0.5 Mg Tablet, 0.5 MG PO QID Prescribed by: FRANK GARCIA on 01/13/21 1101 Aspirin (Aspirin EC) 81 Mg Tablet.dr, 81 MG PO DAILY, (Reported) Entered as Reported by: RIAN AGEE on 12/29/20 1059 Atorvastatin Calcium (Atorvastatin Calcium) 40 Mg Tablet, 40 MG PO HS, (Reported) Entered as Reported by: RIAN AGEE on 12/29/20 1054 Colchicine (Mitigare) 0.6 Mg Capsule, 0.6 MG PO Q48H PRN for GOUT FLARE, (Reported) Entered as Reported by: RIAN AGEE on 12/29/20 1059 Fluoxetine HCl (Fluoxetine HCl) 20 Mg Capsule, 40 MG PO DAILY, (Reported) Entered as Reported by: FRANK GARCIA on 12/28/20 1228 Lisinopril (Lisinopril) 20 Mg Tablet, 20 MG PO DAILY, (Reported) Entered as Reported by: RIAN AGEE on 12/29/20 1054 Lysine (Lysine) 1,000 Mg Tablet, 1,000 MG PO DAILY, (Reported) Entered as Reported by: RIAN AGEE on 12/29/20 1059 Nystatin (Nystatin) 15 Gm Cream..g., 0 GM TP TID Prescribed by: FRANK GARCIA on 01/13/21 1101 Olanzapine (Olanzapine) 10 Mg Tablet, 10 MG PO HS, (Reported) Entered as Reported by: FRANK GARCIA on 12/28/20 1228 Oxycodone Hcl (Oxyir Tablet) 5 Mg Tab, 5 MG PO Q4H PRN for PAIN-SEVERE (8-10) Prescribed by: FRANK GARCIA on 01/13/21 1101 Pantoprazole Sodium (Pantoprazole Sodium) 40 Mg Tablet.dr, 40 MG PO DAILY, (Reported) Entered as Reported by: FRANK GARCIA on 12/28/20 1228 Potassium Gluconate (Potassium Gluconate) 90 Mg Tablet, 90 MG PO DAILY, (Reported) Entered as Reported by: RIAN AGEE on 12/29/20 1059 Sucralfate (Sucralfate) 1 Gm Tablet, 1 GM PO BID, (Reported) Entered as Reported by: FRANK GARCIA on 12/28/20 1228 Verapamil HCl (Verapamil ER) 120 Mg Tablet.er, 120 MG PO DAILY, (Reported) Entered as Reported by: RIAN AGEE on 12/29/20 1059 Review of Systems Review of Systems Constitutional: dizziness EENTM: no symptoms reported Respiratory: short of breath Cardiovascular: syncope Gastrointestinal: no symptoms reported Genitourinary: no symptoms reported Musculoskeletal: no symptoms reported Skin: no symptoms reported Psychiatric/Neurological: No Symptoms Reported Hematologic/Lymphatic: No Symptoms Reported Immunological/Allergic: no symptoms reported Past Jkoajzo-Cjzbjs-Ktvdaj Hx Immunizations Up To Date First/Initial COVID19 Vaccinat: 10-24-20 Second COVID19 Vaccination Zander: 11-21-20 Past Medical History Surgeries: Yes Orthopedic, Pacemaker Respiratory: No Cardiac: Yes High Cholesterol, Hypertension Genitourinary: No Gastrointestinal: Yes Gastroesophageal Reflux Musculoskeletal: Yes Arthritis, Back Injury, Chronic Back Pain, Fractures Endocrine: No HEENT: No Cancer: No Psychosocial: Yes Anxiety, Depression Integumentary: No Family Medical History Heart Disease, Hypertension Physical Exam Vital Signs Vital Signs - First Documented 11/26/22 21:15 Temp 36.2 Pulse 71 Resp 16 B/P (MAP) 105/54 (71) Pulse Ox 96 O2 Delivery Room Air Capillary Refill : Height, Weight, BMI Height: '" Weight: lbs. oz. kg; 35.69 BMI Method: General Appearance: No Apparent Distress, WD/WN, Obese HEENT: PERRL/EOMI, Normal ENT Inspection Neck: Full Range of Motion, Normal Inspection, Non Tender, Supple Respiratory: Chest Non Tender, Lungs Clear, Normal Breath Sounds, No Accessory Muscle Use Cardiovascular: Regular Rate, Rhythm, No Edema, Normal Peripheral Pulses Gastrointestinal: Normal Bowel Sounds, Non Tender, Soft Back: Normal Inspection, No Vertebral Tenderness Extremity: Normal Inspection, Normal Range of Motion, No Calf Tenderness Neurologic/Psychiatric: Alert, Oriented x3, No Motor/Sensory Deficits, Normal Mood/Affect, hot car charger II-XII Norm as Tested Skin: Other (Overall face and skin on the extremities show erythema and sunburn) Focused Exam Lactate Level 11/26/22 22:16: Lactic Acid Level 2.66*H Lactic Acid Level Laboratory Tests Test 11/26/22 22:16 Lactic Acid Level 2.66 MMOL/L (0.50-2.00) *H Progress/Results/Core Measures Suspected Sepsis SIRS Temperature: Pulse: Respiratory Rate: Laboratory Tests 11/26/22 21:20: White Blood Count 13.0H Blood Pressure / Mean: 11/26/22 22:16: Lactic Acid Level 2.66*H Laboratory Tests 11/26/22 21:20: Creatinine 2.75H, Platelet Count 222, Total Bilirubin 1.1H Results/Orders Lab Results Laboratory Tests Test 11/26/22 21:20 11/26/22 22:16 11/26/22 22:55 Range/Units White Blood Count 13.0 H 4.3-11.0 10^3/uL Red Blood Count 4.47 4.30-5.52 10^6/uL Hemoglobin 13.8 13.3-17.7 g/dL Hematocrit 43 40-54 % Mean Corpuscular Volume 95 80-99 fL Mean Corpuscular Hemoglobin 31 25-34 pg Mean Corpuscular Hemoglobin Concent 33 32-36 g/dL Red Cell Distribution Width 12.9 10.0-14.5 % Platelet Count 222 130-400 10^3/uL Mean Platelet Volume 9.2 9.0-12.2 fL Immature Granulocyte % (Auto) 0 % Neutrophils (%) (Auto) 76 H 42-75 % Lymphocytes (%) (Auto) 17 12-44 % Monocytes (%) (Auto) 6 0-12 % Eosinophils (%) (Auto) 1 0-10 % Basophils (%) (Auto) 0 0-10 % Neutrophils # (Auto) 9.9 H 1.8-7.8 10^3/uL Lymphocytes # (Auto) 2.2 1.0-4.0 10^3/uL Monocytes # (Auto) 0.8 0.0-1.0 10^3/uL Eosinophils # (Auto) 0.1 0.0-0.3 10^3/uL Basophils # (Auto) 0.0 0.0-0.1 10^3/uL Immature Granulocyte # (Auto) 0.1 0.0-0.1 10^3/uL Sodium Level 140 135-145 MMOL/L Potassium Level 4.4 3.6-5.0 MMOL/L Chloride Level 104 98-107 MMOL/L Carbon Dioxide Level 21 21-32 MMOL/L Anion Gap 15 H 5-14 MMOL/L Blood Urea Nitrogen 21 H 7-18 MG/DL Creatinine 2.75 H 0.60-1.30 MG/DL Estimat Glomerular Filtration Rate 26 BUN/Creatinine Ratio 8 Glucose Level 150 H 70-105 MG/DL Calcium Level 9.1 8.5-10.1 MG/DL Corrected Calcium 9.3 8.5-10.1 MG/DL Magnesium Level 1.9 1.6-2.4 MG/DL Total Bilirubin 1.1 H 0.1-1.0 MG/DL Aspartate Amino Transf (AST/SGOT) 30 5-34 U/L Alanine Aminotransferase (ALT/SGPT) 47 0-55 U/L Alkaline Phosphatase 71 40-136 U/L Troponin I < 0.30 <0.30 NG/ML Pro-B-Type Natriuretic Peptide 56.8 <125.0 PG/ML Total Protein 6.3 L 6.4-8.2 GM/DL Albumin 3.8 3.2-4.5 GM/DL Lactic Acid Level 2.66 *H 0.50-2.00 MMOL/L Urine Color YELLOW Urine Clarity CLEAR Urine pH 6.0 5-9 [address] [employer] 1.015 L 1.016-1.022 Urine Protein 1+ H NEGATIVE Urine Glucose (UA) NEGATIVE NEGATIVE Urine Ketones NEGATIVE NEGATIVE Urine Nitrite NEGATIVE NEGATIVE Urine Bilirubin NEGATIVE NEGATIVE Urine Urobilinogen 0.2 < = 1.0 MG/DL Urine Leukocyte Esterase NEGATIVE NEGATIVE Urine RBC (Auto) NEGATIVE NEGATIVE Urine RBC 2-5 H /HPF Urine WBC 5-10 H /HPF Urine Squamous Epithelial Cells NONE /HPF Urine Crystals NONE /LPF Urine Bacteria MODERATE H /HPF Urine Casts PRESENT /LPF Urine Hyaline Casts 10-25 H /LPF Urine Mucus LARGE H /LPF Urine Other SPERM PRESENT /HPF Urine Culture Indicated YES Urine Opiates Screen NEGATIVE NEGATIVE Urine Oxycodone Screen NEGATIVE NEGATIVE Urine Methadone Screen NEGATIVE NEGATIVE Urine Propoxyphene Screen NEGATIVE NEGATIVE Urine Barbiturates Screen NEGATIVE NEGATIVE Ur Tricyclic Antidepressants Screen NEGATIVE NEGATIVE Urine Phencyclidine Screen NEGATIVE NEGATIVE Urine Amphetamines Screen NEGATIVE NEGATIVE Urine Methamphetamines Screen NEGATIVE NEGATIVE Urine Benzodiazepines Screen NEGATIVE NEGATIVE Urine Cocaine Screen NEGATIVE NEGATIVE Urine Cannabinoids Screen NEGATIVE NEGATIVE My Orders Orders - NIGEL KENNY MD Chest 1 View Ap/Pa Only (11/26/22 21:22) Ct Head Wo (11/26/22 21:22) Cbc With Automated Diff (11/26/22 21:22) Comprehensive Metabolic Panel (11/26/22 21:22) Drug Screen Stat (Urine) (11/26/22 21:22) Lactic Acid Analyzer (11/26/22 21:22) Magnesium (11/26/22 21:22) Ua Culture If Indicated (11/26/22 21:22) Probnp Fs (11/26/22 21:22) Troponin I Fs (11/26/22 21:22) Ed Iv/Invasive Line Start (11/26/22 21:23) Ns Iv 1000 Ml (Sodium Chloride 0.9%) (11/26/22 21:30) Ns Iv 1000 Ml (Sodium Chloride 0.9%) (11/26/22 21:21) Continuous Ekg Monitoring (11/26/22 21:24) Ekg Tracing (11/26/22 21:24) Ondansetron Injection (Zofran Injectio (11/26/22 21:45) Catheter(Urinary) Insert & Ass 03,15 (11/26/22 22:06) Lidocaine 2% (Urojet) (Xylocaine Urojet) (11/26/22 22:15) Creatine Kinase (11/26/22 22:32) Urine Culture (11/26/22 22:55) Ed Admission (Communication) (11/26/22 23:04) Medications Given in ED Current Medications Medications Dose Ordered Sig/Mounika Route Start Time Stop Time Status Last Admin Dose Admin Ondansetron HCl 4 mg ONCE ONCE IVP 11/26/22 21:45 11/26/22 21:46 DC 11/26/22 21:49 4 MG Vital Signs/I&O 11/26/22 21:15 Temp 36.2 Pulse 71 Resp 16 B/P (MAP) 105/54 (71) Pulse Ox 96 O2 Delivery Room Air Capillary Refill : Progress Note : Progress Note 1. SYNCOPE/ ACUTE DEHYDRATION/ MARIMAR/ HEAT STROKE/ SUNBURN: - CT HEAD:no acute findings - CXR: see report - EKG: paced, non-ischemic - Troponin: undetectable - CBC/CMP: WBC is borderline elevated at 13, but no source of infection found and pt is afebrile. s. Creatinine is 2.75, which is likely due to the dehydration - UA/ UDS: negative - NS IVF bolus (1st bag given by EMS, 2nd bag given in ER), started 3rd bag as pt was being transferred - Zofran 4mg iv STAT - Discussed with hospitalist and will admit to ICU. - Right before EMS came in to take pt to [place], pt seemed a little confused, but then again was AOx3 with EMS interaction. Will order CTA head and neck on bridge orders to be done at [place] since EMS is already heere. ECG Initial ECG Impression Date: Nov 26, 2022 Initial ECG Impression Time: 21:15 Initial ECG Rate: 71 Initial ECG Intervals: Normal Initial ECG Intervals paced, non-ischemic Initial ECG Comparisson: No Previous ECG Available Diagnostic Imaging Diagonstic Imaging: Xray, CT Plain Films/CT/US/NM/MRI: chest, head Comments [facility]. [place], [place] NAME: MESFINPAYAL BERGERON [facility] REC#: [id number] PT STATUS: REG ER : 1960 PHYSICIAN: NIGEL KENNY MD ADMIT DATE: 11/26/22/ER FS Signed Date of Exam:11/26/22 CHEST 1 VIEW AP/PA ONLY INDICATION: Syncope Frontal chest obtained at 0931 p.m. and compared to 12/31/2020. Heart is borderline in size. There is central vascular congestion with borderline edema. There is no consolidation or pneumothorax or pleural fluid. There is no change in dual-lead pacemaker device. IMPRESSION: Poor inspiration. Borderline heart size with central vascular congestion and mild interstitial edema. No pneumothorax or pleural fluid or dmitriy consolidation. Dictated by: Dictated on workstation # [id number] Dict: 11/26/[id number] Trans: 11/26/222202 JAZ [id number] Interpreted by: SARAH TIMMONS MD Electronically signed by: SARAH TIMMONS MD 11/26/222202 [facility] [place], [place] NAME: PAYAL TOURE [facility] REC#: [id number] PT STATUS: REG ER : 1960 PHYSICIAN: NIGEL KENNY MD ADMIT DATE: 11/26/22/ER FS Signed Date of Exam:11/26/22 CT HEAD WO INDICATION: Syncope TECHNIQUE: Multiple contiguous axial images were obtained through the brain without the use of intravenous contrast. Auto Exposure Controls were utilized during the CT exam to meet ALARA standards for radiation dose reduction. Comparison made with 12/26/2020. There were no extra-axial fluid collections. No intracranial hemorrhage. No intracranial mass or mass effect. No midline shift. The ventricles are normal in size and position. There were no focal parenchymal abnormalities in the brain. Calvarial windows are unremarkable. IMPRESSION: Negative noncontrast brain CT. Dictated by: Dictated on workstation # [id number] Dict: 11/26/[id number] Trans: 11/26/222203 JAZ [id number] Interpreted by: SARAH TIMMONS MD Electronically signed by: SARAH TIMMONS MD 11/26/222203 Departure Communication (Admissions) Time/Spoke to Admitting Phy: 23:[address] Garcia, hospitalist and accepted to ICU for admission Impression Primary Impression: Dehydration Additional Impressions: MARIMAR (acute kidney injury) Heat stroke and sunstroke Syncope Disposition: 30 STILL A PATIENT Condition: Stable Admissions Decision to Admit Reason: Admit from ER (General) Decision to Admit/Date: Nov 27, 2022 Time/Decision to Admit Time: 22:30 Transfer Method of Transfer: EMS Departure-Patient Inst. Referrals: LITA BRANTLEY MD (PCP/Family) Primary Care Physician NIGEL KENNY MD Nov 26, 2022 21:30
[2022-11-26] MEDS ORDERED: ONDANSETRON 4 MG/2 ML (SDV) Z0FRAN IVP ONE (21:45)
[2022-11-26 21:47] LABS: CARBON DIOXIDE 21 MMOL/L (21-32); CHLORIDE 104 MMOL/L (98-107); POTASSIUM 4.4 MMOL/L (3.6-5.0); SODIUM 140 MMOL/L (135-145)
[2022-11-26 21:48] LABS: ALANINE AMINOTRANSFERASE 47 U/L (0-55); ALBUMIN 3.8 GM/DL (3.2-4.5); ALKALINE PHOSPHATASE 71 U/L (40-136); BILIRUBIN,TOTAL 1.1 MG/DL (0.1-1.0); BUN/CREATININE RATIO 8; CALCIUM 9.1 MG/DL (8.5-10.1); CREATININE SERUM 2.75 MG/DL (0.60-1.30); GFR ESTIMATED 26; GLUCOSE 150 MG/DL (70-105); MAGNESIUM 1.9 MG/DL (1.6-2.4); TOTAL PROTEIN 6.3 GM/DL (6.4-8.2)
--- NOTE | 2022-11-26 21:59 | Diagnostic Imaging Report ---
INDICATION: Syncope Frontal chest obtained at 0931 p.m. and compared to 12/31/2020. Heart is borderline in size. There is central vascular congestion with borderline edema. There is no consolidation or pneumothorax or pleural fluid. There is no change in dual-lead pacemaker device. IMPRESSION: Poor inspiration. Borderline heart size with central vascular congestion and mild interstitial edema. No pneumothorax or pleural fluid or dmitriy consolidation. Dictated by: Dictated on workstation # [id number]
--- NOTE | 2022-11-26 22:00 | Diagnostic Imaging Report ---
INDICATION: Syncope TECHNIQUE: Multiple contiguous axial images were obtained through the brain without the use of intravenous contrast. Auto Exposure Controls were utilized during the CT exam to meet ALARA standards for radiation dose reduction. Comparison made with 12/26/2020. There were no extra-axial fluid collections. No intracranial hemorrhage. No intracranial mass or mass effect. No midline shift. The ventricles are normal in size and position. There were no focal parenchymal abnormalities in the brain. Calvarial windows are unremarkable. IMPRESSION: Negative noncontrast brain CT. Dictated by: Dictated on workstation # [id number]
[2022-11-26] MEDS ORDERED: LIDOCAINE UROJET 2% GEL 10 ML PKG TOP ONE (22:15)
[2022-11-26 22:58] LABS: BILIRUBIN,URINE NEGATIVE (NEGATIVE); CLARITY,URINE CLEAR; COLOR,URINE YELLOW; GLUCOSE, URINE (UA) NEGATIVE (NEGATIVE); KETONES,URINE NEGATIVE (NEGATIVE); LEUKOCYTE ESTERASE ,URINE NEGATIVE (NEGATIVE); NITRITE,URINE NEGATIVE (NEGATIVE); PROTEIN,URINE 1+ (NEGATIVE)
[2022-11-26] MEDS: NS IV 1000 ML 1,000 ML IV STA (23:00)
[2022-11-26 23:02] LABS: BACTERIA,URINE MODERATE /HPF; URINE OTHER SPERM PRESENT /HPF
[2022-11-26 23:11] LABS: AMPHETAMINE SCREEN, URINE NEGATIVE (NEGATIVE); BARBITURATE SCREEN URINE NEGATIVE (NEGATIVE); BENZODIAZEPINES SCREEN URINE NEGATIVE (NEGATIVE); CANNABINOID SCREEN, URINE NEGATIVE (NEGATIVE); COCAINE SCREEN URINE NEGATIVE (NEGATIVE); METHADONE STAT NEGATIVE (NEGATIVE); OPIATE SCREEN URINE NEGATIVE (NEGATIVE); OXYCODONE STAT NEGATIVE (NEGATIVE); PROPOXYPHENE STAT NEGATIVE (NEGATIVE); TRICYCLIC ANTIDEPRESSANTS SCRE NEGATIVE (NEGATIVE)
--- NOTE | 2022-11-27 00:52 | Tele-ICU Progress Note ---
Subjective Date Seen by a Provider: Nov 27, 2022 Subjective/Events-last exam This virtual visit was conducted using real time audio/video. Thank you for asking us to see this patient for critical care services due to syncope x 2 likely due to dehydration from sun exposure. Recent events: PMH: CAD, s/p stents, TIA, Pacemaker, HTN, HL. PE: Obese. VSS. O2 sat 96% on RA HEENT: No obvious masses, adenopathy or JVD. Chest: clear to auscultation. CV: RRR S1 S2 No murmur or added sounds. Abd: Non-tender. Bowel sounds Y. : Unremarkable. Randolph N. WAX POURER/psychiatric: Grossly intact. No obvious focal findings. Extremities: No edema. Capillary refill < 3 seconds. Skin: unremarkable. Results: Elevated WCC 13.0, BUN 21, Creat 2.75, Lactate 2.66, BG 150. . CXR: possible mild congestion versus poor inspiration.. Available chart/ vitals / labs / images reviewed. Video assessment done using teleICU camera, rest of exam as per RN. A/P: Critical Care: critically ill patient. Cont. IVF Discussed with LISBETH Walters. Asked RN to reach out to eICU if any questions or concerns later. Time spent with patient/coordination of care with other health professionals (mins): 15 Sepsis Event Evaluation Height, Weight, BMI Height: '" Weight: lbs. oz. kg; 35.85 BMI Method: Focused Exam Lactate Level 11/26/22 22:16: Lactic Acid Level 2.66*H Lactic Acid Level Laboratory Tests Test 11/26/22 22:16 Lactic Acid Level 2.66 MMOL/L (0.50-2.00) *H Exam Exam Patient acknowledged, consented, and participated in this virtual visit which was conducted using real time audio/video Vital Signs Date Time Temp Pulse Resp B/P (MAP) Pulse Ox O2 Delivery O2 Flow Rate FiO2 11/26/22 21:15 36.2 71 16 105/54 (71) 96 Room Air I & O 11/27/22 07:00 Intake Total 1000 ml Balance 1000 ml Height & Weight Height: '" Weight: lbs. oz. kg; 35.85 BMI Method: General Appearance: No Apparent Distress, WD/WN, Obese HEENT: PERRL/EOMI, Normal ENT Inspection Neck: Full Range of Motion, Normal Inspection, Non Tender, Supple Respiratory: Chest Non Tender, Lungs Clear, Normal Breath Sounds, No Accessory Muscle Use Cardiovascular: Regular Rate, Rhythm, No Edema, Normal Peripheral Pulses Capillary Refill: Less Than 3 Seconds Extremity: Normal Inspection, Normal Range of Motion, No Calf Tenderness Neurologic/Psychiatric: Alert, Oriented x3, No Motor/Sensory Deficits, Normal Mood/Affect, collection specialist II-XII Norm as Tested Skin: Other (Overall face and skin on the extremities show erythema and sunburn) Results Lab Laboratory Tests 11/26/22 21:20 Assessment/Plan Assessment/Plan See free text. Critical Care: Critically Ill Patient SHARRI DUNAWAY MD Nov 27, 2022 00:52
[2022-11-27] MEDS ORDERED: NS IV 1000 ML 1,000 ML IV PRN (01:00)
[2022-11-27] MEDS ORDERED: MELATONIN 3 MG TABLET PO PRN ×2 (01:00→12:15)
[2022-11-27] MEDS ORDERED: ACETAMINOPHEN 325 MG TABLET PO PRN ×2 (01:00→12:15)
[2022-11-27] MEDS ORDERED: fentaNYL INJ 100 MCG/2 ML AMP IV PRN (01:00)
[2022-11-27] MEDS: NS IV 1000 ML 1,000 ML IV SCH ×7 (01:04→22:06)
[2022-11-27] MEDS: NS IV 1000 ML 1,000 ML IV STA (01:07)
[2022-11-27 05:19] LABS: BASOPHILS % (AUTO) 0 % (0-10); EOSINOPHILS # (AUTO) 0.1 10^3/uL (0.0-0.3); EOSINOPHILS % (AUTO) 1 % (0-10); HEMATOCRIT 39 % (40-54); HEMOGLOBIN 12.9 g/dL (13.3-17.7); LYMPHOCYTES # (AUTO) 1.9 10^3/uL (1.0-4.0); LYMPHOCYTES % (AUTO) 19 % (12-44); MEAN CORPUSCULAR HEMOGLOBIN 31 pg (25-34); MEAN CORPUSCULAR HGB CONC 34 g/dL (32-36); MEAN CORPUSCULAR VOLUME 93 fL (80-99); MEAN PLATELET VOLUME 9.1 fL (9.0-12.2); MONOCYTES # (AUTO) 0.7 10^3/uL (0.0-1.0); MONOCYTES % (AUTO) 7 % (0-12); NEUTROPHILS # (AUTO) 7.5 10^3/uL (1.8-7.8); NEUTROPHILS % (AUTO) 73 % (42-75); PLATELET COUNT 197 10^3/uL (130-400); WHITE BLOOD COUNT 10.3 10^3/uL (4.3-11.0)
[2022-11-27 05:28] LABS: PROTHROMBIN TIME PATIENT 13.3 SEC (12.2-14.7)
[2022-11-27 05:34] LABS: ALBUMIN 3.4 GM/DL (3.2-4.5); BILIRUBIN,TOTAL 1.2 MG/DL (0.1-1.0); CALCIUM 8.2 MG/DL (8.5-10.1); CREATININE SERUM 2.1 MG/DL (0.60-1.30); MAGNESIUM 1.9 MG/DL (1.6-2.4); PHOSPHORUS 4.4 MG/DL (2.3-4.7); POTASSIUM 4.4 MMOL/L (3.6-5.0); TOTAL PROTEIN 5.7 GM/DL (6.4-8.2)
[2022-11-27] MEDS ORDERED: NS IV 500 ML 500 ML IV PRN (05:45)
[2022-11-27] MEDS: MAGNESIUM 1 GM/100 ML IVPB 100 ML IV SCH ×3 (06:03→07:50)
[2022-11-27] MEDS: KCL 20 MEQ TAB (K-DUR) PO SCH (06:03)
[2022-11-27] MEDS: POTASSIUM CL 10MEQ/50ML IVPB 50 ML IV SCH (06:03)
--- NOTE | 2022-11-27 07:24 | History & Physical ---
History of Present Illness HPI/Chief Complaint Chief complaint: Syncope with dehydration and heat exposure HPI: This is a 62-year-old male clinic patient of Dr. Sierra who is known to me from 2 years ago when he was in inpatient rehab after he suffered a complicated trauma with a cow resulting in a head injury. He spent 19 days in inpatient rehab. He reports that he was working outside all day and does not drink enough fluid in he passed out several times requiring treatment. He has received IV fluids but is still very weak on the left side. No evidence of any stroke. Creatinine has improved to 2.1. Source: patient, RN/MD Exam Limitations: no limitations Date Seen 11/27/22 Time Seen by a Provider: 11:00 Attending Physician Robel Sierra MD PCP Admitting Physician: Yue Bhatt DO Attending Physician: Yue Bhatt DO Referring Physician Date of Admission Nov 27, 2022 at 00:20 Home Medications & Allergies Home Medications Reviewed patient Home Medication Reconciliation performed by pharmacy medication reconciliations manufacturing maintenance technician and/or nursing. Patients Allergies have been reviewed. Allergies Allergies Coded Allergies No Known Drug Allergies (Unverified01/11/11) Past Cgpokob-Tnwopx-Zipjiy Hx Past Med/Social Hx: Reviewed Nursing Past Med/Soc Hx, Reviewed and Corrections made Patient Social History Marrital Status: Employed/Student: employed Alcohol Use: Denies Use Smoking Status: Never a Smoker Past Medical History Surgeries: Orthopedic, Pacemaker Cardiac: High Cholesterol, Hypertension Genitourinary: Benign Prostatic Hyperpl, Renal Failure Gastrointestinal: Gastroesophageal Reflux Musculoskeletal: Arthritis, Back Injury, Chronic Back Pain, Fractures, Gout Psychosocial: Anxiety, Depression Family History Heart Disease, Hypertension Review of Systems Constitutional: see HPI, dizziness, malaise, weakness EENTM: no symptoms reported Respiratory: no symptoms reported Cardiovascular: no symptoms reported Gastrointestinal: no symptoms reported Genitourinary: no symptoms reported Musculoskeletal: back pain Skin: no symptoms reported Psychiatric/Neurological: Anxiety, Depressed, Numbness, Paresthesia, Weakness All Other Systems Reviewed Negative Unless Noted: Yes Physical Exam Physical Exam Vital Signs Vital Signs - First Documented 11/26/22 21:15 Temp 36.2 Pulse 71 Resp 16 B/P (MAP) 105/54 (71) Pulse Ox 96 O2 Delivery Nasal Cannula O2 Flow Rate 2.00 Capillary Refill : Less Than 3 Seconds Height, Weight, BMI Height: '" Weight: lbs. oz. kg; 36.14 BMI Method: General Appearance: No Apparent Distress, WD/WN, Chronically ill, Obese HEENT: PERRL/EOMI, Normal ENT Inspection Neck: Full Range of Motion, Normal Inspection, Non Tender, Supple Respiratory: Chest Non Tender, Lungs Clear, Normal Breath Sounds, No Accessory Muscle Use Cardiovascular: Regular Rate, Rhythm, No Edema, Normal Peripheral Pulses Gastrointestinal: Normal Bowel Sounds, Non Tender, Soft Back: Normal Inspection, No Vertebral Tenderness Extremity: Normal Inspection, Normal Range of Motion, No Calf Tenderness Neurologic/Psychiatric: Alert, Oriented x3, No Motor/Sensory Deficits, Normal Mood/Affect, felt hat steamer II-XII Norm as Tested Skin: Other (Overall face and skin on the extremities show erythema and sunbu rn) Results Results/Procedures Labs Laboratory Tests 11/26/22 21:20 11/27/22 05:06 Patient resulted labs reviewed. Assessment/Plan Admission Diagnosis Assessment: Syncopal episode with dehydration and acute kidney injury with heat exposure Head injury history 2020 Acute kidney injury Hypertension Hyperlipidemia Sinus node dysfunction pacemaker in place Gout Somatization Hypersensitivity to pain Plan: Pain control IV fluid ICU Echo Cardiology consult Home meds Admission Status: Inpatient Order (span 2 midnights) Reason for Inpatient Admission: Acute kidney injury with syncope and heat exposure with left-sided weakness YUE BHATT DO Nov 27, 2022 07:24
[2022-11-27 07:33] VITALS: BP 136/85
[2022-11-27 07:35] VITALS: BP 136/85
[2022-11-27 07:36] VITALS: BP 138/93
[2022-11-27 07:40] VITALS: BP 141/90
[2022-11-27] MEDS ORDERED: NS 100 ML (IVPB) BAG IV ONE (09:30)
[2022-11-27] MEDS ORDERED: HOLD METFORMIN - RECEIVED CONTRAST 20 ML VIAL IV SCH (09:30)
[2022-11-27] MEDS ORDERED: IOHEXOL 350 MG/ML 100 ML (OMNIPAQUE 350) VIAL IV ONE (09:30)
[2022-11-27] MEDS ORDERED: FLEC100T PO (09:37)
[2022-11-27] MEDS ORDERED: TMSL.4C PO (09:37)
[2022-11-27] MEDS ORDERED: CYCL10TA25 PO (09:37)
--- NOTE | 2022-11-27 10:07 | Diagnostic Imaging Report ---
PROCEDURE: CT angiography of the head and CT angiography of the neck with and without contrast. TECHNIQUE: Contiguous noncontrast images were obtained from the skull base through the vertex. After intravenous contrast administration, helical CT angiography of the neck was performed. Source data was reformatted into 3D MIP projections. Delayed post contrast acquisition was also obtained. Auto Exposure Controls were utilized during the CT exam to meet ALARA standards for radiation dose reduction. INDICATION: Syncopal episode and dizziness. Precontrast head CT demonstrates ventricles and sulci to be within normal limits. No sulcal effacement or midline shift is identified. No acute intra-axial or extra-axial hemorrhage is detected. Delayed postcontrast images are without abnormal enhancing lesion. The CT angiography portion of the study demonstrates both the right and left common carotid arteries to be widely patent. The carotid bifurcations are unremarkable. The internal carotid arteries do show moderate tortuosity but appear to be widely patent. The left vertebral artery is dominant. Both vertebral arteries are patent. The basilar artery appears patent. There is a origin to the right INSPECTOR PURCHASED PARTS with hypoplastic P1 segment on the right. Left INSPECTOR [employer]CHAS[employer]S is patent. Right and left anterior cerebral arteries appear to be widely patent. M1 and M2 branches of the right and left middle cerebral arteries appear patent. No thromboemboli or large vessel occlusion is seen. No definite aneurysms are detected. IMPRESSION: Unremarkable CTA of the head and neck. No definite thromboemboli or large vessel occlusion is detected. Dictated by: Dictated on workstation # [id number]
[2022-11-27] MEDS ORDERED: ENOXAPARIN 40 MG/0.4 ML (LOVENOX) SYR SC SCH (12:15)
[2022-11-27] MEDS ORDERED: MILK OF MAGNESIA 400 MG/5 ML 30 ML UDC PO PRN (12:15)
[2022-11-27] MEDS ORDERED: BISACODYL 10 MG SUPP (DULCOLAX) PR PRN (12:15)
[2022-11-27] MEDS ORDERED: ONDANSETRON 4 MG (ZOFRAN) ORAL DISSOLVE TAB PO PRN (12:15)
[2022-11-27] MEDS ORDERED: COLCHICINE 0.6 MG PO PRN (12:15)
[2022-11-27] MEDS ORDERED: CALCIUM CARBONATE 500 MG (TUMS) TAB.CHEW PO PRN (12:15)
[2022-11-27] MEDS ORDERED: ONDANSETRON 4 MG/2 ML (SDV) Z0FRAN IV PRN (12:15)
[2022-11-27] MEDS ORDERED: polyethylene glycoL POWDER 17 GM (MIRALAX) PACK PO PRN (12:15)
[2022-11-27] MEDS ORDERED: ANTACID SUSP 30 ML UDC (MYLANTA) PO PRN (12:15)
[2022-11-27] MEDS ORDERED: diphenhydrAMINE 25 MG TAB (BENADRYL) PO PRN (12:15)
[2022-11-27] MEDS ORDERED: diphenhydrAMINE 50 MG/ML INJ (BENADRYL) IVP PRN (12:15)
[2022-11-27] MEDS ORDERED: LACTULOSE SYRUP 10GM/15ML (ENULOSE) 30ML UDC PO PRN (12:15)
[2022-11-27] MEDS ORDERED: morphine INJ 4 MG/ML 1 ML (VIAL/SYRINGE) IV PRN (12:15)
[2022-11-27 12:21] VITALS: BP 168/91
[2022-11-27 12:22] LABS: TRIGLYCERIDES 146 MG/DL (<150); VLDL CHOLESTEROL 29 MG/DL (5-40)
[2022-11-27 12:27] LABS: CHOLESTEROL 126 MG/DL (< 200)
[2022-11-27 12:28] LABS: HDL CHOLESTEROL 30 MG/DL (40-60)
[2022-11-27] MEDS ORDERED: RT-ALBUTEROL SULF 2.5 MG/3 ML PRE-MIX VIAL INH PRN (12:30)
[2022-11-27] MEDS: CYCLOBENZAPRINE 10 MG (FLEXERIL) TAB PO SCH ×2 (13:10→20:10)
--- NOTE | 2022-11-27 16:52 | Consultation-Cardiology ---
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 [place] dizzy and weak. Passed out at the sink the bathroom, doesn't know how long. Came around and walked to lobby and passed out again while upright. Standers-by reported that he regained consciousness within a few seconds of being on the ground. No cp or palp. No leg swelling. No n/v/d. by bedside and reports low fluid intake on the part of the patient (chronic). Has been working outdoors in the heat quite a bit, lately. Review of Systems-Cardiology Review of Systems Constitutional: No malaise, No weight loss, No weight gain Ears/Nose/Throat: No ear discharge, No nasal drainage, No recent hearing loss, No ulcerations Respiratory: As described under HPI Cardiovascular: As described under HPI Gastrointestinal: As described under HPI Genitourinary: other (report a h/o intermittent urinary hesitancy and difficult micturition (has been diagnosed with prostate enlargement)) Musculoskeletal: No back pain, No joint pain Skin: No rash, No ulcerations Psychiatric/Neurological: As described under HPI; No seizure, No focal weakness Hematologic: No bleeding abnormalities [id number] Hx Patient Social History Alcohol Use?: Yes Past Medical History PMH As described under Assessment. Family Medical History Family Medical History: Does not report fam h/o early CAD or SCD Allergies and Home Medications Allergies Coded Allergies: No Known Drug Allergies (Unverified , 01/11/11) Patient Home Medication List Home Medication List Reviewed: Yes Aspirin (Aspirin EC) 81 Mg Tablet., 81 MG PO DAILY, (Reported) Entered as Reported by: RIAN AGEE on 12/29/20 1052 Last Action: Continued Atorvastatin Calcium (Atorvastatin Calcium) 40 Mg Tablet, 40 MG PO HS, (Reported) Entered as Reported by: RIAN AEGE on 12/29/20 1058 Last Action: Continued Colchicine (Mitigare) 0.6 Mg Capsule, 0.6 MG PO Q48H PRN for GOUT FLARE, (Reported) Entered as Reported by: RIAN AGEE on 12/29/201058 Last Action: Converted Cyclobenzaprine HCl (Cyclobenzaprine HCl) 10 Mg Tablet, 10 MG PO TID, (Reported) Entered as Reported by: LORENA JUNG on 11/27/22936 Last Action: Continued Flecainide Acetate (Flecainide Acetate) 100 Mg Tablet, 100 MG PO BID, (Reported) Entered as Reported by: LORENA JUNG on 11/27/22936 Last Action: Continued Fluoxetine HCl (Fluoxetine HCl) 20 Mg Capsule, 40 MG PO DAILY, (Reported) Entered as Reported by: YUE GARCIA on 12/28/201227 Last Action: Continued Lisinopril (Lisinopril) 20 Mg Tablet, 20 MG PO DAILY, (Reported) Entered as Reported by: RIAN AGEE on 12/29/201053 Last Action: Held Lysine (Lysine) 1,000 Mg Tablet, 1,000 MG PO BID, (Reported) Entered as Reported by: RIAN AGEE on 12/29/201058 Last Action: Converted Olanzapine (Olanzapine) 10 Mg Tablet, 10 MG PO HS, (Reported) Entered as Reported by: YUE GARCIA on 12/28/201227 Last Action: Converted Pantoprazole Sodium (Pantoprazole Sodium) 40 Mg Tablet.dr, 40 MG PO DAILY, (Reported) Entered as Reported by: YUE GARCIA on 12/28/201227 Last Action: Continued Sucralfate (Sucralfate) 1 Gm Tablet, 1 GM PO BID, (Reported) Entered as Reported by: YUE GARCIA on 12/28/201227 Last Action: Continued Tamsulosin HCl (Flomax) 0.4 Mg Cap, 0.4 MG PO DAILY, (Reported) Entered as Reported by: LORENA JUNG on 11/27/22936 Last Action: Continued Verapamil HCl (Verapamil ER) 120 Mg Tablet.er, 120 MG PO DAILY, (Reported) Entered as Reported by: RIAN AGEE on 12/29/201058 Last Action: Converted Discontinued Medications Alprazolam (Alprazolam) 0.5 Mg Tablet, 0.5 MG PO QID Discontinued Reason: No Longer Taking Prescribed by: YUE GARCIA on 01/13/21 110 Last Action: Discontinued Nystatin (Nystatin) 15 Gm Cream..g., 0 GM TP TID Discontinued Reason: Provider Change Prescribed by: YUE GARCIA on 01/13/211100 Last Action: Discontinued Oxycodone Hcl (Oxyir Tablet) 5 Mg Tab, 5 MG PO Q4H PRN for PAIN-SEVERE (8-10) Discontinued Reason: No Longer Taking Prescribed by: YUE GARCIA on 01/13/211100 Last Action: Discontinued Potassium Gluconate (Potassium Gluconate) 90 Mg Tablet, 90 MG PO DAILY, (Reported) Discontinued Reason: No Longer Taking Entered as Reported by: RIAN AGEE on 12/29/20 1059 Last Action: Discontinued Physical Exam-Cardiology Physical Exam Vital Signs/I&O 11/27/22 11/27/22 11/27/22 11/27/22 05:00 06:00 06:03 07:00 Pulse 68 69 69 Resp 16 21 6 B/P (MAP) 123/78 (93) 105/67 (80) 109/71 (85) Pulse Ox 98 97 96 O2 Delivery Room Air Room Air Room Air Room Air O2 Flow Rate 0.00 11/27/22 11/27/22 11/27/22 11/27/22 07:00 07:33 07:35 07:36 Pulse 70 69 69 71 B/P (MAP) 136/85 (102) 136/85 (102) 138/93 (108) 11/27/22 11/27/22 11/27/22 11/27/22 07:40 07:45 08:00 09:00 Pulse 71 68 70 Resp 12 12 B/P (MAP) 141/90 (107) 139/86 (110) 137/85 (113) Pulse Ox 97 96 97 O2 Delivery Room Air Room Air Room Air 11/27/22 11/27/22 11/27/22 11/27/22 10:00 11:00 12:00 12:21 Temp 36.2 Pulse 69 69 68 68 Resp 13 10 13 B/P (MAP) 141/87 (107) 139/89 (109) 168/91 (124) Pulse Ox 96 96 96 96 O2 Delivery Room Air Room Air Room Air 11/27/22 11/27/22 11/27/22 11/27/22 12:35 12:44 13:00 13:16 Temp 36.6 Pulse 70 70 Resp 14 B/P (MAP) 128/68 (93) Pulse Ox 97 96 O2 Delivery Room Air Room Air 11/27/22 11/27/22 11/27/22 14:00 15:00 16:00 Pulse 70 71 69 Resp 12 11 13 B/P (MAP) 130/71 (92) 147/88 (115) 150/90 (113) Pulse Ox 94 97 97 O2 Delivery Room Air Room Air Room Air 11/27/22 00:00 Intake Total 1000 ml Balance 1000 ml Capillary Refill : Less Than 3 Seconds Constitutional: AAO x 3, well-developed, well-nourished HEENT: EOMI, hearing is well preserved; No xanthelasmas are seen Neck: carotid pulses are 2 + bilaterally, with good upstrokes Respiratory: No accessory muscle use; chest expansion is symmetric, chest is bilaterally symmetric, other (good, bilat air entry) Cardiovascular: regular rate-rhythm, S1 and S2, systolic murmur (soft RITU at card base) Gastrointestinal: No tender; soft; No guarding, No rebound; audible bowel sounds Extremities: No clubbing, No cyanosis, No significant edema Neurologic/Psychiatric: oriented x 3, other (moves all limbs equally) Data Review Labs Laboratory Tests 11/26/22 21:20: White Blood Count 13.0H, Red Blood Count 4.47, Hemoglobin 13.8, Hematocrit 43, Mean Corpuscular Volume 95, Mean Corpuscular Hemoglobin 31, Mean Corpuscular Hemoglobin Concent 33, Red Cell Distribution Width 12.9, Platelet Count 222, Mean Platelet Volume 9.2, Immature Granulocyte % (Auto) 0, Neutrophils (%) (Auto) 76H, Lymphocytes (%) (Auto) 17, Monocytes (%) (Auto) 6, Eosinophils (%) (Auto) 1, Basophils (%) (Auto) 0, Neutrophils # (Auto) 9.9H, Lymphocytes # (Auto) 2.2, Monocytes # (Auto) 0.8, Eosinophils # (Auto) 0.1, Basophils # (Auto) 0.0, Immature Granulocyte # (Auto) 0.1, Sodium Level 140, Potassium Level 4.4, Chloride Level 104, Carbon Dioxide Level 21, Anion Gap 15H, Blood Urea Nitrogen 21H, Creatinine 2.75H, Estimat Glomerular Filtration Rate 26, BUN/Creatinine Ratio 8, Glucose Level 150H, Calcium Level 9.1, Corrected Calcium 9.3, Magnesium Level 1.9, Total Bilirubin 1.1H, Aspartate Amino Transf (AST/SGOT) 30, Alanine Aminotransferase (ALT/SGPT) 47, Alkaline Phosphatase 71, Total Creatine Kinase 211H, Troponin I < 0.30, Pro-B-Type Natriuretic Peptide 56.8, Total Protein 6.3L , Albumin 3.8 11/26/22 22:16: Lactic Acid Level 2.66*H 11/26/22 22:55: Urine Color YELLOW, Urine Clarity CLEAR, Urine pH 6.0, Urine Specific [place] 1.015L, Urine Protein 1+H, Urine Glucose (UA) NEGATIVE, Urine Ketones NEGATIVE, Urine Nitrite NEGATIVE, Urine Bilirubin NEGATIVE, Urine Urobilinogen 0.2, Urine Leukocyte Esterase NEGATIVE, Urine RBC (Auto) NEGATIVE, Urine RBC 2-5H, Urine WBC 5-10H, Urine Squamous Epithelial Cells NONE, Urine Crystals NONE, Urine Bacteria MODERATEH, Urine Casts PRESENT, Urine Hyaline Casts 10-25H, Urine Mucus LARGEH, Urine Other SPERM PRESENT, Urine Culture Indicated YES, Urine Opiates Screen NEGATIVE, Urine Oxycodone Screen NEGATIVE, Urine Methadone Screen NEGATIVE, Urine Propoxyphene Screen NEGATIVE, Urine Barbiturates Screen NEGATIVE, Ur Tricyclic Antidepressants Screen NEGATIVE, Urine Phencyclidine Screen NEGATIVE, Urine Amphetamines Screen NEGATIVE, Urine Methamphetamines Screen NEGATIVE, Urine Benzodiazepines Screen NEGATIVE, Urine Cocaine Screen NEGATIVE, Urine Cannabinoids Screen NEGATIVE 11/27/22 05:06: White Blood Count 10.3, Red Blood Count 4.15L, Hemoglobin 12.9L, Hematocrit 39L, Mean Corpuscular Volume 93, Mean Corpuscular Hemoglobin 31, Mean Corpuscular Hemoglobin Concent 34, Red Cell Distribution Width 13.1, Platelet Count 197, Mean Platelet Volume 9.1, Immature Granulocyte % (Auto) 0, Neutrophils (%) (Auto) 73, Lymphocytes (%) (Auto) 19, Monocytes (%) (Auto) 7, Eosinophils (%) (Auto) 1, Basophils (%) (Auto) 0, Neutrophils # (Auto) 7.5, Lymphocytes # (Auto) 1.9, Monocytes # (Auto) 0.7, Eosinophils # (Auto) 0.1, Basophils # (Auto) 0.0, Immature Granulocyte # (Auto) 0.0, Sodium Level 138, Potassium Level 4.4, Chloride Level 111H, Carbon Dioxide Level 19L, Anion Gap 8, Blood Urea Nitrogen 21H, Creatinine 2.10H, Estimat Glomerular Filtration Rate 35, BUN/Creatinine Ratio 10, Glucose Level 103, Calcium Level 8.2L, Corrected Calcium 8.7, Magnesium Level 1.9, Total Bilirubin 1.2H, Aspartate Amino Transf (AST/SGOT) 23, Alanine Aminotransferase (ALT/SGPT) 44, Alkaline Phosphatase 61, Total Protein 5.7L, Albumin 3.4, Lactic Acid Level 1.05, Prothrombin Time 13.3, INR Comment 1.0, Activated Partial Thromboplast Time 27, Phosphorus Level 4.4, Triglycerides Level 146, Cholesterol Level 126, LDL Cholesterol Direct 81, VLDL Cholesterol 29, HDL Cholesterol 30L Laboratory Tests 11/26/22 21:20 11/27/22 05:06 A/P-Cardiology Assessment/Admission Diagnosis Syncope, likely vasovagal/neurocardiogenic - Echo on 11-27-22: LVEF 65-70%, mild to mod enlargement of LA, PASP 40-45 mmHg Ac renal failure: intravascular volume depletion and/or post-obstructive uropathy (has h/o prostate enlargement) - managed by Dr Garcia H/o bradycardia treated with dual chamber pacemaker - managed by his EP Dr Gonzalze in [place], [place]. 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 - reports h/o card cath in or around 2018. Was told had mild CAD that did not require any mechanical intervention - Pt reports recent stress that did not show any significant abn Discussion and Recomendations * iv fluids * instructed in maneuvers designed to avoid postural hypotension * re-interrogate pacemaker * Dr Garcia managing acute renal failure * monitor labs MARK WILLETT MD FACP [facility] CCDS Nov 27, 2022 16:52
[2022-11-27] MEDS ORDERED: TAMSULOSIN 0.4 MG (FLOMAX) CAP PO SCH (18:00)
[2022-11-27] MEDS: SENNOSIDES 8.6 MG (SENOKOT) TAB PO SCH (20:10)
[2022-11-27] MEDS: FLECAINIDE 100 MG (TAMBOCOR) TAB PO SCH (20:10)
[2022-11-27] MEDS: DOCUSATE SODIUM 100 MG (COLACE) CAP PO SCH (20:10)
[2022-11-27] MEDS: SUCRALFATE 1 GM (CARAFATE) TAB PO SCH (20:11)
[2022-11-27] MEDS ORDERED: OLANZapine 5 MG ODT (ZyPREXA ZYDIS) PO SCH (21:00)
[2022-11-27] MEDS ORDERED: LYSINE 1000 MG PO SCH (21:00)
[2022-11-28] MEDS: NS IV 1000 ML 1,000 ML IV SCH ×3 (01:38→09:45)
[2022-11-28 05:37] LABS: BASOPHILS % (AUTO) 0 % (0-10); EOSINOPHILS # (AUTO) 0.1 10^3/uL (0.0-0.3); EOSINOPHILS % (AUTO) 2 % (0-10); HEMATOCRIT 38 % (40-54); HEMOGLOBIN 12.5 g/dL (13.3-17.7); LYMPHOCYTES # (AUTO) 1.7 10^3/uL (1.0-4.0); LYMPHOCYTES % (AUTO) 25 % (12-44); MEAN CORPUSCULAR HEMOGLOBIN 31 pg (25-34); MEAN CORPUSCULAR HGB CONC 33 g/dL (32-36); MEAN CORPUSCULAR VOLUME 94 fL (80-99); MEAN PLATELET VOLUME 9.5 fL (9.0-12.2); MONOCYTES # (AUTO) 0.4 10^3/uL (0.0-1.0); MONOCYTES % (AUTO) 6 % (0-12); NEUTROPHILS # (AUTO) 4.7 10^3/uL (1.8-7.8); NEUTROPHILS % (AUTO) 68 % (42-75); PLATELET COUNT 163 10^3/uL (130-400); WHITE BLOOD COUNT 6.9 10^3/uL (4.3-11.0)
[2022-11-28 06:00] LABS: ALBUMIN 3.2 GM/DL (3.2-4.5); BILIRUBIN,TOTAL 1.2 MG/DL (0.1-1.0); CALCIUM 8.1 MG/DL (8.5-10.1); CREATININE SERUM 1.4 MG/DL (0.60-1.30); PHOSPHORUS 2.7 MG/DL (2.3-4.7); POTASSIUM 4.5 MMOL/L (3.6-5.0); TOTAL PROTEIN 5.4 GM/DL (6.4-8.2)
[2022-11-28] MEDS: POTASSIUM CL 10MEQ/50ML IVPB 50 ML IV SCH (06:08)
[2022-11-28] MEDS: MAGNESIUM 1 GM/100 ML IVPB 100 ML IV SCH (06:08)
[2022-11-28] MEDS: KCL 20 MEQ TAB (K-DUR) PO SCH (06:08)
--- NOTE | 2022-11-28 07:19 | Progress Note ---
Subjective Date Seen by a Provider: Nov 28, 2022 Time Seen by a Provider: 11:00 Focused Exam Lactate Level 11/26/22 22:16: Lactic Acid Level 2.66*H 11/27/22 05:06: Lactic Acid Level 1.05 Objective Exam Last Set of Vital Signs Vital Signs Date Time Temp Pulse Resp B/P (MAP) Pulse Ox O2 Delivery O2 Flow Rate FiO2 11/28/22 06:00 70 119/76 (90) 96 Room Air 11/28/22 04:00 36.6 11/28/22 03:00 12 11/27/22 06:03 0.00 Capillary Refill : Less Than 3 Seconds I&O Intake and Output 11/28/22 00:00 Intake Total 5475 ml Output Total 5060 ml Balance 415 ml Intake Oral 1250 ml IV Total 4200 ml IV Contrast 25 ml Output Urine Total 5060 ml Daily Weight Change No Results Lab Laboratory Tests 11/28/22 05:09: White Blood Count 6.9, Red Blood Count 4.02L, Hemoglobin 12.5L, Hematocrit 38L, Mean Corpuscular Volume 94, Mean Corpuscular Hemoglobin 31, Mean Corpuscular Hemoglobin Concent 33, Red Cell Distribution Width 12.9, Platelet Count 163, Mean Platelet Volume 9.5, Immature Granulocyte % (Auto) 0, Neutrophils (%) (Auto) 68, Lymphocytes (%) (Auto) 25, Monocytes (%) (Auto) 6, Eosinophils (%) (Auto) 2, Basophils (%) (Auto) 0, Neutrophils # (Auto) 4.7, Lymphocytes # (Auto) 1.7, Monocytes # (Auto) 0.4, Eosinophils # (Auto) 0.1, Basophils # (Auto) 0.0, Immature Granulocyte # (Auto) 0.0, Sodium Level 141, Potassium Level 4.5, Chloride Level 115H, Carbon Dioxide Level 20L, Anion Gap 6, Blood Urea Nitrogen 16, Creatinine 1.40H, Estimat Glomerular Filtration Rate 58, BUN/Creatinine Ratio 11, Glucose Level 96, Calcium Level 8.1L, Corrected Calcium 8.7, Phosphorus Level 2.7, Magnesium Level 2.0, Total Bilirubin 1.2H, Aspartate Amino Transf (AST/SGOT) 19, Alanine Aminotransferase (ALT/SGPT) 37, Alkaline Phosphatase 58, Total Protein 5.4L, Albumin 3.2 Microbiology 11/27/22 MRSA Screen - Preliminary, Resulted MRSA not isolated FRANK GARCIA DO Nov 28, 2022 07:19
--- NOTE | 2022-11-28 08:20 | Tele-ICU Progress Note ---
Progress Note video rounds completed 62 y/o male had 2 episodes of syncope prior to arrival at hospital. He was out in the sun and may have gotten dehydrated Had MARIMAR on admission Cardiology on consult, recent ECHO normal. PLAN: continue hydration Creatinine improved Cardiology following Time spent in evaluation: 15 minutes Focused Exam Lactate Level 11/26/22 22:16: Lactic Acid Level 2.66*H 11/27/22 05:06: Lactic Acid Level 1.05 Height, Weight, BMI Height: '" Weight: lbs. oz. kg; 38.49 BMI Method: Labs Laboratory Tests 11/28/22 05:09 Results Results/Procedures Lab Laboratory Tests 11/26/22 21:20 11/27/22 05:06 11/28/22 05:09 Results Results/Procedures Labs Laboratory Tests 11/26/22 21:20 11/27/22 05:06 11/28/22 05:09 Patient resulted labs reviewed. Results Labs Labs Laboratory Tests 11/28/22 05:09: White Blood Count 6.9, Red Blood Count 4.02L, Hemoglobin 12.5L, Hematocrit 38L, Mean Corpuscular Volume 94, Mean Corpuscular Hemoglobin 31, Mean Corpuscular Hemoglobin Concent 33, Red Cell Distribution Width 12.9, Platelet Count 163, Mean Platelet Volume 9.5, Immature Granulocyte % (Auto) 0, Neutrophils (%) (Auto) 68, Lymphocytes (%) (Auto) 25, Monocytes (%) (Auto) 6, Eosinophils (%) (Auto) 2, Basophils (%) (Auto) 0, Neutrophils # (Auto) 4.7, Lymphocytes # (Auto) 1.7, Monocytes # (Auto) 0.4, Eosinophils # (Auto) 0.1, Basophils # (Auto) 0.0, Immature Granulocyte # (Auto) 0.0, Sodium Level 141, Potassium Level 4.5, Chloride Level 115H, Carbon Dioxide Level 20L, Anion Gap 6, Blood Urea Nitrogen 16, Creatinine 1.40H, Estimat Glomerular Filtration Rate 58, BUN/Creatinine Ratio 11, Glucose Level 96, Calcium Level 8.1L, Corrected Calcium 8.7, Phosphorus Level 2.7, Magnesium Level 2.0, Total Bilirubin 1.2H, Aspartate Amino Transf (AST/SGOT) 19, Alanine Aminotransferase (ALT/SGPT) 37, Alkaline Phosphatase 58, Total Protein 5.4L, Albumin 3.2 Microbiology 11/27/22 MRSA Screen - Preliminary, Resulted MRSA not isolated JIM GRANADOS MD Nov 28, 2022 08:20
[2022-11-28] MEDS: SUCRALFATE 1 GM (CARAFATE) TAB PO SCH (08:28)
[2022-11-28] MEDS: CYCLOBENZAPRINE 10 MG (FLEXERIL) TAB PO SCH (08:28)
[2022-11-28] MEDS: DOCUSATE SODIUM 100 MG (COLACE) CAP PO SCH (08:28)
[2022-11-28] MEDS: SENNOSIDES 8.6 MG (SENOKOT) TAB PO SCH (08:28)
[2022-11-28] MEDS: FLECAINIDE 100 MG (TAMBOCOR) TAB PO SCH (08:29)
[2022-11-28] MEDS ORDERED: VERAPAMIL SR 240 MG (CALAN SR) TAB PO SCH (09:00)
[2022-11-28] MEDS ORDERED: PANTOPRAZOLE 40 MG (PROTONIX) TAB PO SCH (09:00)
[2022-11-28] MEDS ORDERED: ASPIRIN E.C. 81 MG (ECOTRIN) TAB PO SCH (09:00)
[2022-11-28] MEDS ORDERED: FLUoxetine HCL 20 MG (PROzac) CAP PO SCH (09:00)
--- NOTE | 2022-11-28 11:19 | Progress Note - Cardiology ---
Cardiology SOAP Progress Note Subjective: No cp or palp or syncope or shortness of breath No n/v/d No focal weakness No gen weakness Wishes to go home Objective: I&O/Vital Signs 11/27/22 11/28/22 11/28/22 11/28/22 23:56 00:00 00:00 00:24 Temp 36.8 Pulse 69 70 Resp 15 B/P (MAP) 127/74 (91) Pulse Ox 98 93 O2 Delivery Room Air Room Air 11/28/22 11/28/22 11/28/22 11/28/22 01:00 02:00 03:00 04:00 Pulse 68 69 69 70 Resp 12 12 12 B/P (MAP) 117/67 (84) 130/75 (93) 140/89 (106) 140/87 (104) Pulse Ox 94 94 96 95 O2 Delivery Room Air Room Air Room Air Room Air 11/28/22 11/28/22 11/28/22 11/28/22 04:00 04:00 05:00 06:00 Temp 36.6 Pulse 70 70 B/P (MAP) 155/82 (106) 119/76 (90) Pulse Ox 96 95 96 O2 Delivery Room Air Room Air Room Air Room Air 11/28/22 11/28/22 11/28/22 11/28/22 07:00 07:00 07:54 08:00 Temp 36.4 Pulse 70 70 B/P (MAP) 125/74 (93) Pulse Ox 96 97 O2 Delivery Room Air Room Air 11/28/22 11/28/22 11/28/22 11/28/22 08:00 09:00 10:00 11:00 Pulse 74 70 70 70 B/P (MAP) 147/88 (113) 141/87 (113) 139/91 (111) Pulse Ox 96 96 96 97 O2 Delivery Room Air Room Air Room Air Room Air 11/28/22 00:00 Intake Total 4450 ml Output Total 3060 ml Balance 1390 ml Constitutional: AAO x 3, well-developed, well-nourished Respiratory: No accessory muscle use; chest expansion is symmetric, chest is bilaterally symmetric, other (good, bilat air entry) Cardiovascular: regular rate-rhythm, S1 and S2, systolic murmur (soft RITU at card base) Gastrointestional: No tender; soft; No guarding, No rebound; audible bowel sounds Extremities: No clubbing, No cyanosis, No significant edema Neurologic/Psychiatric: oriented x 3, other (moves all limbs equally) Results/Procedures: Labs Laboratory Tests 11/28/22 05:09: White Blood Count 6.9, Red Blood Count 4.02L, Hemoglobin 12.5L, Hematocrit 38L, Mean Corpuscular Volume 94, Mean Corpuscular Hemoglobin 31, Mean Corpuscular Hemoglobin Concent 33, Red Cell Distribution Width 12.9, Platelet Count 163, Mean Platelet Volume 9.5, Immature Granulocyte % (Auto) 0, Neutrophils (%) (Auto) 68, Lymphocytes (%) (Auto) 25, Monocytes (%) (Auto) 6, Eosinophils (%) (Auto) 2, Basophils (%) (Auto) 0, Neutrophils # (Auto) 4.7, Lymphocytes # (Auto) 1.7, Monocytes # (Auto) 0.4, Eosinophils # (Auto) 0.1, Basophils # (Auto) 0.0, Immature Granulocyte # (Auto) 0.0, Sodium Level 141, Potassium Level 4.5, Chloride Level 115H, Carbon Dioxide Level 20L, Anion Gap 6, Blood Urea Nitrogen 16, Creatinine 1.40H, Estimat Glomerular Filtration Rate 58, BUN/Creatinine Ratio 11, Glucose Level 96, Calcium Level 8.1L, Corrected Calcium 8.7, Phosphorus Level 2.7, Magnesium Level 2.0, Total Bilirubin 1.2H, Aspartate Amino Transf (AST/SGOT) 19, Alanine Aminotransferase (ALT/SGPT) 37, Alkaline Phosphatase 58, Total Protein 5.4L, Albumin 3.2 Microbiology 11/27/22 MRSA Screen - Final, Complete MRSA not isolated Laboratory Tests 11/26/22 21:20 11/27/22 05:06 11/28/22 05:09 A/P: Assessment: Syncope, likely vasovagal/neurocardiogenic (promoted by dehydration that the patient appears to have had at presentation) - Echo on 11-27-22: LVEF 65-70%, mild to mod enlargement of LA, PASP 40-45 mmHg Ac renal failure: intravascular volume depletion and/or post-obstructive uropathy (has h/o prostate enlargement) - managed by Dr Bhatt H/o bradycardia treated with dual chamber pacemaker - managed by his EP Dr Gonzalez in [place], [place]. Report last check in late October 2022 and device functioning normally H/o mild CAD - managed by his telecommunications administrator Dr Vazquez in [place], [place]. - reports h/o card cath in or around 2018. Was told had mild CAD that did not require any mechanical intervention - Pt reports recent stress that did not show any significant abn Plan: * no recurrence of symptoms, bp stable, and renal function improved after hydration * pacemaker functioning normally * Dr Bhatt managing acute renal failure * monitor labs * ok to d/c from cardiac standpoint. Advised to f/u with his EP and his telecommunications administrator in [place], [place] MARK WILLETT MD FACP [facility] CCDS Nov 28, 2022 11:19
[2022-11-28] MEDS ORDERED: TMSL.4C PO (11:32)
--- NOTE | 2022-11-28 11:34 | Discharge Summary ---
Diagnosis/Chief Complaint Date of Admission Nov 27, 2022 at 00:20 Date of Discharge Discharge Date: Nov 28, 2022 Discharge Diagnosis Assessment: Syncopal episode with dehydration and acute kidney injury with heat exposure Head injury history 2020 Acute kidney injury Hypertension Hyperlipidemia Sinus node dysfunction pacemaker in place Gout Somatization Hypersensitivity to pain Plan: Pain control IV fluid ICU Echo Cardiology consult Home meds Discharge Summary Discharge Physical Examination Allergies: Coded Allergies: No Known Drug Allergies (Unverified , 01/11/11) Vitals & I&Os Vital Signs Date Time Temp Pulse Resp B/P (MAP) Pulse Ox O2 Delivery O2 Flow Rate FiO2 11/28/22 12:13 36.3 70 12 139/91 97 Room Air 0.00 General Appearance: Alert, Oriented X3, Cooperative Respiratory: Clear to Auscultation Cardiovascular: Regular Rate Psych/Mental Status: Mental Status NL Hospital Course Was the Problem List Reviewed?: Yes Hospital course: patient had a lengthy course while in ICU. He was admitted for suspicion of a CVA with weakness and left sided weakness. Cardiology consulted. Home meds restarted. IVF initiated aggressively. MARIMAR improved with IVF and patient had good UOP and creat was back to baseline. Heat exposure avoidance and increasing fluid intake was recommended and Urology referral was recommended along with Neurology. Labs (last 24 hrs) Laboratory Tests 11/26/22 21:20: White Blood Count 13.0H, Red Blood Count 4.47, Hemoglobin 13.8, Hematocrit 43, Mean Corpuscular Volume 95, Mean Corpuscular Hemoglobin 31, Mean Corpuscular Hemoglobin Concent 33, Red Cell Distribution Width 12.9, Platelet Count 222, Mean Platelet Volume 9.2, Immature Granulocyte % (Auto) 0, Neutrophils (%) ( Auto) 76H, Lymphocytes (%) (Auto) 17, Monocytes (%) (Auto) 6, Eosinophils (%) (Auto) 1, Basophils (%) (Auto) 0, Neutrophils # (Auto) 9.9H, Lymphocytes # (Auto) 2.2, Monocytes # (Auto) 0.8, Eosinophils # (Auto) 0.1, Basophils # (Auto) 0.0, Immature Granulocyte # (Auto) 0.1, Sodium Level 140, Potassium Level 4.4, Chloride Level 104, Carbon Dioxide Level 21, Anion Gap 15H, Blood Urea Nitrogen 21H, Creatinine 2.75H, Estimat Glomerular Filtration Rate 26, BUN/Creatinine Ratio 8, Glucose Level 150H, Calcium Level 9.1, Corrected Calcium 9.3, Magnesium Level 1.9, Total Bilirubin 1.1H, Aspartate Amino Transf (AST/SGOT) 30, Alanine Aminotransferase (ALT/SGPT) 47, Alkaline Phosphatase 71, Total Creatine Kinase 211H, Troponin I < 0.30, Pro-B-Type Natriuretic Peptide 56.8, Total Protein 6.3L , Albumin 3.8 11/26/22 22:16: Lactic Acid Level 2.66*H 11/26/22 22:55: Urine Color YELLOW, Urine Clarity CLEAR, Urine pH 6.0, Urine Specific [place] 1.015L, Urine Protein 1+H, Urine Glucose (UA) NEGATIVE, Urine Ketones NEGATIVE, Urine Nitrite NEGATIVE, Urine Bilirubin NEGATIVE, Urine Urobilinogen 0.2, Urine Leukocyte Esterase NEGATIVE, Urine RBC (Auto) NEGATIVE, Urine RBC 2-5H, Urine WBC 5-10H, Urine Squamous Epithelial Cells NONE, Urine Crystals NONE, Urine Bacteria MODERATEH, Urine Casts PRESENT, Urine Hyaline Casts 10-25H, Urine Mucus LARGEH, Urine Other SPERM PRESENT, Urine Culture Indicated YES, Urine Opiates Screen NEGATIVE, Urine Oxycodone Screen NEGATIVE, Urine Methadone Screen NEGATIVE, Urine Propoxyphene Screen NEGATIVE, Urine Barbiturates Screen NEGATIVE, Ur Tricyclic Antidepressants Screen NEGATIVE, Urine Phencyclidine Screen NEGATIVE, Urine Amphetamines Screen NEGATIVE, Urine Methamphetamines Screen NEGATIVE, Urine Benzodiazepines Screen NEGATIVE, Urine Cocaine Screen NEGATIVE, Urine Cannabinoids Screen NEGATIVE 11/27/22 05:06: White Blood Count 10.3, Red Blood Count 4.15L, Hemoglobin 12.9L, Hematocrit 39L, Mean Corpuscular Volume 93, Mean Corpuscular Hemoglobin 31, Mean Corpuscular He moglobin Concent 34, Red Cell Distribution Width 13.1, Platelet Count 197, Mean Platelet Volume 9.1, Immature Granulocyte % (Auto) 0, Neutrophils (%) (Auto) 73, Lymphocytes (%) (Auto) 19, Monocytes (%) (Auto) 7, Eosinophils (%) (Auto) 1, Basophils (%) (Auto) 0, Neutrophils # (Auto) 7.5, Lymphocytes # (Auto) 1.9, Monocytes # (Auto) 0.7, Eosinophils # (Auto) 0.1, Basophils # (Auto) 0.0, Immature Granulocyte # (Auto) 0.0, Sodium Level 138, Potassium Level 4.4, Chloride Level 111H, Carbon Dioxide Level 19L, Anion Gap 8, Blood Urea Nitrogen 21H, Creatinine 2.10H, Estimat Glomerular Filtration Rate 35, BUN/Creatinine Ratio 10, Glucose Level 103, Calcium Level 8.2L, Corrected Calcium 8.7, Magnesium Level 1.9, Total Bilirubin 1.2H, Aspartate Amino Transf (AST/SGOT) 23, Alanine Aminotransferase (ALT/SGPT) 44, Alkaline Phosphatase 61, Total Protein 5.7L, Albumin 3.4, Lactic Acid Level 1.05, Prothrombin Time 13.3, INR Comment 1.0, Activated Partial Thromboplast Time 27, Phosphorus Level 4.4, Triglycerides Level 146, Cholesterol Level 126, LDL Cholesterol Direct 81, VLDL Cholesterol 29, HDL Cholesterol 30L 11/28/22 05:09: White Blood Count 6.9, Red Blood Count 4.02L, Hemoglobin 12.5L, Hematocrit 38L, Mean Corpuscular Volume 94, Mean Corpuscular Hemoglobin 31, Mean Corpuscular Hemoglobin Concent 33, Red Cell Distribution Width 12.9, Platelet Count 163, Mean Platelet Volume 9.5, Immature Granulocyte % (Auto) 0, Neutrophils (%) (Auto) 68, Lymphocytes (%) (Auto) 25, Monocytes (%) (Auto) 6, Eosinophils (%) (Auto) 2, Basophils (%) (Auto) 0, Neutrophils # (Auto) 4.7, Lymphocytes # (Auto) 1.7, Monocytes # (Auto) 0.4, Eosinophils # (Auto) 0.1, Basophils # (Auto) 0.0, Immature Granulocyte # (Auto) 0.0, Sodium Level 141, Potassium Level 4.5, Chloride Level 115H, Carbon Dioxide Level 20L, Anion Gap 6, Blood Urea Nitrogen 16, Creatinine 1.40H, Estimat Glomerular Filtration Rate 58, BUN/Creatinine Ratio 11, Glucose Level 96, Calcium Level 8.1L, Corrected Calcium 8.7, Phosphorus Level 2.7, Magnesium Level 2.0, Total Bilirubin 1.2H, Aspartate Amino Transf (AST/SGOT) 19, Alanine Aminotransferase (ALT/SGPT) 37, Alkaline Phosphatase 58, Total Protein 5.4L, Albumin 3.2 Microbiology 11/27/22 MRSA Screen - Final, Complete MRSA not isolated 11/26/22 Urine Culture - Final, Complete NO GROWTH Pending Labs Microbiology Date/Time Source Procedure Growth Status 11/27/22 00:45 Nasal MRSA Screen - Final MRSA not isolated Complete 11/26/22 22:55 Urine Straight Cath, In/Out Urine Culture - Final NO GROWTH Complete Laboratory Tests 11/26/22 21:20: White Blood Count 13.0, Red Blood Count 4.47, Hemoglobin 13.8, Hematocrit 43, Mean Corpuscular Volume 95, Mean Corpuscular Hemoglobin 31, Mean Corpuscular Hemoglobin Concent 33, Red Cell Distribution Width 12.9, Platelet Count 222, Mean Platelet Volume 9.2, Immature Granulocyte % (Auto) 0, Neutrophils (%) (Auto) 76, Lymphocytes (%) (Auto) 17, Monocytes (%) (Auto) 6, Eosinophils (%) (Auto) 1, Basophils (%) (Auto) 0, Neutrophils # (Auto) 9.9, Lymphocytes # (Auto) 2.2, Monocytes # (Auto) 0.8, Eosinophils # (Auto) 0.1, Basophils # (Auto) 0.0, Immature Granulocyte # (Auto) 0.1, Sodium Level 140, Potassium Level 4.4, Chloride Level 104, Carbon Dioxide Level 21, Anion Gap 15, Blood Urea Nitrogen 21, Creatinine 2.75, Estimat Glomerular Filtration Rate 26, BUN/Creatinine Ratio 8, Glucose Level 150, Calcium Level 9.1, Corrected Calcium 9.3, Magnesium Level 1.9, Total Bilirubin 1.1, Aspartate Amino Transf (AST/SGOT) 30, Alanine Aminotransferase (ALT/SGPT) 47, Alkaline Phosphatase 71, Total Creatine Kinase 211, Troponin I < 0.30, Pro-B-Type Natriuretic Peptide 56.8, Total Protein 6.3, Albumin 3.8 11/26/22 22:16: Lactic Acid Level 2.66 11/26/22 22:55: Urine Color YELLOW, Urine Clarity CLEAR, Urine pH 6.0, Urine Specific [place] 1.015, Urine Protein 1+, Urine Glucose (UA) NEGATIVE, Urine Ketones NEGATIVE, Urine Nitrite NEGATIVE, Urine Bilirubin NEGATIVE, Urine Urobilinogen 0.2, Urine Leukocyte Esterase NEGATIVE, Urine RBC (Auto) NEGATIVE, Urine RBC 2-5, Urine WBC 5-10, Urine Squamous Epithelial Cells NONE, Urine Crystals NONE, Urine Bacteria MODERATE, Urine Casts PRESENT, Urine Hyaline Casts 10-25, Urine Mucus LARGE, Urine Other SPERM PRESENT, Urine Culture Indicated YES, Urine Opiates Screen NEGATIVE, Urine Oxycodone Screen NEGATIVE, Urine Methadone Screen NEGATIVE, Urine Propoxyphene Screen NEGATIVE, Urine Barbiturates Screen NEGATIVE, Ur Tricyclic Antidepressants Screen NEGATIVE, Urine Phencyclidine Screen NEGATIVE, Urine Amphetamines Screen NEGATIVE, Urine Methamphetamines Screen NEGATIVE, Urine Benzodiazepines Screen NEGATIVE, Urine Cocaine Screen NEGATIVE, Urine Cannabinoids Screen NEGATIVE 11/27/22 05:06: White Blood Count 10.3, Red Blood Count 4.15, Hemoglobin 12.9, Hematocrit 39, Mean Corpuscular Volume 93, Mean Corpuscular Hemoglobin 31, Mean Corpuscular Hemoglobin Concent 34, Red Cell Distribution Width 13.1, Platelet Count 197, Mean Platelet Volume 9.1, Immature Granulocyte % (Auto) 0, Neutrophils (%) (Auto) 73, Lymphocytes (%) (Auto) 19, Monocytes (%) (Auto) 7, Eosinophils (%) (Auto) 1, Basophils (%) (Auto) 0, Neutrophils # (Auto) 7.5, Lymphocytes # (Auto) 1.9, Monocytes # (Auto) 0.7, Eosinophils # (Auto) 0.1, Basophils # (Auto) 0.0, Immature Granulocyte # (Auto) 0.0, Sodium Level 138, Potassium Level 4.4, Chloride Level 111, Carbon Dioxide Level 19, Anion Gap 8, Blood Urea Nitrogen 21, Creatinine 2.10, Estimat Glomerular Filtration Rate 35, BUN/Creatinine Ratio 10, Glucose Level 103, Calcium Level 8.2, Corrected Calcium 8.7, Magnesium Level 1.9, Total Bilirubin 1.2, Aspartate Amino Transf (AST/SGOT) 23, Alanine Aminot ransferase (ALT/SGPT) 44, Alkaline Phosphatase 61, Total Protein 5.7, Albumin 3.4, Lactic Acid Level 1.05, Prothrombin Time 13.3, INR Comment 1.0, Activated Partial Thromboplast Time 27, Phosphorus Level 4.4, Triglycerides Level 146, Cholesterol Level 126, LDL Cholesterol Direct 81, VLDL Cholesterol 29, HDL Cholesterol 30 11/28/22 05:09: White Blood Count 6.9, Red Blood Count 4.02, Hemoglobin 12.5, Hematocrit 38, Mean Corpuscular Volume 94, Mean Corpuscular Hemoglobin 31, Mean Corpuscular Hemoglobin Concent 33, Red Cell Distribution Width 12.9, Platelet Count 163, Mean Platelet Volume 9.5, Immature Granulocyte % (Auto) 0, Neutrophils (%) (Auto) 68, Lymphocytes (%) (Auto) 25, Monocytes (%) (Auto) 6, Eosinophils (%) (Auto) 2, Basophils (%) (Auto) 0, Neutrophils # (Auto) 4.7, Lymphocytes # (Auto) 1.7, Monocytes # (Auto) 0.4, Eosinophils # (Auto) 0.1, Basophils # (Auto) 0.0, Immature Granulocyte # (Auto) 0.0, Sodium Level 141, Potassium Level 4.5, Chloride Level 115, Carbon Dioxide Level 20, Anion Gap 6, Blood Urea Nitrogen 16, Creatinine 1.40, Estimat Glomerular Filtration Rate 58, BUN/Creatinine Ratio 11, Glucose Level 96, Calcium Level 8.1, Corrected Calcium 8.7, Phosphorus Level 2.7, Magnesium Level 2.0, Total Bilirubin 1.2, Aspartate Amino Transf (AST/SGOT) 19, Alanine Aminotransferase (ALT/SGPT) 37, Alkaline Phosphatase 58, Total Protein 5.4, Albumin 3.2 Discharge Home Medications: Active Scripts Active Flomax (Tamsulosin HCl) 0.4 Mg Cap 0.4 Mg PO BID Reported Cyclobenzaprine HCl 10 Mg Tablet 10 Mg PO TID Flecainide Acetate 100 Mg Tablet 100 Mg PO BID Verapamil ER (Verapamil HCl) 120 Mg Tablet.er 120 Mg PO DAILY LAST FILLED 11-05-2020 #30/30 DAY SUPPLY Mitigare (Colchicine) 0.6 Mg Capsule 0.6 Mg PO Q48H PRN Lysine 1,000 Mg Tablet 1,000 Mg PO BID Aspirin EC (Aspirin) 81 Mg Tablet.dr 81 Mg PO DAILY Atorvastatin Calcium 40 Mg Tablet 40 Mg PO HS Pantoprazole Sodium 40 Mg Tablet.dr 40 Mg PO DAILY Sucralfate 1 Gm Tablet 1 Gm PO BID Fluoxetine HCl 20 Mg Capsule 40 Mg PO DAILY TAKES 2 (20MG) CAPS Olanzapine 10 Mg Tablet 10 Mg PO HS Instructions to patient/family Please see electronic discharge instructions given to patient. FRANK GARCIA DO Nov 28, 2022 11:34
[2022-11-28 12:13] VITALS: BP 139/91
== END 2022-11-28 12:10 | disposition home or self-care (01) | DRG 641 ==
LOC: EDUNIT# 21:15 → ER FS 21:16 → ICU 11-27 00:20
PROVIDERS: ADMIT Internal Medicine; ATTEND Internal Medicine
DX: E86.0 Dehydration (principal); N17.9 Acute kidney failure, unspecified; Z95.0 Presence of cardiac pacemaker; Z95.5 Presence of coronary angioplasty implant and graft; E78.00 Pure hypercholesterolemia, unspecified; I10 Essential (primary) hypertension; K21.9 Gastro-esophageal reflux disease without esophagitis; M19.90 Unspecified osteoarthritis, unspecified site; G89.29 Other chronic pain; M54.9 Dorsalgia, unspecified; F41.9 Anxiety disorder, unspecified; F32.A Depression, unspecified; I25.10 Atherosclerotic heart disease of native coronary artery without angina pectoris; Z86.73 Personal history of transient ischemic attack (TIA), and cerebral infarction without residual deficits; M10.9 Gout, unspecified; N40.0 Benign prostatic hyperplasia without lower urinary tract symptoms; F45.9 Somatoform disorder, unspecified; R53.1 Weakness; X32.XXXA Exposure to sunlight, initial encounter; N13.9 Obstructive and reflux uropathy, unspecified; Z79.82 Long term (current) use of aspirin; Z79.899 Other long term (current) drug therapy; I95.1 Orthostatic hypotension
CPT/HCPCS: 36415; 51702; 70450; 70496; 70498; 71045; 80053; 80061; 80306; 81000; 82550; 83605; 83735; 83880; 84100; 84484; 85025; 85027; 85610; 85730; 87081; 87088; 93005; 93306